=== PATIENT | female | born 1935 | race Caucasian/White ===

== ENCOUNTER → 2017-12-26 12:22 | Outpatient (CLI) | payer MEDICARE, OTHER, SELFPAY ==
--- NOTE | 2017-12-26 12:31 | RAD_ITS ---
STUDY: X-RAY - NASAL BONES REASON FOR EXAM: Female, 82 years old. MASS ON RIGHT SIDE OF MID NASAL BRIDGE. TECHNIQUE: 3 view(s) of the nasal bones. COMPARISON: None. FINDINGS: Normal nasal bones. Normal anterior nasal spine. There is no demonstrated soft tissue swelling. The remaining visualized osseous structures are normal. Normal visualized paranasal sinuses. RAD/Nasal Bones min 3 Views IMPRESSION: Normal x-ray examination of the nasal bones. Electronically Signed: Wilver Milton MD at 17:12 EST , Service support ,
== END ==
PROVIDERS: Family Provider Internal Medicine; PCP Internal Medicine; Visit Provider Internal Medicine
DX: R22.0 Localized swelling, mass and lump, head (principal)
CPT/HCPCS: 70160

== ENCOUNTER → 2018-01-02 09:31 | Outpatient (CLI) | payer MEDICARE, OTHER, SELFPAY ==
--- NOTE | 2018-01-02 12:46 | STRESSREP ---
Stress Test Report Stress test. 82-year-old lady with a history of dyspnea. Stress protocol: Resting EKG demonstrates normal sinus rhythm with a rate of 90 bpm. The patient exercised according to the regular [facility] protocol for total duration of 3 minutes the maximum heart rate attained was 142 bpm which was 101% of maximum predicted heart rate the maximum workload attained was 4.6 metabolic equivalents. At rest there were no ST or T-wave changes noted suggest ischemia at peak exercise upsloping ST changes only were noted with no meet the criteria for ischemia. No clinical angina was noted. Resting blood pressure is 124/82 with a peak blood pressure 172/80. The test was terminated due to shortness of breath. Exercise stress test with no EKG criteria for ischemia at a low workload. Good functional aerobic capacity for an 82-year-old. No obvious ischemia noted.
== END ==
PROVIDERS: Family Provider Internal Medicine; PCP Internal Medicine; Visit Provider Internal Medicine Cardiovascular Disease
DX: R06.02 Shortness of breath (principal); R06.09 Other forms of dyspnea
CPT/HCPCS: 93017

== ENCOUNTER → 2018-02-26 10:49 | Outpatient (CLI) | payer MEDICARE, OTHER, SELFPAY ==
--- NOTE | 2018-02-26 10:51 | BI_ITS ---
MAMMOGRAPHY - BILATERAL SCREENING 3-D KIKA SYNTHESIS REASON FOR EXAM: Female, 82 years old. Bilateral Screening 3-D tomosynthesis PERTINENT HISTORY: No significant family history. TECHNIQUE: 2-D mammograms and 3-D Kika synthesis of the breast (s) were performed. CAD was performed. COMPARISON: None. FINDINGS: The breast composition is composed of scattered fibroglandular density. Scattered benign calcifications are seen. No dense spiculated masses or suspicious microcalcifications are identified. No architectural distortion is identified. There is no skin thickening or retraction. There has been no significant change since the prior study. There has been no significant change since the prior study. BI/SCREENING MAMM (CAD), BILAT IMPRESSION: No mammographic signs of malignancy. Routine yearly mammograms recommended. ASSESSMENT CATEGORY: BIRADS Category 1: Negative. A letter regarding these results will be sent to the patient by the facility within 30 days. FOLLOW UP RECOMMENDATION: Yearly follow up mammogram recommended. (A) Approximately 10% of breast cancers are not detected by mammography. A normal mammogram should not delay biopsy of a clinically suspicious abnormality. Electronically Signed: Nnamdi Singh MD at 12:52 EDT , Service support ,
== END ==
PROVIDERS: Family Provider Internal Medicine; PCP Internal Medicine; Visit Provider Internal Medicine
DX: Z12.31 Encounter for screening mammogram for malignant neoplasm of breast (principal)
CPT/HCPCS: 77063; 77067

== ENCOUNTER → 2018-07-11 13:20 | Outpatient (CLI) | payer MEDICARE, OTHER, SELFPAY ==
[2018-07-11] MEDS: Zoledronic Acid 5 MG 100 ML 300 MG IV (13:44)
[2018-07-11 13:45] VITALS: BP 108/60; PULSE 59; RESP 15; TEMP 36.5; O2SAT 96; BMI 30.8
== END ==
PROVIDERS: Family Provider Internal Medicine; PCP Internal Medicine; Visit Provider Internal Medicine
DX: M81.0 Age-related osteoporosis without current pathological fracture (principal)
CPT/HCPCS: 96365; J7050; A4216; J3489

== ENCOUNTER → 2018-09-04 12:17 | Outpatient (CLI) | payer MEDICARE, OTHER, SELFPAY ==
--- NOTE | 2018-09-04 12:19 | CT_ITS ---
STUDY: LOW DOSE CT LUNG CANCER SCREENING REASON FOR EXAM: Female, 82 years old. Screening for lung cancer. RADIATION DOSAGE (If Supplied By Facility): CTDIvol = ( 2.55 ) mGy, DLP = ( 84.87 ) mGycm TECHNIQUE: No contrast was administered. Low dose technique was utilized (average mAS-38 and kVp 120). 1.25 mm axial source images with a slice interval of 1.25-mm were reconstructed in lung windows. 2.5 mm axial source images with a slice interval of 2.5-mm were reconstructed in lung windows. 5.0 mm axial source images with a slice interval of 5.0-mm were reconstructed in soft tissue windows. Nodule measured using lung windows on PACS and/or independent workstation with automated measurement of minimum and maximum diameter. Nodule measurement reported as average diameter rounded to the nearest whole number. Growth is defined as an increase ins size of greater than 1.5 mm. COMPARISON: None. NODULES: Hyperinflation is noted in both lungs suggesting COPD. There is no demonstrated pleural abnormality. Normal heart and pericardium. Normal mediastinum. Normal hilar regions. Normal unenhanced pulmonary arteries. Normal aorta arch and descending thoracic aorta. There are multi-level degenerative changes of the thoracic spine. There is no demonstrated abnormality of the visualized upper abdomen. CT/Low Dose CT Lung Screening IMPRESSION: Lung-RADS category 2. Benign findings. Recommendation: Routine screening CT scan in one year. IMPORTANT NOTES FOR USE: ACR Lung-RADS Version 1.0 Assessment Categories Release Date: February 24, 2014 Category: Coded 0-4 bases on nodule(s) with highest degree of suspicion. Negative screen is defined as categories 1 and 2; a positive screen is defined as categories 3 and 4. Category 3 and 4A nodules that are unchanged on interval CT should be coded as category 2, and individuals returned to screening in 12 months. Category 4X: Category 3 or 4 nodules with additional imaging findings that increase the suspicion of lung cancer, such as spiculation, GGN that doubles in size in 1 year, enlarged lymph notes, etc. Category Modifiers: S (significant finding unrelated to lung cancer) and C (prior history of treated lung cancer) may be added to the 0-4 Lung-RADS Electronically Signed: Julia Umana MD at 8:13 EST Tel , Service support ,
== END ==
PROVIDERS: Family Provider Internal Medicine; PCP Internal Medicine; Referring Provider Internal Medicine Pulmonary Disease; Visit Provider Internal Medicine Pulmonary Disease
DX: Z87.891 Personal history of nicotine dependence (principal)
CPT/HCPCS: G0297

== ENCOUNTER → 2019-01-03 12:39 | Outpatient (CLI) | payer MEDICARE, OTHER, SELFPAY ==
[2019-01-03 12:57] LABS: Erythrocyte Sedimentation Rate 8 mm/hr (0-30)
[2019-01-03 13:01] LABS: CRP < 2.90 mg/L (0.0-3.0)
== END ==
PROVIDERS: Family Provider Internal Medicine; PCP Internal Medicine; Referring Provider Internal Medicine; Visit Provider Internal Medicine
DX: R51 Headache (principal)
CPT/HCPCS: 85652; 86140

== ENCOUNTER → 2019-02-28 10:15 | Outpatient (CLI) | payer MEDICARE, OTHER, SELFPAY ==
--- NOTE | 2019-02-28 10:19 | BI_ITS ---
MAMMOGRAPHY - BILATERAL SCREENING REASON FOR EXAM: Female, 83 years old. Routine annual screening examination. PERTINENT HISTORY: Non-contributory. TECHNIQUE: Digital bilateral breast roddy (3D mammographic acquisition) in the CC and MLO projections. 2-D mediolateral oblique (MLO) and craniocaudad (CC) views of both breasts were obtained. CAD: Full Field Digital Mammography with Computer Added Detection was performed. COMPARISON: Comparison is made with prior study dated February 26, 2018 and February 22, 2017. FINDINGS: Breast Composition: There are scattered areas of fibroglandular density. There are no dominant masses or suspicious calcifications. No other significant abnormalities are identified. There has been no significant change since the prior study. BI/SCREENING MAMM (CAD), BILAT IMPRESSION: Stable bilateral screening mammogram. Yearly follow-up mammogram recommended. (A) ASSESSMENT CATEGORY: BIRADS Category 1: Negative. A letter regarding these results will be sent to the patient by the facility within 30 days. Approximately 10% of breast cancers are not detected by mammography. A normal mammogram should not delay biopsy of a clinically suspicious abnormality. [id number] Electronically Signed: Marky Colunga, at 12:47 EDT , Service support ,
--- NOTE | 2019-02-28 10:30 | BD_ITS ---
STUDY: DUAL ENERGY X-RAY ABSORPTIOMETRY / DXA REASON FOR EXAM: Female, 83 years old. The patient is postmenopausal. Loss of height. TECHNIQUE: Bone Mineral Density (BMD) measurements of lumbar spine and bilateral hips were obtained. COMPARISON: Comparison is made with prior study dated February 22, 2017. FINDINGS: Lumbar Spine (L1-L4): g/cm2 (0.925) / T-score (-2.1) / Z-score (-0.3) Findings are suggestive of osteopenia with a moderate fracture risk. Left Femur Total: g/cm2 (0.747) / T-score (-2.1) / Z-score (0.0) Left Femoral Neck: g/cm2 (0.613) / T-score (-3.1) / Z-score (10.8) Right Femur Total: g/cm2 (0.696) / T-score (-2.5) / Z-score (-0.4) Right Femoral Neck: g/cm2 (0.626) / T-score (-3.0) / Z-score (-0.8) The T-Scores on the most recent prior examination were: Lumbar Spine (L1-L4): There has been improvement of bone density since the previous examination. Left Femur Total: which represents an improvement of 0.3%. Right Femur Total: which represents a worsening of 4%. BD/Dexa Bone Density Study IMPRESSION: The patient is considered osteoporotic as outlined below according to World Tony Organization (WHO) criteria with a high fracture risk. There has been improvement of bone density since the previous examination. Reference Information: The T-score is the number of standard deviations above or below the standard which is normal for young adults at their peak bone mineral density. The World Health Organization (WHO) interprets the T-scores as follows: Above -1 Normal bone density Between -1 and -2.5 Osteopenia Equal to / or below -2.5 Osteoporosis As a practical clinical guideline, osteopenia may be graded as follows: Mild -1 through -1.5 Moderate -1.6 through -2.0 Severe -2.1 through -2.4 The Z-score is the number of standard deviations above or below age-matched controls. A Z-score of less than -1.5 would be considered abnormal. References: 1. NIH Osteoporosis and Related Bone Diseases http://www.osteo.org 2. International Society for Clinical Densitometry http://www.iscd.org 3. National Osteoporosis Foundation http://www.nof.org Electronically Signed: Marky Colunga, at 15:38 EDT , Service support ,
== END ==
PROVIDERS: Family Provider Internal Medicine; PCP Internal Medicine; Referring Provider Internal Medicine; Visit Provider Internal Medicine
DX: Z12.31 Encounter for screening mammogram for malignant neoplasm of breast (principal); M81.0 Age-related osteoporosis without current pathological fracture; Z78.0 Asymptomatic menopausal state
CPT/HCPCS: 77063; 77067; 77080

== ENCOUNTER → 2019-07-18 10:22 | Outpatient (CLI) | payer MEDICARE, OTHER, SELFPAY ==
[2019-07-18] MEDS: Zoledronic Acid 5 MG 100 ML 300 MG IV (10:51)
[2019-07-18 10:52] VITALS: BP 170/53; PULSE 86; RESP 16; TEMP 36.9; O2SAT 98; BMI 27.0
== END ==
PROVIDERS: Family Provider Internal Medicine; PCP Internal Medicine; Referring Provider Internal Medicine; Visit Provider Internal Medicine
DX: M81.0 Age-related osteoporosis without current pathological fracture (principal)
CPT/HCPCS: 96365; A4216; J3489

== ENCOUNTER → 2019-09-04 12:32 | Outpatient (CLI) | payer MEDICARE, OTHER, SELFPAY ==
[2019-08-23 11:27] VITALS: BMI 27.6
--- NOTE | 2019-09-04 12:34 | CT_ITS ---
STUDY: LOW DOSE CT LUNG CANCER SCREENING REASON FOR EXAM: Female, 83 years old. Long history of smoking. Screening for lung cancer. RADIATION DOSAGE (If Supplied By Facility): CTDIvol = ( 1.70 ) mGy, DLP = ( 52.97 ) mGycm TECHNIQUE: No contrast was administered. Low dose technique was utilized (average mAS-38 and kVp 120). 1.25 mm axial source images with a slice interval of 1.25-mm were reconstructed in lung windows. 2.5 mm axial source images with a slice interval of 2.5-mm were reconstructed in lung windows. 5.0 mm axial source images with a slice interval of 5.0-mm were reconstructed in soft tissue windows. Nodule measured using lung windows on PACS and/or independent workstation with automated measurement of minimum and maximum diameter. Nodule measurement reported as average diameter rounded to the nearest whole number. Growth is defined as an increase ins size of greater than 1.5 mm. COMPARISON: None. NODULES: The lungs are clear and expanded. There is no demonstrated pleural abnormality. Normal heart and pericardium. Normal mediastinum. Normal hilar regions. Normal unenhanced pulmonary arteries. There is atherosclerotic calcification of the aortic arch with tortuosity and elongation of the aortic arch and descending thoracic aorta. There are multi-level degenerative changes of the thoracic spine. There is no demonstrated abnormality of the visualized upper abdomen. CT/Low Dose CT Lung Screening IMPRESSION: Lung-RADS category 2. Benign findings. Recommendation: Routine screening CT scan in one year. IMPORTANT NOTES FOR USE: ACR Lung-RADS Version 1.0 Assessment Categories Release Date: February 24, 2014 Category: Coded 0-4 bases on nodule(s) with highest degree of suspicion. Negative screen is defined as categories 1 and 2; a positive screen is defined as categories 3 and 4. Category 3 and 4A nodules that are unchanged on interval CT should be coded as category 2, and individuals returned to screening in 12 months. Category 4X: Category 3 or 4 nodules with additional imaging findings that increase the suspicion of lung cancer, such as spiculation, GGN that doubles in size in 1 year, enlarged lymph notes, etc. Category Modifiers: S (significant finding unrelated to lung cancer) and C (prior history of treated lung cancer) may be added to the 0-4 Lung-RADS Electronically Signed: Julia Umana, at 1:20 EST Tel , Service support ,
== END ==
PROVIDERS: Family Provider Internal Medicine; PCP Internal Medicine; Referring Provider Internal Medicine Pulmonary Disease; Visit Provider Internal Medicine Pulmonary Disease
DX: Z12.2 Encounter for screening for malignant neoplasm of respiratory organs (principal); Z87.891 Personal history of nicotine dependence
CPT/HCPCS: G0297

== ENCOUNTER → 2019-09-05 12:38 | Outpatient (CLI) | payer MEDICARE, OTHER, SELFPAY ==
[2019-08-23 11:27] VITALS: BMI 27.6
--- NOTE | 2019-09-05 12:40 | ECHOD_ITS ---
Reason For Study: MURMUR Procedure This was a 2D Doppler, Color Flow transthoracic echocardiogram. The exam was of adequate technical quality. Exam performed in department. Left Ventricle Normal LV size. Left ventricular systolic function is normal. The estimated ejection fraction is 65 %. Diastolic function is indeterminate. No regional wall motion abnormalities noted. Right Ventricle Normal RV size. Normal systolic function. Atria Normal left atrium. Normal right atrium. No doppler evidence for ASD. Mitral Valve There is no mitral annular calcification. Normal mitral valve. Mild (1+) mitral valve insufficiency. Tricuspid Valve Normal tricuspid valve. Mild tricuspid valve insufficiency. Right ventricular systolic pressure estimated to be 25 mmHg. Aortic Valve Trisinus/trileaflet aortic valve. Normal aortic valve. Pulmonic Valve The pulmonic valve is not well visualized. Mild (1+) pulmonic valve insufficiency. Great Vessels Normal sized aortic root. Calcified aortic root. Pericardium/Pleural No pericardial effusion. MMode/2D Measurements & Calculations LVIDd: 3.9 cm IVSd: 0.90 cm Ao root diam: 3.1 cm LVIDs: 2.7 cm LVPWd: 0.90 cm RVDd: 3.4 cm FS: 31.8 % LAV(MOD-bp): 37.6 ml LVAd ap4: 23.7 cm2 SV(MOD-sp4): 41.1 ml LAV(MOD-bp) Indexed: 23.2 ml/m2 EDV(MOD-sp4): 64.0 ml LAV(MOD-sp2): 35.2 ml EDV(sp4-el): 67.5 ml LAV(MOD-sp4): 35.1 ml LVAs ap4: 12.4 cm2 ESV(MOD-sp4): 22.9 ml ESV(sp4-el): 23.1 ml EF(MOD-sp4): 64.3 % EF(sp4-el): 65.8 % SV(sp4-el): 44.4 ml LA A4 area: 15.8 cm2 LA dimension(2D): 3.4 cm RA A4 area: 12.7 cm2 Time Measurements MV dec time: 0.24 sec Doppler Measurements & Calculations MV E max karthik: 96.1 cm/sec Lat Peak E' Karthik: 6.9 cm/sec Med Peak E' Karthik: 5.4 cm/sec MV A max karthik: 122.0 cm/sec E/E' lat: 13.9 E/E' med: 17.7 MV E/A: 0.79 Ao V2 max: 124.9 cm/sec LV V1 max: 106.5 cm/sec PA V2 max: 83.6 cm/sec Ao max P.2 mmHg LV V1 max P.5 mmHg PI end-d karthik: 79.2 cm/sec TR max karthik: 234.9 cm/sec TR max P.2 mmHg Interpretation Summary Left ventricular systolic function is normal. The estimated ejection fraction is 65 %. Mild (1+) mitral valve insufficiency. Mild tricuspid valve insufficiency. Mild (1+) pulmonic valve insufficiency. Calcified aortic root. Right ventricular systolic pressure estimated to be 25 mmHg. Diastolic function is indeterminate. Ordering Physician: Gregory Valentin Referring Physician: ERIC YAN Performed By: Kassi Dai, RDCS, RVT
--- NOTE | 2019-09-05 12:40 | CDU_ITS ---
Reason For Study: carotid artery disease Rt. Velocities/BP Lt. Velocities/BP Prox CCA 86.5/13.4 cm/sec. Prox CCA 115.8/16.3 cm/sec. Mid CCA 65.6/14.7 cm/sec. Mid CCA 88.8/15.1 cm/sec. Dist CCA 61.7/17.3 cm/sec. Dist CCA 91.3/22.5 cm/sec. Prox ICA 189.9/26.7 cm/sec. Prox ICA 55.3/12.4 cm/sec. Mid ICA 114.8/24.8 cm/sec. Mid ICA 85.0/17.9 cm/sec. Dist ICA 106.0/22.6 cm/sec. Dist ICA 82.8/25.6 cm/sec. Rt. ICA/CCA = 2.9. Lt. ICA/CCA = 1.0. Prox ECA 97.4/6.0 cm/sec. Prox ECA 87.5/10.2 cm/sec. Rt. Vert. 59.7/12.4 cm/sec. Lt. Vert. 56.4/12.4 cm/sec. Right Extracranial There is intimal thickening but no significant atherosclerotic plaque noted in the right common carotid artery. There is heterogeneous, irregular atherosclerotic plaque noted in the right internal carotid artery. The atherosclerotic plaque causes acoustic shadowing. There is heterogeneous, irregular atherosclerotic plaque noted in the right external carotid artery. Antegrade flow is noted in the right vertebral artery. Left Extracranial There is intimal thickening but no significant atherosclerotic plaque noted in the left common carotid artery. There is intimal thickening but no significant atherosclerotic plaque noted in the left internal carotid artery. There is intimal thickening but no significant atherosclerotic plaque noted in the left external carotid artery. Antegrade flow is noted in the left vertebral artery. Procedure Carotid Duplex [id number]. The exam was diagnostic. Exam performed in department. Interpretation Summary Moderate (50-69%) stenosis right extracranial internal carotid. Mild (<50%) stenosis left extracranial internal carotid. Flow within the vertebral arteries is antegrade bilaterally. Ordering Physician: Gregory Valentin Performed By: Philippe Da Silva RVT
== END ==
PROVIDERS: Family Provider Internal Medicine; PCP Internal Medicine; Referring Provider Internal Medicine Cardiovascular Disease; Visit Provider Internal Medicine Cardiovascular Disease
DX: I65.23 Occlusion and stenosis of bilateral carotid arteries (principal); R01.1 Cardiac murmur, unspecified
CPT/HCPCS: 93306; 93880

== ENCOUNTER → 2020-07-02 10:48 | Outpatient (CLI) | payer MEDICARE, OTHER, SELFPAY ==
[2019-08-23 11:27] VITALS: BMI 27.6
--- NOTE | 2020-07-02 10:51 | BI_ITS ---
MAMMOGRAPHY - BILATERAL SCREENING REASON FOR EXAM: Female, 84 years old. Routine annual screening examination. PERTINENT HISTORY: Non-contributory. TECHNIQUE: Digital bilateral breast kika (3D mammographic acquisition) in the CC and MLO projections. 2-D mediolateral oblique (MLO) and craniocaudad (CC) views of both breasts were obtained. CAD: Full Field Digital Mammography with Computer Added Detection was performed. COMPARISON: Comparison is made with prior study dated 02/28/2019 and 02/26/2018. FINDINGS: Breast Composition: There are scattered areas of fibroglandular density. There are no dominant masses or suspicious calcifications. No other significant abnormalities are identified. There has been no significant change since the prior study. BI/SCREEN MAMM (CAD) W/KIKA BILAT IMPRESSION: Stable bilateral screening mammogram. Yearly follow-up mammogram recommended. (A) ASSESSMENT CATEGORY: BIRADS Category 1: Negative. A letter regarding these results will be sent to the patient by the facility within 30 days. Approximately 10% of breast cancers are not detected by mammography. A normal mammogram should not delay biopsy of a clinically suspicious abnormality. [id number] Electronically Signed: Marky Colunga, at 12:24 EDT , Service support ,
== END ==
PROVIDERS: PCP Internal Medicine; Referring Provider Internal Medicine; Visit Provider Internal Medicine
DX: Z12.31 Encounter for screening mammogram for malignant neoplasm of breast (principal)
CPT/HCPCS: 77063; 77067

== ENCOUNTER → 2020-07-22 10:47 | Outpatient (CLI) | payer MEDICARE, OTHER, SELFPAY ==
[2019-08-23 11:27] VITALS: BMI 27.6
[2020-07-22] MEDS: 0.9% NaCl IVPB Med Flush (250 mL) 15 ML IV (11:06)
[2020-07-22] MEDS: Zoledronic Acid 5 MG 100 ML 300 MG IV (11:06)
[2020-07-22 11:18] VITALS: BP 131/64; PULSE 52; RESP 16; TEMP 36.2; O2SAT 96; BMI 27.3
== END ==
PROVIDERS: PCP Internal Medicine; Referring Provider Internal Medicine; Visit Provider Internal Medicine
DX: M81.0 Age-related osteoporosis without current pathological fracture (principal)
CPT/HCPCS: 96365; J7050; A4216; J3489

== ENCOUNTER → 2020-12-07 10:38 | Outpatient (CLI) | payer MEDICARE, OTHER, SELFPAY ==
[2020-11-11 13:39] VITALS: BMI 28.3
--- NOTE | 2020-12-07 10:41 | CDU_ITS ---
Reason For Study: Carotid Stenosis Rt. Velocities/BP Lt. Velocities/BP Prox CCA 84/15 cm/sec. Prox CCA 77/19 cm/sec. Mid CCA 61/18 cm/sec. Mid CCA 66/14 cm/sec. Dist CCA 55/22 cm/sec. Dist CCA 69/17 cm/sec. Prox ICA 217/28 cm/sec. Prox ICA 61/17 cm/sec. Mid ICA 183/28 cm/sec. Mid ICA 85/24 cm/sec. Dist ICA 102/19 cm/sec. Dist ICA 74/22 cm/sec. Rt. ICA/CCA = 3.5. Lt. ICA/CCA = 1.3. Prox ECA 55/13 cm/sec. Prox ECA 93/8 cm/sec. Rt. Vert. 56/10 cm/sec. Lt. Vert. 57/14 cm/sec. Right Extracranial There is heterogeneous, irregular atherosclerotic plaque noted in the right common carotid artery. There is heterogeneous, irregular atherosclerotic plaque noted in the right internal carotid artery. The atherosclerotic plaque causes acoustic shadowing. There is heterogeneous, irregular atherosclerotic plaque noted in the right external carotid artery. Antegrade flow is noted in the right vertebral artery. Left Extracranial There is intimal thickening but no significant atherosclerotic plaque noted in the left common carotid artery. There is heterogeneous, smooth atherosclerotic plaque noted in the left internal carotid artery. There is homogeneous, irregular atherosclerotic plaque noted in the left external carotid artery. Antegrade flow is noted in the left vertebral artery. Interpretation Summary Moderate (50-69%) stenosis right extracranial internal carotid. Mild (<50%) stenosis left extracranial internal carotid. Flow within the vertebral arteries is antegrade bilaterally. Ordering Physician: Romel Araiza Referring Physician: Khushi Balderrama Performed By: Dianne Caldwell, RDCS, RVT
== END ==
PROVIDERS: PCP Internal Medicine; Referring Provider Surgery Vascular Surgery; Visit Provider Surgery Vascular Surgery
DX: I65.23 Occlusion and stenosis of bilateral carotid arteries (principal); Z72.0 Tobacco use
CPT/HCPCS: 93880

== ENCOUNTER → 2021-07-06 10:32 | Outpatient (CLI) | payer MEDICARE, OTHER, SELFPAY ==
[2020-11-11 13:39] VITALS: BMI 28.3
--- NOTE | 2021-07-06 10:35 | BI_ITS ---
MAMMOGRAPHY - BILATERAL SCREENING REASON FOR EXAM: Female, 85 years old. Routine annual screening examination. PERTINENT HISTORY: Non-contributory. TECHNIQUE: Digital bilateral breast kika (3D mammographic acquisition) in the CC and MLO projections. 2-D mediolateral oblique (MLO) and craniocaudad (CC) views of both breasts were obtained. CAD: Full Field Digital Mammography with Computer Added Detection was performed. COMPARISON: Comparison is made with prior study dated 07/02/2020 and 02/28/2019. FINDINGS: Breast Composition: The breasts are almost entirely fatty. There are no dominant masses or suspicious calcifications. No other significant abnormalities are identified. There has been no significant change since the prior study. BI/SCRN MAMM (CAD)W/KIKA BILAT IMPRESSION: Stable bilateral screening mammogram. Yearly follow-up mammogram recommended. (A) ASSESSMENT CATEGORY: BIRADS Category 1: Negative. A letter regarding these results will be sent to the patient by the facility within 30 days. Approximately 10% of breast cancers are not detected by mammography. A normal mammogram should not delay biopsy of a clinically suspicious abnormality. [id number] Electronically Signed: Marky Colunga MD at 15:40 EDT , Service support ,
--- NOTE | 2021-07-06 11:00 | BD_ITS ---
STUDY: DUAL ENERGY X-RAY ABSORPTIOMETRY / DXA REASON FOR EXAM: Female, 85 years old. [id number]. Patient is postmenopausal. TECHNIQUE: Bone Mineral Density (BMD) measurements of lumbar spine and bilateral hips were obtained. COMPARISON: Comparison is made with prior examination of 02/28/2019. FINDINGS: Lumbar Spine (L1-L4): g/cm2 (0.795) / T-score (-2.3) / Z-score (0.5) Findings are suggestive of osteopenia with a high fracture risk. Left Femur Total: g/cm2 (0.679) / T-score (-2.2) / Z-score (0.1) Left Femoral Neck: g/cm2 (0.500) / T-score (-3.1) / Z-score (-0.7) Right Femur Total: g/cm2 (0.662) / T-score (-2.3) / Z-score (0.0) Right Femoral Neck: g/cm2 (0.5-0) / T-score (-3.0) / Z-score (-0.5) The T-Scores on the most recent prior examination were: Lumbar Spine (L1-L4): There has been worsening of bone density since the previous examination. Left Femur Total: which represents a worsening of 1.4%. Right Femur Total: which represents an improvement of 3.6%. BD/Dexa Bone Density Study IMPRESSION: The patient is considered osteoporotic as outlined below according to World Tony Organization (WHO) criteria with a high fracture risk. There has been worsening of bone density since the previous examination. Reference Information: The T-score is the number of standard deviations above or below the standard which is normal for young adults at their peak bone mineral density. The World Health Organization (WHO) interprets the T-scores as follows: Above -1 Normal bone density Between -1 and -2.5 Osteopenia Equal to / or below -2.5 Osteoporosis As a practical clinical guideline, osteopenia may be graded as follows: Mild -1 through -1.5 Moderate -1.6 through -2.0 Severe -2.1 through -2.4 The Z-score is the number of standard deviations above or below age-matched controls. A Z-score of less than -1.5 would be considered abnormal. References: 1. NIH Osteoporosis and Related Bone Diseases www osteo.org 2. International Society for Clinical Densitometry www iscd.org 3. National Osteoporosis Foundation www nof.org Electronically Signed: Marky Colunga MD at 13:26 EDT , Service support ,
== END ==
PROVIDERS: PCP Internal Medicine; Referring Provider Internal Medicine; Visit Provider Internal Medicine
DX: Z12.31 Encounter for screening mammogram for malignant neoplasm of breast (principal); Z78.0 Asymptomatic menopausal state
CPT/HCPCS: 77063; 77067; 77080

== ENCOUNTER → 2021-08-03 10:41 | Outpatient (CLI) | payer MEDICARE, OTHER, SELFPAY ==
[2021-08-03] MEDS: 0.9% NaCl Peripheral Flush Adult/Peds IV (10:46)
[2021-08-03 10:47] VITALS: BP 175/67; PULSE 88; RESP 16; TEMP 35.9; O2SAT 98; BMI 30.4
[2021-08-03] MEDS: 0.9% NaCl IVPB Med Flush (250 mL) 15 ML IV (10:58)
[2021-08-03] MEDS: Zoledronic Acid 5 MG 100 ML 300 MG IV (10:58)
[2021-08-03 11:40] VITALS: BP 158/68; RESP 16; TEMP 36
== END ==
PROVIDERS: PCP Internal Medicine; Referring Provider Internal Medicine; Visit Provider Internal Medicine
DX: M81.0 Age-related osteoporosis without current pathological fracture (principal)
CPT/HCPCS: 96365; J7050; A4216; J3489

== ENCOUNTER → 2021-09-01 09:43 | Outpatient (CLI) | payer MEDICARE, OTHER, SELFPAY ==
--- NOTE | 2021-09-01 09:48 | US_ITS ---
PROCEDURES: ULTRASOUND AORTA REASON FOR EXAM: Female, 85 years old. ABN ADB AORTA TECHNIQUE: Ultrasound evaluation of the aorta was performed with real-time and static mcleod-scale imaging. COMPARISON: None. FINDINGS: There is atherosclerotic plaque formation of the abdominal aorta. Aorta measures: Proximal 2.4 cm. Middle 1.2 cm. Distal 1.3 cm. Aorta measure transversely: Proximal 1.7 cm. Middle 1. cm. Distal 1.2 cm. Right iliac artery measures: 0.5 cm. Right iliac artery measure transversely: 0.7 cm. Left iliac artery measures: 0.5 cm. Left iliac artery measure transversely: 0.8 cm. There is no demonstrated aneurysm.. US/Aorta IMPRESSION: No evidence of abdominal aortic aneurysm. Atherosclerotic plaques. Electronically Signed: Marky Colunga MD at 11:09 EDT , Service support ,
== END ==
PROVIDERS: PCP Internal Medicine; Referring Provider Internal Medicine; Visit Provider Internal Medicine
DX: I73.9 Peripheral vascular disease, unspecified (principal); Q25.40 Congenital malformation of aorta unspecified
CPT/HCPCS: 76775

== ENCOUNTER → 2022-02-22 | Outpatient (CLI) | payer MEDICARE, OTHER, SELFPAY | END | disposition home or self-care (01) | LOC: PSN 10:46 | PROVIDERS: PCP Internal Medicine; Referring Provider Internal Medicine; Visit Provider Internal Medicine | DX: R00.1 Bradycardia, unspecified (principal) | CPT/HCPCS: 93225; 93226 ==

== ENCOUNTER → 2022-03-08 | Outpatient (CLI) | payer MEDICARE, OTHER, SELFPAY ==
--- NOTE | 2022-03-08 08:49 | CDU_ITS ---
Reason For Study: carotid stenosis Rt. Velocities/BP Lt. Velocities/BP Prox CCA 95.4/20.4 cm/sec. Prox CCA 114.6/17.6 cm/sec. Mid CCA 58.5/16.8 cm/sec. Mid CCA 85.1/13.9 cm/sec. Dist CCA 38.9/13.1 cm/sec. Dist CCA 80.2/15.1 cm/sec. Prox ICA 258.1/40.5 cm/sec. Prox ICA 67.9/13.9 cm/sec. Mid ICA 219.3/63.8 cm/sec. Mid ICA 86.3/22.5 cm/sec. Dist ICA 122.9/38.9 cm/sec. Dist ICA 79.0/16.3 cm/sec. Rt. ICA/CCA = 4.4. Lt. ICA/CCA = 1.0. Prox ECA 152.8/14.6 cm/sec. Prox ECA 103.5/11.4 cm/sec. Rt. Vert. 35.2/13.5 cm/sec. Lt. Vert. 54.4/11.4 cm/sec. Right Extracranial There is heterogeneous, irregular atherosclerotic plaque noted in the right common carotid artery. There is heterogeneous, irregular atherosclerotic plaque noted in the right internal carotid artery. The atherosclerotic plaque causes acoustic shadowing. There is heterogeneous, irregular atherosclerotic plaque noted in the right external carotid artery. Antegrade flow is noted in the right vertebral artery. Abnormal waveform morphology noted in the right vertebral artery. Left Extracranial There is intimal thickening but no significant atherosclerotic plaque noted in the left common carotid artery. There is heterogeneous, irregular atherosclerotic plaque noted in the left internal carotid artery. There is homogeneous, smooth atherosclerotic plaque noted in the left external carotid artery. Antegrade flow is noted in the left vertebral artery. Procedure Carotid Duplex 10107. This is a Carotid Duplex examination using B-mode, color flow and specral Doppler. The exam was diagnostic. Exam performed in department. Prelim called to Dr. Balderrama's office. VL/Carotid Duplex Ultrasound Interpretation Summary Moderate (50-69%) stenosis right extracranial internal carotid. Mild (<50%) melissa nosis left extracranial internal carotid. Flow within the vertebral arteries is antegrade bilaterally. Ordering Physician: Khushi Balderrama Performed By: Philippe Da Silva RVT
--- NOTE | 2022-03-08 08:50 | RDU_ITS ---
Reason For Study: renal artery stenosis Right Renal Artery Left Renal Artery Right renal artery ostium Left renal artery ostium 377.1/55.1 220.5/20.4 RSV/EDV. PSV/EDV. Right renal artery proximal Left renal artery proximal PSV/EDV 181.3/20.4 PSV/EDV. 363.1/45.8 . Right renal artery mid 232.3/24.3 Left renal artery mid 374.4/38.2 PSV/EDV. PSV/EDV . Right renal artery distal Left renal artery distal 374.5/70.6 232.6/32.0 PSV/EDV. PSV/EDV. Right Renal Parenchyma Left Renal Parenchyma Upper Pole Medula 47.3/9.7 PSV/EDV. Left upper pole medulla 23.6/6.7 Right upper pole medulla EDR .21 . PSV/EDV . Right upper pole medulla R.I. .79 . Left upper pole medulla EDR .29 . Upper Clint Cortx 43.4/8.4 PSV/EDV. Left upper pole medulla R.I. .71 . Right upper pole cortex EDR .19 . UP Cortex 28.8/9.3 PSV/EDV. Right upper pole cortex R.I. .81 . Left upper pole cortex EDR .32 . Right lower Pole medulla 40.8/7.1 Left upper pole cortex R.I. .68 . PSV/EDV . Left lower Pole medulla 32.7/8.0 Right lower pole medulla EDR .17 . PSV/EDV . Right lower pole medulla R.I. .83 . Left lower pole medulla EDR .25 . Lower Pole Cortex 35.6/7.1 PSV/EDV. Left lower pole medulla R.I. .75 . Right lower pole cortex EDR .2 . Lower Pole Cortx 24.9/8.0 PSV/EDV. Right lower pole cortex R.I. .8 . Left lower pole cortex EDR .32 . Right Renal Hilar Left lower pole cortex R.I. .68 . Right Hilar avg 46.0/7.1 PSV/EDV. Left Renal Hilar Right hilar acceleration time 100 LT Hilar avg 56.0/9.3 PSV/EDV . m/sec. Left hilar acceleration time 90 Right Renal Dimensions m/sec. Right kidney size 11.9 cm . Left Renal Dimensions Right cortical dimension 1.47 cm . Left kidney size 10.48 cm . Left cortical dimension 1.48 cm . Aorta Proximal abdominal aorta 1.18 x 1.23 cm . Proximal abdominal aorta peak systolic velocity is 157.8 cm/sec . Distal abdominal aorta 1.21 x 1.18 cm . Distal abdominal aorta peak systolic velocity is 138.1 cm/sec . Normal renal veins bilat. Prelim called to Dr. Balderrama's office. VL/Renal Artery Duplex Ultrasound Interpretation Summary Bilateral renal arteries with greater than 60% degree of stenosis. Ordering Physician: Khushi Balderrama Performed By: Philippe Da Silva RVT
== END | disposition home or self-care (01) ==
LOC: CVS 08:46
PROVIDERS: PCP Internal Medicine; Referring Provider Internal Medicine; Visit Provider Internal Medicine
DX: I65.23 Occlusion and stenosis of bilateral carotid arteries (principal); I70.1 Atherosclerosis of renal artery; R00.1 Bradycardia, unspecified
CPT/HCPCS: 93880; 93975

== ENCOUNTER → 2022-07-11 | Outpatient (CLI) | payer MEDICARE, OTHER, SELFPAY ==
--- NOTE | 2022-07-11 10:32 | BI_ITS ---
MAMMOGRAPHY - BILATERAL SCREENING REASON FOR EXAM: Female, 86 years old. Routine annual screening examination. PERTINENT HISTORY: Non-contributory. TECHNIQUE: Digital bilateral breast kika (3D mammographic acquisition) in the CC and MLO projections. 2-D mediolateral oblique (MLO) and craniocaudad (CC) views of both breasts were obtained. CAD: Full Field Digital Mammography with Computer Added Detection was performed. COMPARISON: Comparison is made with prior study 07/06/2021 and 07/02/2020. FINDINGS: Breast Composition: The breasts are almost entirely fatty. There are no dominant masses or suspicious calcifications. No other significant abnormalities are identified. There has been no significant change since the prior study. BI/SCRN MAMM (CAD)W/KIKA BILAT IMPRESSION: Stable bilateral screening mammogram. Yearly follow-up mammogram recommended. (A) ASSESSMENT CATEGORY: BIRADS Category 1: Negative. A letter regarding these results will be sent to the patient by the facility within 30 days. Approximately 10% of breast cancers are not detected by mammography. A normal mammogram should not delay biopsy of a clinically suspicious abnormality. [id number] Electronically Signed: Marky Colunga MD at 12:15 EDT ,
== END | disposition home or self-care (01) ==
LOC: OPBD 10:31
PROVIDERS: PCP Internal Medicine; Visit Provider Internal Medicine
DX: Z12.31 Encounter for screening mammogram for malignant neoplasm of breast (principal)
CPT/HCPCS: 77063; 77067

== ENCOUNTER → 2022-08-08 | Outpatient (CLI) | payer MEDICARE, OTHER, SELFPAY ==
[2022-08-08] MEDS: 0.9% NaCl Peripheral Flush Adult/Peds IV (10:27)
[2022-08-08] MEDS: Zoledronic Acid 5 MG 100 ML 300 MG IV (10:32)
[2022-08-08 10:38] VITALS: BP 145/86; PULSE 69; RESP 16; TEMP 35.7; O2SAT 92; BMI 29.8
[2022-08-08 11:02] VITALS: BP 140/72; PULSE 59; RESP 16; TEMP 35.7; O2SAT 97
== END | disposition home or self-care (01) ==
LOC: MEDOUTP 10:16
PROVIDERS: PCP Internal Medicine; Referring Provider Internal Medicine; Visit Provider Internal Medicine
DX: M81.0 Age-related osteoporosis without current pathological fracture (principal)
CPT/HCPCS: 96365; A4216; J3489

== ENCOUNTER → 2022-12-29 | Outpatient (CLI) | payer MEDICARE, OTHER, SELFPAY ==
--- NOTE | 2022-12-29 12:47 | CT_ITS ---
STUDY: CT CHEST WITHOUT CONTRAST REASON FOR EXAM: Female, 87 years old. Persistent cough, smoker x60 years, COPD. RADIATION DOSAGE (If Supplied By Facility): CTDIvol = ( 6.71 ) mGy, DLP = ( 220.16 ) mGycm TECHNIQUE: Transaxial imaging was performed without the administration of intravenous contrast material. Multiplanar coronal and sagittal images were reformatted. Individualized dose optimization techniques were used for this CT. COMPARISON: No relevant priors. FINDINGS: CHEST Mild degree of emphysematous changes more prominent in the upper lobes. There is no demonstrated pleural abnormality. There are calcifications of the coronary arteries. There are multiple small lymph nodes within the mediastinum, which are normal in size and morphology most compatible with reactive lymph hyperplasia. Normal hilar regions. Normal unenhanced pulmonary arteries. There is atherosclerotic calcification of the aortic arch with tortuosity and elongation of the aortic arch and descending thoracic aorta. There are multi-level degenerative changes of the thoracic spine. There is no demonstrated abnormality of the visualized upper abdomen. CT/Chest without Contrast IMPRESSION: Mild degree of emphysematous changes more prominent in the upper lobes. Coronary artery calcification. Electronically Signed: Marky Colunga MD at 15:36 EST ,
== END | disposition home or self-care (01) ==
LOC: CT 12:46
PROVIDERS: PCP Internal Medicine; Referring Provider Internal Medicine; Visit Provider Internal Medicine
DX: R05.9 Cough, unspecified (principal); J44.9 Chronic obstructive pulmonary disease, unspecified; E22.2 Syndrome of inappropriate secretion of antidiuretic hormone; F17.200 Nicotine dependence, unspecified, uncomplicated
CPT/HCPCS: 71250

== ENCOUNTER → 2023-03-07 | Outpatient (CLI) | payer MEDICARE, OTHER, SELFPAY ==
--- NOTE | 2023-03-07 10:50 | CDU_ITS ---
Reason For Study: Carotid stenosis Rt. Velocities/BP Lt. Velocities/BP Subclavian artery 94.2/10.8 cm/sec. Prox CCA 107.6/16.3 cm/sec. Prox CCA 39/15.4 cm/sec. Mid CCA 87.5/14.4 cm/sec. Mid CCA 28.7/15.2 cm/sec. Dist CCA 79.8/12.7 cm/sec. Dist CCA 30.8/15.2 cm/sec. Prox ICA 79.8/16 cm/sec. Prox ICA 142.3/51.6 cm/sec. Mid ICA 83/15.5 cm/sec. Mid ICA 66.3/24.5 cm/sec. Dist ICA 60.9/14.2 cm/sec. Dist ICA 49.1/20.3 cm/sec. Lt. ICA/CCA = 0.95. Rt. ICA/CCA = 4.62. Prox ECA 119.8/6.6 cm/sec. Prox ECA 60.5/14.2 cm/sec. Lt. Vert. 119.8/21.2 cm/sec. Rt. Brachial BP = 118/90 mmHg. Lt. Brachial BP = 156/86 mmHg. Right Extracranial There is heterogeneous, irregular atherosclerotic plaque noted in the right common carotid artery. There is heterogeneous, irregular atherosclerotic plaque noted in the right internal carotid artery. There is heterogeneous, irregular atherosclerotic plaque noted in the right external carotid artery. Retrograde flow noted in the right vertebral artery. Left Extracranial There is intimal thickening but no significant atherosclerotic plaque noted in the left common carotid artery. There is heterogeneous, irregular atherosclerotic plaque noted in the left internal carotid artery. There is homogeneous, smooth atherosclerotic plaque noted in the left external carotid artery. Antegrade flow is noted in the left vertebral artery. Procedure Carotid Duplex [id number]. This is a Carotid Duplex examination using B-mode, color flow and specral Doppler. Exam performed in department. VL/Carotid Duplex Ultrasound Interpretation Summary Moderate (50-69%) stenosis right extracranial internal carotid. Mild (<50%) melissa nosis left extracranial internal carotid. Flow within the right verterbral artery is retro grade, consistent with a subclavian steal phenomenon. Flow within the left verterbral artery is a ntegrade. Ordering Physician: Romel Araiza Referring Physician: Khushi Balderrama M.D. Performed By: Candis Stubbs RVT
== END | disposition home or self-care (01) ==
LOC: CVS 10:48
PROVIDERS: PCP Internal Medicine; Referring Provider Surgery Vascular Surgery; Visit Provider Surgery Vascular Surgery
DX: I65.23 Occlusion and stenosis of bilateral carotid arteries (principal)
CPT/HCPCS: 93880

== ENCOUNTER → 2023-07-20 | Outpatient (CLI) | payer MEDICARE, OTHER, SELFPAY ==
--- NOTE | 2023-07-20 15:51 | BI_ITS ---
MAMMOGRAPHY - BILATERAL SCREENING REASON FOR EXAM: Female, 87 years old. Routine annual screening examination. PERTINENT HISTORY: Non-contributory. TECHNIQUE: Digital bilateral breast kika (3D mammographic acquisition) in the CC and MLO projections. 2-D mediolateral oblique (MLO) and craniocaudad (CC) views of both breasts were obtained. CAD: Full Field Digital Mammography with Computer Added Detection was performed. COMPARISON: Comparison is made with prior study dated July 11, 2022 and July 06, 2021. FINDINGS: Breast Composition: There are scattered areas of fibroglandular density. There are no dominant masses or suspicious calcifications. No other significant abnormalities are identified. There has been no significant change since the prior study. BI/SCRN MAMM (CAD)W/KIKA BILAT IMPRESSION: Stable bilateral screening mammogram. Yearly follow-up mammogram recommended. (A) ASSESSMENT CATEGORY: BIRADS Category 1: Negative. A letter regarding these results will be sent to the patient by the facility within 30 days. Approximately 10% of breast cancers are not detected by mammography. A normal mammogram should not delay biopsy of a clinically suspicious abnormality. [id number] Electronically Signed: Marky Colunga MD at 9:14 EDT ,
--- NOTE | 2023-07-20 15:53 | BD_ITS ---
STUDY: DUAL ENERGY X-RAY ABSORPTIOMETRY / DXA REASON FOR EXAM: Female, 87 years old. [id number] TECHNIQUE: Bone Mineral Density (BMD) measurements of lumbar spine and bilateral hips were obtained. COMPARISON: Comparison is made with prior study dated July 06, 2021. FINDINGS: Lumbar Spine (L1-L4): g/cm2 (0.838) / T-score (-1.9) / Z-score (1.0) Findings are suggestive of osteopenia with a moderate fracture risk. Left Femur Total: g/cm2 (0.703) / T-score (-2.0) / Z-score (0.4) Left Femoral Neck: g/cm2 (0.488) / T-score (-3.2) / Z-score (-0.7) Right Femur Total: g/cm2 (0.654) / T-score (-2.4) / Z-score (0.0) Right Femoral Neck: g/cm2 (0.509) / T-score (-3.1) / Z-score (-0.5) The T-Scores on the most recent prior examination were: Lumbar Spine (L1-L4): There has been improvement of bone density since the previous examination. Left Femur Total: which represents an improvement of 3.6%. Right Femur Total: which represents a worsening of 1.1%. BD/Dexa Bone Density Study IMPRESSION: The patient is considered osteoporotic as outlined below according to World Tony Organization (WHO) criteria with a high fracture risk. There has been improvement of bone density since the previous examination. Reference Information: The T-score is the number of standard deviations above or below the standard which is normal for young adults at their peak bone mineral density. The World Health Organization (WHO) interprets the T-scores as follows: Above -1 Normal bone density Between -1 and -2.5 Osteopenia Equal to / or below -2.5 Osteoporosis As a practical clinical guideline, osteopenia may be graded as follows: Mild -1 through -1.5 Moderate -1.6 through -2.0 Severe -2.1 through -2.4 The Z-score is the number of standard deviations above or below age-matched controls. A Z-score of less than -1.5 would be considered abnormal. References: 1. NIH Osteoporosis and Related Bone Diseases www osteo.org 2. International Society for Clinical Densitometry www iscd.org 3. National Osteoporosis Foundation www nof.org Electronically Signed: Marky Colunga MD at 14:17 EDT ,
== END | disposition home or self-care (01) ==
LOC: OPBI 15:50
PROVIDERS: PCP Internal Medicine; Referring Provider Internal Medicine; Visit Provider Internal Medicine
DX: Z12.31 Encounter for screening mammogram for malignant neoplasm of breast (principal); Z78.0 Asymptomatic menopausal state
CPT/HCPCS: 77063; 77067; 77080

== ENCOUNTER → 2023-08-19 | Outpatient (CLI) | payer MEDICARE, OTHER, SELFPAY ==
[2023-08-19 10:49] LABS: Absolute Lymphocyte Count 1.65 X10^3/uL (0.83-4.51); Absolute Neutrophil Count 7.9 X10^3/uL (2.0-7.7); Basophil# 0.06 X10^3/uL; Basophil% 0.6 % (0-1); Eosinophil# 0.09 X10^3/uL; Eosinophils% 0.9 % (0-5); Hematocrit 43.2 % (37-47); Hemoglobin 13.9 g/dL (12.0-15.0); Lymphocyte # 1.65 X10^3/ul (0.83-4.51); Lymphocyte % 15.9 % (19-41); Mean Corp Hgb Conc 32.2 g/dL (32-36); Mean Corpuscular Hgb 28.9 pg (27.0-32.0); Mean Corpuscular Volume 89.8 fL (81-99); Mean Platelet Vol. 10.7 fl (6.2-12.0); Monocyte# 0.63 X10^3/uL; Monocyte% 6.1 % (0-10); NRBC Flagged by Analyzer 0 % (0-5); Neutrophil # 7.87 X10^3/uL (2.7-7.7); Neutrophil % 75.9 % (47-70); Platelet Count 219 K/mm3 (150-450); RBC Distribution Width CV 13.5 % (11.6-14.6); RBC Distribution Width SD 44.5 fl (35.1-43.9); Red Blood Count 4.81 M/mm3 (4.2-5.4); White Blood Count 10.4 K/mm3 (4.4-11.0)
[2023-08-19 11:16] LABS: AST(SGOT) 23 U/L (15-37); Alanine Aminotransfer ALT/SGPT 30 U/L (13-56); Albumin, Serum 4.2 g/dL (3.2-5.0); Alkaline Phosphatase 73 U/L (45-117); Anion Gap 8 (5-15); BUN 10 mg/dL (7-18); BUN/Creat Ratio 15.2 RATIO (10-20); Calcium,Total 9.3 mg/dL (8.5-10.1); Chloride 94 mmol/L (98-107); Cholesterol 127 mg/dL (200); Creatinine, Serum 0.66 mg/dL (0.55-1.02); EST Glomerular Filtration Rate 91 mL/min (>60); Est Glom Filt Rate - Afr Amer 110 mL/min (>60); Globulin 4.3 g/dL (2.2-4.2); Glucose 107 mg/dL (74-106); High Density Lipoprotein 70 mg/dL; Potassium 3.8 mmol/L (3.5-5.1); Protein, Total 8.5 g/dL (6.4-8.2); Sodium Level 131 mmol/L (136-145); Triglycerides 113 mg/dL; Very Low Density Lipoprotein 23 mg/dL (5-40)
== END | disposition home or self-care (01) ==
LOC: LAB 10:11
PROVIDERS: PCP Internal Medicine; Visit Provider Internal Medicine
DX: I12.9 Hypertensive chronic kidney disease with stage 1 through stage 4 chronic kidney disease, or unspecified chronic kidney disease (principal); N18.9 Chronic kidney disease, unspecified
CPT/HCPCS: 36415; 80053; 80061; 85025

== ENCOUNTER 2023-09-22 10:44 | Outpatient (CLI) | payer MEDICARE, OTHER, SELFPAY ==
[2023-09-22 11:09] VITALS: BP 139/49; PULSE 59; RESP 16; TEMP 36.2; O2SAT 97; BMI 30.2
[2023-09-22] MEDS: 0.9% NaCl Peripheral Flush Adult/Peds IV (11:17)
[2023-09-22] MEDS: Zoledronic Acid 5 MG 100 ML 300 MG IV (11:24)
[2023-09-22 11:52] VITALS: BP 137/52; PULSE 53; RESP 16; TEMP 35.7; O2SAT 95
== END 2023-09-22 10:45 | disposition home or self-care (01) ==
LOC: MEDOUTP 10:44
PROVIDERS: PCP Internal Medicine; Referring Provider Internal Medicine; Visit Provider Internal Medicine
DX: M81.0 Age-related osteoporosis without current pathological fracture (principal)
CPT/HCPCS: 96365; A4216; J3489

== ENCOUNTER → 2024-01-15 | Outpatient (CLI) | payer MEDICARE, OTHER, SELFPAY ==
--- NOTE | 2024-01-15 17:58 | MRI_ITS ---
EXAM: MR HEAD WITHOUT INTRAVENOUS CONTRAST CLINICAL INDICATION: left sided weakness TECHNIQUE: Multiplanar and multisequence MR images of the brain were obtained without intravenous contrast. COMPARISON: No relevant prior studies available. FINDINGS: BRAIN AND EXTRA-AXIAL SPACES: No diffusion restriction to suspect acute or subacute ischemic infarct. T2 FLAIR hyperintensity foci in the white matter of both cerebral hemispheres are chronic white matter ischemic changes. No intra- or extra-axial hemorrhage. No intracranial mass or mass effect. Posterior fossa structures are unremarkable. Ventricles are appropriate for age. No hydrocephalus. Basal cisterns are patent. SELLA: Unremarkable. Normal sella turcica, pituitary gland, infundibular stalk, optic chiasm and hypothalamus. AUDITORY SYSTEM: Unremarkable. The internal auditory canals are patent. BONES/JOINTS: Unremarkable. No discrete lytic or blastic abnormalities. SINUSES: Unremarkable as visualized. Clear. MASTOID AIR CELLS: Unremarkable as visualized. Clear. ORBITS: Unremarkable as visualized. Both globes, extraocular muscles, optic nerves and retrobulbar fat appear unremarkable. VASCULATURE: Unremarkable as visualized. Normal flow voids in the major intracranial circulation. MRI/Brain without Contrast IMPRESSION: 1. No MRI evidence of acute or subacute ischemic infarct or remote cortical-based ischemic infarct. 2. Chronic white matter ischemic changes in both cerebral hemispheres. Electronically Signed: Mahesh Good MD at 12:06 EDT ,
== END | disposition home or self-care (01) ==
LOC: MRI 07:32
PROVIDERS: PCP Internal Medicine; Referring Provider Internal Medicine; Visit Provider Internal Medicine
DX: R53.1 Weakness (principal)
CPT/HCPCS: 70551

== ENCOUNTER → 2024-01-19 | Outpatient (CLI) | payer MEDICARE, OTHER, SELFPAY ==
--- NOTE | 2024-01-19 12:51 | CT_ITS ---
INDICATION: neck mass EXAMINATION: CT NECK WITH CONTRAST - CT Soft Tissue Neck W/ Contrast Injection TECHNIQUE: Helically acquired images were obtained of the neck following IV contrast. A radiation dose optimization technique was used for this scan. IV Contrast dosage and agent: 75 cc of Isovue-370. RADIATION DOSAGE (If Supplied By Facility): CTDIvol = ( 14.85 ) mGy, DLP = ( 441.56 ) mGycm COMPARISON: No relevant prior comparison study available FINDINGS: NASOPHARYNX: Unremarkable. SUPRAHYOID NECK: Unremarkable oropharynx, oral cavity, parapharyngeal space, and retropharyngeal space. INFRAHYOID NECK: Unremarkable larynx, hypopharynx, and supraglottis. THYROID: No focal lesions. SALIVARY GLANDS: 1.2 cm hyperdense nodule in the right parotid gland. Adjacent similar hyperdense nodule measuring about 5 mm. The submandibular glands and the left parotid gland are unremarkable. LYMPH NODES: No cervical or supraclavicular lymphadenopathy. VASCULAR STRUCTURES: Atherosclerotic calcifications with moderate to severe stenosis of the proximal right internal carotid artery. VISUALIZED PORTIONS OF THE ORBITS, PARANASAL SINUSES, MASTOID AIR CELLS AND SKULL BASE: Unremarkable. BONES: Mild degenerative changes of the spine. THORACIC INLET: Clear lung apices. CT/Soft Tissue Neck WITH Contrast IMPRESSION: 1. Small hyperdense nodule in the right parotid gland as described above. 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 Tissue sampling is suggested. 2. Atherosclerotic calcifications of the proximal right ICA with moderate to severe stenosis. Electronically Signed: Dwight Bates MD at 13:55 EDT ,
[2024-01-19 13:14] LABS: CREATININE FINGERSTICK < 1.0 mg/dL (0.55-1.02); EGFR FINGERSTICK > 60.0000 mL/min (>60)
== END | disposition home or self-care (01) ==
LOC: CT 12:41
PROVIDERS: PCP Internal Medicine; Referring Provider Internal Medicine; Visit Provider Internal Medicine
DX: R22.1 Localized swelling, mass and lump, neck (principal)
CPT/HCPCS: 70491; Q9967

== ENCOUNTER → 2024-02-12 | Outpatient (CLI) | payer MEDICARE, OTHER, SELFPAY ==
--- NOTE | 2024-02-12 | ASPOS_PTH ---
PATIENT: AISHA PARKER LOC: [facility] U#:[id number] AGE/SX: 88/F ROOM: RE02/12/[address]: Dr. Martínez Abreu MD : [id number] BED: DIS: 02/12/2024 SPEC #: [id number] RECD: 02/12/24 12:04 STATUS: MAXINE SUSY #: [id number] FRANK: 02/12/24 00:[address]: Martínez Abreu DEPT: CYTOLOGY RECD BY: Elsa Reynoso ENTERED: 02/12/24 12:06 SP TYPE: ASP HERE OTHR DR: Dr. Khushi Balderrama MD Tissues: Parotid gland, NOS Procedures: Surgery Specimen Level IV Cytology Other Fine Needle Asp on Site HEADER OPERATION: Fine needle aspiration right parotid mass PRE-OP DIAGNOSIS: Fine needle aspiration neck mass TISSUE SUBMITTED: Right parotid mass DIAGNOSIS CYTOLOGY Fine needle aspiration right parotid mass (smears and cellblock): Oncocytic neoplasm consistent with Warthin tumor. / 02/13/24 COMMENT A fine needle aspiration was performed and the specimen is evaluated at the time of FNA by Dr. Reynolds. Immediate Evaluation = Oncocytic neoplasm consistent with Warthin tumor. Case has been reviewed in consultation with Dr. Clancy who concurs with the above diagnosis. IDC:[facility] CYTOLOGY STUDY Slides are reviewed. CYTOLOGY GROSS Received is 0.2 ml of reddish fluid labeled with the patient's name, and designated Right parotid mass. 3 imprints and 2 paps are made from the submitted fluid and the rest is added to CytoLyt for cell block preparation. Submitted for cytology study. / 02/12/24TC:5 CPT: 84719,[id number],27930
== END | disposition home or self-care (01) ==
LOC: LAB 09:05
PROVIDERS: PCP Internal Medicine; Referring Provider Otolaryngology Otolaryngology/Facial Plastic Surgery; Visit Provider Otolaryngology Otolaryngology/Facial Plastic Surgery
DX: D11.0 Benign neoplasm of parotid gland (principal)
CPT/HCPCS: 10021; 88161; 88305

== ENCOUNTER → 2024-02-14 | Outpatient (CLI) | payer MEDICARE, OTHER, SELFPAY ==
--- NOTE | 2024-02-14 08:13 | CT_ITS ---
STUDY: CTA NECK WITH CONTRAST REASON FOR EXAM: Female, 88 years old. Carotid stenosis, symptomatic RADIATION DOSAGE (If Supplied By Facility): CTDIvol = ( 17.92 ) mGy, DLP = ( 525.18 ) mGycm TECHNIQUE: CT angiography with multi-detector data acquisition was performed from the aortic arch to the skull base following intravenous administration of IV 100mL Isovue-370. MIP images were reconstructed from the axial data set. Post-processing of the angiographic images was performed, with multiplanar reformation and 3D reconstruction. Individualized dose optimization techniques were used for this CT. COMPARISON: Comparison is made with prior study dated April 29, 2013. FINDINGS: AORTIC ARCH: There is atherosclerotic calcific plaque formation of the aortic arch and great vessels arising from the aortic arch, without a hemodynamically significant stenosis. There is a normal origin of the brachiocephalic, left common carotid, and left subclavian arteries. Normal origins of the brachiocephalic, left common carotid, and left subclavian arteries. Atherosclerotic calcific plaque at the origin of the right brachiocephalic artery. RIGHT CAROTID ARTERIES: Normal right common carotid artery (CCA). Normal right common carotid bulb. There is severe atherosclerotic plaque formation of the origin of the right internal carotid artery with a near complete occlusion. Normal visualized cervical portion of the right internal carotid artery. Normal origin of the right external carotid artery (ECA). LEFT CAROTID ARTERIES: Normal left common carotid artery (CCA). Normal left common carotid bulb. There is mild atherosclerotic plaque formation of the origin of the left internal carotid artery with less than 50% cross sectional diameter stenosis. Normal visualized cervical portion of the left internal carotid artery. Normal origin of the left external carotid artery (ECA). VERTEBRAL ARTERIES: Normal bilateral vertebral arteries. CT/CTA Neck W/WO Contrast IMPRESSION: Calcific plaque at the origin of the right internal carotid artery causing a near complete occlusion. Mild calcific plaque at the origin of the left internal carotid artery. Electronically Signed: Marky Colunga MD at 14:18 EDT ,
[2024-02-14 08:40] LABS: Absolute Lymphocyte Count 1.11 X10^3/uL (0.83-4.51); Absolute Neutrophil Count 5.6 X10^3/uL (2.0-7.7); Basophil# 0.05 X10^3/uL; Basophil% 0.7 % (0-1); Eosinophil# 0.07 X10^3/uL; Eosinophils% 0.9 % (0-5); Hemoglobin 13.2 g/dL (12.0-15.0); Lymphocyte # 1.11 X10^3/ul (0.83-4.51); Mean Corpuscular Hgb 28.9 pg (27.0-32.0); Mean Corpuscular Volume 87.7 fL (81-99); Mean Platelet Vol. 9.7 fl (6.2-12.0); Monocyte# 0.56 X10^3/uL; Monocyte% 7.6 % (0-10); NRBC Flagged by Analyzer 0 % (0-5); Neutrophil # 5.57 X10^3/uL (2.7-7.7); Neutrophil % 75.4 % (47-70); Platelet Count 236 K/mm3 (150-450); RBC Distribution Width CV 14.9 % (11.6-14.6); Red Blood Count 4.56 M/mm3 (4.2-5.4); White Blood Count 7.4 K/mm3 (4.4-11.0)
[2024-02-14 09:13] LABS: ALB/GLOB Ratio 1.1 RATIO (0.9-2.4); AST(SGOT) 22 U/L (15-37); Alanine Aminotransfer ALT/SGPT 24 U/L (13-56); Albumin, Serum 3.9 g/dL (3.2-5.0); Alkaline Phosphatase 45 U/L (45-117); Anion Gap 3 (5-15); BUN 12 mg/dL (7-18); BUN/Creat Ratio 16.9 RATIO (10-20); Calcium,Total 8.9 mg/dL (8.5-10.1); Chloride 93 mmol/L (98-107); Creatinine, Serum 0.71 mg/dL (0.55-1.02); EST Glomerular Filtration Rate 83 mL/min (>60); Est Glom Filt Rate - Afr Amer 101 mL/min (>60); Globulin 3.6 g/dL (2.2-4.2); Glucose 109 mg/dL (74-106); Potassium 3.9 mmol/L (3.5-5.1); Protein, Total 7.5 g/dL (6.4-8.2); Sodium Level 128 mmol/L (136-145)
[2024-02-14 10:06] LABS: Microalbumin:Creatinine Ratio 173.2 mg/g CRE (<30 mg/g CRE)
== END | disposition home or self-care (01) ==
PROVIDERS: PCP Internal Medicine; Referring Provider Internal Medicine; Visit Provider Internal Medicine
DX: I12.9 Hypertensive chronic kidney disease with stage 1 through stage 4 chronic kidney disease, or unspecified chronic kidney disease (principal); R80.9 Proteinuria, unspecified; N18.9 Chronic kidney disease, unspecified
CPT/HCPCS: 36415; 70498; 80053; 82043; 82570; 85025; Q9967

== ENCOUNTER → 2024-03-09 | Outpatient (CLI) | payer MEDICARE, OTHER, SELFPAY ==
[2024-03-09 08:27] LABS: Sodium Level 132 mmol/L (136-145)
[2024-03-09 09:21] LABS: Osmolality, Serum 281 mOsm/KG (280-301)
== END | disposition home or self-care (01) ==
LOC: LAB 07:12
PROVIDERS: PCP Internal Medicine; Referring Provider Internal Medicine; Visit Provider Internal Medicine
DX: E22.2 Syndrome of inappropriate secretion of antidiuretic hormone (principal)
CPT/HCPCS: 36415; 83930; 84295

== ENCOUNTER → 2024-05-15 | Outpatient (CLI) | payer MEDICARE, OTHER, SELFPAY | END | disposition home or self-care (01) | LOC: SL 19:44 | PROVIDERS: PCP Internal Medicine; Referring Provider Internal Medicine Pulmonary Disease; Visit Provider Internal Medicine Pulmonary Disease | DX: G47.10 Hypersomnia, unspecified (principal) | CPT/HCPCS: 95810 ==

== ENCOUNTER 2024-09-25 09:20 | Outpatient (CLI) | payer MEDICARE, OTHER, SELFPAY ==
[2024-09-25 09:39] VITALS: BP 156/77; PULSE 59; RESP 16; TEMP 36.3; O2SAT 100; BMI 30.6
[2024-09-25] MEDS: Zoledronic Acid 5 MG 100 ML 300 MG IV (09:47)
[2024-09-25] MEDS: 0.9% NaCl IVPB Med Flush (250 mL) 15 ML IV (09:49)
[2024-09-25 10:29] VITALS: BP 146/69; PULSE 57; RESP 16; TEMP 36.6; O2SAT 98
== END 2024-09-25 23:59 | disposition home or self-care (01) ==
LOC: MEDOUTP 09:21
PROVIDERS: PCP Internal Medicine; Referring Provider Internal Medicine; Visit Provider Internal Medicine
DX: M81.0 Age-related osteoporosis without current pathological fracture (principal)
CPT/HCPCS: 96365; J7050; A4216; J3489

== ENCOUNTER 2024-12-24 17:54 | Emergency (ER) | payer MEDICARE, OTHER, SELFPAY ==
[2024-12-24 17:56] VITALS: BP 189/63; PULSE 71; RESP 18; TEMP 37.2; O2SAT 99; BMI 30.2
--- NOTE | 2024-12-24 18:09 | RAD_ITS ---
PROCEDURE: RIBS UNI MIN 3V W/PA CHEST REASON FOR EXAM: Pain TECHNIQUE: Frontal and bilateral oblique views of the bilateral ribs. COMPARISON: None. FINDINGS: No displaced rib fractures are identified. No suspicious lytic or blastic rib lesions. Atherosclerotic calcifications and tortuosity of the aorta RAD/Ribs Uni Min 3V w/PA Chest IMPRESSION: NO EVIDENCE OF ACUTE RIB FRACTURE OR PNEUMOTHORAX. Reading Location: [facility]
[2024-12-24 19:08] LABS: Absolute Lymphocyte Count 1.46 X10^3/uL (0.83-4.51); Absolute Neutrophil Count 7.8 X10^3/uL (2.0-7.7); Basophil# 0.03 X10^3/uL; Basophil% 0.3 % (0-1); Eosinophil# 0.03 X10^3/uL; Eosinophils% 0.3 % (0-5); Hematocrit 39.1 % (37-47); Hemoglobin 12.7 g/dL (12.0-15.0); Lymphocyte # 1.46 X10^3/ul (0.83-4.51); Lymphocyte % 14.5 % (19-41); Mean Corp Hgb Conc 32.5 g/dL (32-36); Mean Corpuscular Volume 89.3 fL (81-99); Mean Platelet Vol. 10.8 fl (6.2-12.0); Monocyte# 0.67 X10^3/uL; Monocyte% 6.7 % (0-10); NRBC Flagged by Analyzer 0 % (0-5); Neutrophil # 7.83 X10^3/uL (2.7-7.7); Neutrophil % 77.8 % (47-70); Platelet Count 198 K/mm3 (150-450); RBC Distribution Width CV 15.6 % (11.6-14.6); RBC Distribution Width SD 50.8 fl (35.1-43.9); Red Blood Count 4.38 M/mm3 (4.2-5.4); White Blood Count 10.1 K/mm3 (4.4-11.0)
[2024-12-24 19:45] LABS: ALB/GLOB Ratio 1.6 RATIO (0.9-2.4); AST(SGOT) 31 U/L (<=31); Alanine Aminotransfer ALT/SGPT 13 U/L (<=34); Albumin, Serum 4.7 g/dL (3.4-4.8); Alkaline Phosphatase 51 U/L (35-104); Anion Gap 13 (5-15); BUN 10 mg/dL (4-19); BUN/Creat Ratio 16.4 RATIO (10-20); Calcium 9.8 mg/dL (7.6-11.0); Carbon Dioxide 27.7 mmol/L (22.0-29.0); Chloride 96 mmol/L (96-108); Creatinine, Serum 0.6 mg/dL (0.6-1.0); EST Glomerular Filtration Rate 86 (>60); Estimated Creatinine Clearance 45.14 ml/min; Glucose 103 mg/dL (70-99); Lipase 32 U/L (13-75); Protein, Total 7.7 g/dL (5.9-8.4); Sodium Level 136 mmol/L (133-145)
[2024-12-24 20:19] VITALS: BP 104/80; PULSE 70; PULSE 78; RESP 20; TEMP 36.7; O2SAT 93
[2024-12-24 20:31] LABS: Bacteria 0 SEEN /hpf (None Seen); Mucous, Urine 0 SEEN /hpf (<or=2+); Squamous Epithelial Cells - UA 0 SEEN /hpf (5-10)
--- NOTE | 2024-12-24 20:34 | EKG12_ITS ---
Test Reason : DYSRHYTHMIA Blood Pressure : */* mmHG Vent. Rate : 68 BPM Atrial Rate : * BPM P-R Int : * ms QRS Dur : 76 ms QT Int : 414 ms P-R-T Axes : * -22 20 degrees QTcB Int : 440 ms NSR WITH PAC, FIRST DEGREE AV BLOCK Otherwise normal ECG Confirmed by Ron Santos ([id number]), acquisition editor [employer] [facility] ([id number]) on 12/25/2024 8:26:20 AM Referred By: JOE Confirmed By: Ron Santos
[2024-12-24 20:40] LABS: Color, Urine Yellow (Yellow); Glucose, Dipstick Normal (Normal); Ketone-Dipstick Negative (Negative); Leukocyte Esterase-Dipstick Negative /ul (Negative); Nitrite-Dipstick Negative (Negative); Occult Blood-Urine 10 /ul (Negative); Protein-Dipstick 30 mg/dl (Negative); Urine Bilirubin Dipstick Negative (Negative); Urine Clarity Clear (Clear); Urine Urobilinogen Normal (Normal)
--- NOTE | 2024-12-24 20:53 | CT_ITS ---
PROCEDURE: ABDOMEN/PELVIS W IV CONT ONLY REASON FOR EXAM: Epigastric pain after cough. TECHNIQUE: Abdomen and pelvis CT with intravenous contrast. IV CONTRAST: 96 mL of Isovue 370. COMPARISON: None. FINDINGS: Lung bases: Clear Liver: Unremarkable. Gallbladder: Unremarkable. Spleen: Unremarkable. Pancreas: Unremarkable. Adrenals: Unremarkable. Kidneys: Unremarkable. Bladder: Unremarkable. Reproductive Organs: Unremarkable. Bowel: Colonic diverticulosis. Mild sigmoid colon wall thickening. Dense colonic stool. Small hiatal hernia. Appendix: Normal. Lymph nodes: No suspicious lymph node enlargement. Vasculature: Severe atherosclerosis. Normal caliber abdominal aorta. Peritoneum / Retroperitoneum: No ascites. No free air. Bones: Degenerative changes of the spine most pronounced at L4-5 CT/Abdomen/Pelvis W IV Cont ONLY IMPRESSION: Sigmoid colon wall thickening which may be due to underdistention or colitis. Small hiatal hernia. Diverticulosis. Dense colonic stool which may suggest constipation One or more dose reduction techniques were used (e.g., Automated exposure contr ol, adjustment of the mA and/or kV according to patient size, use of iterative reconstruction technique). Reading Location: [place] [id number]
[2024-12-24 21:00] VITALS: BP 140/77; PULSE 74; RESP 19; TEMP 36.8; O2SAT 93
--- NOTE | 2024-12-24 21:12 | EX.ED.DYSGE1 ---
HPI <EPI Polo - Last Filed: 12/24/24 22:10> History of Present Illness Chief Complaint: Abd Pain Narrative Narrative: 89-year-old female with PMH of HTN, HLD, renal artery stenosis, carotid endarterectomy presents with right flank and right upper quadrant abdominal pain that started this afternoon. Nothing seems to make it better or worse. She has no fever, chills, nausea or vomiting, or bladder bowel symptoms. She has normal daily bowel movements. No melena or hematochezia. No abdominal surgical history. She wears 2 L of O2 at baseline since she had a viral illness in September and has a chronic cough. No increased cough or sputum production. PFSH <EPI Polo - Last Filed: 12/24/24 22:10> [facility] Medical History (Updated 12/25/24 @ 00:[address] Noé Gayle-Victorino, DO) Macular degeneration Contact dermatitis due to plant Bilateral carotid artery stenosis Pure hypercholesterolemia Sinus bradycardia Tobacco abuse COPD (chronic obstructive pulmonary disease) Renal artery stenosis Osteoarthritis Osteoporosis Adrenal hyperplasia Home Medications ?Medication ?Instructions ?Recorded ?Last Taken ?Type loratadine 10 mg tablet 10 mg PO DAILY PRN Allergies 04/21/14 Unknown History omega-3 fatty acids 1,000 mg 1,000 mg PO DAILY 08/23/19 Unknown History capsule (Fish Oil Concentrate) irbesartan 300 mg tablet 300 mg PO .AM 12/31/21 Unknown History amlodipine 5 mg tablet 5 mg PO DAILY 02/03/22 Unknown History budesonide 160 mcg-glycopyr 9 2 inh inhalation BID 03/14/22 Unknown History mcg-formot 4.8 mcg/actuation HFA inhaler calcium 600 mg (as 1 tab PO DAILY 08/08/22 Unknown History carbonate)-vitamin D3 20 mcg (800 unit) tablet (Caltrate with Vitamin D3) metoprolol tartrate 25 mg tablet 25 mg PO BID 09/13/22 Unknown History zoledronic acid 5 mg/100 mL in 1 ea IV .Qyear 09/13/22 Unknown History mannitol 5 %-water intravenous piggybck hydralazine 50 mg tablet 50 mg PO BID 07/31/23 Unknown History rosuvastatin 40 mg tablet 40 mg PO DAILY 07/31/23 Unknown History vit C 250 mg-vit E 90 mg-zinc 40 1 tab PO BID 07/31/23 Unknown History mg-copper 1 be-qtqyqu-mrksav capsule (PreserVision AREDS-2) calcium carbonate (Tums) 200 mg PO ONCE PRN dyspepsia 09/25/24 Unknown History clopidogrel 75 mg tablet 75 mg PO DAILY 09/25/24 Unknown History latanoprost 0.005 % eye drops 1 drp ophthalmic (eye) QDAY 09/25/24 Unknown History apixaban 5 mg tablet (Eliquis) 5 mg PO BID 30 days #60 tabs 12/25/24 Unknown Rx Allergy/AdvReac Type Severity Reaction Status Date / Time amlodipine AdvReac Intermediate Severe Verified 12/24/24 17:56 swelling in ankles Penicillins (PCN) AdvReac diarrhea Verified 12/24/24 17:56 Family History Mother CAD (coronary artery disease) Hypertension Brother Hypertension Presence of permanent cardiac pacemaker Brother Hypertension Father Hypertension Surgical History H/O carotid endarterectomy (~03/2024) History of YAG laser capsulotomy of lens of right eye History of tonsillectomy and adenoidectomy History of total hysterectomy Hx of cataract surgery H/O detached retina repair Social History (Updated 09/25/24 @ 11:36 by Radha Watson) Smoking Status: Current every day smoker tobacco type: cigarettes alcohol intake: current alcohol intake frequency: 0-2 drinks per day Alcohol type: beer substance use type: does not use caffeine: Yes (occasionally) ROS <EPI Polo - Last Filed: 12/24/24 22:10> ROS ED ROS Narrative Constitutional: Negative for fever, chills, malaise. CVS: Negative for chest pain. Respiratory: Negative for shortness of breath. GI: Positive for abdominal pain. Negative for nausea, vomiting, diarrhea, constipation, melena, hematochezia. : Negative for dysuria, hematuria or frequency. EXAM <EPI Polo - Last Filed: 12/24/24 22:10> Physical Exam Narrative Exam Narrative: CONST: Patient sitting in no acute distress. EYES: Normal inspection. NECK: Normal inspection. RESP: No respiratory distress, CTAB. CVS: Regular rate and rhythm, no murmur, no gallop. ABD: Soft and nontender, no guarding or rebound, nondistended, no hepatosplenomegaly. Back: Normal inspection, right CVA tenderness. SKIN: Color normal, no rash, warm, dry, intact. EXTREMITIES: Normal appearance, no pedal edema. NEURO: Alert and answering questions appropriately. PSYCH: Normal affect. Const Vital Signs: 12/24/24 17:56 12/24/24 20:19 12/24/24 20:19 Temperature 98.9 F 98.1 F Temperature Source Oral Oral Pulse Rate 71 78 70 Respiratory Rate 18 20 H 20 H Blood Pressure 189/63 H 104/80 104/80 Blood Pressure Mean 105 88 88 Pulse Ox 99 93 93 Oxygen Delivery Method Nasal Cannula Nasal Cannula Nasal Cannula Oxygen Flow Rate (L/min) 2 2 2 12/24/24 21:00 12/24/24 22:00 12/24/24 23:00 Temperature 98.2 F 98.2 F 98.4 F Temperature Source Oral Oral Oral Pulse Rate 74 66 55 L Respiratory Rate 19 H 19 H 19 H Blood Pressure 140/77 H 117/74 144/52 H Blood Pressure Mean 98 88 82 Pulse Ox 93 95 96 Oxygen Delivery Method Nasal Cannula Nasal Cannula Nasal Cannula Oxygen Flow Rate (L/min) 2 2 2 12/25/24 00:00 12/25/24 01:22 Temperature 98.2 F Temperature Source Pulse Rate 55 L 68 Respiratory Rate 18 19 H Blood Pressure 131/54 H 131/56 H Blood Pressure Mean 79 81 Pulse Ox 96 95 Oxygen Delivery Method Nasal Cannula Oxygen Flow Rate (L/min) 2 <Dr. Noé Shepherd, DO - Last Filed: 12/25/24 02:50> Physical Exam Narrative Exam Narrative: CONST: Patient sitting in no acute distress. EYES: Normal inspection. NECK: Normal inspection. RESP: No respiratory distress, CTAB. CVS: Regular rate and rhythm, no murmur, no gallop. ABD: Soft and nontender, no guarding or rebound, nondistended, no hepatosplenomegaly. Back: Normal inspection, <del>right</del> <del>CVA</del> <del>tenderness.</del> SKIN: Color normal, no rash, warm, dry, intact. EXTREMITIES: Normal appearance, no pedal edema. NEURO: Alert and answering questions appropriately. PSYCH: Normal affect. Const Vital Signs: 12/24/24 17:56 12/24/24 20:19 12/24/24 20:19 Temperature 98.9 F 98.1 F Temperature Source Oral Oral Pulse Rate 71 78 70 Respiratory Rate 18 20 H 20 H Blood Pressure 189/63 H 104/80 104/80 Blood Pressure Mean 105 88 88 Pulse Ox 99 93 93 Oxygen Delivery Method Nasal Cannula Nasal Cannula Nasal Cannula Oxygen Flow Rate (L/min) 2 2 2 12/24/24 21:00 12/24/24 22:00 12/24/24 23:00 Temperature 98.2 F 98.2 F 98.4 F Temperature Source Oral Oral Oral Pulse Rate 74 66 55 L Respiratory Rate 19 H 19 H 19 H Blood Pressure 140/77 H 117/74 144/52 H Blood Pressure Mean 98 88 82 Pulse Ox 93 95 96 Oxygen Delivery Method Nasal Cannula Nasal Cannula Nasal Cannula Oxygen Flow Rate (L/min) 2 2 2 12/25/24 00:00 12/25/24 01:22 Temperature 98.2 F Temperature Source Pulse Rate 55 L 68 Respiratory Rate 18 19 H Blood Pressure 131/54 H 131/56 H Blood Pressure Mean 79 81 Pulse Ox 96 95 Oxygen Delivery Method Nasal Cannula Oxygen Flow Rate (L/min) 2 [facility] <EPI Polo - Last Filed: 12/24/24 22:10> [facility] Narrative Medical decision making narrative: History gathered from: Patient and son Differential includes but not limited to kidney stone, pyelonephritis, cholecystitis, musculoskeletal 89-year-old female has acute right flank pain that is moving around her side towards the right upper abdomen. She appears well and nontoxic. BP is 189/63 with otherwise normal vital signs. She states she was post to take her nighttime blood pressure medications around 8 PM and just took them. She is on chronic 2 L O2 and otherwise stable. She has a normal cardiopulmonary exam. She has no abdominal tenderness. She is tender over the right flank which I suspect could be musculoskeletal; but due to her age broad testing was initiated. CBC, CMP, lipase are normal UA negative. A rib series chest x-ray was ordered from the waiting room and is negative. Viral swab negative for COVID/flu/RSV. I ordered IV morphine, Zofran, and a lidocaine patch and ordered a CT of the abdomen/pelvis. Her EKG shows new onset atrial fibrillation. I reviewed prior cardiology notes as recent as a month ago and she is seen for sinus bradycardia but has no known history of A-fib. She is on Plavix for carotid endarterectomy. Case will be discussed with process maintenance technician to determine if she needs different anticoagulation. Lab Data Attestation: I reviewed the patient's lab results. Labs: Laboratory Results - last 24 hr 12/24/24 12/24/24 12/24/24 19:00 20:18 21:25 WBC 10.1 RBC 4.38 Hgb 12.7 Hct 39.1 MCV 89.3 MCH 29.0 MCHC 32.5 RDW Std Deviation 50.8 H RDW Coeff of Osiel 15.6 H Plt Count 198 MPV 10.8 Immature Gran % (Auto) 0.400 Neut % (Auto) 77.8 H Lymph % (Auto) 14.5 L [place] % (Auto) 6.7 Eos % (Auto) 0.3 Baso % (Auto) 0.3 Absolute Neuts (auto) 7.8 H Absolute Lymphs (auto) 1.46 Nucleated RBC % 0 Sodium 136 Potassium 4.0 Anion Gap 13 BUN 10 Creatinine 0.6 Estim Creat Clear Calc 45.14 Est GFR (MDRD) Non-Af 86 BUN/Creatinine Ratio 16.4 Glucose 103 H Lactic Acid 1.5 Calcium 9.8 Total Bilirubin 1.10 AST 31 ALT 13 Alkaline Phosphatase 51 Troponin T High Sens 38 H Delta Troponin T Troponin T Hi Sens 2 Hr Total Protein 7.7 Albumin 4.7 Globulin 3.0 Albumin/Globulin Ratio 1.6 Lipase 32 Urine Color Yellow Urine Clarity Clear Urine pH 7.0 Ur Specific [place] 1.010 Urine Protein 30 H Urine Glucose (UA) Normal Urine Ketones Negative Urine Occult Blood 10 H Urine Nitrite Negative Urine Bilirubin Negative Urine Urobilinogen Normal Ur Leukocyte Esterase Negative Urine RBC 0-5 SEEN Urine WBC 0-5 SEEN Ur Squamous Epith Cells 0 SEEN Urine Bacteria 0 SEEN Urine Mucus 0 SEEN 12/25/24 00:17 WBC RBC Hgb Hct MCV MCH MCHC RDW Std Deviation RDW Coeff of [place] Plt Count MPV Immature Gran % (Auto) Neut % (Auto) Lymph % (Auto) [place] % (Auto) Eos % (Auto) Baso % (Auto) Absolute Neuts (auto) Absolute Lymphs (auto) Nucleated RBC % Sodium Potassium Anion Gap BUN Creatinine Estim Creat Clear Calc Est GFR (MDRD) Non-Af BUN/Creatinine Ratio Glucose Lactic Acid Calcium Total Bilirubin AST ALT Alkaline Phosphatase Troponin T High Sens Delta Troponin T 0 Troponin T Hi Sens 2 Hr 38 H Total Protein Albumin Globulin Albumin/Globulin Ratio Lipase Urine Color Urine Clarity Urine pH Ur Specific [place] Urine Protein Urine Glucose (UA) Urine Ketones Urine Occult Blood Urine Nitrite Urine Bilirubin Urine Urobilinogen Ur Leukocyte Esterase Urine RBC Urine WBC Ur Squamous Epith Cells Urine Bacteria Urine Mucus Radiography Diagnostic Testing: Clinical Impression(s) from Imaging Studies Ribs w/Chest X-Ray 12/24/24 18:09 IMPRESSION: NO EVIDENCE OF ACUTE RIB FRACTURE OR PNEUMOTHORAX. Reading Location: [id number] Abdomen/Pelvis CT 12/24/24 20:53 IMPRESSION: Sigmoid colon wall thickening which may be due to underdistention or colitis. Small hiatal hernia. Diverticulosis. Dense colonic stool which may suggest constipation One or more dose reduction techniques were used (e.g., Automated exposure control, adjustment of the mA and/or kV according to patient size, use of iterative reconstruction technique). Reading Location: [id number] <Dr. Noé Shepherd, DO - Last Filed: 12/25/24 02:50> [facility] MDM Narrative Medical decision making narrative: History gathered from: Patient and son Differential includes but not limited to kidney stone, pyelonephritis, cholecystitis, musculoskeletal 89-year-old female has acute right flank pain that is moving around her side towards the right upper abdomen. She appears well and nontoxic. BP is 189/63 with otherwise normal vital signs. She states she was post to take her nighttime blood pressure medications around 8 PM and just took them. She is on chronic 2 L O2 and otherwise stable. She has a normal cardiopulmonary exam. She has no abdominal tenderness. She is tender over the right flank which I suspect could be musculoskeletal; but due to her age broad testing was initiated. CBC, CMP, lipase are normal UA negative. A rib series chest x-ray was ordered from the waiting room and is negative. Viral swab negative for COVID/flu/RSV. I ordered IV morphine, Zofran, and a lidocaine patch and ordered a CT of the abdomen/pelvis. Her EKG shows new onset atrial fibrillation. I reviewed prior cardiology notes as recent as a month ago and she is seen for sinus bradycardia but has no known history of A-fib. She is on Plavix for carotid endarterectomy. Case will be discussed with process maintenance technician to determine if she needs different anticoagulation. Supervisory Physician Note Patient was seen and examined with the Advanced Practice Provider. Nursing notes and vital signs have been reviewed. Pertinent old records have been reviewed. I agree with the essential elements of the RICKIE's history, physical exam, assessment, and plan. The differential diagnosis and management options were discussed with the RICKIE. I participated in determining and agree with the management, procedures, final impression and disposition as documented. See changes noted by me. Please see addendum or separate note for any additional details. 89-year-old female with past medical history of HTN, HLD, renal artery stenosis presents for evaluation of right flank pain. Onset of symptoms this afternoon. Patient denies any injury or trauma. Patient states that she was diagnosed with respiratory infection in September and since then has had a chronic cough. Patient states that she has been coughing a lot since September but has not worsened. She wears 2 L of oxygen at baseline. She denies any fever, chills, shortness of breath, chest pain, nausea, vomiting, dysuria, constipation, diarrhea. Gen: A&O x3, NAD Head: Normocephalic, atraumatic Eyes: No sclera icterus, conjunctiva clear ENT: Moist mucous membranes Neck: Trachea midline, No JVD CV: RRR, no murmurs, no peripheral edema Resp: Lungs CTA BL, no w/r/c GI: Abd soft, non-distended, non-tender, no r/r/g : No CVA tenderness Musc: Full ROM, no deformity, no midline spinal tenderness, no bony step-off, patient has mild tenderness to palpation of the paraspinal musculature of the right mid thoracic region-palpation recreates her pain. No signs of trauma or infection. No rash. Skin: Warm, dry Neuro: Alert, oriented, grossly intact, sensation intact Psych: Cooperative, appropriate mood and affect Differential diagnosis includes but is not limited to musculoskeletal spasm, urolithiasis, UTI, pyelonephritis, cholecystitis. Morphine, Zofran ordered for symptoms. CBC without leukocytosis or anemia. CMP without REBEKA, transaminitis. Lactic acid unremarkable. Lipase unremarkable. UA negative for UTI. Chest x-ray without pneumonia, fracture, pneumothorax, effusion, cardiomegaly. COVID, flu, RSV negative. EKG shows new onset atrial fibrillation with rate control. Patient not having any chest pain although given new diagnosis of atrial fibrillation will add on troponin. CT abdomen pelvis shows sigmoid colon wall thickening which is likely due to underdistention. Patient not having any left lower quadrant abdominal pain. Small hiatal hernia. Diverticulosis. No pathology to explain her right flank pain. Troponin 38. Will get delta. Repeat troponin 38 therefore delta 0. Again, patient is not having any chest pain. I suspect her delta may be secondary to chronic elevation versus her atrial fibrillation. Cardiology was consulted and I spoke with Dr. Santos, he agrees given her [id number] score to start her on Eliquis twice daily. Follow-up outpatient in their office. No further workup needed at this time. Prior to discharge, patient now in sinus bradycardia. Repeat EKG obtained see below. Although patient's atrial fibrillation was paroxysmal given her concern for possible stroke if she reenters atrial fibrillation we will continue with the Eliquis plan. Patient given a dose here. Discharged home. She was educated that this can increase spontaneous bleeding as well as bleeding with falls. She was educated she fall she needs to be reevaluated. She is educated that she needs to stop taking her ibuprofen or Motrin while taking blood thinner. Follow-up with PCP as well as cardiology. She confirmed understanding. At this point in time, I suspect that her right flank/thoracic pain is secondary to muscle spasm from coughing. Tylenol as needed for pain. Return precautions explained. Her and family member confirmed understand the plan. Patient stable to discharge home. EKG: Interpreted by me/EM physician: EKG shows atrial fibrillation with heart rate 68. EKG sinus bradycardia with first-degree AV block. Heart rate 56. Impression: 1. Right flank/thoracic back pain-suspect musculoskeletal 2. Paroxysmal atrial fibrillation Lab Data Labs: Laboratory Results - last 24 hr 12/24/24 12/24/24 12/24/24 19:00 20:18 21:25 WBC 10.1 RBC 4.38 Hgb 12.7 Hct 39.1 MCV 89.3 MCH 29.0 MCHC 32.5 RDW Std Deviation 50.8 H RDW Coeff of Osiel 15.6 H Plt Count 198 MPV 10.8 Immature Gran % (Auto) 0.400 Neut % (Auto) 77.8 H Lymph % (Auto) 14.5 L [place] % (Auto) 6.7 Eos % (Auto) 0.3 Baso % (Auto) 0.3 Absolute Neuts (auto) 7.8 H Absolute Lymphs (auto) 1.46 Nucleated RBC % 0 Sodium 136 Potassium 4.0 Anion Gap 13 BUN 10 Creatinine 0.6 Estim Creat Clear Calc 45.14 Est GFR (MDRD) Non-Af 86 BUN/Creatinine Ratio 16.4 Glucose 103 H Lactic Acid 1.5 Calcium 9.8 Total Bilirubin 1.10 AST 31 ALT 13 Alkaline Phosphatase 51 Troponin T High Sens 38 H Delta Troponin T Troponin T Hi Sens 2 Hr Total Protein 7.7 Albumin 4.7 Globulin 3.0 Albumin/Globulin Ratio 1.6 Lipase 32 Urine Color Yellow Urine Clarity Clear Urine pH 7.0 Ur Specific [place] 1.010 Urine Protein 30 H Urine Glucose (UA) Normal Urine Ketones Negative Urine Occult Blood 10 H Urine Nitrite Negative Urine Bilirubin Negative Urine Urobilinogen Normal Ur Leukocyte Esterase Negative Urine RBC 0-5 SEEN Urine WBC 0-5 SEEN Ur Squamous Epith Cells 0 SEEN Urine Bacteria 0 SEEN Urine Mucus 0 SEEN 12/25/24 00:17 WBC RBC Hgb Hct MCV MCH MCHC RDW Std Deviation RDW Coeff of [place] Plt Count MPV Immature Gran % (Auto) Neut % (Auto) Lymph % (Auto) [place] % (Auto) Eos % (Auto) Baso % (Auto) Absolute Neuts (auto) Absolute Lymphs (auto) Nucleated RBC % Sodium Potassium Anion Gap BUN Creatinine Estim Creat Clear Calc Est GFR (MDRD) Non-Af BUN/Creatinine Ratio Glucose Lactic Acid Calcium Total Bilirubin AST ALT Alkaline Phosphatase Troponin T High Sens Delta Troponin T 0 Troponin T Hi Sens 2 Hr 38 H Total Protein Albumin Globulin Albumin/Globulin Ratio Lipase Urine Color Urine Clarity Urine pH Ur Specific [place] Urine Protein Urine Glucose (UA) Urine Ketones Urine Occult Blood Urine Nitrite Urine Bilirubin Urine Urobilinogen Ur Leukocyte Esterase Urine RBC Urine WBC Ur Squamous Epith Cells Urine Bacteria Urine Mucus Radiography Diagnostic Testing: Clinical Impression(s) from Imaging Studies Ribs w/Chest X-Ray 12/24/24 18:09 IMPRESSION: NO EVIDENCE OF ACUTE RIB FRACTURE OR PNEUMOTHORAX. Reading Location: [facility] Abdomen/Pelvis CT 12/24/24 20:53 IMPRESSION: Sigmoid colon wall thickening which may be due to underdistention or colitis. Small hiatal hernia. Diverticulosis. Dense colonic stool which may suggest constipation One or more dose reduction techniques were used (e.g., Automated exposure control, adjustment of the mA and/or kV according to patient size, use of iterative reconstruction technique). Reading Location: [id number] Discharge Plan Triage Chief Complaint: Abd Pain ED Midlevel Provider: Angely Dozier ED Provider: Noé Shepherd Dx/Rx/DC Orders Clinical Impression: Acute right flank pain, AF (paroxysmal atrial fibrillation) Instructions: AFib Preventing Stroke, AFib, ED Abdominal Pain Unkn Cause Fem Prescriptions: New Eliquis 5 mg tablet 5 mg PO BID 30 Days Qty: 60 0RF Discontinued ibuprofen 200 mg tablet 400 mg PO BID No Action omega-3 fatty acids [Fish Oil Concentrate] 1,000 mg capsule 1,000 mg PO DAILY Breztri Aerosphere 160-9-4.8 mcg/actuation HFA aerosol inhaler 2 inh inhalation BID metoprolol tartrate 25 mg tablet 25 mg PO BID hydralazine 50 mg tablet 50 mg PO BID rosuvastatin 40 mg tablet 40 mg PO DAILY PreserVision AREDS-2 250-90-40-1 mg capsule 1 tab PO BID latanoprost 0.005 % drops 1 drp ophthalmic (eye) QDAY calcium carbonate [Tums] 200 mg calcium (500 mg) tablet,chewable 200 mg PO ONCE PRN (Reason: dyspepsia) loratadine 10 MG tablet 10 mg PO DAILY PRN (Reason: Allergies) zoledronic hmms-jqtfekxe-auizv 5 mg/100 mL piggyback 1 ea IV .Qyear Patient Comments: ONCE PER YEAR calcium carbonate-vitamin D3 [Caltrate with Vitamin D3] 600 mg-20 mcg (800 unit) Tablet 1 tab PO DAILY clopidogrel 75 mg tablet 75 mg PO DAILY irbesartan 300 mg tablet 300 mg PO .AM amlodipine 5 mg tablet 5 mg PO DAILY Primary Care Provider: Khushi Balderrama Referrals: Khushi Balderrama MD [Primary Care Provider] - 3-5 Days Ron Santos MD [Med Staff - Active Staff] - 3-5 Days Activity Restrictions/Additional Instructions: Follow-up with your primary care physician for your abdominal pain. Return back to the ED if symptoms change or worsen. Follow-up with cardiology for your episode of atrial fibrillation. You were placed on a blood thinner for your episode of atrial fibrillation. Blood thinners can increase the risk of spontaneous bleeding as well as bleeding with falls. Do not take ibuprofen while taking blood thinners. You received your first dose of Eliquis here in the emergency department. Okay to take tomorrow morning Print Language: Arabic Disposition Disposition: Home, Self Care Discharge Date/Time: 12/25/24 01:23
[2024-12-24 21:17] LABS: Red Blood Cells-Urine 0-5 SEEN /hpf (0-5); White Blood Cells 0-5 SEEN /hpf (0-5)
[2024-12-24] MEDS: Lidocaine 5% Patch 1 PATCH TOPICAL (21:36)
--- NOTE | 2024-12-24 21:37 | EKG12_ITS ---
Test Reason : DYSRHYTHMIA Blood Pressure : */* mmHG Vent. Rate : 80 BPM Atrial Rate : * BPM P-R Int : * ms QRS Dur : 76 ms QT Int : 388 ms P-R-T Axes : * -19 33 degrees QTcB Int : 447 ms NSR WITH FIRST DEGREE AV BLOCK PACS Otherwise normal ECG Confirmed by Ron Santos [id number]), editor index [facility] ([id number]) on 12/25/2024 8:25:42 AM Referred By: Confirmed By: Ron Santos
[2024-12-24] MEDS: Morphine 4 MG/ML Syringe 2 MG IV (21:38)
[2024-12-24] MEDS: Ondansetron 4 MG/2 ML Vial IV (21:38)
[2024-12-24 22:00] VITALS: BP 117/74; PULSE 66; RESP 19; TEMP 36.8; O2SAT 95
[2024-12-24 22:31] LABS: Lactic Acid 1.5 mmol/L (0.0-2.0)
[2024-12-24 23:00] VITALS: BP 144/52; PULSE 55; RESP 19; TEMP 36.9; O2SAT 96
[2024-12-24 23:57] LABS: Troponin T High Sensitivity 38 ng/L (<=14)
[2024-12-25] VITALS: BP 131/54; PULSE 55; RESP 18; O2SAT 96
--- NOTE | 2024-12-25 00:25 | EKG12_ITS ---
Test Reason : DYSRHYTHMIA Blood Pressure : */* mmHG Vent. Rate : 56 BPM Atrial Rate : 56 BPM P-R Int : 230 ms QRS Dur : 66 ms QT Int : 452 ms P-R-T Axes : 65 -16 12 degrees QTcB Int : 436 ms Sinus bradycardia with 1st degree A-V block Otherwise normal ECG Confirmed by Ron Santos ([id number]), publishing editor [facility] ([id number]) on 12/25/2024 8:26:35 AM Referred By: JOE Confirmed By: Ron Santos
[2024-12-25 00:41] LABS: TROPONIN VARIANCE 2 HR 0; Troponin T High Sens 2 HR 38 ng/L (<=14)
[2024-12-25] MEDS: APIXABAN 5 MG TABLET PO (01:12)
[2024-12-25 01:22] VITALS: BP 131/56; PULSE 68; RESP 19; TEMP 36.8; O2SAT 95
== END 2024-12-25 01:23 | disposition home or self-care (01) ==
PROVIDERS: Physician Assistant; Emergency Provider Surgery; PCP Internal Medicine; Visit Provider Surgery
DX: R10.11 Right upper quadrant pain (principal); J44.9 Chronic obstructive pulmonary disease, unspecified; I48.0 Paroxysmal atrial fibrillation; R05.3 Chronic cough; M54.6 Pain in thoracic spine; E78.00 Pure hypercholesterolemia, unspecified; I10 Essential (primary) hypertension; Z79.02 Long term (current) use of antithrombotics/antiplatelets; Z79.51 Long term (current) use of inhaled steroids; Z99.81 Dependence on supplemental oxygen; Z79.899 Other long term (current) drug therapy
CPT/HCPCS: 71101; 74177; 80053; 81001; 83605; 83690; 84484; 85025; 87631; 93005; 96374; 96375; 99283; Q9967; A4216; J2405

== ENCOUNTER → 2025-01-07 | Outpatient (CLI) | payer MEDICARE, OTHER, SELFPAY ==
--- NOTE | 2025-01-07 12:47 | CDU_ITS ---
Reason For Study Reason For Study: Carotid Artery Stenosis Rt. Velocities/BP Lt. Velocities/BP Prox CCA 40.8/15.9 cm/sec. Prox CCA 116.2/13.9 cm/sec. Mid CCA 39.4/11.6 cm/sec. Mid CCA 127.1/17.5 cm/sec. Dist CCA 39.4/16.6 cm/sec. Dist CCA 105.2/19.4 cm/sec. Prox ICA 64.3/25.1 cm/sec. Prox ICA 94.2/19.4 cm/sec. Mid ICA 55.7/24.4 cm/sec. Mid ICA 86.9/21.7 cm/sec. Dist ICA 59.3/28.0 cm/sec. Dist ICA 139.9/34.0 cm/sec. Rt. ICA/CCA = 1.6. Lt. ICA/CCA = 1.1. Prox ECA 66.4/11.6 cm/sec. Prox ECA 134.4/6.6 cm/sec. Retrograde flow noted in Rt Vertebral Artery. Lt. Vert. 157.2/38.6 cm/sec. Rt Subclavian Artery - 73.6/9.7 cm/s. Lt Subclavian Artery - 137.4/14.5 cm/s. Right Extracranial There is heterogeneous, irregular atherosclerotic plaque noted in the right common carotid artery. There is heterogeneous, irregular atherosclerotic plaque noted in the right internal carotid artery. HX CEA. The right external carotid artery is not well visualized. Rt Vertebral Artery has retrograde flow. Left Extracranial There is heterogeneous, irregular atherosclerotic plaque noted in the left common carotid artery. There is heterogeneous, irregular atherosclerotic plaque noted in the left internal carotid artery. There is heterogeneous, irregular atherosclerotic plaque noted in the left external carotid artery. Antegrade flow is noted in the left vertebral artery. Procedure Carotid Duplex 04666. This is a Carotid Duplex examination using B-mode, color flow and specral Doppler. The exam was diagnostic. Exam performed in department. VL/Carotid Duplex Ultrasound Interpretation Summary Mild (<50%) stenosis right extracranial internal carotid. Moderate (50-69%) melissa nosis left extracranial internal carotid. Flow within the right verterbral artery is retrograde, consistent with a subcla vian steal phenomenon. Flow within the left verterbral artery is antegrade. Ordering Physician: Romel Araiza Referring Physician: Khushi Balderrama Performed By: Rell Garcia RVT
== END | disposition home or self-care (01) ==
LOC: CVS 12:43
PROVIDERS: PCP Internal Medicine; Referring Provider Surgery Vascular Surgery; Visit Provider Surgery Vascular Surgery
DX: I65.23 Occlusion and stenosis of bilateral carotid arteries (principal); I10 Essential (primary) hypertension; F17.200 Nicotine dependence, unspecified, uncomplicated
CPT/HCPCS: 93880

== ENCOUNTER 2025-01-12 13:06 | Emergency (ER) | payer MEDICARE, OTHER, SELFPAY ==
[2025-01-12 13:07] VITALS: BP 146/69; PULSE 64; RESP 16; TEMP 36.4; O2SAT 96
--- NOTE | 2025-01-12 13:26 | EX.ED.DYSGE1 ---
HPI <ALEX Ardon - Last Filed: 01/12/25 14:47> History of Present Illness Chief Complaint: Abd Pain Narrative Narrative: Patient is an 89-year-old female with history of hypertension, atrial fibrillation on Eliquis, hyperlipidemia, chronic cough on 2 L nasal cannula oxygen at baseline. Patient presented to the emergency department for reevaluation of pain to the right upper quadrant. Patient states she was seen 2-1/2 weeks for the same. Patient was diagnosed with muscle skeletal chest pain. Patient did get placed on Lidoderm patches that did help. Patient continues to cough and every time she moves, uses her torso she has pain. She denies any bowel or bladder continence, denies any nausea or vomiting. Denies any blood in her stool or vomit. [facility] <ALEX Ardon - Last Filed: 01/12/25 14:47> [facility] Medical History (Updated 01/12/25 @ 14:46 by ALEX Ardon) Macular degeneration Contact dermatitis due to plant Bilateral carotid artery stenosis Pure hypercholesterolemia Sinus bradycardia Tobacco abuse COPD (chronic obstructive pulmonary disease) Renal artery stenosis Osteoarthritis Osteoporosis Adrenal hyperplasia Home Medications ?Medication ?Instructions ?Recorded ?Last Taken ?Type loratadine 10 mg tablet 10 mg PO DAILY PRN Allergies 04/21/14 Unknown History omega-3 fatty acids 1,000 mg 1,000 mg PO DAILY 08/23/19 Unknown History capsule (Fish Oil Concentrate) irbesartan 300 mg tablet 300 mg PO .AM 12/31/21 Unknown History amlodipine 5 mg tablet 5 mg PO DAILY 02/03/22 Unknown History budesonide 160 mcg-glycopyr 9 2 inh inhalation BID 03/14/22 Unknown History mcg-formot 4.8 mcg/actuation HFA inhaler calcium 600 mg (as 1 tab PO DAILY 08/08/22 Unknown History carbonate)-vitamin D3 20 mcg (800 unit) tablet (Caltrate with Vitamin D3) metoprolol tartrate 25 mg tablet 25 mg PO BID 09/13/22 Unknown History zoledronic acid 5 mg/100 mL in 1 ea IV .Qyear 09/13/22 Unknown History mannitol 5 %-water intravenous piggybck hydralazine 50 mg tablet 50 mg PO BID 07/31/23 Unknown History rosuvastatin 40 mg tablet 40 mg PO DAILY 07/31/23 Unknown History vit C 250 mg-vit E 90 mg-zinc 40 1 tab PO BID 07/31/23 Unknown History mg-copper 1 tg-vostuh-mebjmo capsule (PreserVision AREDS-2) calcium carbonate (Tums) 200 mg PO ONCE PRN dyspepsia 09/25/24 Unknown History clopidogrel 75 mg tablet 75 mg PO DAILY 09/25/24 Unknown History latanoprost 0.005 % eye drops 1 drp ophthalmic (eye) QDAY 09/25/24 Unknown History apixaban 5 mg tablet (Eliquis) 5 mg PO BID 30 days #60 tabs 12/25/24 Unknown Rx lidocaine 5 % topical patch 1 patch topical DAILY #15 ea 01/12/25 Unknown Rx (Lidoderm) Allergy/AdvReac Type Severity Reaction Status Date / Time amlodipine AdvReac Intermediate Severe Verified 12/24/24 17:56 swelling in ankles Penicillins (PCN) AdvReac diarrhea Verified 12/24/24 17:56 Family History Mother CAD (coronary artery disease) Hypertension Brother Hypertension Presence of permanent cardiac pacemaker Brother Hypertension Father Hypertension Surgical History H/O carotid endarterectomy (~03/2024) History of YAG laser capsulotomy of lens of right eye History of tonsillectomy and adenoidectomy History of total hysterectomy Hx of cataract surgery H/O detached retina repair Social History (Updated 09/25/24 @ 11:36 by Radha Watson) Smoking Status: Current every day smoker tobacco type: cigarettes alcohol intake: current alcohol intake frequency: 0-2 drinks per day Alcohol type: beer substance use type: does not use caffeine: Yes (occasionally) ROS <ALEX Ardon - Last Filed: 01/12/25 14:47> ROS ED ROS Narrative Constitutional: Negative for fever, chills, weight loss, weakness Eyes: Negative for vision loss, vision change, double vision ENT: Negative for any sore throat, ear pain, congestion Cardiovascular: Negative for any chest pain, tightness, palpitations Respiratory: Negative for any cough, sputum production, hemoptysis, dyspnea, dyspnea on exertion, orthopnea Gastrointestinal: Negative for any nausea, vomiting, diarrhea, constipation, blood in stool, blood in vomit. Positive right upper quadrant pain : Negative for any urinary frequency, dysuria, retention, blood in urine Muscle skeletal: Negative for any neck pain, back pain. Positive for right sided chest wall pain Neurological: Negative for any headache, syncope, dizziness Skin: Negative for any rashes, itching, abrasions, lacerations Psychiatric: Negative for any depression, anxiety, stress, suicidal ideation, homicidal ideation Hematologic: Negative for any excessive bruising, easy bleeding EXAM <ALEX Ardon - Last Filed: 01/12/25 14:47> Physical Exam Narrative Exam Narrative: Vital signs reviewed. Patient is no obvious distress, vital signs are stable on her 2 L nasal cannula. HEET: Head normocephalic atraumatic, TMs clear bilaterally. Posterior pharynx is clear, moist mucous membranes. Nares clear bilaterally. Neck: Supple with no lymphadenopathy or tenderness. No signs of meningismus. Cardiac: Regular rate and rhythm no murmurs gallops or rubs, equal peripheral pulses bilaterally. Respiratory: Diminished lung sounds in the left lower lobe remainder was clear. Tenderness to the right anterior chest wall, slight to the lateral chest wall. Patient grimaces when moving, coughing Abdomen: Soft, nontender, nondistended. No abdominal bruit or pulsatile masses. No hepatosplenomegaly Extremities: No peripheral edema, no signs of gross trauma or deformity. Active full range of motion of all extremities. Neuro: Cranial nerves II through XII intact, no focal neurological deficits. Skin: Clean dry and intact with no rash, purpura, petechiae, vesicles or pustules. Backs/flank: No CVA tenderness, no midline spinal tenderness, no deformity. Psych: Normal mood and affect. No SI, HI or acute psychosis. Const Vital Signs: 01/12/25 13:07 Temperature 97.6 F L Temperature Source Temporal Pulse Rate 64 Respiratory Rate 16 Blood Pressure 146/69 H Blood Pressure Mean 94 Pulse Ox 96 Oxygen Delivery Method Nasal Cannula Positive well nourished and well developed General Appearance ED: well developed <Dr. Noé Shepherd DO - Last Filed: 01/12/25 15:14> Physical Exam Const Vital Signs: 01/12/25 13:07 Temperature 97.6 F L Temperature Source Temporal Pulse Rate 64 Respiratory Rate 16 Blood Pressure 146/69 H Blood Pressure Mean 94 Pulse Ox 96 Oxygen Delivery Method Nasal Cannula [facility] <Gregory Hamm NP-C - Last Filed: 01/12/25 14:47> [facility] Lab Data Labs: Laboratory Results - last 24 hr 01/12/25 13:31 WBC 9.5 RBC 4.17 L Hgb 12.0 Hct 37.8 MCV 90.6 MCH 28.8 MCHC 31.7 L RDW Std Deviation 50.0 H RDW Coeff of Osiel 14.9 H Plt Count 208 MPV 10.1 Immature Gran % (Auto) 0.700 Neut % (Auto) 84.2 H Lymph % (Auto) 9.1 L Nash % (Auto) 5.2 Eos % (Auto) 0.6 Baso % (Auto) 0.2 Absolute Neuts (auto) 8.0 H Absolute Lymphs (auto) 0.86 Nucleated RBC % 0 Sodium 133 Potassium 4.2 Chloride 94 L Carbon Dioxide 28.4 Anion Gap 11 BUN 9 Creatinine 0.61 L Est GFR (MDRD) Non-Af 87 BUN/Creatinine Ratio 14.8 Glucose 123 H Calcium 9.8 Total Bilirubin 1.10 AST 26 ALT 18 Alkaline Phosphatase 55 Total Protein 7.7 Albumin 4.8 Globulin 2.9 Albumin/Globulin Ratio 1.6 Lipase 38 Radiography Diagnostic Testing: Clinical Impression(s) from Imaging Studies Chest X-Ray 01/12/25 13:55 IMPRESSION: No acute airspace abnormality. Reading Location: [facility] Treatment and Re-Evaluation :: Differential diagnosis includes however is not limited to: Acute cholecystitis, costochondritis, chest wall strain, fractured rib, gastritis Patient appears generally well, vital signs are stable, patient is nontoxic-appearing. Presenting to the emergency department for ongoing pain to the right upper quadrant, right anterior ribs. Chest x-ray two-view will be obtained. CBC CMP lipase will be obtained. Patient be given a [place] as well as a Lidoderm patch. All radiologic examinations were read, reviewed by the emergency department attending. From these reads, a plan of care will be put in place. On my physical examination, muscle skeletal pain is consistent. Patient's chest x-ray shows no acute airspace abnormality. Patient's laboratory values show a normal CBC, chemistries were unremarkable, lipase was negative. At this time, believe this is more muscle skeletal. I do not believe this is cardiac, pneumonia, fracture. I believe this is all from the patient coughing continuously. Patient be given Lidoderm patches for home, will follow-up with a PCP. Patient is instructed to return for any worsening symptoms, patient's hyperlipidemia care, stable for discharge <Dr. Noé Shepherd, DO - Last Filed: 01/12/25 15:14> MDM MDM Narrative Medical decision making narrative: Supervisory note Patient was seen and examined with the Advanced Practice Provider. Nursing notes and vital signs have been reviewed. Pertinent old records have been reviewed. I agree with the essential elements of the RICKIE's history, physical exam, assessment, and plan. The differential diagnosis and management options were discussed with the RICKIE. I participated in determining and agree with the management, procedures, final impression and disposition as documented. See changes noted by me. Please see addendum or separate note for any additional details. 89-year-old female presents for persistent right upper quadrant/rib pain. Pain has been ongoing for multiple weeks. Was evaluated by me previously in the emergency department and diagnosed with a musculoskeletal pain after unremarkable workup. Patient was prescribed Lidoderm patches at that time which she has used. Patient followed up with PCP without any further workup. Endorses chronic cough. Gen: A&O x3, NAD Head: Normocephalic, atraumatic Eyes: No sclera icterus, conjunctiva clear ENT: Moist mucous membranes Neck: Trachea midline, No JVD CV: RRR, no murmurs, no peripheral edema, tender to the right anterior/lateral chest wall-similar to previous examination Resp: Lungs CTA BL, no w/r/c, + dry cough, nasal cannula GI: Abd soft, non-distended, non-tender, no r/r/g Musc: Full ROM, no deformity Skin: Warm, dry Neuro: Alert, oriented, grossly intact, sensation intact Psych: Cooperative, appropriate mood and affect Patient given pain medicine. CBC without leukocytosis or anemia. CMP relatively unremarkable without REBEKA, transaminitis, hyperbilirubinemia. Lipase unremarkable. Chest x-ray without pneumonia, effusion, cardiomegaly, pneumothorax. Suspect musculoskeletal strain from chronic cough. Patient prescribed Lidoderm patches for home. Follow-up with PCP. Impression: 1. Right chest wall pain 2. Chronic cough Lab Data Labs: Laboratory Results - last 24 hr 01/12/25 13:31 WBC 9.5 RBC 4.17 L Hgb 12.0 Hct 37.8 MCV 90.6 MCH 28.8 MCHC 31.7 L RDW Std Deviation 50.0 H RDW Coeff of Osiel 14.9 H Plt Count 208 MPV 10.1 Immature Gran % (Auto) 0.700 Neut % (Auto) 84.2 H Lymph % (Auto) 9.1 L Nash % (Auto) 5.2 Eos % (Auto) 0.6 Baso % (Auto) 0.2 Absolute Neuts (auto) 8.0 H Absolute Lymphs (auto) 0.86 Nucleated RBC % 0 Sodium 133 Potassium 4.2 Chloride 94 L Carbon Dioxide 28.4 Anion Gap 11 BUN 9 Creatinine 0.61 L Est GFR (MDRD) Non-Af 87 BUN/Creatinine Ratio 14.8 Glucose 123 H Calcium 9.8 Total Bilirubin 1.10 AST 26 ALT 18 Alkaline Phosphatase 55 Total Protein 7.7 Albumin 4.8 Globulin 2.9 Albumin/Globulin Ratio 1.6 Lipase 38 Radiography Diagnostic Testing: Clinical Impression(s) from Imaging Studies Chest X-Ray 01/12/25 13:55 IMPRESSION: No acute airspace abnormality. Reading Location: [facility] Discharge Plan Triage Chief Complaint: Abd Pain ED Midlevel Provider: Gregory Hamm ED Provider: Noé Shepherd Dx/Rx/DC Orders Clinical Impression: Acute chest wall pain Instructions: ED Chest Wall Strain Prescriptions: New lidocaine [Lidoderm] 5 % adhesive patch,medicated 1 patch topical DAILY Qty: 15 0RF Rx Instructions: leave on most painful area for up to 12 hrs No Action omega-3 fatty acids [Fish Oil Concentrate] 1,000 mg capsule 1,000 mg PO DAILY Breztri Aerosphere 160-9-4.8 mcg/actuation HFA aerosol inhaler 2 inh inhalation BID metoprolol tartrate 25 mg tablet 25 mg PO BID hydralazine 50 mg tablet 50 mg PO BID rosuvastatin 40 mg tablet 40 mg PO DAILY PreserVision AREDS-2 250-90-40-1 mg capsule 1 tab PO BID latanoprost 0.005 % drops 1 drp ophthalmic (eye) QDAY calcium carbonate [Tums] 200 mg calcium (500 mg) tablet,chewable 200 mg PO ONCE PRN (Reason: dyspepsia) loratadine 10 MG tablet 10 mg PO DAILY PRN (Reason: Allergies) zoledronic htuk-znuzjnti-hphfz 5 mg/100 mL piggyback 1 ea IV .Qyear Patient Comments: ONCE PER YEAR calcium carbonate-vitamin D3 [Caltrate with Vitamin D3] 600 mg-20 mcg (800 unit) Tablet 1 tab PO DAILY clopidogrel 75 mg tablet 75 mg PO DAILY Eliquis 5 mg tablet 5 mg PO BID 30 Days Qty: 60 0RF irbesartan 300 mg tablet 300 mg PO .AM amlodipine 5 mg tablet 5 mg PO DAILY Primary Care Provider: Khushi Balderrama Referrals: Khushi Balderrama MD [Primary Care Provider] - Activity Restrictions/Additional Instructions: Please continue to follow-up outpatient Print Language: Mohawk Disposition Disposition: Home, Self Care Discharge Date/Time: 01/12/25 15:12
[2025-01-12 13:43] LABS: Absolute Lymphocyte Count 0.86 X10^3/uL (0.83-4.51); Basophil# 0.02 X10^3/uL; Basophil% 0.2 % (0-1); Eosinophil# 0.06 X10^3/uL; Eosinophils% 0.6 % (0-5); Hematocrit 37.8 % (37-47); Lymphocyte # 0.86 X10^3/ul (0.83-4.51); Lymphocyte % 9.1 % (19-41); Mean Corp Hgb Conc 31.7 g/dL (32-36); Mean Corpuscular Hgb 28.8 pg (27.0-32.0); Mean Corpuscular Volume 90.6 fL (81-99); Mean Platelet Vol. 10.1 fl (6.2-12.0); Monocyte# 0.49 X10^3/uL; Monocyte% 5.2 % (0-10); NRBC Flagged by Analyzer 0 % (0-5); Neutrophil % 84.2 % (47-70); Platelet Count 208 K/mm3 (150-450); RBC Distribution Width CV 14.9 % (11.6-14.6); Red Blood Count 4.17 M/mm3 (4.2-5.4); White Blood Count 9.5 K/mm3 (4.4-11.0)
--- NOTE | 2025-01-12 13:55 | RAD_ITS ---
PROCEDURE: CHEST PA AND LATERAL REASON FOR EXAM: COUGH TECHNIQUE: Two views of the chest COMPARISON: None. FINDINGS: Cardiomediastinal silhouette is within normal limits. Lungs are clear. No sizable pneumothorax. RAD/Chest PA and Lateral IMPRESSION: No acute airspace abnormality. Reading Location: [facility]
[2025-01-12 13:56] LABS: ALB/GLOB Ratio 1.6 RATIO (0.9-2.4); AST(SGOT) 26 U/L (<=31); Alanine Aminotransfer ALT/SGPT 18 U/L (<=34); Albumin, Serum 4.8 g/dL (3.4-4.8); Alkaline Phosphatase 55 U/L (35-104); Anion Gap 11 (5-15); BUN 9 mg/dL (4-19); BUN/Creat Ratio 14.8 RATIO (10-20); Calcium,Total 9.8 mg/dL (7.6-11.0); Carbon Dioxide 28.4 mmol/L (21.0-32.0); Chloride 94 mmol/L (98-108); Creatinine, Serum 0.61 mg/dL (0.70-1.20); EST Glomerular Filtration Rate 87 (>60); Globulin 2.9 g/dL (2.2-4.2); Glucose 123 mg/dL (70-99); Lipase 38 U/L (13-75); Potassium 4.2 mmol/L (3.3-5.1); Protein, Total 7.7 g/dL (5.9-8.4); Sodium Level 133 mmol/L (133-145)
[2025-01-12] MEDS: HYDROcodone Bitartrate/Apap 5/325 Tablet PO (14:09)
[2025-01-12] MEDS: Lidocaine 5% Patch 1 PATCH TOPICAL (14:09)
== END 2025-01-12 15:12 | disposition home or self-care (01) ==
PROVIDERS: Nurse Practitioner; Emergency Provider Surgery; PCP Internal Medicine; Referring Provider Surgery; Visit Provider Surgery
DX: R10.11 Right upper quadrant pain (principal); J44.9 Chronic obstructive pulmonary disease, unspecified; I48.91 Unspecified atrial fibrillation; R07.89 Other chest pain; E78.00 Pure hypercholesterolemia, unspecified; I10 Essential (primary) hypertension; R05.3 Chronic cough; Z79.01 Long term (current) use of anticoagulants; Z79.899 Other long term (current) drug therapy; Z79.51 Long term (current) use of inhaled steroids; Z79.02 Long term (current) use of antithrombotics/antiplatelets; Z90.710 Acquired absence of both cervix and uterus; F17.210 Nicotine dependence, cigarettes, uncomplicated
CPT/HCPCS: 71046; 80053; 83690; 85025; 99282; A4216

== ENCOUNTER → 2025-01-16 | Outpatient (CLI) | payer MEDICARE, OTHER, SELFPAY ==
--- NOTE | 2025-01-16 06:48 | ECHOD_ITS ---
Reason For Study Reason For Study: UNSPECIFIED AFIB Procedure This was a 2D Doppler, Color Flow transthoracic echocardiogram. Exam performed in department. Left Ventricle Normal LV size. Left ventricular systolic function is normal. The left ventricular ejection fraction is 60 %. Stage 1 diastolic dysfunction. Right Ventricle Normal RV size. Normal systolic function. Tricuspid Valve Normal tricuspid valve. Mild to moderate (1-2+) tricuspid valve insufficiency. Pulmonary artery systolic pressure is 35 mmHg. Aortic Valve Trisinus/trileaflet aortic valve. Pulmonic Valve Normal pulmonic valve. Great Vessels Normal aortic root. The pulmonary artery is normal size. Inferior vena cava collapse with respiration. Pericardium/Pleural No pericardial effusion. MMode/2D Measurements & Calculations LVIDd: 4.4 cm IVSd: 1.1 cm Ao root diam: 3.2 cm LVIDs: 3.3 cm LVPWd: 1.1 cm RVDd: 2.7 cm FS: 25.1 % LAV(MOD-bp): 44.9 ml SV(MOD-sp4): 44.9 ml LVAd ap4: 22.5 cm2 LAV(MOD-bp) Indexed: 25.8 ml/m2 LVLd ap4: 6.6 cm SI(MOD-sp4): 25.8 ml/m2 LAV(MOD-sp2): 44.5 ml EDV(MOD-sp4): 63.3 ml LAV(MOD-sp4): 43.6 ml EDV(sp4-el): 64.7 ml LVAs ap4: 10.6 cm2 LVLs ap4: 5.3 cm ESV(MOD-sp4): 18.4 ml ESV(sp4-el): 17.9 ml EF(MOD-sp4): 71.0 % EF(sp4-el): 72.4 % SV(sp4-el): 46.9 ml LA dimension(2D): 3.7 cm LA A4 area: 16.2 cm2 TAPSE: 2.4 cm RA A4 area: 12.7 cm2 Time Measurements MV dec time: 0.24 sec Doppler Measurements & Calculations MV E max karthik: 88.6 cm/sec Lat Peak E' Karthik: 6.8 cm/sec Med Peak E' Karthik: 7.3 cm/sec MV A max karthik: 128.3 cm/sec E/E' lat: 13.0 E/E' med: 12.1 MV E/A: 0.69 MV V2 max: 158.7 cm/sec MV P1/2t max karthik: 91.5 cm/sec Ao V2 max: 110.7 cm/sec MV max P.1 mmHg MV P1/2t: 70.6 msec Ao max P.9 mmHg MV V2 mean: 70.2 cm/sec Ao V2 mean: 77.1 cm/sec MV mean P.4 mmHg MV dec slope: 379.5 cm/sec2 Ao mean P.6 mmHg MV V2 VTI: 38.0 cm MVA(P1/2t): 3.1 cm2 Ao V2 VTI: 28.9 cm AV (velocity ratio): 0.90 LV V1 max: 97.3 cm/sec PA V2 max: 94.4 cm/sec PI dec slope: 115.1 cm/sec2 LV V1 max P.8 mmHg LV V1 mean P.0 mmHg LV V1 mean: 67.1 cm/sec LV V1 VTI: 26.1 cm TR max karthik: 280.6 cm/sec TR max P.5 mmHg ECHO/Echo Complete Interpretation Summary Normal LV size. Left ventricular systolic function is normal. The left ventricular ejection fraction is 60 %. Stage 1 diastolic dysfunction. Structurally normal valves. Ordering Physician: Khushi Balderrama Referring Physician: Khushi Balderrama Performed By: Lindy Yang, FIFI, RVT
== END | disposition home or self-care (01) ==
LOC: CVS 06:45
PROVIDERS: PCP Internal Medicine; Referring Provider Internal Medicine; Visit Provider Internal Medicine
DX: I48.91 Unspecified atrial fibrillation (principal); R06.02 Shortness of breath
CPT/HCPCS: 93306

== ENCOUNTER → 2025-01-29 | Outpatient (CLI) | payer MEDICARE, OTHER, SELFPAY | END | disposition home or self-care (01) | PROVIDERS: PCP Internal Medicine; Referring Provider Physician Assistant Medical; Visit Provider Physician Assistant Medical | DX: I49.1 Atrial premature depolarization (principal) | CPT/HCPCS: 93225; 93226 ==

== ENCOUNTER 2025-03-18 07:31 | Emergency (ER) | payer MEDICARE, OTHER, SELFPAY ==
[2025-03-18 07:32] VITALS: BP 188/55; PULSE 69; RESP 14; TEMP 36.1; O2SAT 98
--- NOTE | 2025-03-18 08:03 | EX.ED.GENINJ ---
HPI History of Present Illness Chief Complaint: Fall Informant: patient and family Narrative Narrative: Patient is 89-year-old female with history of hypertension, hyperlipidemia, osteoporosis, chronic O2 dependency presenting for back pain after fall last night. Patient states around 11 PM she was trying with the TV and either lost her balance or maybe tripped on some oxygen tubing and caused her to fall. She states she fell forward. She denies hitting her head. She denies any major injuries but did lay on the floor for a while. She was able to get herself back up. Throughout the night she had increased low back pain bilaterally. She is not anything for her pain but did plied Lidoderm patches. Denies any numbness or tingling. Denies any in her head. Takes Plavix but denies any other blood thinners. Due to her increased pain came in for further evaluation. States the pain is equal of the bilateral flank/lumbar region. Denies any significant midline tenderness. Lives at home with her son who is at the bedside. States she has had a recent cough and is on steroids. That has been improving. Otherwise has been in her normal state of health. [facility] Medical History Macular degeneration Contact dermatitis due to plant Bilateral carotid artery stenosis Pure hypercholesterolemia Sinus bradycardia Tobacco abuse COPD (chronic obstructive pulmonary disease) Renal artery stenosis Osteoarthritis Osteoporosis Adrenal hyperplasia Home Medications ?Medication ?Instructions ?Recorded ?Last Taken ?Type loratadine 10 mg tablet 10 mg PO DAILY PRN Allergies 04/21/14 Unknown History omega-3 fatty acids 1,000 mg 1,000 mg PO DAILY 08/23/19 Unknown History capsule (Fish Oil Concentrate) irbesartan 300 mg tablet 300 mg PO .AM 12/31/21 Unknown History amlodipine 5 mg tablet 5 mg PO DAILY 02/03/22 Unknown History budesonide 160 mcg-glycopyr 9 2 inh inhalation BID 03/14/22 Unknown History mcg-formot 4.8 mcg/actuation HFA inhaler calcium 600 mg (as 1 tab PO DAILY 08/08/22 Unknown History carbonate)-vitamin D3 20 mcg (800 unit) tablet (Caltrate with Vitamin D3) metoprolol tartrate 25 mg tablet 25 mg PO BID 09/13/22 Unknown History zoledronic acid 5 mg/100 mL in 1 ea IV .Qyear 09/13/22 Unknown History mannitol 5 %-water intravenous piggybck hydralazine 50 mg tablet 50 mg PO BID 07/31/23 Unknown History rosuvastatin 40 mg tablet 40 mg PO DAILY 07/31/23 Unknown History vit C 250 mg-vit E 90 mg-zinc 40 1 tab PO BID 07/31/23 Unknown History mg-copper 1 [id number]-hwhcca-bjqvvr capsule (PreserVision AREDS-2) calcium carbonate (Tums) 200 mg PO ONCE PRN dyspepsia 09/25/24 Unknown History latanoprost 0.005 % eye drops 1 drp ophthalmic (eye) QDAY 09/25/24 Unknown History lidocaine 5 % topical patch 1 patch topical DAILY #15 ea 01/12/25 Unknown Rx (Lidoderm) clopidogrel 75 mg tablet 75 mg PO DAILY #1 TAB 01/16/25 Unknown Rx hydrocodone-acetaminophen 5-325mg 1 tab PO Q6H PRN PRN Pain 3 days 03/18/25 Unknown Rx 5mg-325mg #12 TABLETS Allergy/AdvReac Type Severity Reaction Status Date / Time amlodipine AdvReac Intermediate Severe Verified 03/18/25 07:32 swelling in ankles Penicillins (PCN) AdvReac diarrhea Verified 03/18/25 07:32 Family History Mother CAD (coronary artery disease) Hypertension Brother Hypertension Presence of permanent cardiac pacemaker Brother Hypertension Father Hypertension Surgical History H/O carotid endarterectomy (~03/2024) History of YAG laser capsulotomy of lens of right eye History of tonsillectomy and adenoidectomy History of total hysterectomy Hx of cataract surgery H/O detached retina repair Social History Smoking Status: Current every day smoker tobacco type: cigarettes alcohol intake: current alcohol intake frequency: 0-2 drinks per day Alcohol type: beer substance use type: does not use caffeine: Yes (occasionally) ROS ROS ED Constitutional Constitutional ED: Denies chills or fever(s) Cardiovascular Cardiovascular: Denies chest pain Respiratory/Chest Respiratory/Chest: Reports cough and sputum Musculoskeletal Musculoskeletal: Reports back pain; Denies arthralgias, myalgias or neck pain Integumentary Denies rash Neurologic Neurologic: Denies headache(s), paresthesias or weakness Hematologic/Lymphatic Hematologic/Lymphatic: Denies easy bleeding or easy bruising EXAM Physical Exam Const Vital Signs: 03/18/25 07:32 03/18/25 07:40 03/18/25 09:02 Temperature 97 F L 97.8 F Temperature Source Temporal Pulse Rate 69 78 Respiratory Rate 14 16 Respiratory Effort Normal Respiratory Depth Normal Respiratory Pattern Normal Blood Pressure 188/55 H 141/64 H Blood Pressure Mean 99 89 Pulse Ox 98 99 Oxygen Delivery Method Room Air Room Air Positive well nourished and well developed General Appearance ED: well developed and NAD HEENT Reports TM's clear HEENT Narrative: No scalp hematoma or tenderness appreciated. No evidence of head trauma. atraumatic Tympanic Membrane ED: Yes TM's clear Eyes EOMs intact bilaterally Neck full ROM General: Negative for tenderness Chest Wall inspection of chest normal and palpation of chest normal Resp normal respiratory effort and clear to auscultation bilaterally Auscultation: Negative for rales or rhonchi Cardio regular rhythm and no murmurs Cardio Narrative: 2+ radial pulses present. Rate: regular rate GI normal to inspection, nondistended, normoactive bowel sounds and non-tender Back/Spine Back/Spine Narrative: Pain with range of motion of the back. Mild midline lumbar tenderness with no step-off. she has bilateral lumbar paraspinal tenderness equal on both sides. No obvious crepitus or hematoma of the back appreciated. Lidoderm patches on the bilateral posterior flank where it hurts. Thoracic Spine / Upper Back: Negative for thoracic spinal tenderness Extremity normal to inspection and full ROM Extremity Narrative: No TTP or deformity of upper and lower extremities. Normal ROM of the shoulders. Pelvis is stable. No TTP of the hips or legs. No deformity. No pain with log roll of the hips. General Extremety ED: Negative for tenderness Neuro oriented x3, moves all extremities and no focal motor deficits [place] Coma Scale: document GCS findings Spontaneous Obeys Commands Oriented 15 Sensorium / Orientation: alert Skin no rashes or lesions noted and no wounds MDM MDM MDM Narrative Medical decision making narrative: Patient evaluated for lumbar back pain after what sounds like a mechanical fall that occurred last night. She was able to get herself up initially after the fall. It sounds like she tripped or lost her balance. She does not think she passed out. Do not think a syncope workup is indicated. She denies hitting her head and has no physical exam basis with head trauma so do not think she requires any CT brain imaging. X-ray the lumbar spine is obtained and she does have a history of osteoporosis is complaining of lumbar pain however it is more bilateral and not necessary midline. X-ray reviewed by myself as well as radiology shows marked degree of to space narrowing and spondylolisthesis at L4/L5 and L5/S1 but no acute fractures noted. Patient is neurovascularly intact distally. She is not reporting any symptoms consistent with cauda equina syndrome. Was given a dose of IM morphine in the ER (patient requesting stronger pain medicine) he as well as Tylenol and Zofran. Will attempt ambulation. She note she does have a walker to use at home. If she feels comfortable going home will discharge home with a short course of pain medication and return precautions. Patient does not feel comfortable ambulating can admit for rehab evaluation/intractable pain if needed. Patient able to ambulate. Like to try going home. Discussed alternating ibuprofen and Tylenol (she is no longer on Eliquis). She does have a walker to use if needed. Discussed using either MiraLAX or Dulcolax with pain medication because of opioid-induced constipation. Given return precautions. She verbalized agreement and understanding with this plan. Discharged home in stable condition. Encouraged to return to the emergency room should her pain become too severe she has difficulty walking/taking care of her self at home. Radiography Diagnostic Testing: Clinical Impression(s) from Imaging Studies Lumbar Spine X-Ray 03/18/25 08:25 IMPRESSION: Marked degree of disc space narrowing and spondylosis at the L4-L5 and L5-S1 levels. Facet joint osteoarthritis. Atherosclerotic calcification of the abdominal aorta. Reading Location: [place] [id number] Discharge Plan Triage Chief Complaint: Fall ED Provider: Valeria Ghotra Dx/Rx/DC Orders Clinical Impression: Lumbar strain, Fall Instructions: ED Back Sprain/Strain, ED Fall Prevention Prescriptions: New hydrocodone-acetaminophen 5-325 mg tablet 1 tab PO Q6H PRN PRN (Reason: Pain) 3 Days Qty: 12 0RF No Action omega-3 fatty acids [Fish Oil Concentrate] 1,000 mg capsule 1,000 mg PO DAILY Breztri Aerosphere 160-9-4.8 mcg/actuation HFA aerosol inhaler 2 inh inhalation BID metoprolol tartrate 25 mg tablet 25 mg PO BID hydralazine 50 mg tablet 50 mg PO BID rosuvastatin 40 mg tablet 40 mg PO DAILY PreserVision AREDS-2 250-90-40-1 mg capsule 1 tab PO BID latanoprost 0.005 % drops 1 drp ophthalmic (eye) QDAY calcium carbonate [Tums] 200 mg calcium (500 mg) tablet,chewable 200 mg PO ONCE PRN (Reason: dyspepsia) clopidogrel 75 mg tablet 75 mg PO DAILY Qty: 1 0RF loratadine 10 MG tablet 10 mg PO DAILY PRN (Reason: Allergies) zoledronic cvpm-uglhnqtv-idsew 5 mg/100 mL piggyback 1 ea IV .Qyear Patient Comments: ONCE PER YEAR calcium carbonate-vitamin D3 [Caltrate with Vitamin D3] 600 mg-20 mcg (800 unit) Tablet 1 tab PO DAILY lidocaine [Lidoderm] 5 % adhesive patch,medicated 1 patch topical DAILY Qty: 15 0RF Rx Instructions: leave on most painful area for up to 12 hrs irbesartan 300 mg tablet 300 mg PO .AM amlodipine 5 mg tablet 5 mg PO DAILY Primary Care Provider: Khushi Balderrama Referrals: Khushi Balderrama MD [Primary Care Provider] - Activity Restrictions/Additional Instructions: You may alternate ibuprofen and Tylenol as well for pain. Please be aware that there is 1 regular strength Tylenol and the pain pill prescribed but you may take an additional 325 mg (regular strength Tylenol) with your pain pill in addition to 400 mg of ibuprofen every 6 hours. Apply heat to your back. Continues Lidoderm patches. He might need to use your walker. If the pain becomes too much we do not feel safe at home please return to the emergency room. As we discussed, there is increased risk of constipation associated with pain medicine. I do recommend taking Dulcolax or MiraLAX daily with this. In addition please be aware that all pain medication has increased risk of confusion/falls and to be careful while taking it. Print Language: Pakistani Disposition Disposition: Home, Self Care Discharge Date/Time: 03/18/25 09:34
[2025-03-18] MEDS: morphine 10 MG/ML Syringe 6 MG IM (08:08)
[2025-03-18] MEDS: Ondansetron ODT 4 MG Tablet PO (08:10)
[2025-03-18] MEDS: Acetaminophen 325 MG Tablet 650 MG PO (08:10)
--- NOTE | 2025-03-18 08:25 | RAD_ITS ---
PROCEDURE: L/S SPINE MIN 4 VIEWS 03/18/2025 REASON FOR EXAM: PAIN, FALL TECHNIQUE: AP lateral and oblique views of the lumbar spine were obtained. COMPARISON: None FINDINGS: Curvature: No significant scoliosis. Marked degree of disc space narrowing at the L4-L5 and L5-S1 levels with the spondylosis. Mild degree of disc space narrowing at the L3-L4 level. Facet joint osteoarthritis. Other: Atherosclerotic calcification of the abdominal aorta. Moderate amount of fecal material is seen in the colon. RAD/L/S Spine Min 4 Views IMPRESSION: Marked degree of disc space narrowing and spondylosis at the L4-L5 and L5-S1 le vels. Facet joint osteoarthritis. Atherosclerotic calcification of the abdominal aorta. Reading Location: [facility]
[2025-03-18 09:02] VITALS: BP 141/64; PULSE 78; RESP 16; TEMP 36.6; O2SAT 99
== END 2025-03-18 09:34 | disposition home or self-care (01) ==
PROVIDERS: Emergency Provider Emergency Medicine; PCP Internal Medicine; Visit Provider Emergency Medicine
DX: S39.012A Strain of muscle, fascia and tendon of lower back, initial encounter (principal); J44.9 Chronic obstructive pulmonary disease, unspecified; W18.39XA Other fall on same level, initial encounter; I10 Essential (primary) hypertension; F17.210 Nicotine dependence, cigarettes, uncomplicated; Z99.81 Dependence on supplemental oxygen; Z79.02 Long term (current) use of antithrombotics/antiplatelets; Z79.51 Long term (current) use of inhaled steroids; Z79.899 Other long term (current) drug therapy
CPT/HCPCS: 96372; 99282; 72110

== ENCOUNTER 2025-03-19 08:46 | Inpatient (IN) | payer MEDICARE, OTHER, SELFPAY ==
[2025-03-19] VITALS (13 sets, daily range): BP systolic 120–165; BP diastolic 53–86; PULSE 54–78; RESP 16–22; TEMP 36.2–37.1; O2SAT 78–99; BMI 31.6
--- NOTE | 2025-03-19 08:54 | ED.VIS.FALL ---
HPI HPI - Fall History of Present Illness Chief Complaint: Fall PFSH PFS Medical History Macular degeneration Contact dermatitis due to plant Bilateral carotid artery stenosis Pure hypercholesterolemia Sinus bradycardia Tobacco abuse COPD (chronic obstructive pulmonary disease) Renal artery stenosis Osteoarthritis Osteoporosis Adrenal hyperplasia Home Medications ?Medication ?Instructions ?Recorded ?Last Taken ?Type loratadine 10 mg tablet 10 mg PO DAILY PRN Allergies 04/21/14 Unknown History omega-3 fatty acids 1,000 mg 1,000 mg PO DAILY 08/23/19 Unknown History capsule (Fish Oil Concentrate) irbesartan 300 mg tablet 300 mg PO .AM 12/31/21 Unknown History amlodipine 5 mg tablet 5 mg PO DAILY 02/03/22 Unknown History budesonide 160 mcg-glycopyr 9 2 inh inhalation BID 03/14/22 Unknown History mcg-formot 4.8 mcg/actuation HFA inhaler calcium 600 mg (as 1 tab PO DAILY 08/08/22 Unknown History carbonate)-vitamin D3 20 mcg (800 unit) tablet (Caltrate with Vitamin D3) metoprolol tartrate 25 mg tablet 25 mg PO BID 09/13/22 Unknown History zoledronic acid 5 mg/100 mL in 1 ea IV .Qyear 09/13/22 Unknown History mannitol 5 %-water intravenous piggybck hydralazine 50 mg tablet 50 mg PO BID 07/31/23 Unknown History rosuvastatin 40 mg tablet 40 mg PO DAILY 07/31/23 Unknown History vit C 250 mg-vit E 90 mg-zinc 40 1 tab PO BID 07/31/23 Unknown History mg-copper 1 [id number]-gtjxgd-sruxct capsule (PreserVision AREDS-2) calcium carbonate (Tums) 200 mg PO ONCE PRN dyspepsia 09/25/24 Unknown History latanoprost 0.005 % eye drops 1 drp ophthalmic (eye) QDAY 09/25/24 Unknown History lidocaine 5 % topical patch 1 patch topical DAILY #15 ea 01/12/25 Unknown Rx (Lidoderm) clopidogrel 75 mg tablet 75 mg PO DAILY #1 TAB 01/16/25 Unknown Rx hydrocodone-acetaminophen 5-325mg 1 tab PO Q6H PRN PRN Pain 3 days 03/18/25 Unknown Rx 5mg-325mg #12 TABLETS Allergy/AdvReac Type Severity Reaction Status Date / Time amlodipine AdvReac Intermediate Severe Verified 03/19/25 08:47 swelling in ankles Penicillins (PCN) AdvReac diarrhea Verified 03/19/25 08:47 Family History Mother CAD (coronary artery disease) Hypertension Brother Hypertension Presence of permanent cardiac pacemaker Brother Hypertension Father Hypertension Surgical History H/O carotid endarterectomy (~03/2024) History of YAG laser capsulotomy of lens of right eye History of tonsillectomy and adenoidectomy History of total hysterectomy Hx of cataract surgery H/O detached retina repair Social History Smoking Status: Current every day smoker tobacco type: cigarettes alcohol intake: current alcohol intake frequency: 0-2 drinks per day Alcohol type: beer substance use type: does not use caffeine: Yes (occasionally) EXAM Physical Exam Const Vital Signs: 03/19/25 08:47 03/19/25 08:47 Temperature 97.2 F L Temperature Source Temporal Pulse Rate 54 L Respiratory Rate 22 H Respiratory Effort Normal Respiratory Depth Normal Respiratory Pattern Normal Blood Pressure 150/71 H Blood Pressure Mean 97 Pulse Ox 97 Oxygen Delivery Method Nasal Cannula Nasal Cannula Oxygen Flow Rate (L/min) 2 3 MDM MDM MDM Narrative Medical decision making narrative: HISTORY OF PRESENT ILLNESS: Chief complaint: Fall, tractable pain 89-year-old female history of osteoporosis, chronic O2 dependency secondary to COPD, hypertension, sinus bradycardia, tobacco abuse, PACs presents concern for intractable pain after fall. No she was seen yesterday was going to be admitted for pain control but she refused at the time but now the pain is unbearable. Patient further states she attempted to walk with rollator at home. She states she does live with her son however he is gone for most of the day approximate 14 hours. States she could not perform her activities of daily living. She states she is comfortable coming into the hospital with a goal of going to some sort of facility if necessary. Patient denies any saddle anesthesia, urinary retention, bowel or bladder incontinence, lower extremity weakness, fever or IV drug use, no recent spinal manipulation or surgery, no recent urinary catheterization. REVIEW OF SYSTEMS: Pertinent positives: Back pain Pertinent negatives: Bowel or bladder incontinence, urinary tension, loss of motor sensation in the legs PHYSICAL EXAM: Nursing triage notes reviewed, Vital signs reviewed Constitutional: please see [facility] HENT: MMM Eyes: Pupils equal round and reactive to light, Extraocular muscles intact Neck: No stridor, no JVD, full neck ROM Lungs: Clear to auscultation, No wheezing or rales. No increased work of breathing, no conversational dyspnea, no accessory muscle use, no nasal flaring. No respiratory distress noted Heart: Regular rate and rhythm, No murmurs, No rubs and No gallops, 2+ distal pulses (radial, femoral, posterior tibial) in all extremities Abdomen: Soft, there is no tenderness, rigidity, rebound or guarding, no obvious peritoneal signs, no palpable pulsatile abdominal masses, no auscultated abdominal bruit : No CVAT Back: Lidocaine patches bilateral lower spines, TTP over thoracolumbar junction, no obvious epileptiform release Extremities: No edema Neuro: Intact sensation L1-S1 dermatomal distributions. Intact 5/5 strength in hip flexion (T12-L3). Knee extension (L2-L4). Ankle dorsiflexion (L4-L5). Ankle plantar flexion (S1). Great toe extension (L5). 2+ patellar and Achilles DTRs. Skin: No rash or lesions noted MEDICAL DECISION MAKING: Chief Complaint: please see [facility] External records reviewed: Reviewed ED visit from yesterday. Reviewed x-ray from yesterday which shows spondylolisthesis at L4/L5 and L5 and S1 Factors affecting care: as per HPI Social determinants of health: elderly History obtained from others: Son Consults: n internal medicine (Dr. Arce) [facility] Narrative: The patient was initially hemodynamically stable, saturating well on baseline oxygen. Exam with TTP over thoracic lumbar spine I considered the following differential diagnosis: Fracture, dislocation, contusion, UTI Obtain CT scans of thoracic lumbar spine. Obtain basic labs and urinalysis. Gave IV morphine, fluids and Zofran for initial resuscitation. ALL IMAGES (IF OBTAINED) HAVE BEEN PERSONALLY REVIEWED AND INTERPRETED BY MYSELF. CBC with leukocytosis suggestive of systemic inflammation (no focus of infection could be ascertained this time), no anemia thrombocytopenia noted CT scan of thoracic and lumbar spine shows evidence of possible acute on chronic T12 compression fracture CMP with mild hypokalemia essentially baseline, no other serious electrolyte abnormalities, no acute kidney injury, no sign of metabolic acidosis or endorgan perfusion, no sign of hepatobiliary obstruction The synthesis of the patient's history, physical exam, labs images suggest likely acute on chronic compression fractures exacerbated recent trauma causing significant pain and inability to form ADLs. She will require inpatient hospitalization for pain control and possible placement. She is agreeable to stay in the hospital and to be admitted to a intermediate facility if necessary. The patient and/or family, caregivers express understanding. The patient and/or family, caregivers agrees with the plan. Shared decision making: I will have a discussion with the patient and or visitors regarding risk/benefits of further testing or admission. They will be made aware of of the risk/benefits inherent in this decision they will be given the opportunity to voice understanding. Total critical care time today provided was at least 0 minutes. This excludes separately billable procedures. Critical care time (if documented) is secondary to the patient having high probability of clinically significant/life threatening deterioration in the patient's condition which required my urgent intervention. Impression: 1. Acute on chronic back pain 2. Inability to perform ADLs 3. Leukocytosis Dispo: Admit to hospitalist This note was generated with [employer] dictation software. It may contain incorrect words, spelling, and punctuation that were not noted in review of the chart prior to signing. Lab Data Labs: Laboratory Results - last 24 hr 03/19/25 03/19/25 09:25 09:46 WBC 15.0 H RBC 4.00 L Hgb 11.7 L Hct 35.3 L MCV 88.3 MCH 29.3 MCHC 33.1 RDW Std Deviation 44.4 H RDW Coeff of [place]iel 13.8 Plt Count 206 MPV 9.9 Sodium 131 L Potassium 3.8 Chloride 92 L Carbon Dioxide 26.8 Anion Gap 12 BUN 13 Creatinine 0.60 L Est GFR (MDRD) Non-Af 87 BUN/Creatinine Ratio 22.0 H Glucose 128 H Calcium 9.3 Total Bilirubin 1.23 AST 31 ALT 15 Alkaline Phosphatase 58 Total Protein 7.3 Albumin 4.3 Globulin 3.0 Albumin/Globulin Ratio 1.4 Urine Color Yellow Urine Clarity Sl. Cloudy Urine pH 6.0 Ur Specific [place] 1.025 Urine Protein 100 H Urine Glucose (UA) Normal Urine Ketones Negative Urine Occult Blood 10 H Urine Nitrite Negative Urine Bilirubin Negative Urine Urobilinogen 1 H Ur Leukocyte Esterase 100 H Urine RBC 0-5 SEEN Urine WBC 0-5 SEEN Ur Squamous Epith Cells 0-5 SEEN Urine Bacteria 0 SEEN Hyaline Casts 0-5 SEEN Fine Granular Casts 0-5 SEEN Urine Mucus 1+ Radiography Diagnostic Testing: Clinical Impression(s) from Imaging Studies Lumbar Spine CT 03/19/25 09:05 IMPRESSION: 1. Severe endplate degenerative changes, facet arthropathy, and disc bulge of L4-5 resulting in moderate spinal canal stenosis and mild neural foraminal narrowing, bilaterally. 2. No acute fracture. 3. If symptoms persist, further evaluation with MRI is recommended Reading Location: [facility] Thoracic Spine CT 03/19/25 09:05 IMPRESSION: 1. Moderate superior endplate compression deformity of T12 vertebral body with sclerosis, likely chronic. However, acute on chronic fracture can not be excluded. Further evaluation with MRI is recommended. 2. Degenerative changes thoracic spine as described. Reading Location: [facility] Discharge Plan Triage Chief Complaint: Fall ED Provider: Rafiq Hardin Dx/Rx/DC Orders Prescriptions: No Action omega-3 fatty acids [Fish Oil Concentrate] 1,000 mg capsule 1,000 mg PO DAILY Breztri Aerosphere 160-9-4.8 mcg/actuation HFA aerosol inhaler 2 inh inhalation BID metoprolol tartrate 25 mg tablet 25 mg PO BID hydralazine 50 mg tablet 50 mg PO BID rosuvastatin 40 mg tablet 40 mg PO DAILY PreserVision AREDS-2 250-90-40-1 mg capsule 1 tab PO BID latanoprost 0.005 % drops 1 drp ophthalmic (eye) QDAY calcium carbonate [Tums] 200 mg calcium (500 mg) tablet,chewable 200 mg PO ONCE PRN (Reason: dyspepsia) clopidogrel 75 mg tablet 75 mg PO DAILY Qty: 1 0RF loratadine 10 MG tablet 10 mg PO DAILY PRN (Reason: Allergies) zoledronic hdhw-nedvstxe-sdqga 5 mg/100 mL piggyback 1 ea IV .Qyear Patient Comments: ONCE PER YEAR calcium carbonate-vitamin D3 [Caltrate with Vitamin D3] 600 mg-20 mcg (800 unit) Tablet 1 tab PO DAILY lidocaine [Lidoderm] 5 % adhesive patch,medicated 1 patch topical DAILY Qty: 15 0RF Rx Instructions: leave on most painful area for up to 12 hrs hydrocodone-acetaminophen 5-325 mg tablet 1 tab PO Q6H PRN PRN (Reason: Pain) 3 Days Qty: 12 0RF irbesartan 300 mg tablet 300 mg PO .AM amlodipine 5 mg tablet 5 mg PO DAILY Primary Care Provider: Khushi Balderrama Referrals: Khushi Balderrama MD [Primary Care Provider] - Print Language: Icelandic
--- NOTE | 2025-03-19 09:05 | CT_ITS ---
EXAM: CT Lumbar Spine Without Intravenous Contrast CLINICAL INDICATION: LOW BACK PAIN TECHNIQUE: Axial computed tomography images of the lumbar spine without intravenous contrast. This CT exam was performed using one or more of the following dose reduction techniques: automated exposure control, adjustment of the mA and/or kV according to patient size, and/or use of iterative reconstruction technique. COMPARISON: No relevant prior studies available. FINDINGS: VERTEBRAE: Severe endplate degenerative changes, facet arthropathy, and disc bulge of L4-5 resulting in moderate spinal canal stenosis and mild neural foraminal narrowing, bilaterally. No acute fracture. DISCS/SPINAL CANAL/NEURAL FORAMINA: See above. SOFT TISSUES: Unremarkable. VASCULATURE: Scattered calcified atherosclerotic disease of aorta. CT/Spine Lumbar without Contrast IMPRESSION: 1. Severe endplate degenerative changes, facet arthropathy, and disc bulge of L4-5 resulting in moderate spinal canal stenosis and mild neural foraminal narrowing, bilaterally. 2. No acute fracture. 3. If symptoms persist, further evaluation with MRI is recommended Reading Location: [facility]
--- NOTE | 2025-03-19 09:05 | CT_ITS ---
EXAM: CT Thoracic Spine Without Intravenous Contrast CLINICAL INDICATION: MID BACK PAIN AFTER FALL TECHNIQUE: Axial computed tomography images of the thoracic spine without intravenous contrast. This CT exam was performed using one or more of the following dose reduction techniques: automated exposure control, adjustment of the mA and/or kV according to patient size, and/or use of iterative reconstruction technique. COMPARISON: No relevant prior studies available. FINDINGS: VERTEBRAE: Moderate superior endplate compression deformity of T12 vertebral body with sclerosis, likely chronic. However, acute on chronic fracture can not be excluded. Further evaluation with MRI is recommended. Degenerative disc disease and facet arthropathy throughout the thoracic spine. DISCS/SPINAL CANAL/NEURAL FORAMINA: See above. SOFT TISSUES: Unremarkable. CT/Spine Thoracic without Contras IMPRESSION: 1. Moderate superior endplate compression deformity of T12 vertebral body with sclerosis, likely chronic. However, acute on chronic fracture can not be excluded. Further evaluation with MRI is recommend ed. 2. Degenerative changes thoracic spine as described. Reading Location: [facility]
[2025-03-19] MEDS: Morphine 4 MG/ML Syringe IV ×2 (09:21→11:17)
[2025-03-19] MEDS: Ondansetron 4 MG/2 ML Vial IV ×2 (09:21→18:51)
[2025-03-19] MEDS: 0.9% Normal Saline (500mL Bag) 500 ML 999 ML IV (09:21)
[2025-03-19 09:38] LABS: Hematocrit 35.3 % (37-47); Hemoglobin 11.7 g/dL (12.0-15.0); Mean Corp Hgb Conc 33.1 g/dL (32-36); Mean Corpuscular Hgb 29.3 pg (27.0-32.0); Mean Corpuscular Volume 88.3 fL (81-99); Mean Platelet Vol. 9.9 fl (6.2-12.0); Platelet Count 206 K/mm3 (150-450); RBC Distribution Width CV 13.8 % (11.6-14.6); RBC Distribution Width SD 44.4 fl (35.1-43.9)
[2025-03-19 09:55] LABS: Bacteria 0 SEEN /hpf (None Seen)
[2025-03-19 10:08] LABS: ALB/GLOB Ratio 1.4 RATIO (0.9-2.4); AST(SGOT) 31 U/L (<=31); Alanine Aminotransfer ALT/SGPT 15 U/L (<=34); Albumin, Serum 4.3 g/dL (3.4-4.8); Alkaline Phosphatase 58 U/L (35-104); Anion Gap 12 (5-15); BUN 13 mg/dL (4-19); Calcium,Total 9.3 mg/dL (7.6-11.0); Carbon Dioxide 26.8 mmol/L (21.0-32.0); Chloride 92 mmol/L (98-108); EST Glomerular Filtration Rate 87 (>60); Glucose 128 mg/dL (70-99); Potassium 3.8 mmol/L (3.3-5.1); Protein, Total 7.3 g/dL (5.9-8.4); Sodium Level 131 mmol/L (133-145); Total Bilirubin 1.23 mg/dL (0.00-1.30)
[2025-03-19 10:18] LABS: Color, Urine Yellow (Yellow); Glucose, Dipstick Normal (Normal); Ketone-Dipstick Negative (Negative); Leukocyte Esterase-Dipstick 100 /ul (Negative); Nitrite-Dipstick Negative (Negative); Occult Blood-Urine 10 /ul (Negative); Protein-Dipstick 100 mg/dl (Negative); Specific Gravity, Urine 1.025 (1.002-1.030); Urine Bilirubin Dipstick Negative (Negative); Urine Clarity Sl. Cloudy (Clear); Urine Urobilinogen 1 mg/dl (Normal)
[2025-03-19 10:43] LABS: Mucous, Urine 1+ /hpf (<or=2+); Red Blood Cells-Urine 0-5 SEEN /hpf (0-5); Squamous Epithelial Cells - UA 0-5 SEEN /hpf (5-10); White Blood Cells 0-5 SEEN /hpf (0-5)
[2025-03-19 10:44] LABS: Fine Granular Cast- Urine 0-5 SEEN /lpf (0-5); Hyaline Cast 0-5 SEEN /lpf (0-5)
--- NOTE | 2025-03-19 10:54 | HP.PCM.HOS_ITS ---
HPI - General General Date of Admission: 03/19/25 Date of Service: 03/19/25 Chief Complaint: Intractable back pain HPI Narrative AISHA PARKER, is a 89 F who presented to the emergency department at [facility] on 03/19/2025 with intractable back pain. Patient had a fall on Monday evening and came to the emergency department on 03/20/2025 in the morning due to back pain. She was feeling better and thought to be able to go home however got home and continued to have issues. She is unclear exactly why she fell. She felt like she either lost her balance or tripped on her oxygen. She did not lose consciousness and did not hit her head. She was able to get herself up but did have increasing pain after the initial fall. Imaging revealed no acute fracture and she was sent home with 3 days of [place] and asked to follow-up with her primary care physician. She declined admission at that time. She came in today and reported that the pain was unbearable. She had no bowel or bladder changes, no saddle anesthesia and denied any focal lower extremity weakness, tingling, or numbness. Vital signs on presentation showed temperature 97.2, heart rate 54, respiratory rate 22, blood pressure 150/71 and pulse ox was 97% on 2 L nasal cannula which is her baseline. CBC showed a leukocytosis with white count of 15,000 and a mild anemia at 11.7. Coags were normal. Chemistry panel was significant for hyponatremia which is a chronic issue for her but was otherwise unremarkable. Blood glucose was 128 this is nonfasting. Liver function was unremarkable. UA was obtained was consistent with dehydration but not with infection. CT of the lumbar spine showed severe endplate degenerative changes with facet arthropathy and disc bulge at L4-L5 resulting in moderate spinal canal stenosis with no fracture identified. CT of the thoracic spine showed moderate superior endplate compression deformity of T12 that was felt to be chronic. Given her significant pain that was intractable and inability ambulate admission was requested. [facility] Medical History Macular degeneration Contact dermatitis due to plant Bilateral carotid artery stenosis Pure hypercholesterolemia Sinus bradycardia Tobacco abuse COPD (chronic obstructive pulmonary disease) Renal artery stenosis Osteoarthritis Osteoporosis Adrenal hyperplasia Home Medications ?Medication ?Instructions ?Recorded ?Last Taken ?Type loratadine 10 mg tablet 10 mg PO DAILY PRN Allergies 04/21/14 Unknown History omega-3 fatty acids 1,000 mg 1,000 mg PO DAILY FOLLOW- UP NEEDED 08/23/19 Unknown History capsule (Fish Oil Concentrate) irbesartan 300 mg tablet 300 mg PO .AM HTN 12/31/21 U nknown History amlodipine 5 mg tablet 5 mg PO DAILY HTN 02/03/22 U nknown History budesonide 160 mcg-glycopyr 9 2 inh inhalation BID TWAN ATHING 03/14/22 Unknown History mcg-formot 4.8 mcg/actuation HFA inhaler calcium 600 mg (as 1 tab PO DAILY FOLLOW-UP NEE DED 08/08/22 Unknown History carbonate)-vitamin D3 20 mcg (800 unit) tablet (Caltrate with Vitamin D3) metoprolol tartrate 25 mg tablet 25 mg PO BID HTN 08/30 03/20 Unknown History zoledronic acid 5 mg/100 mL in 1 ea IV .Qyear FOLLOW-U P NEEDED 09/13/22 Unknown History mannitol 5 %-water intravenous piggybck hydralazine 50 mg tablet 50 mg PO BID FOLLOW-UP NEEDE D 07/31/23 Unknown History rosuvastatin 40 mg tablet 40 mg PO DAILY FOLLOW-UP NEE DED 07/31/23 Unknown History vit C 250 mg-vit E 90 mg-zinc 40 1 tab PO BID FOLLOW-U P NEEDED 07/31/23 Unknown History mg-copper 1 [id number] capsule (PreserVision AREDS-2) calcium carbonate (Tums) 200 mg PO ONCE PRN dyspepsia 09/25/24 Unknown History latanoprost 0.005 % eye drops 1 drp ophthalmic (eye) Q DAY 09/25/24 Unknown History FOLLOW-UP NEEDED lidocaine 5 % topical patch 1 patch topical DAILY #15 ea 01/12/25 Unknown Rx (Lidoderm) clopidogrel 75 mg tablet 75 mg PO DAILY FOLLOW-UP NEE DED #1 01/16/25 Unknown Rx TAB hydrocodone-acetaminophen 5-325mg 1 tab PO Q6H PRN PRN Pain 3 days 03/18/25 Unknown Rx 5mg-325mg #12 TABLETS ibuprofen 200 mg tablet (Advil) 200 mg PO TID PAIN Unknown History prednisone 20 mg tablet 20 mg PO DAILY recently plac ed on 03/19/25 03/18/25 History this march 10 Allergy/AdvReac Type Severity Reaction Status Date / Time amlodipine AdvReac Intermediate Severe Verified 03/19/25 08:47 swelling in ankles Penicillins (PCN) AdvReac diarrhea Verified 03/19/25 08:47 Family History Mother CAD (coronary artery disease) Hypertension Brother Hypertension Presence of permanent cardiac pacemaker Brother Hypertension Father Hypertension Surgical History H/O carotid endarterectomy (~03/2024) History of YAG laser capsulotomy of lens of right eye History of tonsillectomy and adenoidectomy History of total hysterectomy Hx of cataract surgery H/O detached retina repair Social History Smoking Status: Current every day smoker tobacco type: cigarettes alcohol intake: current alcohol intake frequency: 0-2 drinks per day Alcohol type: beer substance use type: does not use caffeine: Yes (occasionally) ROS Constitutional Constitutional: Denies anorexia, change in weight, chills, fatigue, fever(s), malaise, night sweats, weakness or other Eyes Eyes: Denies blurry vision, change in eye color, change in vision, discharge from eye(s), double vision, erythema, eye pain, loss of vision or other ENT HEENT: Denies abnormal hearing, dysphagia, ear pain, epistaxis, headache(s), hearing loss, nasal congestion, nasal discharge, post nasal drip, sinus pressure, sore throat or other Cardiovascular Cardiovascular: Denies chest pain, claudication, dyspnea on exertion, edema, lightheadedness, orthopnea, palpitations, paroxysmal nocturnal dyspnea, rapid heart rate, syncope or other Respiratory/Chest Respiratory/Chest: Denies cough, dyspnea, excessive phlegm production, hemoptysis, productive cough, shortness of breath at rest, shortness of breath with exertion, wheezing or other Gastrointestinal Gastrointestinal: Denies abdominal pain, coffee ground emesis, constipation, diarrhea, dyspepsia, hematemesis, hematochezia, loose stools, melena, nausea, vomiting or other Genitourinary Genitourinary: Denies burning urination, difficulty urinating, dysuria, hematuria, nocturia, urinary frequency, urinary hesitancy, urinary incontinence, urinary urgency or other Musculoskeletal Musculoskeletal: Reports back pain; Denies arthralgias, joint pain, joint stiffness, joint swelling, myalgias, neck pain or other Neurologic Neurologic: Reports abnormal gait; Denies abnormal speech, confusion, disequilibrium, dizziness, focal weakness, headache(s), numbness, paresthesias, seizure-like activity, seizures, syncope, tingling, tremor(s) or other Psychiatric Psychiatric: Denies anxiety, depression, homicidal ideation, suicidal ideation or other Endocrine Endocrinology: Denies change in body appearance, cold intolerance, excessive sweating, heat intolerance, polydipsia, polyuria or other Hematologic/Lymphatic Hematologic/Lymphatic: Denies anemia, easy bleeding, easy bruising, lymphadenopathy or other Allergic/Immunologic Allergic/Immunologic: Denies rhinitis, hives, eczemia, asthma or other Vital Signs Vital Signs Vital Signs: 03/19/25 08:47 03/19/25 08:47 Temperature 97.2 F L Temperature Source Temporal Pulse Rate 54 L Respiratory Rate 22 H Respiratory Effort Normal Respiratory Depth Normal Respiratory Pattern Normal Blood Pressure 150/71 H Blood Pressure Mean 97 Pulse Ox 97 Oxygen Delivery Method Nasal Cannula Nasal Cannula Oxygen Flow Rate (L/min) 2 3 Physical Exam Const alert, oriented x3 and well nourished; Negative for average body habitus Constitutional Narrative: Obese, elderly, very pleasant, white female, lying in bed, appears mildly uncomfortable but nontoxic, family members are at bedside General Appearance: cooperative HEENT normocephalic, head/scalp atraumatic, hearing grossly normal bilaterally and moist oral mucous membranes HEENT Narrative: Mallampati 2, no thrush Resp normal respiratory effort, no retractions, no use of accessory muscles and No clear to auscultation bilaterally Resp Narrative: Diffusely diminished with few scattered end expiratory wheezes Auscultation: wheezes; Negative for rales or rhonchi Cardio regular rate, regular rhythm, S1 normal heart sound, S2 normal heart sound, no murmurs, no rub, no gallops and no clicks GI normal to inspection, nondistended, normoactive bowel sounds, soft to palpation and non-tender Extremity no clubbing, cyanosis or edema Extremity Narrative: 2+ pedal and radial pulses Skin Skin Narrative: Multiple areas of ecchymosis on bilateral arms, no significant wounds Neuro oriented x3 Neuro Narrative: Decreased ability move lower extremities due to pain but no focal deficits, sensation bilateral lower extremities is normal Speech: speech normal Psych affect normal Psych Narrative: Very pleasant, interacts appropriately Results Lab / Micro Data 03/19/25 09:25 03/19/25 09:25 Labs: Laboratory Results - last 24 hr 03/19/25 09:25: WBC 15.0 H, RBC 4.00 L, Hgb 11.7 L, Hct 35.3 L, MCV 88.3, MCH 29.3, MCHC 33.1, RDW Std Deviation 44.4 H, RDW Coeff of [place] 13.8, Plt Count 206, MPV 9.9, Sodium 131 L, Potassium 3.8, Chloride 92 L, Carbon Dioxide 26.8, Anion Gap 12, BUN 13, Creatinine 0.60 L, Est GFR (MDRD) Non-Af 87, BUN/Creatinine Ratio 22.0 H, Glucose 128 H, Calcium 9.3, Total Bilirubin 1.23, AST 31, ALT 15, Alkaline Phosphatase 58, Total Protein 7.3, Albumin 4.3, Globulin 3.0, Albumin/Globulin Ratio 1.4 03/19/25 09:46: Urine Color Yellow, Urine Clarity Sl. Cloudy, Urine pH 6.0, Ur Specific [place] 1.025, Urine Protein 100 H, Urine Glucose (UA) Normal, Urine Ketones Negative, Urine Occult Blood 10 H, Urine Nitrite Negative, Urine Bilirubin Negative, Urine Urobilinogen 1 H, Ur Leukocyte Esterase 100 H, Urine RBC 0-5 SEEN, Urine WBC 0-5 SEEN, Ur Squamous Epith Cells 0-5 SEEN, Urine Bacteria 0 SEEN, Hyaline Casts 0-5 SEEN, Fine Granular Casts 0-5 SEEN, Urine Mucus 1+ Imaging Radiology Impression Lumbar Spine CT 03/19/25 09:05 IMPRESSION: 1. Severe endplate degenerative changes, facet arthropathy, and disc bulge of L4-5 resulting in moderate spinal canal stenosis and mild neural foraminal narrowing, bilaterally. 2. No acute fracture. 3. If symptoms persist, further evaluation with MRI is recommended Reading Location: [facility] Thoracic Spine CT 03/19/25 09:05 IMPRESSION: 1. Moderate superior endplate compression deformity of T12 vertebral body with sclerosis, likely chronic. However, acute on chronic fracture can not be excluded. Further evaluation with MRI is recommended. 2. Degenerative changes thoracic spine as described. Reading Location: [facility] Assessment & Plan Assessment/Plan (1) Fall: (2) Intractable back pain: (3) Leukocytosis: (4) Hyponatremia: (5) Osteoporosis: (6) Inability to walk: PLAN: Plan Intractable back pain after fall - Patient is not entirely clear why she fell - Complains of no other symptoms currently other than her back pain - Continue home ibuprofen - Scheduled Tylenol 1 g every 8 hours - As needed tizanidine - Gabapentin 100 mg 3 times daily - As needed oxycodone - As needed morphine for breakthrough pain - Lidocaine patch - Check MRI of the lumbar and thoracic spine for any occult compression fracture and if positive for compression fracture will consult either pain management or orthopedic surgery for consideration of kyphoplasty -PT/OT consultation - Case management/social work consultation for assistance with discharge planning--> patient's preference would be transitional care unit if needed Inability ambulate - Secondary to the above - Therapy services consulted Leukocytosis - Suspect reactive due to fall and acute injury - Recheck in a.m. - No signs of acute infection Chronic hyponatremia secondary to SIADH - Sodium is stable - If drops will consider fluid restriction Osteoporosis - Check vitamin D level - Continue home calcium carbonate and vitamin D supplementation - Patient is on injectable zoledronic acid yearly - Continue outpatient follow-up Essential hypertension/hyperlipidemia - Continue home rosuvastatin - Continue home metoprolol - Continue home irbesartan - Continue home hydralazine - Continue home Plavix - Continue home amlodipine Chronic hypoxic respiratory failure secondary to COPD - Patient is oxygen dependent at baseline at 2 L next-continue home inhaler - As needed albuterol - Patient currently on prednisone taper and has 1 tablet of 20 mg tablet left for today and then 10 mg x 5 days then stop - Prednisone ordered here to reflect remaining taper Bilateral carotid artery stenosis - Patient had moderate right extracranial internal carotid artery stenosis and mild left extracranial internal carotid artery stenosis on last duplex in 2024 which is stable - Continue Plavix and rosuvastatin - Continue outpatient follow-up with Dr. Araiza Macular degeneration - Continue eyedrops Renal artery stenosis - Continue outpatient follow-up with Dr. Araiza Tobacco abuse - Recommend cessation - Patient informed that she should not smoke on her oxygen - 14 mcg patch of nicotine replacement therapy Daily alcohol use - Patient reports she drinks about 2 beers daily - Patient has never had any withdrawal - Will monitor clinically Obesity - BMI 31.4 - Recommend weight loss - Complicates treatment, prognosis, outcomes DVT prophylaxis - Subcu Lovenox 40 daily CODE STATUS - DNR CCA okay for short-term intubation Charges/Coding Visit Charges Inpatient E&M: 32146 Init Hosp L2
--- NOTE | 2025-03-19 11:07 | MRI_ITS ---
PROCEDURE: SPINE LUMBAR (ROUTINE); SPINE THORACIC (ROUTINE) 03/19/2025 REASON FOR EXAM: INTRACABLE PAIN; INTRACTABLE BACK PAIN TECHNIQUE: Multiplanar and multisequence images were obtained without IV contrast administration. COMPARISON: CT of the thoracic and lumbar spine on 03/19/2025, chest radiograph 01/13/2020 FINDINGS: For the purposes of this dictation, the last well-formed disc space will be referred to as L5-S1. There is a compression deformity of the T12 vertebral body with approximately 60% height loss. There is T1 hypointensity and T2/STIR hyperintensity throughout the cranial aspect. Additionally, there is subtle STIR hyperintensity throughout the caudal aspect of the T12 vertebral body. There is minimal retropulsion of fracture fragments, up to approximately 2 mm, which results in mild spinal canal narrowing at this level. Remainder of the thoracic and lumbar vertebral body heights and alignment are maintained. Spinal cord signal is unremarkable. Mild multilevel endplate osteophyte formation throughout the thoracic spine, without significant neural foraminal or spinal canal narrowing at any level. Mild disc bulges at L3-4 and L4-5 result in [id number] neural foraminal narrowing bilaterally at L3-4, and severe right and moderate to severe left neural foraminal narrowing at L4-5, in addition to mild spinal canal narrowing at L4-5 measuring 7 mm in AP diameter. There is a tiny annular fissure posteriorly at L4-5. MRI/Spine Thoracic (Routine) IMPRESSION: 1. Compression deformity of the T12 vertebral body with 60% height loss and mi nimal retropulsion of fracture fragments, which appears to be acute given presence of STIR hyperintensity. 2. Zeyeolww-[id number] degenerative changes of the lumbar spine, worst at L4-5 as detailed above. 3. Minimal degenerative changes of the thoracic spine. Reading Location: [facility]
--- NOTE | 2025-03-19 11:07 | MRI_ITS ---
PROCEDURE: SPINE LUMBAR (ROUTINE); SPINE THORACIC (ROUTINE) 03/19/2025 REASON FOR EXAM: INTRACABLE PAIN; INTRACTABLE BACK PAIN TECHNIQUE: Multiplanar and multisequence images were obtained without IV contrast administration. COMPARISON: CT of the thoracic and lumbar spine on 03/19/2025, chest radiograph 01/13/2020 FINDINGS: For the purposes of this dictation, the last well-formed disc space will be referred to as L5-S1. There is a compression deformity of the T12 vertebral body with approximately 60% height loss. There is T1 hypointensity and T2/STIR hyperintensity throughout the cranial aspect. Additionally, there is subtle STIR hyperintensity throughout the caudal aspect of the T12 vertebral body. There is minimal retropulsion of fracture fragments, up to approximately 2 mm, which results in mild spinal canal narrowing at this level. Remainder of the thoracic and lumbar vertebral body heights and alignment are maintained. Spinal cord signal is unremarkable. Mild multilevel endplate osteophyte formation throughout the thoracic spine, without significant neural foraminal or spinal canal narrowing at any level. Mild disc bulges at L3-4 and L4-5 result in [id number] neural foraminal narrowing bilaterally at L3-4, and severe right and moderate to severe left neural foraminal narrowing at L4-5, in addition to mild spinal canal narrowing at L4-5 measuring 7 mm in AP diameter. There is a tiny annular fissure posteriorly at L4-5. MRI/Spine Lumbar (Routine) IMPRESSION: 1. Compression deformity of the T12 vertebral body with 60% height loss and mi nimal retropulsion of fracture fragments, which appears to be acute given presence of STIR hyperintensity. 2. Kxbzbkyu-lg-wwrduh degenerative changes of the lumbar spine, worst at L4-5 as detailed above. 3. Minimal degenerative changes of the thoracic spine. Reading Location: [facility]
[2025-03-19] MEDS: Gabapentin 100 MG Capsule PO ×2 (12:20→16:47)
[2025-03-19] MEDS: tiZANidine HCl 2 MG Tablet PO ×2 (12:20→20:47)
[2025-03-19] MEDS: Acetaminophen 500 MG Tablet 1000 MG PO ×2 (12:20→20:48)
[2025-03-19 12:32] LABS: Partial Thromboplast Time 29.6 Seconds (24.1-36.2); Prothrombin Time (Protime)PT. 12.9 SECONDS (11.7-14.9)
[2025-03-19 13:35] LABS: Vitamin D,25 Hydroxy 33.6 ng/mL (30-100)
[2025-03-19] MEDS: Lidocaine 5% Patch 1 PATCH TOPICAL (16:47)
[2025-03-19] MEDS: oxyCODONE 5 MG Tablet PO (16:48)
[2025-03-19] MEDS: 0.9% Saline Lock 10 ML Syringe IV (18:51)
[2025-03-19] MEDS: Morphine 2 MG/ML Syringe IV (18:51)
--- NOTE | 2025-03-19 18:55 | PCM.HOSP.N ---
Hospitalist Note MRI of the lumbar and thoracic spine have been done MRI of the lumbar spine shows compression deformity at T12 vertebral body with 60% height loss and minimal retropulsion of fragments and moderate to severe degenerative changes in the lumbar spine worse at L4-L5. Thoracic MRI again shows the fractures at T12. Will consult orthopedic surgery for evaluation and consideration for kyphoplasty. Vitamin D level is pending.
[2025-03-19] MEDS: Ipratropium/Albuterol Sulfate 3 ML AMPUL.NEB INHALATION (20:15)
[2025-03-19] MEDS: predniSONE 20 MG Tablet PO (20:37)
[2025-03-19] MEDS: Senna/Docusate Sodium 1 Tablet 2 TABLET PO (20:48)
[2025-03-19] MEDS: Multivitamin (Healthy Eyes) Capsule 1 CAP PO (20:50)
[2025-03-19] MEDS: hydrALAZINE 50 MG Tablet PO (20:50)
[2025-03-19] MEDS: Latanoprost 0.005% 1 Bottle 1 DRP OPHTHALMIC (20:50)
[2025-03-19] MEDS: Metoprolol Tartrate 25 MG Tablet PO (20:50)
[2025-03-19] MEDS: Ibuprofen 200 MG Tablet PO (20:50)
[2025-03-19] MEDS: Atorvastatin Calcium 80 MG Tablet PO (20:50)
[2025-03-20] VITALS (16 sets, daily range): BP systolic 103–177; BP diastolic 42–75; PULSE 53–72; RESP 16–20; TEMP 36.4–36.7; O2SAT 87–100; BMI 31.5
[2025-03-20] MEDS: oxyCODONE 5 MG Tablet PO ×3 (00:33→16:24)
--- NOTE | 2025-03-20 03:25 | RAD_ITS ---
PROCEDURE: CHEST 1 VIEW (PORTABLE) 03/20/2025 REASON FOR EXAM: INCREASED OXYGEN DEMAND TECHNIQUE: Frontal view of the chest. COMPARISON: 01/12/2025 FINDINGS: Overlying superimposed pad is seen at the lower chest. Otherwise the lungs appear clear. Pulmonary vascularity appears within limits. No pleural effusion seen. The cardiac and mediastinal contours appear within limits. Atherosclerotic changes at the aortic arch again noted. RAD/Chest 1 View (Portable) IMPRESSION: Overlying superimposed pad is seen at the lower chest. Otherwise no evidence o f acute disease. Reading Location: [id number]
[2025-03-20] MEDS: hydrALAZINE 20 MG/ML Vial 10 MG IV (03:43)
[2025-03-20] MEDS: 0.9% Saline Lock 10 ML Syringe IV ×2 (03:44→21:59)
[2025-03-20] MEDS: tiZANidine HCl 2 MG Tablet PO ×2 (04:02→11:59)
[2025-03-20 04:54] LABS: Absolute Lymphocyte Count 0.72 X10^3/uL (0.83-4.51); Basophil# 0.01 X10^3/uL; Basophil% 0.1 % (0-1); Hematocrit 34.7 % (37-47); Hemoglobin 11.5 g/dL (12.0-15.0); Lymphocyte # 0.72 X10^3/ul (0.83-4.51); Lymphocyte % 6.4 % (19-41); Mean Corp Hgb Conc 33.1 g/dL (32-36); Mean Corpuscular Hgb 30.1 pg (27.0-32.0); Mean Corpuscular Volume 90.8 fL (81-99); Mean Platelet Vol. 10.8 fl (6.2-12.0); Monocyte# 0.45 X10^3/uL; NRBC Flagged by Analyzer 0 % (0-5); Neutrophil # 10.03 X10^3/uL (2.7-7.7); Neutrophil % 88.8 % (47-70); Platelet Count 179 K/mm3 (150-450); RBC Distribution Width CV 13.8 % (11.6-14.6); RBC Distribution Width SD 45.2 fl (35.1-43.9); Red Blood Count 3.82 M/mm3 (4.2-5.4); White Blood Count 11.3 K/mm3 (4.4-11.0)
[2025-03-20] MEDS: Acetaminophen 500 MG Tablet 1000 MG PO ×3 (05:00→22:02)
[2025-03-20] MEDS: Ibuprofen 200 MG Tablet PO ×3 (05:00→22:01)
[2025-03-20 05:32] LABS: Magnesium 2.1 mg/dL (1.5-2.2); Phosphorus 3.2 mg/dL (2.7-4.5)
[2025-03-20 05:33] LABS: ALB/GLOB Ratio 1.4 RATIO (0.9-2.4); AST(SGOT) 31 U/L (<=31); Alanine Aminotransfer ALT/SGPT 14 U/L (<=34); Albumin, Serum 4.2 g/dL (3.4-4.8); Alkaline Phosphatase 59 U/L (35-104); Anion Gap 10 (5-15); BUN 16 mg/dL (4-19); BUN/Creat Ratio 26.1 RATIO (10-20); Calcium,Total 9.5 mg/dL (7.6-11.0); Carbon Dioxide 26.7 mmol/L (21.0-32.0); Chloride 92 mmol/L (98-108); Creatinine, Serum 0.61 mg/dL (0.70-1.20); EST Glomerular Filtration Rate 87 (>60); Globulin 2.9 g/dL (2.2-4.2); Glucose 130 mg/dL (70-99); Magnesium 2.1 mg/dL (1.5-2.2); Phosphorus 3.2 mg/dL (2.7-4.5); Potassium 4.5 mmol/L (3.3-5.1); Protein, Total 7.1 g/dL (5.9-8.4); Sodium Level 129 mmol/L (133-145); Total Bilirubin 1.35 mg/dL (0.00-1.30)
[2025-03-20 06:01] LABS: Allen Test Positive; Base Excess 9 mmol/L (-2 to +2); Bicarbonate 33.5 mmol/L (22-26); Blood Gas Specimen Type ART; Mode Not entered; O2 Delivery Device Cannula; PO2 78 mmHG (75-100); SITE L Radial; SO2 96 % (95-99); Total Carbon Dioxide 35 mmol/L; pCO2 49.4 mmHg (35-45); pH 7.44 (7.35-7.45)
[2025-03-20] MEDS: Ipratropium/Albuterol Sulfate 3 ML AMPUL.NEB INHALATION ×2 (08:04→19:03)
--- NOTE | 2025-03-20 08:11 | PN.HOSP_ITS ---
Reason for Visit Reason for Visit: Intractable low back pain Subjective Subjective Patient more comfortable today. Was able to get up to a chair. Awaiting orthopedic surgery input to see if kyphoplasty would be of benefit. Patient would like transitional care unit if SNF is required. Patient is coughing up some sputum. States it is a little bit darker than her typical sputum but no shortness of breath and is on her baseline oxygen. No fevers and white count is improving. Patient has not required any IV morphine since just after admission last evening. Objective Data Objective Data Vital Signs: Vital Signs Temp Pulse Resp BP Pulse Ox O2 Del Method O2 Flow Rate 98.1 F 70 18 136/75 H 97 Nasal Cannula 4 03/20/25 08:05 03/20/25 08:07 03/20/25 08:07 03/20/25 08:05 03/20/25 08:07 03/20/25 08:07 03/20/25 08:07 Oxygen Flow Rate (L/min) 4 Oxygen Delivery Method Nasal Cannula Weight: 73.2 kg Body Mass Index (BMI) 31.5 Intake & Output: Intake and Output for Last 24 Hours 03/18/25 03/19/25 03/20/25 23:59 23:59 23:59 Intake Total 650 / 650 100 / 100 Output Total 75 / 75 Balance 650 / 650 Lab / Micro Data 03/20/25 03:53 03/20/25 03:53 Labs: Laboratory Results - last 24 hr 03/19/25 09:25: WBC 15.0 H, RBC 4.00 L, Hgb 11.7 L, Hct 35.3 L, MCV 88.3, MCH 29.3, MCHC 33.1, RDW Std Deviation 44.4 H, RDW Coeff of Osiel 13.8, Plt Count 206, MPV 9.9, Sodium 131 L, Potassium 3.8, Chloride 92 L, Carbon Dioxide 26.8, Anion Gap 12, BUN 13, Creatinine 0.60 L, Est GFR (MDRD) Non-Af 87, BUN/Creatinine Ratio 22.0 H, Glucose 128 H, Calcium 9.3, Total Bilirubin 1.23, AST 31, ALT 15, Alkaline Phosphatase 58, Total Protein 7.3, Albumin 4.3, Globulin 3.0, Albumin/Globulin Ratio 1.4 03/19/25 09:46: Urine Color Yellow, Urine Clarity Sl. Cloudy, Urine pH 6.0, Ur Specific Mcguffey 1.025, Urine Protein 100 H, Urine Glucose (UA) Normal, Urine Ketones Negative, Urine Occult Blood 10 H, Urine Nitrite Negative, Urine Bilirubin Negative, Urine Urobilinogen 1 H, Ur Leukocyte Esterase 100 H, Urine RBC 0-5 SEEN, Urine WBC 0-5 SEEN, Ur Squamous Epith Cells 0-5 SEEN, Urine Bacteria 0 SEEN, Hyaline Casts 0-5 SEEN, Fine Granular Casts 0-5 SEEN, Urine Mucus 1+ 03/19/25 12:10: PT 12.9, INR 1.0, APTT 29.6, Vitamin D 25-Hydroxy 33.6 03/20/25 03:53: WBC 11.3 H, RBC 3.82 L, Hgb 11.5 L, Hct 34.7 L, MCV 90.8, MCH 30.1, MCHC 33.1, RDW Std Deviation 45.2 H, RDW Coeff of Osiel 13.8, Plt Count 179, MPV 10.8, Immature Gran % (Auto) 0.700, Neut % (Auto) 88.8 H, Lymph % (Auto) 6.4 L, [place] % (Auto) 4.0, Eos % (Auto) 0.0, Baso % (Auto) 0.1, Absolute Neuts (auto) 10.0 H, Absolute Lymphs (auto) 0.72 L, Nucleated RBC % 0, Sodium 129 L, Potassium 4.5, Chloride 92 L, Carbon Dioxide 26.7, Anion Gap 10, BUN 16, C reatinine 0.61 L, Estim Creat Clear Calc 44.20 L, Est GFR (MDRD) Non-Af 87, B UN/Creatinine Ratio 26.1 H, Glucose 130 H, Calcium 9.5, Phosphorus 3.2 03/20/25 03:53: Phosphorus 3.2, Magnesium 2.1 03/20/25 03:53: Magnesium 2.1, Total Bilirubin 1.35 H, AST 31, ALT 14, Alkaline Phosphatase 59, Total Protein 7.1, Albumin 4.2, Globulin 2.9, Albumin/Globulin Ratio 1.4 ABG Data ABG results: ABG 03/20/25 05:56 Specimen Type ART Sample Site L Radial pH 7.44 Bicarbonate Actual 33.5 H Total CO2 35 Base Excess 9 H O2 Saturation 96 O2 % 6.0 ABG pCO2 49.4 H ABG pO2 78 Bao Test Positive O2 Delivery Device Cannula Vent Mode Not entered Radiography Diagnostic Testing: Radiology Impression Lumbar Spine CT 03/19/25 09:05 IMPRESSION: 1. Severe endplate degenerative changes, facet arthropathy, and disc bulge of L4-5 resulting in moderate spinal canal stenosis and mild neural foraminal narrowing, bilaterally. 2. No acute fracture. 3. If symptoms persist, further evaluation with MRI is recommended Reading Location: [facility] Thoracic Spine CT 03/19/25 09:05 IMPRESSION: 1. Moderate superior endplate compression deformity of T12 vertebral body with sclerosis, likely chronic. However, acute on chronic fracture can not be excluded. Further evaluation with MRI is recommended. 2. Degenerative changes thoracic spine as described. Reading Location: [facility] Lumbar Spine MRI 03/19/25 11:07 IMPRESSION: 1. Compression deformity of the T12 vertebral body with 60% height loss and minimal retropulsion of fracture fragments, which appears to be acute given presence of STIR hyperintensity. 2. [id number]-[id number]-[id number] degenerative changes of the lumbar spine, worst at L4-5 as detailed above. 3. Minimal degenerative changes of the thoracic spine. Reading Location: [facility] Thoracic Spine MRI 03/19/25 11:07 IMPRESSION: 1. Compression deformity of the T12 vertebral body with 60% height loss and minimal retropulsion of fracture fragments, which appears to be acute given presence of STIR hyperintensity. 2. [id number]-[id number] degenerative changes of the lumbar spine, worst at L4-5 as detailed above. 3. Minimal degenerative changes of the thoracic spine. Reading Location: [id number] Chest X-Ray 03/20/25 03:25 IMPRESSION: Overlying superimposed pad is seen at the lower chest. Otherwise no evidence of acute disease. Reading Location: [id number] Physical Exam Const alert, oriented x3, no apparent distress and well nourished; Negative for average body habitus Constitutional Narrative: Obese, elderly, very pleasant, white female, sitting up in a chair at the bedside, daughter at bedside, patient appears more comfortable today, nontoxic General Appearance: cooperative HEENT normocephalic, head/scalp atraumatic, hearing grossly normal bilaterally and moist oral mucous membranes Resp normal respiratory effort, no retractions, no use of accessory muscles and No clear to auscultation bilaterally Resp Narrative: Marked diffusely diminished lung sounds Auscultation: wheezes; Negative for rales or rhonchi Cardio regular rate, regular rhythm, S1 normal heart sound, S2 normal heart sound, no murmurs, no rub, no gallops and no clicks GI normal to inspection, nondistended, normoactive bowel sounds, soft to palpation and non-tender Extremity no clubbing, cyanosis or edema Extremity Narrative: 2+ pedal and radial pulses Skin Skin Narrative: Multiple areas of ecchymosis on bilateral arms, no significant wounds Neuro oriented x3, moves all extremities and no focal motor deficits Speech: speech normal Psych affect normal Psych Narrative: Very pleasant, interacts appropriately Assessment & Plan Assessment/Plan (1) Fall: (2) Intractable back pain: (3) Leukocytosis: (4) Hyponatremia: (5) Osteoporosis: (6) Inability to walk: PLAN: Plan Intractable back pain secondary to T12 compression fracture - Continue home ibuprofen - Continue scheduled Tylenol 1 g every 8 hours - Continue as needed tizanidine - Continue gabapentin 100 mg 3 times daily - Continue as needed oxycodone -Continue as needed morphine for breakthrough pain -Continue lidocaine patch - Check MRI of the lumbar and thoracic spine for any occult compression fracture and if positive for compression fracture will consult either pain management or orthopedic surgery for consideration of kyphoplasty -PT/OT consultation - Case management/social work consultation for assistance with discharge planning--> patient's preference would be transitional care unit if needed Inability ambulate - Secondary to the above -Physical and Occupational Therapy are following Leukocytosis -Trending down - patient does have some sputum production with no fever -Will check sputum culture but hold off on empiric antibiotics for now - Recheck in a.m. - No signs of acute infection Chronic hyponatremia secondary to SIADH - Sodium relatively is stable - Mild drop from 131-129 if drops any further we will go ahead and restrict fluid Osteoporosis - Vitamin D level is greater than 30 - Continue home calcium carbonate and vitamin D supplementation - Patient is on injectable zoledronic acid yearly - Continue outpatient follow-up Essential hypertension/hyperlipidemia - Continue home rosuvastatin - Continue home metoprolol - Continue home irbesartan - Continue home hydralazine - Continue home Plavix - Continue home amlodipine Chronic hypoxic respiratory failure secondary to COPD - Patient is oxygen dependent at baseline at 2 L -continue home inhaler -Continue scheduled nebulizers - As needed albuterol - Patient currently on prednisone taper and has 1 tablet of 20 mg tablet left for today and then 10 mg x 5 days then stop - Prednisone ordered here to reflect remaining taper Bilateral carotid artery stenosis - Patient had moderate right extracranial internal carotid artery stenosis and mild left extracranial internal carotid artery stenosis on last duplex in 2024 which is stable - Continue Plavix and rosuvastatin - Continue outpatient follow-up with Dr. Araiza Macular degeneration - Continue eyedrops Renal artery stenosis - Continue outpatient follow-up with Dr. Araiza Tobacco abuse - Recommend cessation - Patient informed that she should not smoke on her oxygen -Continue 14 mcg patch of nicotine replacement therapy Daily alcohol use - Patient reports she drinks about 2 beers daily -No signs of acute withdrawal - Will monitor clinically Suspected CRISTAL - Pulse ox dropped overnight but has trended back up today - May need up titration of oxygen nocturnally - Will continue to monitor Obesity - BMI 31.5 - Recommend weight loss - Complicates treatment, prognosis, outcomes DVT prophylaxis - Subcu Lovenox 40 daily CODE STATUS - DNR CCA okay for short-term intubation Charges/Coding Visit Charges Inpatient E&M: 91362 Subs Hosp L2
[2025-03-20] MEDS: Enoxaparin 40 MG/0.4 ML Syringe SC (08:25)
[2025-03-20] MEDS: hydrALAZINE 50 MG Tablet PO ×2 (08:25→22:00)
[2025-03-20] MEDS: amLODIPine 5 MG Tablet PO (08:25)
[2025-03-20] MEDS: Calcium Carb/Vitamin D 1 TABLET Tablet PO (08:26)
[2025-03-20] MEDS: Metoprolol Tartrate 25 MG Tablet PO ×2 (08:26→22:02)
[2025-03-20] MEDS: Multivitamin (Healthy Eyes) Capsule 1 CAP PO ×2 (08:26→22:01)
[2025-03-20] MEDS: Senna/Docusate Sodium 1 Tablet 2 TABLET PO ×2 (08:26→22:01)
[2025-03-20] MEDS: Clopidogrel Bisulfate 75 MG Tablet PO (08:26)
[2025-03-20] MEDS: Gabapentin 100 MG Capsule PO ×3 (08:26→16:24)
[2025-03-20] MEDS: Losartan Potassium 100 MG Tablet PO (08:27)
[2025-03-20] MEDS: Lidocaine 5% Patch 1 PATCH TOPICAL (08:27)
[2025-03-20] MEDS: predniSONE 10 MG Tablet PO (08:27)
[2025-03-20] MEDS: Omega-3 Acid Ethyl Esters 1 GM Capsule PO (08:28)
--- NOTE | 2025-03-20 11:35 | CASEMGMT ---
Social Work Assessment: Information source: Pt, Pt dtr, Jacqueline, chart review Family Present: Dtr Jacqueline NOK: Dtr Jacqueline and son Rg Living Will/ HCPOA: Yes; pt reports that she has both documents. Son Rg is primary POA. Dtr Jacqueline reports that she will have Rg bring document in for scanning PCP: [facility] Specialist: Lonnie (pt reports that she needs to be reconnected, as cancelled due to illness and she has never been able to reschedule), Jeri ([facility]), Teodora (Vascular), Viky ([facility] [employer]) Pharmacy: [facility] (for 90 day supply) Prescription Coverage: [employer] Lives with: sonRg. Rg does work at a school, so is gone during the day, but home during school breaks/days off. Living Arrangements: Single story home with two steps to enter. There is a hand rail along steps. Pt sleeps on a couch in the kitchen. Bathroom is right around the corner. Pt household ambulation distance is 15-20 feet. Pt reports just staying in those two rooms. Pt reports that she does not go out of the home alot. ADLs: Pt son assists with cooking and cleaning. Pt is able to toilet and bathe independently. Pt reports that she has anxiety regarding showering without oxygen. Pt reports her tubing does reach the bathroom.Pt reports that poor eyesight prevents her from completing tasks. Pt son assists with financial and medication management. Quality of family relationships: Pt reports strong family relationships and supportive family. Pt granddaughter came to visit as SW concluded assessment. Transportation: Pt reports that she quit driving one year ago due to vision. Pt reports that son drives pt to most appointments. Pt dtr also assists as able/needed. Pt open to transportation resources; SW provided. Current DME: Tub/shower chair, raised toilet seat, grab rails, 2L oxygen through [employer] Prior assistive devices: Pt reports that prior to fall, she did not use any devices for ambulation. Pt does have a rollator in the home that she used after fall/prior to admission. Previous HHC: None Discharge Planning: Hospitalist placed consult with Dr Sargent to determine plan of care. Physical therapy consult placed to determine therapy needs. Pt is open to SNF or C if needed. RNCM/SW remain available to follow for discharge needs. SURESH Gonzalez
--- NOTE | 2025-03-20 12:02 | CASEMGMT ---
Addendum entered by Alma Valenzuela 03/20/25 14:16: Social Work- provided [facility], [facility], private duty caregivers, and house cleaning provider printables to pt and dtr per pt dtr request. Pt dtr declined any referrals at this time due to undetermined discharge plans. SURESH Gonzalez Original Note: Social Work- Addendum: Pt preference for SNF would be [facility] if needed. SURESH Gonzalez
--- NOTE | 2025-03-20 15:01 | CASEMGMT ---
TC to Dr. Fleming's office to reschedule pt appt that the office cancelled and pt has not been able to reschedule, left vm with airline lounge receptionist requesting returned call to schedule.
--- NOTE | 2025-03-20 17:36 | CON.PCM.OR_ITS ---
HPI Consult Data Date of Consult: 03/20/25 HPI Narrative HPI Narrative: AISHA PARKER, is a 89 F who presents with back pain after ground-level fall at home. She initially presented to the ER on Monday and then was sent home as her pain was not severe initially. She was then brought to the ER again yesterday and was admitted for pain control. She has had severe difficulty with the bedside mobility but says that she has been able to get up to a bedside commode since admission. She denies any previous fractures. She has been on Reclast infusions yearly for many years. She usually gets this in the fall months. She denies any other injury. She denies any head injury. She is on Plavix because of a carotid stent placed last year in March. Her back pain is in the mid to lower back region bilaterally equal and some pain going into the bilateral groin. I saw her in room 323 around 5 PM and she had significant struggles sitting up to eat. She feels relatively comfortable and flat supine position. She is on nasal oxygen. She has known COPD. She mentions of a recent respiratory infection for which she was on steroids as well. [facility] Medical History Macular degeneration Contact dermatitis due to plant Bilateral carotid artery stenosis Pure hypercholesterolemia Sinus bradycardia Tobacco abuse COPD (chronic obstructive pulmonary disease) Renal artery stenosis Osteoarthritis Osteoporosis Adrenal hyperplasia Home Medications ?Medication ?Instructions ?Recorded ?Last Taken ?Type loratadine 10 mg tablet 10 mg PO DAILY PRN Allergies 04/21/14 Unknown History omega-3 fatty acids 1,000 mg 1,000 mg PO DAILY FOLLOW- UP NEEDED 08/23/19 Unknown History capsule (Fish Oil Concentrate) irbesartan 300 mg tablet 300 mg PO .AM HTN 12/31/21 U nknown History amlodipine 5 mg tablet 5 mg PO DAILY HTN 02/03/22 U nknown History budesonide 160 mcg-glycopyr 9 2 inh inhalation BID TWAN ATHING 03/14/22 Unknown History mcg-formot 4.8 mcg/actuation HFA inhaler calcium 600 mg (as 1 tab PO DAILY FOLLOW-UP NEE DED 08/08/22 Unknown History carbonate)-vitamin D3 20 mcg (800 unit) tablet (Caltrate with Vitamin D3) metoprolol tartrate 25 mg tablet 25 mg PO BID HTN 08/30 03/20 Unknown History zoledronic acid 5 mg/100 mL in 1 ea IV .Qyear FOLLOW-U P NEEDED 09/13/22 Unknown History mannitol 5 %-water intravenous piggybck hydralazine 50 mg tablet 50 mg PO BID FOLLOW-UP NEEDE D 07/31/23 Unknown History rosuvastatin 40 mg tablet 40 mg PO DAILY FOLLOW-UP NEE DED 07/31/23 Unknown History vit C 250 mg-vit E 90 mg-zinc 40 1 tab PO BID FOLLOW-U P NEEDED 07/31/23 Unknown History mg-copper 1 [id number] capsule (PreserVision AREDS-2) calcium carbonate (Tums) 200 mg PO ONCE PRN dyspepsia 09/25/24 Unknown History latanoprost 0.005 % eye drops 1 drp ophthalmic (eye) Q DAY 09/25/24 Unknown History FOLLOW-UP NEEDED lidocaine 5 % topical patch 1 patch topical DAILY #15 ea 01/12/25 Unknown Rx (Lidoderm) clopidogrel 75 mg tablet 75 mg PO DAILY FOLLOW-UP NEE DED #1 01/16/25 Unknown Rx TAB hydrocodone-acetaminophen 5-325mg 1 tab PO Q6H PRN PRN Pain 3 days 03/18/25 Unknown Rx 5mg-325mg #12 TABLETS ibuprofen 200 mg tablet (Advil) 200 mg PO TID PAIN Unknown History prednisone 20 mg tablet 20 mg PO DAILY recently plac ed on 03/19/25 03/18/25 History this march 10 Allergy/AdvReac Type Severity Reaction Status Date / Time amlodipine AdvReac Intermediate Severe Verified 03/19/25 08:47 swelling in ankles Penicillins (PCN) AdvReac diarrhea Verified 03/19/25 08:47 Family History Mother CAD (coronary artery disease) Hypertension Brother Hypertension Presence of permanent cardiac pacemaker Brother Hypertension Father Hypertension Surgical History H/O carotid endarterectomy (~03/2024) History of YAG laser capsulotomy of lens of right eye History of tonsillectomy and adenoidectomy History of total hysterectomy Hx of cataract surgery H/O detached retina repair Social History Smoking Status: Current every day smoker tobacco type: cigarettes alcohol intake: current alcohol intake frequency: 0-2 drinks per day Alcohol type: beer substance use type: does not use caffeine: Yes (occasionally) Vital Signs Vital Signs Vital Signs: 03/19/25 20:15 03/19/25 20:15 03/19/25 20:15 Temperature Temperature Source Pulse Rate 68 Pulse Strength Respiratory Rate 16 16 Respiratory Effort Normal Non-Labored Respiratory Depth Normal Respiratory Pattern Normal Normal Blood Pressure Blood Pressure Mean Blood Pressure Source Blood Pressure Position Blood Pressure Location Pulse Ox 87 78 Oxygen Delivery Method Nasal Cannula Nasal Cannula Oxygen Flow Rate (L/min) 4 2 03/19/25 20:38 03/19/25 20:50 03/19/25 20:50 Temperature 97.4 F L Temperature Source Oral Pulse Rate 65 65 65 Pulse Strength Respiratory Rate 16 Respiratory Effort Respiratory Depth Respiratory Pattern Blood Pressure 154/86 H Blood Pressure Mean 108 Blood Pressure Source Monitor Blood Pressure Position Semi-Fowlers Blood Pressure Location Right Arm Pulse Ox 92 Oxygen Delivery Method Nasal Cannula Oxygen Flow Rate (L/min) 4 03/19/25 20:54 03/19/25 21:26 03/19/25 21:32 Temperature Temperature Source Pulse Rate Pulse Strength Respiratory Rate Respiratory Effort Normal Non-Labored Respiratory Depth Normal Respiratory Pattern Normal Blood Pressure Blood Pressure Mean Blood Pressure Source Blood Pressure Position Blood Pressure Location Pulse Ox 92 86 93 Oxygen Delivery Method Nasal Cannula Nasal Cannula Nasal Cannula Oxygen Flow Rate (L/min) 4 4 6 03/19/25 22:00 03/19/25 23:10 03/20/25 00:19 Temperature Temperature Source Pulse Rate Pulse Strength Normal (2+) Respiratory Rate Respiratory Effort Respiratory Depth Respiratory Pattern Blood Pressure Blood Pressure Mean Blood Pressure Source Blood Pressure Position Blood Pressure Location Pulse Ox 96 87 Oxygen Delivery Method Nasal Cannula Nasal Cannula Oxygen Flow Rate (L/min) 6 6 03/20/25 00:30 03/20/25 03:04 03/20/25 03:43 Temperature 97.5 F L Temperature Source Oral Pulse Rate 58 L 58 L Pulse Strength Respiratory Rate 16 Respiratory Effort Respiratory Depth Respiratory Pattern Blood Pressure 177/71 H 177/71 H Blood Pressure Mean 106 Blood Pressure Source Monitor Blood Pressure Position Semi-Fowlers Blood Pressure Location Left Arm Pulse Ox 92 93 Oxygen Delivery Method High Flow High Flow Oxygen Flow Rate (L/min) 6 6 03/20/25 04:00 03/20/25 05:04 03/20/25 08:05 Temperature Temperature Source Pulse Rate Pulse Strength Respiratory Rate Respiratory Effort Normal Non-Labored Normal Respiratory Depth Shallow Respiratory Pattern Normal Blood Pressure 103/43 L Blood Pressure Mean 63 Blood Pressure Source Monitor Blood Pressure Position Left Lateral Blood Pressure Location Right Arm Pulse Ox 92 92 Oxygen Delivery Method High Flow High Flow Nasal Cannula Oxygen Flow Rate (L/min) 6 6 03/20/25 08:05 03/20/25 08:07 03/20/25 08:07 Temperature 98.1 F Temperature Source Oral Pulse Rate 67 70 Pulse Strength Respiratory Rate 18 18 Respiratory Effort Respiratory Depth Respiratory Pattern Normal Blood Pressure 136/75 H Blood Pressure Mean 95 Blood Pressure Source Monitor Blood Pressure Position Sitting Blood Pressure Location Left Arm Pulse Ox 94 97 Oxygen Delivery Method Nasal Cannula Nasal Cannula Oxygen Flow Rate (L/min) 3 4 03/20/25 08:25 03/20/25 08:26 03/20/25 12:02 Temperature Temperature Source Pulse Rate 70 70 Pulse Strength Respiratory Rate Respiratory Effort Respiratory Depth Respiratory Pattern Blood Pressure Blood Pressure Mean Blood Pressure Source Blood Pressure Position Blood Pressure Location Pulse Ox 97 Oxygen Delivery Method Nasal Cannula Oxygen Flow Rate (L/min) 3 03/20/25 14:29 03/20/25 14:57 03/20/25 15:00 Temperature 97.8 F Temperature Source Oral Pulse Rate 53 L Pulse Strength Respiratory Rate 18 Respiratory Effort Respiratory Depth Respiratory Pattern Blood Pressure 104/42 L Blood Pressure Mean 62 Blood Pressure Source Monitor Blood Pressure Position Semi-Fowlers Blood Pressure Location Left Arm Pulse Ox 95 Oxygen Delivery Method Nasal Cannula Oxygen Flow Rate (L/min) 3 3 3 Weight Weight: 161 lb 6.054 oz Body Mass Index (BMI) 31.5 Physical Exam Narrative Exertion back shows midline paraspinal tenderness in the mid to upper lumbar region. Neurologic evaluation of lower extremity shows 5 x 5 power in all muscles normal sensations in all dermatomes. Lab / Micro Data 03/20/25 03:53 03/20/25 03:53 Labs: Laboratory Results - last 24 hr 03/20/25 03:53: WBC 11.3 H, RBC 3.82 L, Hgb 11.5 L, Hct 34.7 L, MCV 90.8, MCH 30.1, MCHC 33.1, RDW Std Deviation 45.2 H, RDW Coeff of Osiel 13.8, Plt Count 179, MPV 10.8, Immature Gran % (Auto) 0.700, Neut % (Auto) 88.8 H, Lymph % (Auto) 6.4 L, [place] % (Auto) 4.0, Eos % (Auto) 0.0, Baso % (Auto) 0.1, Absolute Neuts (auto) 10.0 H, Absolute Lymphs (auto) 0.72 L, Nucleated RBC % 0, Sodium 129 L, Potassium 4.5, Chloride 92 L, Carbon Dioxide 26.7, Anion Gap 10, BUN 16, C reatinine 0.61 L, Estim Creat Clear Calc 44.20 L, Est GFR (MDRD) Non-Af 87, B UN/Creatinine Ratio 26.1 H, Glucose 130 H, Calcium 9.5, Phosphorus 3.2 03/20/25 03:53: Phosphorus 3.2, Magnesium 2.1 03/20/25 03:53: Magnesium 2.1, Total Bilirubin 1.35 H, AST 31, ALT 14, Alkaline Phosphatase 59, Total Protein 7.1, Albumin 4.2, Globulin 2.9, Albumin/Globulin Ratio 1.4 ABG Data ABG results: ABG 03/20/25 05:56 Specimen Type ART Sample Site L Radial pH 7.44 Bicarbonate Actual 33.5 H Total CO2 35 Base Excess 9 H O2 Saturation 96 O2 % 6.0 ABG pCO2 49.4 H ABG pO2 78 Bao Test Positive O2 Delivery Device Cannula Vent Mode Not entered Imaging Radiology Impression Lumbar Spine MRI 03/19/25 11:07 IMPRESSION: 1. Compression deformity of the T12 vertebral body with 60% height loss and minimal retropulsion of fracture fragments, which appears to be acute given presence of STIR hyperintensity. 2. Enpklbrb-fd-jvtnat degenerative changes of the lumbar spine, worst at L4-5 as detailed above. 3. Minimal degenerative changes of the thoracic spine. Reading Location: [id number] Thoracic Spine MRI 03/19/25 11:07 IMPRESSION: 1. Compression deformity of the T12 vertebral body with 60% height loss and minimal retropulsion of fracture fragments, which appears to be acute given presence of STIR hyperintensity. 2. Ixrghplb-oy-dydxjf degenerative changes of the lumbar spine, worst at L4-5 as detailed above. 3. Minimal degenerative changes of the thoracic spine. Reading Location: [id number] Chest X-Ray 03/20/25 03:25 IMPRESSION: Overlying superimposed pad is seen at the lower chest. Otherwise no evidence of acute disease. Reading Location: [id number] Assessment & Plan Assessment/Plan (1) T12 burst fracture: PLAN: Plan I reviewed x-rays from 03/18/2025, CT and MRI from 03/19/2025 of thoracic and lumbar spine. Initial x-rays from 03/18/2025 showed subtle T12 wedging, CT from yesterday shows significant height loss with fracture line going into the posterior body wall and also into the left pedicle. MRI shows no significant stenosis from the retropulsion and regained vertebral height, suggesting a more flat or supine position during MRI. Explained to her the imaging findings in detail. Patient has significant instability related to the T12 burst fracture. The instability is suggested by a more taller vertebral height on MRI but significant collapse on CT with even minor changes in position. Ideally spanning fixation above and below the fracture vertebra would be more definitive. Patient is however 89-year-old with severe medical comorbidities such as COPD and may be a high anesthesia risk. A cement augmentation procedure such as kyphoplasty or spine suze under MAC may be a possibility. Patient has been on Plavix and may need to hold for 4 to 5 days prior to this procedure. Discussed possibility of TLSO brace and pain control. At this time patient is neurologically intact and may continue mobilization with physical therapy as tolerated. Patient is apprehensive of any kind of procedure under anesthesia and would like to think over her options and let us know. All patient's questions were answered. Discussed recovery from cement augmentation procedure. Please reach out with any questions or concerns. Charges/Coding Visit Charges Inpatient E&M: 49624 Init Hosp L3
[2025-03-20] MEDS: Atorvastatin Calcium 80 MG Tablet PO (22:01)
[2025-03-20] MEDS: Latanoprost 0.005% 1 Bottle 1 DRP OPHTHALMIC (22:03)
[2025-03-21] VITALS (13 sets, daily range): BP systolic 134–196; BP diastolic 60–81; PULSE 64–99; RESP 16–18; TEMP 36.2–37.1; O2SAT 93–99; BMI 32.0
[2025-03-21] MEDS: Metoprolol Tartrate 25 MG Tablet PO ×2 (06:15→22:05)
[2025-03-21] MEDS: Ibuprofen 200 MG Tablet PO ×3 (06:15→22:06)
[2025-03-21] MEDS: Acetaminophen 500 MG Tablet 1000 MG PO ×3 (06:15→22:04)
[2025-03-21] MEDS: Losartan Potassium 100 MG Tablet PO (06:16)
[2025-03-21] MEDS: amLODIPine 5 MG Tablet PO (06:16)
[2025-03-21] MEDS: Ipratropium/Albuterol Sulfate 3 ML AMPUL.NEB INHALATION ×2 (07:21→20:17)
[2025-03-21 07:53] LABS: Absolute Lymphocyte Count 0.53 X10^3/uL (0.83-4.51); Absolute Neutrophil Count 20.8 X10^3/uL (2.0-7.7); Basophil# 0.03 X10^3/uL; Basophil% 0.1 % (0-1); Eosinophil# 0.01 X10^3/uL; Hematocrit 34.3 % (37-47); Hemoglobin 11.6 g/dL (12.0-15.0); Lymphocyte # 0.53 X10^3/ul (0.83-4.51); Lymphocyte % 2.3 % (19-41); Mean Corp Hgb Conc 33.8 g/dL (32-36); Mean Corpuscular Hgb 29.3 pg (27.0-32.0); Mean Corpuscular Volume 86.6 fL (81-99); Monocyte# 1.42 X10^3/uL; Monocyte% 6.2 % (0-10); NRBC Flagged by Analyzer 0 % (0-5); Neutrophil # 20.77 X10^3/uL (2.7-7.7); Neutrophil % 90.5 % (47-70); POSITIVE DIFFERENTIAL YES; Platelet Count 201 K/mm3 (150-450); RBC Distribution Width CV 13.7 % (11.6-14.6); RBC Distribution Width SD 43.2 fl (35.1-43.9); Red Blood Count 3.96 M/mm3 (4.2-5.4)
[2025-03-21 07:55] LABS: Differential Indicated SCAN CRITERIA MET
[2025-03-21] MEDS: levoFLOXacin 750 MG Tablet PO (08:23)
[2025-03-21] MEDS: Omega-3 Acid Ethyl Esters 1 GM Capsule PO (08:23)
[2025-03-21] MEDS: Calcium Carb/Vitamin D 1 TABLET Tablet PO (08:23)
[2025-03-21] MEDS: hydrALAZINE 50 MG Tablet PO ×2 (08:23→22:04)
[2025-03-21] MEDS: Multivitamin (Healthy Eyes) Capsule 1 CAP PO ×2 (08:23→22:05)
[2025-03-21] MEDS: predniSONE 10 MG Tablet PO (08:23)
[2025-03-21] MEDS: Senna/Docusate Sodium 1 Tablet 2 TABLET PO ×2 (08:23→22:04)
[2025-03-21] MEDS: Gabapentin 100 MG Capsule PO ×3 (08:23→16:59)
[2025-03-21] MEDS: Lidocaine 5% Patch 1 PATCH TOPICAL (08:24)
[2025-03-21 09:11] LABS: Anion Gap 11 (5-15); BUN 19 mg/dL (4-19); BUN/Creat Ratio 31.5 RATIO (10-20); Calcium,Total 9.2 mg/dL (7.6-11.0); Carbon Dioxide 26.5 mmol/L (21.0-32.0); Chloride 88 mmol/L (98-108); Creatinine, Serum 0.62 mg/dL (0.70-1.20); EST Glomerular Filtration Rate 86 (>60); Glucose 150 mg/dL (70-99); Potassium 4.4 mmol/L (3.3-5.1); Sodium Level 125 mmol/L (133-145)
[2025-03-21] MEDS: Enoxaparin 40 MG/0.4 ML Syringe SC (09:58)
[2025-03-21] MEDS: guaiFENesin 1,200 MG Tablet 1200 MG PO ×2 (10:11→22:06)
[2025-03-21] MEDS: Lactulose 20 GM/30 ML UDC PO ×2 (10:11→17:39)
[2025-03-21] MEDS: Polyethylene Glycol 3350 17 GM PACKET PO (10:11)
--- NOTE | 2025-03-21 10:38 | CASEMGMT ---
Discharge Planning A list of?SNF providers including quality and resource use data and consistent with the patient's preferred geographic region, medical needs, and insurance network was created in [facility] Guide.? This list was provided to the SW. Florinda Vail Discharge Planning Asst.
--- NOTE | 2025-03-21 10:46 | CASEMGMT ---
Social Work HALEIGH spoke with physician who states pt will have an outpatient kyphoplasty on Monday. SW met with pt to discussed discharge plan. Pt does not feel like she can return home at this time and is requesting SNF. A list of SNF providers including quality and resource use data and consistent with the patient?s preferred geographic region, medical needs, and insurance network were provided from the [facility]. Pt would like to go to TCU with plan to come back to hospital on Monday for outpt procedure. Referral made to TCU. HALEIGH will await determination of acceptance. Plan: TCU, pending acceptance [facility] Rivas
--- NOTE | 2025-03-21 12:18 | PN.HOSP_ITS ---
Reason for Visit Reason for Visit: Intractable back pain Subjective Subjective Patient states her back is still sore. She is leaning towards having a kyphoplasty. We discussed that we would have to hold her Plavix and plan would be for kyphoplasty next week. She voices understanding. We may get her to TCU and have her procedure done as an outpatient. Objective Data Objective Data Vital Signs: Vital Signs Temp Pulse Resp BP Pulse Ox O2 Del Method O2 Flow Rate 98.1 F 64 18 180/81 H 95 Room Air 3 03/21/25 08:32 03/21/25 08:32 03/21/25 08:32 03/21/25 08:32 03/21/25 11:35 03/21/25 08:32 03/21/25 11:35 Oxygen Flow Rate (L/min) 3 Oxygen Delivery Method Room Air Weight: 74.3 kg Body Mass Index (BMI) 32.0 Intake & Output: Intake and Output for Last 24 Hours 03/19/25 03/20/25 03/21/25 23:59 23:59 23:59 Intake Total 650 / 650 340 / 340 Output Total 75 / 75 Balance 650 / 650 265 / 265 Lab / Micro Data 03/21/25 07:38 03/21/25 07:38 Labs: Laboratory Results - last 24 hr 03/21/25 07:38: WBC 23.0 H, RBC 3.96 L, Hgb 11.6 L, Hct 34.3 L, MCV 86.6, MCH 29.3, MCHC 33.8, RDW Std Deviation 43.2, RDW Coeff of Osiel 13.7, Plt Count 201, MPV 10.0, Immature Gran % (Auto) 0.900, Neut % (Auto) 90.5 H, Lymph % (Auto) 2.3 L, [place] % (Auto) 6.2, Eos % (Auto) 0.0, Baso % (Auto) 0.1, Absolute Neuts (auto) 20.8 H, Absolute Lymphs (auto) 0.53 L, Nucleated RBC % 0, Differential Comment COMMENT, Sodium 125 L, Potassium 4.4, Chloride 88 L, Carbon Dioxide 26.5, Anion Gap 11, BUN 19, Creatinine 0.62 L, Estim Creat Clear Calc 44.60 L, Est GFR (MDRD) Non-Af 86, BUN/Creatinine Ratio 31.5 H, Glucose 150 H, Calcium 9.2 Micro: Microbiology 03/20/25 15:50 Sputum, Expectorated/Coughed Gram Stain - Final 03/20/25 15:50 Sputum, Expectorated/Coughed Respiratory Culture - Preliminary GNR Poss Pseudomonas sp Physical Exam Const alert, oriented x3, no apparent distress and well nourished; Negative for average body habitus or healthy appearing Constitutional Narrative: Obese, elderly, very pleasant, white female, sitting up in a chair at the bedside, patient appears more comfortable today, nontoxic General Appearance: cooperative HEENT normocephalic, head/scalp atraumatic and moist oral mucous membranes HEENT Narrative: Mallampati 2-3, no thrush Resp normal respiratory effort, no retractions, no use of accessory muscles and No clear to auscultation bilaterally Resp Narrative: Marked diffusely diminished lung sounds, wheeze especially noted in the left lung field Auscultation: wheezes; Negative for rales or rhonchi Cardio regular rate, regular rhythm, S1 normal heart sound, S2 normal heart sound, no murmurs, no rub, no gallops and no clicks GI normal to inspection, nondistended, normoactive bowel sounds, soft to palpation and non-tender Extremity no clubbing, cyanosis or edema Extremity Narrative: 2+ pedal and radial pulses Neuro oriented x3, moves all extremities and no focal motor deficits Speech: speech normal Psych affect normal Psych Narrative: Very pleasant, interacts appropriately Assessment & Plan Assessment/Plan (1) Fall: (2) Intractable back pain: (3) Leukocytosis: (4) Hyponatremia: (5) Osteoporosis: (6) Inability to walk: (7) T12 burst fracture: (8) Constipation: PLAN: Plan Intractable back pain secondary to T12 compression fracture - Continue home ibuprofen - Continue scheduled Tylenol 1 g every 8 hours - Continue as needed tizanidine - Continue gabapentin 100 mg 3 times daily - Continue as needed oxycodone -Continue as needed morphine for breakthrough pain -Continue lidocaine patch - MRI of the lumbar spine/thoracic spine does show a burst fracture at T12 -Orthopedic surgery has evaluated the patient and plan is for probable kyphoplasty next Monday -Could consider TLSO -Hold Plavix for procedure -PT/OT following - Case management/social work consultation for assistance with discharge planning--> patient's preference would be transitional care unit if needed Constipation - Patient has not had bowel movement since admission - Continue home senna docusate - Add MiraLAX 17 g daily - Will give lactulose x 1 dose - Encourage mobility and prune juice utilization Inability ambulate - Secondary to the above -Physical and Occupational Therapy are following Leukocytosis - Up trended - With sputum production and uptrending white count will start Levaquin - Sputum culture is pending - With her COPD history I do feel we should cover Pseudomonas Chronic hyponatremia secondary to SIADH -Sodium dropped from 131-125 - Will fluid restrict diet - Add salt tablets 1 g twice daily - Repeat lab in a.m. - Hyponatremia is asymptomatic Osteoporosis - Vitamin D level is greater than 30 - Continue home calcium carbonate and vitamin D supplementation - Patient is on injectable zoledronic acid yearly - Continue outpatient follow-up Essential hypertension/hyperlipidemia - Continue home rosuvastatin - Continue home metoprolol - Continue home irbesartan - Continue home hydralazine - Continue home Plavix - Continue home amlodipine but increase dose to 10 mg as blood pressures are consistently elevated Chronic hypoxic respiratory failure secondary to COPD - Patient is oxygen dependent at baseline at 2 L -Uptitrated to 3 L -continue home inhaler -Continue scheduled nebulizers -Add Mucinex - - As needed albuterol -Continue previously started prednisone taper Bilateral carotid artery stenosis - Patient had moderate right extracranial internal carotid artery stenosis and mild left extracranial internal carotid artery stenosis on last duplex in 2024 which is stable - Continue Plavix and rosuvastatin - Continue outpatient follow-up with Dr. Araiza Macular degeneration - Continue eyedrops Renal artery stenosis - Continue outpatient follow-up with Dr. Araiza Tobacco abuse - Recommend cessation - Patient informed that she should not smoke on her oxygen -Continue 14 mcg patch of nicotine replacement therapy Daily alcohol use - Patient reports she drinks about 2 beers daily - No signs of acute withdrawal - Will monitor clinically Suspected CRISTAL - Pulse ox dropped overnight but has trended back up today - May need up titration of oxygen nocturnally - Will continue to monitor Obesity - BMI 31.5 - Recommend weight loss - Complicates treatment, prognosis, outcomes DVT prophylaxis - Subcu Lovenox 40 daily CODE STATUS - DNR CCA okay for short-term intubation Disposition: - Patient is medically ready for discharge to TCU. Awaiting acceptance Charges/Coding Visit Charges Inpatient E&M: 96754 Subs Hosp L2
[2025-03-21] MEDS: Sodium Chloride 1 GM Tablet PO ×2 (13:16→22:08)
--- NOTE | 2025-03-21 13:48 | CASEMGMT ---
Social Work TCU is able to accept pt once sodium level is 130 or above. Physician, pt and pt's son Kwame notified of acceptance and parameters. Green sheet placed on chart to facilitate a weekend discharge. Plan: TCU, once sodium is 130 or above [facility] Rivas
[2025-03-21] MEDS: 0.9% Saline Lock 10 ML Syringe IV (22:02)
[2025-03-21] MEDS: Latanoprost 0.005% 1 Bottle 1 DRP OPHTHALMIC (22:03)
[2025-03-21] MEDS: Atorvastatin Calcium 80 MG Tablet PO (22:05)
[2025-03-22] VITALS (14 sets, daily range): BP systolic 97–164; BP diastolic 46–78; PULSE 64–100; RESP 16–20; TEMP 36.4–36.9; O2SAT 89–94; BMI 32.2
[2025-03-22] MEDS: Acetaminophen 500 MG Tablet 1000 MG PO ×3 (06:02→22:03)
[2025-03-22] MEDS: Ibuprofen 200 MG Tablet PO ×2 (06:02→13:42)
[2025-03-22 06:32] LABS: Hematocrit 35.4 % (37-47); Mean Corp Hgb Conc 33.9 g/dL (32-36); Mean Corpuscular Hgb 29.1 pg (27.0-32.0); Mean Corpuscular Volume 85.9 fL (81-99); Mean Platelet Vol. 10.1 fl (6.2-12.0); Platelet Count 219 K/mm3 (150-450); RBC Distribution Width CV 13.7 % (11.6-14.6); RBC Distribution Width SD 43.1 fl (35.1-43.9); Red Blood Count 4.12 M/mm3 (4.2-5.4); White Blood Count 23.3 K/mm3 (4.4-11.0)
[2025-03-22 07:05] LABS: Anion Gap 13 (5-15); BUN 26 mg/dL (4-19); BUN/Creat Ratio 38.9 RATIO (10-20); Calcium,Total 10.1 mg/dL (7.6-11.0); Carbon Dioxide 24.7 mmol/L (21.0-32.0); Chloride 87 mmol/L (98-108); Creatinine, Serum 0.66 mg/dL (0.70-1.20); EST Glomerular Filtration Rate 85 (>60); Estimated Creatinine Clearance 44.66 ml/min (50-250); Glucose 168 mg/dL (70-99); Sodium Level 125 mmol/L (133-145)
[2025-03-22] MEDS: Ipratropium/Albuterol Sulfate 3 ML AMPUL.NEB INHALATION ×3 (07:07→20:01)
--- NOTE | 2025-03-22 08:13 | PCM.PN.HOSP ---
Reason for Visit Reason for Visit: Intractable back pain Subjective Subjective Patient was finally able to have a bowel movement twice yesterday. States that her belly is feeling better today. Still having back pain. We did discuss the fact that she does have a pneumonia and the antibiotics are effective that we have started. Plan is to get her to TCU tomorrow as long as her sodium comes up. Objective Data Objective Data Vital Signs: Vital Signs Temp Pulse Resp BP Pulse Ox O2 Del Method O2 Flow Rate 98.4 F 80 18 138/46 H 93 Nasal Cannula 2 03/22/25 08:06 03/22/25 08:06 03/22/25 08:06 03/22/25 08:06 03/22/25 08:06 03/22/25 08:06 03/22/25 08:06 Oxygen Flow Rate (L/min) 2 Oxygen Delivery Method Nasal Cannula Weight: 74.5 kg Body Mass Index (BMI) 32.2 Intake & Output: Intake and Output for Last 24 Hours 03/20/25 03/21/25 03/22/25 23:59 23:59 23:59 Intake Total 340 / 340 150 / 150 Output Total 75 / 75 Balance 265 / 265 150 / 150 Lab / Micro Data 03/22/25 06:17 03/22/25 06:17 Labs: Laboratory Results - last 24 hr 03/21/25 07:38: Differential Comment COMMENT, Sodium 125 L, Potassium 4.4, Chloride 88 L, Carbon Dioxide 26.5, Anion Gap 11, BUN 19, Creatinine 0.62 L, Estim Creat Clear Calc 44.60 L, Est GFR (MDRD) Non-Af 86, BUN/Creatinine Ratio 31.5 H, Glucose 150 H, Calcium 9.2 03/22/25 06:17: WBC 23.3 H, RBC 4.12 L, Hgb 12.0, Hct 35.4 L, MCV 85.9, MCH 29.1, MCHC 33.9, RDW Std Deviation 43.1, RDW Coeff of Osiel 13.7, Plt Count 219, MPV 10.1, Sodium 125 L, Potassium 4.0, Chloride 87 L, Carbon Dioxide 24.7, Anion Gap 13, BUN 26 H, Creatinine 0.66 L, Estim Creat Clear Calc 44.66 L, Est GFR (MDRD) Non-Af 85, BUN/Creatinine Ratio 38.9 H, Glucose 168 H, Calcium 10.1 Micro: Microbiology 03/20/25 15:50 Sputum, Expectorated/Coughed Gram Stain - Final 03/20/25 15:50 Sputum, Expectorated/Coughed Respiratory Culture - Preliminary Pseudomonas aeruginosa Radiography Diagnostic Testing: Radiology Impression Lumbar Spine CT 03/19/25 09:05 IMPRESSION: 1. Severe endplate degenerative changes, facet arthropathy, and disc bulge of L4-5 resulting in moderate spinal canal stenosis and mild neural foraminal narrowing, bilaterally. 2. No acute fracture. 3. If symptoms persist, further evaluation with MRI is recommended Reading Location: [facility] Thoracic Spine CT 03/19/25 09:05 IMPRESSION: 1. Moderate superior endplate compression deformity of T12 vertebral body with sclerosis, likely chronic. However, acute on chronic fracture can not be excluded. Further evaluation with MRI is recommended. 2. Degenerative changes thoracic spine as described. Reading Location: [facility] Lumbar Spine MRI 03/19/25 11:07 IMPRESSION: 1. Compression deformity of the T12 vertebral body with 60% height loss and minimal retropulsion of fracture fragments, which appears to be acute given presence of STIR hyperintensity. 2. Pxguisad-wz-zzzved degenerative changes of the lumbar spine, worst at L4-5 as detailed above. 3. Minimal degenerative changes of the thoracic spine. Reading Location: [facility] Thoracic Spine MRI 03/19/25 11:07 IMPRESSION: 1. Compression deformity of the T12 vertebral body with 60% height loss and minimal retropulsion of fracture fragments, which appears to be acute given presence of STIR hyperintensity. 2. Jpjlmxku-ct-rjvuti degenerative changes of the lumbar spine, worst at L4-5 as detailed above. 3. Minimal degenerative changes of the thoracic spine. Reading Location: [id number] Chest X-Ray 03/20/25 03:25 IMPRESSION: Overlying superimposed pad is seen at the lower chest. Otherwise no evidence of acute disease. Reading Location: [facility] Physical Exam Const alert, oriented x3, no apparent distress and well nourished; Negative for average body habitus or healthy appearing Constitutional Narrative: Obese, elderly, very pleasant, white female, lying in bed, nontoxic, family at bedside, currently appears mildly uncomfortable positionally but not complaining of pain, is asking to sit up in a chair General Appearance: cooperative HEENT normocephalic, head/scalp atraumatic and moist oral mucous membranes HEENT Narrative: Mallampati 3, no thrush Resp normal respiratory effort, no retractions, no use of accessory muscles and No clear to auscultation bilaterally Resp Narrative: Marked diffusely diminished lung sounds, wheeze especially noted in the left lung field, few scattered rhonchi in the left lung field today, wheezing is better but still present Auscultation: rhonchi and wheezes; Negative for rales Cardio regular rate, regular rhythm, S1 normal heart sound, S2 normal heart sound, no murmurs, no rub, no gallops and no clicks GI normal to inspection, nondistended, normoactive bowel sounds, soft to palpation and non-tender Extremity no clubbing, cyanosis or edema Neuro oriented x3, moves all extremities and no focal motor deficits Speech: speech normal Psych affect normal Psych Narrative: Very pleasant, interacts appropriately Assessment & Plan Assessment/Plan (1) Fall: (2) Intractable back pain: (3) Leukocytosis: (4) Hyponatremia: (5) Osteoporosis: (6) Inability to walk: (7) T12 burst fracture: (8) Constipation: PLAN: Plan Intractable back pain secondary to T12 compression fracture - Continue home ibuprofen - Continue scheduled Tylenol 1 g every 8 hours - Continue as needed tizanidine - Continue gabapentin 100 mg 3 times daily - Continue as needed oxycodone -Continue as needed morphine for breakthrough pain -Continue lidocaine patch - MRI of the lumbar spine/thoracic spine does show a burst fracture at T12 -Orthopedic surgery has evaluated the patient and plan is for probable kyphoplasty next Monday and Ortho can do it from TCU -Could consider TLSO - Continue to hold Plavix for procedure -PT/OT following - Case management/social work consultation for assistance with discharge planning--> plan on TCU once sodium is 130 or greater Pseudomonal pneumonia - Continue Levaquin day 2 of 7 - Continue Acapella and I-S - Continue aerosols scheduled and as needed - Up to chair and out of bed - Encouraged much movement if possible Constipation - 2 bowel movements yesterday - Continue home senna docusate - Continue MiraLAX - Encourage mobility and prune juice utilization - Will cut back if she starts having more frequent bowel movements Inability ambulate - Secondary to the above -Physical and Occupational Therapy are following Leukocytosis - Still elevated but stabilized - Suspect related to pneumonia - Repeat CBC in a.m. Chronic hyponatremia secondary to SIADH -Sodium dropped from 131-125 - Continue fluid restricted diet - Continue salt tablets 1 g twice daily -Tolvaptan x 1 dose as I suspect SIADH has been worsened by pulmonary infection - Repeat lab in a.m. - She remains asymptomatic from her hyponatremia Osteoporosis - Vitamin D level is greater than 30 - Continue home calcium carbonate and vitamin D supplementation - Patient is on injectable zoledronic acid yearly - Continue outpatient follow-up Essential hypertension/hyperlipidemia - Continue home rosuvastatin - Continue home metoprolol - Continue home irbesartan - Continue home hydralazine - Continue home Plavix - Continue home amlodipine but increase dose to 10 mg as blood pressures are consistently elevated Chronic hypoxic respiratory failure secondary to COPD - Patient is oxygen dependent at baseline at 2 L -Uptitrated to 3 L -continue home inhaler -Continue scheduled nebulizers -Add Mucinex - As needed albuterol -Continue previously started prednisone taper Bilateral carotid artery stenosis - Patient had moderate right extracranial internal carotid artery stenosis and mild left extracranial internal carotid artery stenosis on last duplex in 2024 which is stable - Continue Plavix and rosuvastatin - Continue outpatient follow-up with Dr. Araiza Macular degeneration - Continue eyedrops Renal artery stenosis - Continue outpatient follow-up with Dr. Araiza Tobacco abuse - Recommend cessation - Patient informed that she should not smoke on her oxygen -Continue 14 mcg patch of nicotine replacement therapy Daily alcohol use - Patient reports she drinks about 2 beers daily - No signs of acute withdrawal - Will monitor clinically Suspected CRISTAL - Pulse ox dropped overnight but has trended back up today - May need up titration of oxygen nocturnally - Will continue to monitor Obesity - BMI 32.1 - Recommend weight loss - Complicates treatment, prognosis, outcomes DVT prophylaxis - Subcu Lovenox 40 daily CODE STATUS - DNR CCA okay for short-term intubation Disposition: - Patient is medically ready for discharge to TCU. Awaiting acceptance--> sodium has to be greater than or equal to 130 Charges/Coding Visit Charges Inpatient E&M: 47499 Subs Hosp L2
[2025-03-22] MEDS: predniSONE 10 MG Tablet PO (08:19)
[2025-03-22] MEDS: Calcium Carb/Vitamin D 1 TABLET Tablet PO (08:19)
[2025-03-22] MEDS: Gabapentin 100 MG Capsule PO ×2 (08:24→17:32)
[2025-03-22] MEDS: TOLVAPTAN 15 MG TABLET PO (08:26)
[2025-03-22] MEDS: Lidocaine 5% Patch 1 PATCH TOPICAL (09:38)
[2025-03-22] MEDS: amLODIPine 10 MG Tablet PO (09:39)
[2025-03-22] MEDS: guaiFENesin 1,200 MG Tablet 1200 MG PO ×2 (09:40→22:00)
[2025-03-22] MEDS: hydrALAZINE 50 MG Tablet PO (09:41)
[2025-03-22] MEDS: Multivitamin (Healthy Eyes) Capsule 1 CAP PO (09:42)
[2025-03-22] MEDS: Metoprolol Tartrate 25 MG Tablet PO ×2 (09:43→22:01)
[2025-03-22] MEDS: Losartan Potassium 100 MG Tablet PO (09:44)
[2025-03-22] MEDS: Enoxaparin 40 MG/0.4 ML Syringe SC (09:45)
[2025-03-22] MEDS: Polyethylene Glycol 3350 17 GM PACKET PO (09:45)
[2025-03-22] MEDS: Senna/Docusate Sodium 1 Tablet 2 TABLET PO ×2 (09:47→22:00)
[2025-03-22] MEDS: Omega-3 Acid Ethyl Esters 1 GM Capsule PO (09:47)
[2025-03-22] MEDS: Sodium Chloride 1 GM Tablet PO ×2 (09:49→22:02)
[2025-03-22] MEDS: tiZANidine HCl 2 MG Tablet PO (10:08)
[2025-03-22] MEDS: oxyCODONE 5 MG Tablet PO ×2 (10:09→22:10)
[2025-03-22] MEDS: Mag Hydrox/Al Hydrox/Simeth 30 ML UDC PO (19:39)
[2025-03-22] MEDS: Atorvastatin Calcium 80 MG Tablet PO (22:01)
[2025-03-22] MEDS: Latanoprost 0.005% 1 Bottle 1 DRP OPHTHALMIC (22:03)
[2025-03-23] VITALS (16 sets, daily range): BP systolic 114–143; BP diastolic 55–67; PULSE 68–87; RESP 18–26; TEMP 36.5–36.6; O2SAT 75–97; BMI 32.2
[2025-03-23] MEDS: Acetaminophen 500 MG Tablet 1000 MG PO (04:26)
[2025-03-23 04:32] LABS: Absolute Neutrophil Count 17.3 X10^3/uL (2.0-7.7); Basophil# 0.02 X10^3/uL; Basophil% 0.1 % (0-1); Hematocrit 32.2 % (37-47); Hemoglobin 10.9 g/dL (12.0-15.0); Lymphocyte % 3.6 % (19-41); Mean Corp Hgb Conc 33.9 g/dL (32-36); Mean Corpuscular Hgb 28.8 pg (27.0-32.0); Mean Corpuscular Volume 85.2 fL (81-99); Mean Platelet Vol. 10.5 fl (6.2-12.0); Monocyte% 7.2 % (0-10); NRBC Flagged by Analyzer 0 % (0-5); Neutrophil # 17.34 X10^3/uL (2.7-7.7); Neutrophil % 88.5 % (47-70); Platelet Count 233 K/mm3 (150-450); RBC Distribution Width CV 14.1 % (11.6-14.6); RBC Distribution Width SD 43.8 fl (35.1-43.9); Red Blood Count 3.78 M/mm3 (4.2-5.4); White Blood Count 19.6 K/mm3 (4.4-11.0)
[2025-03-23 05:12] LABS: Anion Gap 12 (5-15); BUN 50 mg/dL (4-19); BUN/Creat Ratio 40.9 RATIO (10-20); Carbon Dioxide 32.4 mmol/L (21.0-32.0); Chloride 84 mmol/L (98-108); Creatinine, Serum 1.22 mg/dL (0.70-1.20); EST Glomerular Filtration Rate 43 (>60); Estimated Creatinine Clearance 29.28 ml/min (50-250); Glucose 145 mg/dL (70-99); Potassium 3.9 mmol/L (3.3-5.1); Sodium Level 128 mmol/L (133-145)
--- NOTE | 2025-03-23 07:12 | PN.HOSP_ITS ---
Reason for Visit Reason for Visit: Intractable back pain Subjective Subjective Patient requiring more oxygen now. Abdomen is distended today. Had bowel movement yesterday morning but nothing since and states she is not passing flatus now. No significant nausea today did have some yesterday. Back is still uncomfortable. Objective Data Objective Data Vital Signs: Vital Signs Temp Pulse Resp BP Pulse Ox O2 Del Method O2 Flow Rate 97.8 F 68 18 114/67 93 High Flow 4 03/23/25 04:30 03/23/25 04:30 03/23/25 04:30 03/23/25 04:30 03/23/25 04:30 03/23/25 04:30 03/23/25 04:30 Oxygen Flow Rate (L/min) 4 Oxygen Delivery Method High Flow Weight: 74.4 kg Body Mass Index (BMI) 32.2 Intake & Output: Intake and Output for Last 24 Hours 03/21/25 03/22/25 03/23/25 23:59 23:59 23:59 Intake Total 150 / 150 200 / 200 Balance 150 / 150 200 / 200 Lab / Micro Data 03/23/25 04:07 03/23/25 04:07 Labs: Laboratory Results - last 24 hr 03/23/25 04:07: WBC 19.6 H, RBC 3.78 L, Hgb 10.9 L, Hct 32.2 L, MCV 85.2, MCH 28.8, MCHC 33.9, RDW Std Deviation 43.8, RDW Coeff of Osiel 14.1, Plt Count 233, MPV 10.5, Immature Gran % (Auto) 0.600, Neut % (Auto) 88.5 H, Lymph % (Auto) 3.6 L, [place] % (Auto) 7.2, Eos % (Auto) 0.0, Baso % (Auto) 0.1, Absolute Neuts (auto) 17.3 H, Absolute Lymphs (auto) 0.70 L, Nucleated RBC % 0, Sodium 128 L, Potassium 3.9, Chloride 84 L, Carbon Dioxide 32.4 H, Anion Gap 12, BUN 50 H, C reatinine 1.22 H, Estim Creat Clear Calc 29.28 L, Est GFR (MDRD) Non-Af 43 L, B UN/Creatinine Ratio 40.9 H, Glucose 145 H, Calcium 10.0 Micro: Microbiology 03/20/25 15:50 Sputum, Expectorated/Coughed Gram Stain - Final 03/20/25 15:50 Sputum, Expectorated/Coughed Respiratory Culture - Preliminary Pseudomonas aeruginosa Physical Exam Const alert, oriented x3, no apparent distress and well nourished; Negative for average body habitus or healthy appearing Constitutional Narrative: Obese, elderly, very pleasant, white female, lying in bed, appears uncomfortable but nontoxic, family bedside, nursing at bedside General Appearance: cooperative HEENT normocephalic, head/scalp atraumatic and moist oral mucous membranes HEENT Narrative: Mallampati 2 Eyes conjunctivae normal Eyes Narrative: No scleral icterus Neck supple Neck Narrative: Trachea midline Resp normal respiratory effort, no retractions, no use of accessory muscles and No clear to auscultation bilaterally Resp Narrative: Lung sounds are overall improved, still scattered rhonchi and end expiratory wheezes but better air movement Auscultation: rhonchi and wheezes; Negative for rales Cardio regular rate, regular rhythm, S1 normal heart sound, S2 normal heart sound, no murmurs, no rub, no gallops and no clicks GI GI Narrative: Mild diffuse tenderness, abdomen is distended but soft, bowel sounds are hypoactive Auscultation: hypoactive bowel sounds Extremity no clubbing, cyanosis or edema Extremity Narrative: 2+ pedal and radial pulses Skin Skin Narrative: Multiple areas of ecchymosis on bilateral arms, no significant wounds Neuro oriented x3, moves all extremities and no focal motor deficits Neuro Narrative: Decreased ability move lower extremities due to pain but no focal deficits, sensation bilateral lower extremities is normal Speech: speech normal Psych Psych Narrative: Very pleasant, interacts appropriately, affect is flat but appropriate for the situation Assessment & Plan Assessment/Plan (1) Fall: (2) Intractable back pain: (3) Leukocytosis: (4) Hyponatremia: (5) Osteoporosis: (6) Inability to walk: (7) T12 burst fracture: (8) Constipation: (9) Ileus: (10) Acute on chronic hypoxic respiratory failure: PLAN: Plan Intractable back pain secondary to T12 compression fracture - Hold home ibuprofen--> secondary to ileus and slightly worsening renal function - Transition to rectal scheduled Tylenol 1 g every 8 hours due to ileus - Continue as needed tizanidine - Continue gabapentin 100 mg 3 times daily - Hold as needed oxycodone due to ileus will use IV -Continue as needed morphine for breakthrough pain -Continue lidocaine patch - MRI of the lumbar spine/thoracic spine does show a burst fracture at T12 -Orthopedic surgery has evaluated the patient and plan is for probable kyphoplasty on Monday however may need to be delayed depending on how abdomen and respiratory status is progressing -Could consider TLSO - Continue to hold Plavix for procedure -PT/OT following - Case management/social work consultation for assistance with discharge planning Acute on chronic hypoxic respiratory failure secondary to pseudomonal pneumonia - Respiratory status has declined some in the last 24 hours -ABG obtained and no significant CO2 retention from baseline -Continue Airvo and wean as able -Patient is a mouth breather - Pseudomonal pneumonia plus ileus has developed so I suspect it is multifactorial from those 2 things - Continue antibiotics - Continue aerosols - Continue Acapella and I-S - Continue Mucinex - Added Mucomyst - Continue to encourage out of bed and mobility is much as possible Pseudomonal pneumonia - Continue Levaquin day 3 of 7 - Continue Acapella and I-S - Continue aerosols scheduled and as needed - Up to chair and out of bed - Encouraged much movement if possible Ileus - 2 bowel movements yesterday but none since and now with some intermittent nausea and no flatus -Multifactorial with hyponatremia, pneumonia, narcotics and decreased mobility due to back -CT of the abdomen pelvis ordered and suggestive of ileus -No nausea or vomiting currently so we will hold off on NG tube and make n.p.o. except for p.o. meds -Start IV fluids x 2 L at 75 cc/h -Abdomen is distended on exam - Continue bowel regimen that is currently ordered - Suppository - Enema x 1 with soapsuds - Start Reglan 5 mg every 6 hours times next 24 hours and reassess - Consult general surgery-discussed with Dr. Koo Inability ambulate - Secondary to the above -Physical and Occupational Therapy are following Leukocytosis - Is now trending down - Suspect related to pneumonia - Repeat CBC in a.m. Acute on chronic hyponatremia secondary to SIADH -Suspect acuity is related to pseudomonal pneumonia - Sodium is currently 128 - Continue fluid restricted diet - Continue salt tablets 1 g twice daily - Repeat lab in a.m. - She remains asymptomatic from her hyponatremia REBEKA - Baseline serum creatinine is about 0.6-0.7 - 1.22 today - Start IV fluids with ileus - Watch sodium closely - Repeat BMP in a.m. Osteoporosis - Vitamin D level is greater than 30 - Hold home calcium carbonate and vitamin D supplementation until bowel function improves - Patient is on injectable zoledronic acid yearly - Continue outpatient follow-up Essential hypertension/hyperlipidemia - Hold home rosuvastatin - Continue home metoprolol - Continue home irbesartan - Continue home hydralazine - Continue home Plavix - Continue amlodipine 10 mg which is an increase from her home regimen due to chronically elevated- COPD - Patient is oxygen dependent at baseline at 2 L -continue home inhaler -Continue scheduled nebulizers - Continue Mucinex -Mucomyst added - As needed albuterol -Continue previously started prednisone taper Bilateral carotid artery stenosis - Patient had moderate right extracranial internal carotid artery stenosis and mild left extracranial internal carotid artery stenosis on last duplex in 2024 which is stable - Continue rosuvastatin - Plavix on hold - Continue outpatient follow-up with Dr. Araiza Macular degeneration - Continue eyedrops Renal artery stenosis - Continue outpatient follow-up with Dr. Araiza Tobacco abuse - Recommend cessation - Patient informed that she should not smoke on her oxygen -Continue 14 mcg patch of nicotine replacement therapy Daily alcohol use - Patient reports she drinks about 2 beers daily - No signs of acute withdrawal - Will monitor clinically Suspected CRISTAL - May need up titration of oxygen nocturnally - Will continue to monitor Obesity - BMI 32.0 - Recommend weight loss - Complicates treatment, prognosis, outcomes DVT prophylaxis - Subcu Lovenox 40 daily CODE STATUS - DNR CCA okay for short-term intubation Disposition: - Patient is no longer medically ready for discharge due to development of ileus and worsening oxygenation status. Charges/Coding Visit Charges Inpatient E&M: 22490 Subs Hosp L3
[2025-03-23] MEDS: Ipratropium/Albuterol Sulfate 3 ML AMPUL.NEB INHALATION ×3 (07:22→20:10)
--- NOTE | 2025-03-23 08:08 | CPS ---
Found pt at 75% sat. This RT let ore charger know. Placed pt on Airvo 50L 70%. RT talked to Dr Arce, Dr avelina UNDERWOOD done at well.
[2025-03-23 08:14] LABS: Allen Test Positive; Base Excess 22 mmol/L (-2 to +2); Bicarbonate 45.7 mmol/L (22-26); Blood Gas Specimen Type ART; Comment 50L; Mode Not entered; O2 Delivery Device airvo; PO2 56 mmHG (75-100); SITE L Radial; SO2 89 % (95-99); Total Carbon Dioxide 48 mmol/L; pCO2 60.9 mmHg (35-45); pH 7.48 (7.35-7.45)
[2025-03-23] MEDS: Gabapentin 100 MG Capsule PO ×2 (10:08→17:29)
[2025-03-23] MEDS: Calcium Carb/Vitamin D 1 TABLET Tablet PO (10:09)
[2025-03-23] MEDS: 0.9% Normal Saline (1000mL) 1,000 ML 75 ML IV ×2 (10:13→23:40)
--- NOTE | 2025-03-23 10:45 | CT_ITS ---
PROCEDURE: ABDOMEN/PELVIS WITHOUT CONT 03/23/2025 REASON FOR EXAM: Ileus, abdominal discomfort TECHNIQUE: Abdomen and pelvis CT without intravenous contrast. Noncontrast technique limits evaluation of the abdominal and pelvic viscera. Coronal and Sagittal reconstruction series were provided. One or more dose reduction techniques were used (e.g., Automated exposure control, adjustment of the mA and/or kV according to patient size, use of iterative reconstruction technique). PATIENT PREPARATION: Per protocol ORAL CONTRAST TYPE: None. AMOUNT: mL COMPARISON: CT abdomen pelvis 12/24/2024 FINDINGS: Lung bases: Small patch of left lower lobe airspace disease small volume atelectasis/airspace disease in the right base Liver: Unremarkable Gallbladder: Not identified Spleen: Unremarkable Pancreas: Normal Adrenals: Normal Kidneys: No hydronephrosis. Unremarkable. Bladder: No acute process Reproductive Organs: Uterus and ovaries are not identified. Correlate hysterectomy and oophorectomy with surgical history Bowel: Fluid distended stomach and small bowel is present. There is a transition to normal caliber small bowel in the distal 3rd of the ileum. These findings are suspect for obstruction. Appendix: Not identified. No inflammatory right lower quadrant process. Lymph nodes: No retroperitoneal or mesenteric adenopathy. Vasculature: Unremarkable Peritoneum / Retroperitoneum: No free fluid or free air. Bones: T [address]/Abdomen/Pelvis without Cont IMPRESSION: Findings are suspect for protection. Small foci airspace disease in the lung bases OVERALL FINAL ASSESSMENT: . LI-RADS is not meant to be used in patients <18 years or patients with cirrhosi s due to congenital hepatic fibrosis or due to vascular disorders, because these patients have a lower chance of developing HC C. Reading Location: [facility]
--- NOTE | 2025-03-23 10:50 | RAD_ITS ---
PROCEDURE: CHEST 1 VIEW (PORTABLE) 03/23/2025 REASON FOR EXAM: HYPOXIA TECHNIQUE: Frontal view of the chest. COMPARISON: 01/12/2025 and 03/20/2025 FINDINGS: No focal consolidations. Mild pulmonary vascular congestion. Bibasilar subsegmental atelectasis. No pleural effusion or pneumothorax. Atherosclerosis of the thoracic aorta. T7 posterior rib fracture of indeterminate acuity RAD/Chest 1 View (Portable) IMPRESSION: No focal consolidations. Mild pulmonary vascular congestion. T7 posterior rib fracture of indeterminate acuity Reading Location: [facility]
[2025-03-23] MEDS: Enoxaparin 40 MG/0.4 ML Syringe SC (12:01)
[2025-03-23] MEDS: Omega-3 Acid Ethyl Esters 1 GM Capsule PO (12:01)
[2025-03-23] MEDS: Lidocaine 5% Patch 1 PATCH TOPICAL (12:01)
[2025-03-23] MEDS: Multivitamin (Healthy Eyes) Capsule 1 CAP PO (12:01)
[2025-03-23] MEDS: guaiFENesin 1,200 MG Tablet 1200 MG PO ×2 (12:02→21:23)
[2025-03-23] MEDS: Polyethylene Glycol 3350 17 GM PACKET PO (12:02)
[2025-03-23] MEDS: Senna/Docusate Sodium 1 Tablet 2 TABLET PO ×2 (12:07→21:22)
[2025-03-23] MEDS: Sodium Chloride 1 GM Tablet PO ×2 (12:08→21:22)
[2025-03-23] MEDS: Metoprolol Tartrate 25 MG Tablet PO ×2 (12:19→21:23)
[2025-03-23] MEDS: Losartan Potassium 100 MG Tablet PO (12:19)
[2025-03-23] MEDS: 0.9% Saline Lock 10 ML Syringe IV (12:20)
[2025-03-23] MEDS: amLODIPine 10 MG Tablet PO (12:20)
[2025-03-23] MEDS: levoFLOXacin IV 750 MG/150 ML BAG 100 MG IV (12:21)
[2025-03-23] MEDS: Bisacodyl 10 MG Suppository RC (12:45)
[2025-03-23] MEDS: Acetylcysteine 800 MG/4 ML VIAL.NEB. INHALATION ×2 (13:38→20:10)
--- NOTE | 2025-03-23 13:50 | CPS ---
Pt was up to go to the bathroom when RT waked in. Pt was taken off Airvo to go to the bathroom, Once pt returned back to bed, RT placed pt back on pulse ox. Pt sat was 82% on the 6L NC. This RT placed pt back on Airvo at this time. Pt sat was back in the high 90s. RT was able to wean Airvo to 65% and 50L
[2025-03-23] MEDS: Metoclopramide 10 MG/2 ML Vial 5 MG IV ×3 (15:42→23:40)
[2025-03-23] MEDS: Acetaminophen 650 MG Suppository RC ×2 (15:43→21:48)
[2025-03-23] MEDS: hydrALAZINE 50 MG Tablet PO (21:22)
[2025-03-23] MEDS: Latanoprost 0.005% 1 Bottle 1 DRP OPHTHALMIC (21:22)
[2025-03-23] MEDS: Atorvastatin Calcium 80 MG Tablet PO (21:23)
[2025-03-24] VITALS (14 sets, daily range): BP systolic 99–134; BP diastolic 45–83; PULSE 66–92; RESP 16–32; TEMP 36.6–36.8; O2SAT 88–96; BMI 32.6
[2025-03-24 05:48] LABS: Absolute Lymphocyte Count 0.42 X10^3/uL (0.83-4.51); Absolute Neutrophil Count 11.1 X10^3/uL (2.0-7.7); Basophil# 0.01 X10^3/uL; Basophil% 0.1 % (0-1); Hematocrit 29.8 % (37-47); Hemoglobin 9.7 g/dL (12.0-15.0); Lymphocyte # 0.42 X10^3/ul (0.83-4.51); Lymphocyte % 3.5 % (19-41); Mean Corp Hgb Conc 32.6 g/dL (32-36); Mean Corpuscular Hgb 28.7 pg (27.0-32.0); Mean Corpuscular Volume 88.2 fL (81-99); Mean Platelet Vol. 9.8 fl (6.2-12.0); Monocyte# 0.46 X10^3/uL; Monocyte% 3.8 % (0-10); NRBC Flagged by Analyzer 0 % (0-5); POSITIVE DIFFERENTIAL YES; Platelet Count 215 K/mm3 (150-450); RBC Distribution Width CV 14.2 % (11.6-14.6); Red Blood Count 3.38 M/mm3 (4.2-5.4); White Blood Count 12.1 K/mm3 (4.4-11.0)
[2025-03-24] MEDS: Metoclopramide 10 MG/2 ML Vial 5 MG IV ×2 (06:02→13:32)
[2025-03-24] MEDS: Acetaminophen 650 MG Suppository RC (06:04)
[2025-03-24 06:10] LABS: Magnesium 2.6 mg/dL (1.5-2.2); Phosphorus 3.1 mg/dL (2.7-4.5)
[2025-03-24 06:12] LABS: ALB/GLOB Ratio 1.1 RATIO (0.9-2.4); AST(SGOT) 81 U/L (<=31); Alanine Aminotransfer ALT/SGPT 54 U/L (<=34); Albumin, Serum 3.1 g/dL (3.4-4.8); Alkaline Phosphatase 72 U/L (35-104); Anion Gap 10 (5-15); BUN 52 mg/dL (4-19); BUN/Creat Ratio 54.8 RATIO (10-20); Calcium,Total 8.7 mg/dL (7.6-11.0); Carbon Dioxide 26.3 mmol/L (21.0-32.0); Chloride 93 mmol/L (98-108); Creatinine, Serum 0.94 mg/dL (0.70-1.20); EST Glomerular Filtration Rate 59 (>60); Estimated Creatinine Clearance 38.25 ml/min (50-250); Globulin 2.8 g/dL (2.2-4.2); Glucose 124 mg/dL (70-99); Potassium 4.1 mmol/L (3.3-5.1); Protein, Total 5.8 g/dL (5.9-8.4); Sodium Level 130 mmol/L (133-145); Total Bilirubin 0.56 mg/dL (0.00-1.30)
--- NOTE | 2025-03-24 07:27 | CON.PCM.SX_ITS ---
Assessment & Plan Assessment/Plan (1) Ileus: PLAN: I reviewed the patient's CT scan. I believe she likely has an ileus as she has many compounding factors that could be contributing to this. She has a back fracture as well as a pneumonia and several electrolyte abnormalities. I believe once she is on appropriate antibiotics for the pneumonia that the ileus will resolve. She has stool throughout the colon. She has been getting suppositories. Continue supportive care. No surgical indication at this time. Abdomen is soft and mildly tender. I will order a KUB for the morning. Faizan Koo MD Pager: [facility] [address] [place] [address], [address] [place] [address] Office: HPI Consult Data Date of Consult: 03/24/25 HPI Narrative HPI Narrative: AISHA PARKER, is a 89 F who was admitted with several issues. She is here with hyponatremia as well as she was found to have a Pseudomonas pneumonia and she has a fracture of her spine. She started developing abdominal distention and a CT scan was ordered which showed possible bowel obstruction. She reports that she has not had a bowel movement in a week. She has had several suppositories. She does not report any vomiting or nausea. [facility] Medical History Macular degeneration Contact dermatitis due to plant Bilateral carotid artery stenosis Pure hypercholesterolemia Sinus bradycardia Tobacco abuse COPD (chronic obstructive pulmonary disease) Renal artery stenosis Osteoarthritis Osteoporosis Adrenal hyperplasia Home Medications ?Medication ?Instructions ?Recorded ?Last Taken ?Type loratadine 10 mg tablet 10 mg PO DAILY PRN Allergies 04/21/14 Unknown History omega-3 fatty acids 1,000 mg 1,000 mg PO DAILY FOLLOW- UP NEEDED 08/23/19 Unknown History capsule (Fish Oil Concentrate) irbesartan 300 mg tablet 300 mg PO .AM HTN 12/31/21 U nknown History amlodipine 5 mg tablet 5 mg PO DAILY HTN 02/03/22 U nknown History budesonide 160 mcg-glycopyr 9 2 inh inhalation BID TWAN ATHING 03/14/22 Unknown History mcg-formot 4.8 mcg/actuation HFA inhaler calcium 600 mg (as 1 tab PO DAILY FOLLOW-UP NEE DED 08/08/22 Unknown History carbonate)-vitamin D3 20 mcg (800 unit) tablet (Caltrate with Vitamin D3) metoprolol tartrate 25 mg tablet 25 mg PO BID HTN 08/30 03/20 Unknown History zoledronic acid 5 mg/100 mL in 1 ea IV .Qyear FOLLOW-U P NEEDED 09/13/22 Unknown History mannitol 5 %-water intravenous piggybck hydralazine 50 mg tablet 50 mg PO BID FOLLOW-UP NEEDE D 07/31/23 Unknown History rosuvastatin 40 mg tablet 40 mg PO DAILY FOLLOW-UP NEE DED 07/31/23 Unknown History vit C 250 mg-vit E 90 mg-zinc 40 1 tab PO BID FOLLOW-U P NEEDED 07/31/23 Unknown History mg-copper 1 [id number] capsule (PreserVision AREDS-2) calcium carbonate (Tums) 200 mg PO ONCE PRN dyspepsia 09/25/24 Unknown History latanoprost 0.005 % eye drops 1 drp ophthalmic (eye) Q DAY 09/25/24 Unknown History FOLLOW-UP NEEDED lidocaine 5 % topical patch 1 patch topical DAILY #15 ea 01/12/25 Unknown Rx (Lidoderm) clopidogrel 75 mg tablet 75 mg PO DAILY FOLLOW-UP NEE DED #1 01/16/25 Unknown Rx TAB hydrocodone-acetaminophen 5-325mg 1 tab PO Q6H PRN PRN Pain 3 days 03/18/25 Unknown Rx 5mg-325mg #12 TABLETS ibuprofen 200 mg tablet (Advil) 200 mg PO TID PAIN Unknown History prednisone 20 mg tablet 20 mg PO DAILY recently plac ed on 03/19/25 03/18/25 History this march 10 Allergy/AdvReac Type Severity Reaction Status Date / Time amlodipine AdvReac Intermediate Severe Verified 03/19/25 08:47 swelling in ankles Penicillins (PCN) AdvReac diarrhea Verified 03/19/25 08:47 Family History Mother CAD (coronary artery disease) Hypertension Brother Hypertension Presence of permanent cardiac pacemaker Brother Hypertension Father Hypertension Surgical History H/O carotid endarterectomy (~03/2024) History of YAG laser capsulotomy of lens of right eye History of tonsillectomy and adenoidectomy History of total hysterectomy Hx of cataract surgery H/O detached retina repair Social History Smoking Status: Current every day smoker tobacco type: cigarettes alcohol intake: current alcohol intake frequency: 0-2 drinks per day Alcohol type: beer substance use type: does not use caffeine: Yes (occasionally) ROS Constitutional Constitutional: Denies anorexia, chills, fatigue or fever(s) Eyes Eyes: Denies blurry vision ENT HEENT: Denies abnormal hearing Cardiovascular Cardiovascular: Denies chest pain Respiratory/Chest Respiratory/Chest: Reports cough, productive cough and shortness of breath at rest Gastrointestinal Gastrointestinal: Reports abdominal pain, bloating and nausea; Denies vomiting Musculoskeletal Musculoskeletal: Denies abnormal gait Integumentary Integumentary: Denies jaundice Physical Exam Const alert and oriented x3 HEENT normocephalic Eyes PERRL Resp normal respiratory effort Cardio Rate: regular rate Rhythm: regular rhythm GI soft to palpation Inspection: abdominal distention Palpation: tender Lab / Micro Data 03/24/25 05:30 03/24/25 05:30 Labs: Laboratory Results - last 24 hr 03/24/25 05:30: WBC 12.1 H, RBC 3.38 L, Hgb 9.7 L, Hct 29.8 L, MCV 88.2, MCH 28.7, MCHC 32.6, RDW Std Deviation 46.0 H, RDW Coeff of Osiel 14.2, Plt Count 215, MPV 9.8, Immature Gran % (Auto) 0.600, Neut % (Auto) 92.0 H, Lymph % (Auto) 3.5 L, [place] % (Auto) 3.8, Eos % (Auto) 0.0, Baso % (Auto) 0.1, Absolute Neuts (auto) 11.1 H, Absolute Lymphs (auto) 0.42 L, Nucleated RBC % 0, Sodium 130 L, Potassium 4.1, Chloride 93 L, Carbon Dioxide 26.3, Anion Gap 10, BUN 52 H, Creatinine 0.94, Estim Creat Clear Calc 38.25 L, Est GFR (MDRD) Non-Af 59 L, B UN/Creatinine Ratio 54.8 H, Glucose 124 H, Calcium 8.7, Phosphorus 3.1, M agnesium 2.6 H, Total Bilirubin 0.56, AST 81 H, ALT 54 H, Alkaline Phosphatase 72, Total Protein 5.8 L, Albumin 3.1 L, Globulin 2.8, Albumin/Globulin Ratio 1.1 Micro: Microbiology 03/20/25 15:50 Sputum, Expectorated/Coughed Gram Stain - Final 03/20/25 15:50 Sputum, Expectorated/Coughed Respiratory Culture - Final Pseudomonas aeruginosa ABG Data ABG results: ABG 03/23/25 08:10 Specimen Type ART Sample Site L Radial pH 7.48 H Bicarbonate Actual 45.7 H Total CO2 48 Base Excess 22 H O2 Saturation 89 L O2 % 70.0 ABG pCO2 60.9 H ABG pO2 56 L Bao Test Positive O2 Delivery Device airvo Vent Mode Not entered Clinical Comments 50L Imaging Radiology Impression Abdomen/Pelvis CT 03/23/25 10:45 IMPRESSION: Findings are suspect for protection. Small foci airspace disease in the lung bases OVERALL FINAL ASSESSMENT: . LI-RADS is not meant to be used in patients <18 years or patients with cirrhosis due to congenital hepatic fibrosis or due to vascular disorders, because these patients have a lower chance of developing HCC. Reading Location[facility] Chest X-Ray 03/23/25 10:50 IMPRESSION: No focal consolidations. Mild pulmonary vascular congestion. T7 posterior rib fracture of indeterminate acuity Reading Location: [id number]
[2025-03-24] MEDS: Ipratropium/Albuterol Sulfate 3 ML AMPUL.NEB INHALATION ×3 (07:45→19:50)
[2025-03-24] MEDS: Acetylcysteine 800 MG/4 ML VIAL.NEB. INHALATION ×3 (07:45→19:50)
[2025-03-24] MEDS: Gabapentin 100 MG Capsule PO ×2 (08:12→13:31)
[2025-03-24] MEDS: hydrALAZINE 50 MG Tablet PO ×2 (08:13→21:58)
[2025-03-24] MEDS: Losartan Potassium 100 MG Tablet PO (08:16)
[2025-03-24] MEDS: Lidocaine 5% Patch 1 PATCH TOPICAL (08:17)
[2025-03-24] MEDS: Omega-3 Acid Ethyl Esters 1 GM Capsule PO (08:17)
[2025-03-24] MEDS: Metoprolol Tartrate 25 MG Tablet PO ×2 (08:17→21:58)
[2025-03-24] MEDS: Enoxaparin 40 MG/0.4 ML Syringe SC (08:18)
[2025-03-24] MEDS: guaiFENesin 1,200 MG Tablet 1200 MG PO ×2 (08:19→21:58)
[2025-03-24] MEDS: Polyethylene Glycol 3350 17 GM PACKET PO (08:19)
[2025-03-24] MEDS: amLODIPine 10 MG Tablet PO (08:20)
[2025-03-24] MEDS: Senna/Docusate Sodium 1 Tablet 2 TABLET PO ×2 (08:20→21:59)
[2025-03-24] MEDS: Sodium Chloride 1 GM Tablet PO ×2 (08:22→21:58)
[2025-03-24 09:13] LABS: Ferritin 366 ng/mL (22-378); Iron 27 ug/dL (50-170); Iron Binding Capacity,Unsat 192 ug/dL (228-428); Vitamin B12 491 pg/mL (180-914)
[2025-03-24 09:24] LABS: Iron Binding Capacity,Total 219 ug/dL (250-450); PERCENT IRON SATURATION 12.3 % (13-59)
--- NOTE | 2025-03-24 10:30 | PCM.PN.HOSP ---
Reason for Visit Reason for Visit: Diagnoses Elevated white blood cell count, unspecified (03/19/25) Hypo-osmolality and hyponatremia (03/19/25) Acute and chronic respiratory failure with hypoxia (03/19/25) Ileus, unspecified (03/19/25) Constipation, unspecified (03/19/25) Dorsalgia, unspecified (03/19/25) Age-related osteoporosis without current pathological fracture (03/19/25) Difficulty in walking, not elsewhere classified (03/19/25) Stable burst fracture of T11-T12 vertebra, initial encounter for closed fracture (03/19/25) Unspecified fall, initial encounter (03/19/25) Subjective Subjective Saw patient at bedside this morning. Patient was fatigued appearing but otherwise laying back comfortably in bed and in no acute distress. Stated that both her back pain and abdominal pain were controlled with her laying back in bed and not moving much. She denied any episodes of nausea or vomiting today. Has been passing gas but denies any bowel movements. Was asking to drink black coffee but otherwise did not have much of an appetite. Denies any shortness of breath at rest and is breathing comfortably on Airvo. Has had mild sputum production this morning, similar to previous days. Denies any other new concerns today. Objective Data Objective Data Vital Signs: Vital Signs Temp Pulse Resp BP Pulse Ox O2 Del Method O2 Flow Rate 98.3 F 72 18 117/47 L 94 Airvo 50 03/24/25 08:04 03/24/25 08:17 03/24/25 08:04 03/24/25 08:04 03/24/25 08:04 03/24/25 08:04 03/24/25 07:45 FiO2 64 03/24/25 07:45 Oxygen Flow Rate (L/min) 50 Oxygen Delivery Method Airvo Weight: 75.41 kg Body Mass Index (BMI) 32.6 Intake & Output: Intake and Output for Last 24 Hours 03/22/25 03/23/25 03/24/25 23:59 23:59 23:59 Intake Total 1550 / 1550 Balance 1550 / 1550 Lab / Micro Data 03/24/25 05:30 03/24/25 05:30 Labs: Laboratory Results - last 24 hr 03/24/25 05:30: WBC 12.1 H, RBC 3.38 L, Hgb 9.7 L, Hct 29.8 L, MCV 88.2, MCH 28.7, MCHC 32.6, RDW Std Deviation 46.0 H, RDW Coeff of [place]iel 14.2, Plt Count 215, MPV 9.8, Immature Gran % (Auto) 0.600, Neut % (Auto) 92.0 H, Lymph % (Auto) 3.5 L, [place] % (Auto) 3.8, Eos % (Auto) 0.0, Baso % (Auto) 0.1, Absolute Neuts (auto) 11.1 H, Absolute Lymphs (auto) 0.42 L, Nucleated RBC % 0, Sodium 130 L, Potassium 4.1, Chloride 93 L, Carbon Dioxide 26.3, Anion Gap 10, BUN 52 H, Creatinine 0.94, Estim Creat Clear Calc 38.25 L, Est GFR (MDRD) Non-Af 59 L, BUN/Creatinine Ratio 54.8 H, Glucose 124 H, Calcium 8.7, Phosphorus 3.1, Magnesium 2.6 H, Iron 27 L, TIBC 219 L, Iron Saturation 12.3 L, Unsaturated IBC 192 L, Ferritin 366, Total Bilirubin 0.56, AST 81 H, ALT 54 H, Alkaline Phosphatase 72, Total Protein 5.8 L, Albumin 3.1 L, Globulin 2.8, Albumin/Globulin Ratio 1.1, Vitamin B12 491 Micro: Microbiology 03/20/25 15:50 Sputum, Expectorated/Coughed Gram Stain - Final 03/20/25 15:50 Sputum, Expectorated/Coughed Respiratory Culture - Final Pseudomonas aeruginosa Radiography Diagnostic Testing: Radiology Impression Abdomen/Pelvis CT 03/23/25 10:45 IMPRESSION: Findings are suspect for protection. Small foci airspace disease in the lung bases OVERALL FINAL ASSESSMENT: . LI-RADS is not meant to be used in patients <18 years or patients with cirrhosis due to congenital hepatic fibrosis or due to vascular disorders, because these patients have a lower chance of developing HCC. Reading Location[facility] Chest X-Ray 03/23/25 10:50 IMPRESSION: No focal consolidations. Mild pulmonary vascular congestion. T7 posterior rib fracture of indeterminate acuity Reading Location: [facility] Physical Exam Const alert, oriented x3 and no apparent distress Constitutional Narrative: Elderly female, class I obesity, fatigued appearing but otherwise laying back comfortably in bed, conversing normally and in no acute distress. General Appearance: cooperative and comfortable HEENT normocephalic, head/scalp atraumatic, hearing grossly normal bilaterally, nasal mucous membranes and turbinates normal and moist oral mucous membranes Eyes PERRL, EOMs intact bilaterally and conjunctivae normal Neck full ROM Chest inspection of chest normal Resp normal respiratory effort and no use of accessory muscles Resp Narrative: Breathing comfortably on Airvo at rest. Mild to moderately decreased breath sounds bilaterally with mild crackles noted in bilateral lung bases. No wheezing noted. Cardio regular rate, regular rhythm, no murmurs and peripheral pulses 2+ throughout GI GI Narrative: Abdomen distended but soft on palpation. Mild diffuse tenderness to palpation. Hypoactive bowel sounds noted. Extremity normal to inspection and no pedal edema Skin no rashes or lesions noted Psych mental status grossly normal Assessment & Plan Assessment/Plan (1) Intractable back pain: (2) T12 burst fracture: (3) Acute on chronic hypoxic respiratory failure: (4) Ileus: PLAN: Plan Patient is an 89-year-old female who presented to [facility] ED on 03/19/2025 with intractable back pain. 1. Intractable back pain secondary to T12 compression fracture, acute on chronic debility with inability to ambulate ? Orthopedic surgery following. PT/OT/case management following. Presented with worsening back pain after recent fall at home. MRI thoracic/lumbar spine showed a burst fracture at T12. Current plan is for kyphoplasty tomorrow with orthopedics; however this may need to be delayed depending on patient's respiratory status and progression of ileus. Continue to hold Plavix for procedure. Pain control with scheduled Tylenol, gabapentin and lidocaine patch and as needed oxycodone, IV morphine and tizanidine. N.p.o. at midnight for possible procedure tomorrow. Will likely need SNF placement on discharge. 2. Acute on chronic hypoxic respiratory failure secondary to pseudomonal pneumonia, history of COPD ? On home continuous 2 L nasal cannula. Has required up to Airvo at 50 L during hospitalization. Sputum culture positive for Pseudomonas. Chest x-ray with mild pulmonary vascular congestion but no focal consolidations. Leukocytosis peaked at 23, now much improved. Continue treatment with IV Levaquin. Currently on Airvo with good saturations and breathing comfortably; notably patient is a mouth breather. Wean supplemental oxygen as able. Continue scheduled aerosols, Acapella, I-S, Mucinex and Mucomyst. Continue home long-acting inhalers. 3. Ileus ? General Surgery following. Patient did have 2 bowel movements on 03/22 but since then developed worsening nausea with no flatus. CT abdomen pelvis on 03/23 showed ileus but no evidence of bowel obstruction. Suspected ileus is multifactorial with narcotics and decreased mobility as large contributors. Per general surgery, no need for surgical intervention at this time. Repeat KUB ordered for tomorrow morning. Okay for clear liquid diet today; will be n.p.o. at midnight for procedure tomorrow. Continue bowel regimen with suppository and enemas as needed. Completed 4 doses of IV Reglan with some improvement, now discontinued. Monitor closely. 4. 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 Suspect secondary to back pain and pseudomonal pneumonia. Most recent sodium 130 on 03/24. Continue salt tablets and fluid restricted diet. Continue to monitor BMP daily. 5. Mild REBEKA ? Creatinine worsened to 1.22 on 03/23, baseline around 0.6. Suspect secondary to poor p.o. intake. Started on maintenance IV fluids with ileus with improvement to 0.9 on 03/24. Continue to monitor BMP and urine output daily. 6. Daily alcohol use ? Reports drinking about 2 beers daily. No signs of acute alcohol withdrawal during hospitalization, no need for CIWA protocol. 7. Tobacco abuse ? Continue 14 mcg patch while inpatient. Recommended cessation on discharge. Chronic medical conditions: ? 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 Complicates hospital course, care and prognosis. May need to uptitrate oxygen nocturnally while inpatient. ? Bilateral carotid artery stenosis: Had moderate right extracranial internal carotid artery stenosis and mild left extracranial internal carotid artery stenosis on last duplex in 2024, stable from previous. Notably Plavix is on hold as above. Continue home rosuvastatin. Continue outpatient follow-up with Dr. Araiza. ? Macular degeneration: Continue home eyedrops. ? Hypertension, hyperlipidemia: Continue home statin, metoprolol, irbesartan, hydralazine, amlodipine. ? Osteoporosis: Vitamin D level greater than 30. Holding home calcium carbonate and vitamin D supplementation until bowel function improves. Is on injectable zoledronic acid yearly. Continue outpatient follow-up. DVT prophylaxis: Lovenox CODE STATUS: DNR CCA, okay for short-term intubation Expected disposition: TBD Total clinical time spent by myself addressing the patient's medical issues, reviewing all the data, and collaborating with patient's care team: 35 minutes. Charges/Coding Visit Charges Inpatient E&M: 76023 Subs Hosp L2
[2025-03-24] MEDS: Acetaminophen 500 MG Tablet 1000 MG PO ×2 (13:34→21:57)
[2025-03-24] MEDS: tiZANidine HCl 2 MG Tablet PO (14:32)
--- NOTE | 2025-03-24 16:13 | CPS ---
Was called to check on pt d/t her mouth breathing and desating on Airvo. d/t her mild CO2 retention, did not want to add a nonrebreather, RN had placed high flow cannula in her mouth until RT could get to the room. RT tried a chin strap but was unable to close her mouth so NC was again placed in her mouth and weaned to keep Sat in low 90's. Left on 2lpm in her mouth until she is more alert.
[2025-03-24] MEDS: Furosemide 20 MG/2 ML VIAL IV (18:03)
[2025-03-24] MEDS: Latanoprost 0.005% 1 Bottle 1 DRP OPHTHALMIC (21:57)
[2025-03-24] MEDS: Atorvastatin Calcium 80 MG Tablet PO (21:59)
[2025-03-24] MEDS: oxyCODONE 5 MG Tablet PO (22:54)
[2025-03-25] VITALS (14 sets, daily range): BP systolic 123–144; BP diastolic 49–72; PULSE 74–88; RESP 16–20; TEMP 36.5–36.8; O2SAT 92–97; BMI 32.5
--- NOTE | 2025-03-25 04:43 | RAD_ITS ---
PROCEDURE: ABDOMEN SINGLE VIEW (PORTABLE) 03/25/2025 REASON FOR EXAM: ILEUS TECHNIQUE: Single view abdomen. FINDINGS: Gaseous prominence of the proximal and transverse colon. No gaseous distention of small bowel identified. A few non dilated gas containing small bowel loops in the left abdomen. Bowel-gas pattern appears nonspecific. No evidence of mass effect. Aortoiliac atherosclerotic calcification. Patchy appearing opacities at the mid to lower lungs suggested. Old left-sided rib fracture deformity. RAD/Abdomen Single View (Portable) IMPRESSION: Gaseous prominence of the proximal and transverse colon. No gaseous distention of small bowel identified. A few non dilated gas containing small bowel loops in the left abdomen. Bowel-gas pattern appears non specific. Patchy appearing opacities at the mid to lower lungs suggested. Reading Location: [id number]
[2025-03-25 04:52] LABS: Hematocrit 29.9 % (37-47); Hemoglobin 9.8 g/dL (12.0-15.0); Mean Corp Hgb Conc 32.8 g/dL (32-36); Mean Corpuscular Hgb 29.2 pg (27.0-32.0); Mean Platelet Vol. 9.6 fl (6.2-12.0); Platelet Count 250 K/mm3 (150-450); RBC Distribution Width CV 14.2 % (11.6-14.6); RBC Distribution Width SD 45.6 fl (35.1-43.9); Red Blood Count 3.36 M/mm3 (4.2-5.4); White Blood Count 11.3 K/mm3 (4.4-11.0)
[2025-03-25 05:40] LABS: Anion Gap 10 (5-15); BUN 39 mg/dL (4-19); BUN/Creat Ratio 55.3 RATIO (10-20); Calcium,Total 8.4 mg/dL (7.6-11.0); Carbon Dioxide 27.2 mmol/L (21.0-32.0); Chloride 96 mmol/L (98-108); Creatinine, Serum 0.71 mg/dL (0.70-1.20); EST Glomerular Filtration Rate 83 (>60); Estimated Creatinine Clearance 44.88 ml/min (50-250); Glucose 121 mg/dL (70-99); Potassium 3.7 mmol/L (3.3-5.1); Sodium Level 133 mmol/L (133-145)
[2025-03-25] MEDS: Acetaminophen 500 MG Tablet 1000 MG PO ×3 (06:33→21:26)
[2025-03-25 06:46] LABS: FOLATES,SERUM (FOLIC ACID) 9.61 ng/mL (4.60-34.80)
--- NOTE | 2025-03-25 07:11 | PCM.PN.SRG ---
Subjective Subjective The patient reports she is passing flatus. She had a small smear of bowel movement. She denies nausea or vomiting Objective Data Objective Data Vital Signs: Vital Signs Temp Pulse Resp BP Pulse Ox O2 Del Method O2 Flow Rate 97.7 F L 74 18 144/72 H 94 Airvo 45 03/25/25 04:47 03/25/25 04:47 03/25/25 04:47 03/25/25 04:47 03/25/25 04:47 03/25/25 04:51 03/25/25 04:51 FiO2 59 03/25/25 04:51 Oxygen Flow Rate (L/min) 45 Oxygen Delivery Method Airvo Weight: 165 lb 12.602 oz Body Mass Index (BMI) 32.5 Intake & Output: Intake and Output for Last 24 Hours 03/23/25 03/24/25 03/25/25 23:59 23:59 23:59 Intake Total 1550 / 1550 1440 / 1740 320 / 320 Balance 1550 / 1550 1440 / 1740 320 / 320 Lab / Micro Data 03/25/25 04:16 03/25/25 04:16 Labs: Laboratory Results - last 24 hr 03/24/25 05:30: Iron 27 L, TIBC 219 L, Iron Saturation 12.3 L, Unsaturated IBC 192 L, Ferritin 366, Vitamin B12 491 03/25/25 04:16: WBC 11.3 H, RBC 3.36 L, Hgb 9.8 L, Hct 29.9 L, MCV 89.0, MCH 29.2, MCHC 32.8, RDW Std Deviation 45.6 H, RDW Coeff of Osiel 14.2, Plt Count 250, MPV 9.6, Sodium 133, Potassium 3.7, Chloride 96 L, Carbon Dioxide 27.2, Anion Gap 10, BUN 39 H, Creatinine 0.71, Estim Creat Clear Calc 44.88 L, Est GFR (MDRD) Non-Af 83, BUN/Creatinine Ratio 55.3 H, Glucose 121 H, Calcium 8.4, Serum Folate 9.61 Micro: Microbiology 03/20/25 15:50 Sputum, Expectorated/Coughed Gram Stain - Final 03/20/25 15:50 Sputum, Expectorated/Coughed Respiratory Culture - Final Pseudomonas aeruginosa Radiography Diagnostic Testing: Radiology Impression KUB X-Ray 03/25/25 04:43 IMPRESSION: Gaseous prominence of the proximal and transverse colon. No gaseous distention of small bowel identified. A few non dilated gas containing small bowel loops in the left abdomen. Bowel-gas pattern appears nonspecific. Patchy appearing opacities at the mid to lower lungs suggested. Reading Location: [facility] Physical Exam Const oriented x3 and no apparent distress Resp normal respiratory effort GI soft to palpation and non-tender Assessment & Plan Assessment/Plan (1) Ileus: PLAN: The patient had an ileus due to her spinal fracture and pneumonia. She seems to be doing better and passing flatus. She had a KUB this morning that was nonspecific with only gaseous distention of the colon. She says that she is passing flatus and her abdomen feels better. I was told by the nurse that there is possibility of kyphoplasty today. If she is not going to surgery she may be started on a clear liquid diet
[2025-03-25] MEDS: Ipratropium/Albuterol Sulfate 3 ML AMPUL.NEB INHALATION ×3 (07:12→20:41)
[2025-03-25] MEDS: Acetylcysteine 800 MG/4 ML VIAL.NEB. INHALATION ×3 (07:13→20:41)
[2025-03-25] MEDS: Sodium Chloride 1 GM Tablet PO ×2 (08:52→21:27)
[2025-03-25] MEDS: Senna/Docusate Sodium 1 Tablet 2 TABLET PO ×2 (08:52→21:25)
[2025-03-25] MEDS: Metoprolol Tartrate 25 MG Tablet PO ×2 (08:52→21:24)
[2025-03-25] MEDS: Losartan Potassium 100 MG Tablet PO (08:52)
[2025-03-25] MEDS: hydrALAZINE 50 MG Tablet PO ×2 (08:53→21:25)
[2025-03-25] MEDS: amLODIPine 10 MG Tablet PO (08:54)
[2025-03-25] MEDS: Lidocaine 5% Patch 1 PATCH TOPICAL (08:54)
[2025-03-25] MEDS: Polyethylene Glycol 3350 17 GM PACKET PO (08:54)
[2025-03-25] MEDS: Omega-3 Acid Ethyl Esters 1 GM Capsule PO (08:54)
[2025-03-25] MEDS: guaiFENesin 1,200 MG Tablet 1200 MG PO ×2 (08:54→21:26)
[2025-03-25] MEDS: Gabapentin 100 MG Capsule PO ×3 (09:09→16:38)
[2025-03-25] MEDS: levoFLOXacin IV 750 MG/150 ML BAG 100 MG IV (09:09)
--- NOTE | 2025-03-25 11:34 | PCM.PN.HOSP ---
Reason for Visit Reason for Visit: Diagnoses Elevated white blood cell count, unspecified (03/19/25) Hypo-osmolality and hyponatremia (03/19/25) Acute and chronic respiratory failure with hypoxia (03/19/25) Ileus, unspecified (03/19/25) Constipation, unspecified (03/19/25) Dorsalgia, unspecified (03/19/25) Age-related osteoporosis without current pathological fracture (03/19/25) Difficulty in walking, not elsewhere classified (03/19/25) Stable burst fracture of T11-T12 vertebra, initial encounter for closed fracture (03/19/25) Unspecified fall, initial encounter (03/19/25) Subjective Subjective Saw patient at bedside this morning, daughter present. Patient appeared similar today to yesterday. She had just worked with physical therapy and had sat in the chair for about an hour, so she was fatigued but otherwise laying back comfortably in bed. Stated her abdomen felt less bloated today than yesterday and she has been passing gas and had a small bowel movement. Denies any shortness of breath at rest and is breathing comfortably similar to yesterday. No other new concerns today. Objective Data Objective Data Vital Signs: Vital Signs Temp Pulse Resp BP Pulse Ox O2 Del Method O2 Flow Rate 98.2 F 80 20 H 138/49 H 95 Airvo 45 03/25/25 08:45 03/25/25 08:53 03/25/25 08:45 03/25/25 08:45 03/25/25 08:45 03/25/25 08:45 03/25/25 08:10 FiO2 60 03/25/25 07:17 Oxygen Flow Rate (L/min) 45 Oxygen Delivery Method Airvo Weight: 75.2 kg Body Mass Index (BMI) 32.5 Intake & Output: Intake and Output for Last 24 Hours 03/23/25 03/24/25 03/25/25 23:59 23:59 23:59 Intake Total 1550 / 1550 1440 / 1740 470 / 470 Balance 1550 / 1550 1440 / 1740 470 / 470 Lab / Micro Data 03/25/25 04:16 03/25/25 04:16 Labs: Laboratory Results - last 24 hr 03/25/25 04:16: WBC 11.3 H, RBC 3.36 L, Hgb 9.8 L, Hct 29.9 L, MCV 89.0, MCH 29.2, MCHC 32.8, RDW Std Deviation 45.6 H, RDW Coeff of Osiel 14.2, Plt Count 250, MPV 9.6, Sodium 133, Potassium 3.7, Chloride 96 L, Carbon Dioxide 27.2, Anion Gap 10, BUN 39 H, Creatinine 0.71, Estim Creat Clear Calc 44.88 L, Est GFR (MDRD) Non-Af 83, BUN/Creatinine Ratio 55.3 H, Glucose 121 H, Calcium 8.4, Serum Folate 9.61 Micro: Microbiology 03/20/25 15:50 Sputum, Expectorated/Coughed Gram Stain - Final 03/20/25 15:50 Sputum, Expectorated/Coughed Respiratory Culture - Final Pseudomonas aeruginosa Radiography Diagnostic Testing: Radiology Impression KUB X-Ray 03/25/25 04:43 IMPRESSION: Gaseous prominence of the proximal and transverse colon. No gaseous distention of small bowel identified. A few non dilated gas containing small bowel loops in the left abdomen. Bowel-gas pattern appears nonspecific. Patchy appearing opacities at the mid to lower lungs suggested. Reading Location: [facility] Physical Exam Const alert, oriented x3 and no apparent distress Constitutional Narrative: Elderly female, class I obesity, mildly fatigued appearing but otherwise laying back comfortably in bed, conversing normally and in no acute distress. Stable. General Appearance: cooperative and comfortable HEENT normocephalic, head/scalp atraumatic, hearing grossly normal bilaterally, nasal mucous membranes and turbinates normal and moist oral mucous membranes Eyes PERRL, EOMs intact bilaterally and conjunctivae normal Neck full ROM Chest inspection of chest normal Resp normal respiratory effort and no use of accessory muscles Resp Narrative: Breathing comfortably on Airvo at rest. Mild to moderately decreased breath sounds bilaterally with mild crackles noted in bilateral lung bases. No wheezing noted. Stable. Cardio regular rate, regular rhythm, no murmurs and peripheral pulses 2+ throughout GI GI Narrative: Abdomen mildly distended but soft on palpation, with mild diffuse tenderness to palpation. Hypoactive bowel sounds noted. Improving. Extremity normal to inspection and no pedal edema Skin no rashes or lesions noted Psych mental status grossly normal Assessment & Plan Assessment/Plan (1) Intractable back pain: (2) T12 burst fracture: (3) Acute on chronic hypoxic respiratory failure: (4) Ileus: PLAN: Plan Patient is an 89-year-old female who presented to [facility] ED on 03/19/2025 with intractable back pain. 1. Intractable back pain secondary to T12 compression fracture, acute on chronic debility with inability to ambulate ? Orthopedic surgery following. PT/OT/case management following. Presented with worsening back pain after recent fall at home. MRI thoracic/lumbar spine showed a burst fracture at T12. Planning for kyphoplasty with orthopedic surgery; currently delayed due primarily to patient's respiratory status. Continue to hold Plavix for procedure. Pain control with scheduled Tylenol, gabapentin and lidocaine patch and as needed oxycodone and IV morphine. N.p.o. at midnight for possible procedure tomorrow. Will likely need [facility] or SNF placement on discharge. 2. Acute on chronic hypoxic respiratory failure secondary to pseudomonal pneumonia, history of COPD ? On home continuous 2 L nasal cannula. Has required up to Airvo at 50 L during hospitalization. Sputum culture positive for Pseudomonas. Chest x-ray with mild pulmonary vascular congestion but no focal consolidations. Leukocytosis peaked at 23, now much improved. Continue treatment with IV Levaquin. Currently on Airvo with good saturations and breathing comfortably; notably patient is a mouth breather. Wean supplemental oxygen as able. Continue scheduled aerosols, Acapella, I-S, Mucinex and Mucomyst. Continue home long-acting inhalers. 3. Ileus, improving ? General Surgery following. Patient did have 2 bowel movements on 03/22 but since then developed worsening nausea with no flatus. CT abdomen pelvis on 03/23 showed ileus but no evidence of bowel obstruction. Suspected ileus is multifactorial with narcotics and decreased mobility as large contributors. Per general surgery, no need for surgical intervention at this time. Repeat KUB on 03/25 with some improvement noted. Okay for clear liquid diet today; will be n.p.o. at midnight for procedure tomorrow. Continue bowel regimen with suppository and enemas as needed. Completed 4 doses of IV Reglan with some improvement, now discontinued. Continue to monitor. 4. 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 Suspect secondary to back pain and pseudomonal pneumonia. Most recent sodium 133 on 03/25. Continue salt tablets and fluid restricted diet. Continue to monitor BMP daily. 5. Mild REBEKA, resolved ? Creatinine worsened to 1.22 on 03/23, baseline around 0.6. Suspect secondary to poor p.o. intake. Started on maintenance IV fluids with ileus with improvement back to baseline by 03/25. Continue to monitor BMP and urine output daily. 6. Daily alcohol use ? Reports drinking about 2 beers daily. No signs of acute alcohol withdrawal during hospitalization, no need for CIWA protocol. 7. Tobacco abuse ? Continue nicotine patch while inpatient. Recommended cessation on discharge. Chronic medical conditions: ? 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 Complicates hospital course, care and prognosis. May need to uptitrate oxygen nocturnally while inpatient. ? Bilateral carotid artery stenosis: Had moderate right extracranial internal carotid artery stenosis and mild left extracranial internal carotid artery stenosis on last duplex in 2024, stable from previous. Notably Plavix is on hold as above. Continue home rosuvastatin. Continue outpatient follow-up with Dr. Araiza. ? Macular degeneration: Continue home eyedrops. ? Hypertension, hyperlipidemia: Continue home statin, metoprolol, irbesartan, hydralazine, amlodipine. ? Osteoporosis: Vitamin D level greater than 30. Holding home calcium carbonate and vitamin D supplementation until bowel function improves. Is on injectable zoledronic acid yearly. Continue outpatient follow-up. DVT prophylaxis: Lovenox CODE STATUS: DNR CCA, okay for short-term intubation Expected disposition: Home with HHC vs SNF, TBD Total clinical time spent by myself addressing the patient's medical issues, reviewing all the data, and collaborating with patient's care team: 35 minutes. Charges/Coding Visit Charges Inpatient E&M: 97881 Subs Hosp L2
[2025-03-25] MEDS: oxyCODONE 5 MG Tablet PO ×2 (13:26→21:35)
[2025-03-25] MEDS: Atorvastatin Calcium 80 MG Tablet PO (21:25)
[2025-03-25] MEDS: Latanoprost 0.005% 1 Bottle 1 DRP OPHTHALMIC (21:26)
[2025-03-26] VITALS (13 sets, daily range): BP systolic 131–162; BP diastolic 44–82; PULSE 72–86; RESP 18–20; TEMP 36.5–36.8; O2SAT 94–96; BMI 31.1
[2025-03-26] MEDS: oxyCODONE 5 MG Tablet PO (06:36)
[2025-03-26] MEDS: Acetaminophen 500 MG Tablet 1000 MG PO ×3 (06:36→21:33)
--- NOTE | 2025-03-26 07:33 | PN.SURG_ITS ---
Subjective Subjective The patient reports that she has been having bowel movements and passing flatus. She tolerated clears yesterday with no nausea or vomiting. Objective Data Objective Data Vital Signs: Vital Signs Temp Pulse Resp BP Pulse Ox O2 Del Method O2 Flow Rate 97.8 F 75 18 162/55 H 95 Airvo 40 03/26/25 06:08 03/26/25 06:08 03/26/25 06:08 03/26/25 06:08 03/26/25 06:08 03/26/25 06:12 03/26/25 06:12 FiO2 54 03/26/25 06:12 Oxygen Flow Rate (L/min) 40 Oxygen Delivery Method Airvo Weight: 159 lb 2.78 oz Body Mass Index (BMI) 31.1 Intake & Output: Intake and Output for Last 24 Hours 03/24/25 03/25/25 03/26/25 23:59 23:59 23:59 Intake Total 1440 / 1740 1190 / 1190 600 / 600 Balance 1440 / 1740 1190 / 1190 600 / 600 Lab / Micro Data 03/25/25 04:16 03/25/25 04:16 Micro: Microbiology 03/20/25 15:50 Sputum, Expectorated/Coughed Gram Stain - Final 03/20/25 15:50 Sputum, Expectorated/Coughed Respiratory Culture - Final Pseudomonas aeruginosa Physical Exam Const oriented x3 and no apparent distress Resp normal respiratory effort Cardio regular rate and regular rhythm GI soft to palpation and non-tender Assessment & Plan Assessment/Plan (1) Ileus: PLAN: The patient's ileus seems to have resolved. She is having bowel function. She tolerated clears yesterday. No plans for kyphoplasty until she is off oxygen per the nurse. I will advance her to a regular diet to see if she tolerates this. Faizan Koo MD Pager: [facility] [address] [place] [address], [address] [place] [address] Office:
[2025-03-26] MEDS: Ipratropium/Albuterol Sulfate 3 ML AMPUL.NEB INHALATION ×3 (07:44→20:52)
[2025-03-26] MEDS: Acetylcysteine 800 MG/4 ML VIAL.NEB. INHALATION ×3 (07:44→20:52)
[2025-03-26] MEDS: Omega-3 Acid Ethyl Esters 1 GM Capsule PO (08:26)
[2025-03-26] MEDS: Gabapentin 100 MG Capsule PO ×3 (08:26→16:48)
[2025-03-26] MEDS: Polyethylene Glycol 3350 17 GM PACKET PO (08:26)
[2025-03-26] MEDS: guaiFENesin 1,200 MG Tablet 1200 MG PO ×2 (08:27→21:33)
[2025-03-26] MEDS: hydrALAZINE 50 MG Tablet PO ×2 (08:27→21:33)
[2025-03-26] MEDS: Losartan Potassium 100 MG Tablet PO (08:27)
[2025-03-26] MEDS: Lidocaine 5% Patch 1 PATCH TOPICAL (08:27)
[2025-03-26] MEDS: Senna/Docusate Sodium 1 Tablet 2 TABLET PO ×2 (08:27→21:33)
[2025-03-26] MEDS: amLODIPine 10 MG Tablet PO (08:30)
[2025-03-26] MEDS: Metoprolol Tartrate 25 MG Tablet PO ×2 (08:30→21:32)
[2025-03-26] MEDS: Sodium Chloride 1 GM Tablet PO ×2 (08:31→21:34)
--- NOTE | 2025-03-26 11:19 | PCM.PN.HOSP ---
Reason for Visit Reason for Visit: Diagnoses Elevated white blood cell count, unspecified (03/19/25) Hypo-osmolality and hyponatremia (03/19/25) Acute and chronic respiratory failure with hypoxia (03/19/25) Ileus, unspecified (03/19/25) Constipation, unspecified (03/19/25) Dorsalgia, unspecified (03/19/25) Age-related osteoporosis without current pathological fracture (03/19/25) Difficulty in walking, not elsewhere classified (03/19/25) Stable burst fracture of T11-T12 vertebra, initial encounter for closed fracture (03/19/25) Unspecified fall, initial encounter (03/19/25) Subjective Subjective Saw patient at bedside this morning, daughter present. Patient appeared similar today to yesterday. Continued to have improved energy from admission and states that her abdomen continues to feel softer and less distended. She did have a bowel movement yesterday and was escalated to a regular diet this morning by surgery. She ate Vietnamese toast for breakfast and tolerated this without issue. She is breathing comfortably but remains on Airvo. Continues to have a mild cough with only occasional sputum production. No other new concerns today. Objective Data Objective Data Vital Signs: Vital Signs Temp Pulse Resp BP Pulse Ox O2 Del Method O2 Flow Rate 98.3 F 79 20 H 162/57 H 95 Airvo 40 03/26/25 10:00 03/26/25 10:00 03/26/25 10:00 03/26/25 10:00 03/26/25 10:00 03/26/25 10:15 03/26/25 07:45 FiO2 50 03/26/25 07:45 Oxygen Flow Rate (L/min) 40 Oxygen Delivery Method Airvo Weight: 72.2 kg Body Mass Index (BMI) 31.1 Intake & Output: Intake and Output for Last 24 Hours 03/24/25 03/25/25 03/26/25 23:59 23:59 23:59 Intake Total 1440 / 1740 1190 / 1190 600 / 600 Balance 1440 / 1740 1190 / 1190 600 / 600 Lab / Micro Data 03/25/25 04:16 03/25/25 04:16 Micro: Microbiology 03/20/25 15:50 Sputum, Expectorated/Coughed Gram Stain - Final 05/22/25 15:50 Sputum, Expectorated/Coughed Respiratory Culture - Final Pseudomonas aeruginosa Physical Exam Const alert, oriented x3 and no apparent distress Constitutional Narrative: Elderly female, class I obesity, mildly fatigued appearing but otherwise laying back comfortably in bed, conversing normally and in no acute distress. Stable. General Appearance: cooperative and comfortable HEENT normocephalic, head/scalp atraumatic, hearing grossly normal bilaterally, nasal mucous membranes and turbinates normal and moist oral mucous membranes Eyes PERRL, EOMs intact bilaterally and conjunctivae normal Neck full ROM Chest inspection of chest normal Resp normal respiratory effort and no use of accessory muscles Resp Narrative: Breathing comfortably on Airvo at rest. Mild to moderately decreased breath sounds bilaterally with mild crackles noted in bilateral lung bases. No wheezing noted. Stable. Cardio regular rate, regular rhythm, no murmurs and peripheral pulses 2+ throughout GI GI Narrative: Abdomen mildly distended but soft on palpation and now with no tenderness to palpation. Improving. Extremity normal to inspection and no pedal edema Skin no rashes or lesions noted Psych mental status grossly normal Assessment & Plan Assessment/Plan (1) Intractable back pain: (2) T12 burst fracture: (3) Acute on chronic hypoxic respiratory failure: (4) Ileus: PLAN: Plan Patient is an 89-year-old female who presented to [facility] ED on 03/19/2025 with intractable back pain. 1. Intractable back pain secondary to T12 compression fracture, acute on chronic debility with inability to ambulate ? Orthopedic surgery following. PT/OT/case management following. Presented with worsening back pain after recent fall at home. MRI thoracic/lumbar spine showed a burst fracture at T12. Planning for kyphoplasty with orthopedic surgery; currently delayed due primarily to patient's respiratory status. Continue to hold Plavix for procedure. Pain control with scheduled Tylenol, gabapentin and lidocaine patch and as needed oxycodone and IV morphine. Planning for SNF placement and [facility] TCU on discharge once medically ready. 2. Acute on chronic hypoxic respiratory failure secondary to pseudomonal pneumonia, history of COPD ? On home continuous 2 L nasal cannula. Has required up to Airvo at 50 L during hospitalization. Sputum culture positive for Pseudomonas. Chest x-ray with mild pulmonary vascular congestion but no focal consolidations. Leukocytosis peaked at 23, now much improved. Continue treatment with IV Levaquin. Currently on Airvo with good saturations and breathing comfortably; notably patient is a mouth breather. Weaning supplemental oxygen as able. Continue scheduled aerosols, Acapella, I-S, Mucinex and Mucomyst. Continue home long-acting inhalers. 3. Ileus, improving ? General Surgery following. Patient did have 2 bowel movements on 03/22 but since then developed worsening nausea with no flatus. CT abdomen pelvis on 03/23 showed ileus but no evidence of bowel obstruction. Suspected ileus is multifactorial with narcotics and decreased mobility as large contributors. Per general surgery, no need for surgical intervention at this time. Repeat KUB on 03/25 with some improvement noted. Continue bowel regimen with suppository and enemas as needed. Completed 4 doses of IV Reglan with some improvement, now discontinued. Escalated to regular diet on 03/26 and tolerating without issue. Continue to monitor. 4. 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 Suspect secondary to back pain and pseudomonal pneumonia. Sodium improved to 133 by 03/25. Continue salt tablets and fluid restricted diet. 5. Mild REBEKA, resolved ? Creatinine worsened to 1.22 on 03/23, baseline around 0.6. Suspect secondary to poor p.o. intake. Started on maintenance IV fluids with ileus with improvement back to baseline by 03/25. 6. Daily alcohol use ? Reports drinking about 2 beers daily. No signs of acute alcohol withdrawal during hospitalization, no need for CIWA protocol. 7. Tobacco abuse ? Continue nicotine patch while inpatient. Recommended cessation on discharge. Chronic medical conditions: ? 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 Complicates hospital course, care and prognosis. May need to uptitrate oxygen nocturnally while inpatient. ? Bilateral carotid artery stenosis: Had moderate right extracranial internal carotid artery stenosis and mild left extracranial internal carotid artery stenosis on last duplex in 2024, stable from previous. Notably Plavix is on hold as above. Continue home rosuvastatin. Continue outpatient follow-up with Dr. Araiza. ? Macular degeneration: Continue home eyedrops. ? Hypertension, hyperlipidemia: Continue home statin, metoprolol, irbesartan, hydralazine, amlodipine. ? Osteoporosis: Vitamin D level greater than 30. Holding home calcium carbonate and vitamin D supplementation until bowel function improves. Is on injectable zoledronic acid yearly. Continue outpatient follow-up. DVT prophylaxis: Lovenox CODE STATUS: DNR CCA, okay for short-term intubation Expected disposition: SNF, TBD Total clinical time spent by myself addressing the patient's medical issues, reviewing all the data, and collaborating with patient's care team: 35 minutes. Charges/Coding Visit Charges Inpatient E&M: 18565 Subs Hosp L2
[2025-03-26] MEDS: Atorvastatin Calcium 80 MG Tablet PO (21:33)
[2025-03-26] MEDS: Latanoprost 0.005% 1 Bottle 1 DRP OPHTHALMIC (21:35)
[2025-03-26] MEDS: 0.9% Saline Lock 10 ML Syringe IV (21:36)
[2025-03-27] VITALS (15 sets, daily range): BP systolic 95–152; BP diastolic 53–64; PULSE 66–99; RESP 17–24; TEMP 36.3–36.6; O2SAT 90–98; BMI 31.0
[2025-03-27] MEDS: Acetaminophen 500 MG Tablet 1000 MG PO ×3 (05:25→22:25)
[2025-03-27 06:25] LABS: Hematocrit 31.3 % (37-47); Hemoglobin 10.2 g/dL (12.0-15.0); Mean Corp Hgb Conc 32.6 g/dL (32-36); Mean Corpuscular Hgb 28.7 pg (27.0-32.0); Mean Corpuscular Volume 87.9 fL (81-99); Mean Platelet Vol. 9.2 fl (6.2-12.0); Platelet Count 259 K/mm3 (150-450); RBC Distribution Width SD 45.4 fl (35.1-43.9); Red Blood Count 3.56 M/mm3 (4.2-5.4); White Blood Count 16.9 K/mm3 (4.4-11.0)
[2025-03-27] MEDS: Acetylcysteine 800 MG/4 ML VIAL.NEB. INHALATION ×2 (06:49→12:26)
[2025-03-27] MEDS: Ipratropium/Albuterol Sulfate 3 ML AMPUL.NEB INHALATION ×3 (06:49→20:52)
[2025-03-27 06:53] LABS: Anion Gap 8 (5-15); BUN 20 mg/dL (4-19); BUN/Creat Ratio 37.3 RATIO (10-20); Calcium,Total 8.4 mg/dL (7.6-11.0); Carbon Dioxide 28.9 mmol/L (21.0-32.0); Chloride 97 mmol/L (98-108); Creatinine, Serum 0.53 mg/dL (0.70-1.20); EST Glomerular Filtration Rate 89 (>60); Estimated Creatinine Clearance 43.91 ml/min (50-250); Glucose 137 mg/dL (70-99); Sodium Level 134 mmol/L (133-145)
--- NOTE | 2025-03-27 08:11 | RAD_ITS ---
PROCEDURE: CHEST 1 VIEW (PORTABLE) 03/27/2025 REASON FOR EXAM: PERSISTENT HYPOXIA TECHNIQUE: Frontal view of the chest. COMPARISON: Prior study dated March 23, 2025. FINDINGS: Hardware: None Heart: The heart size upper limits of normal. Lungs: New right middle lobe infiltrate. Stable pleural-parenchymal changes at the left lung base. Bones: Degenerative changes are identified within the thoracic spine. Other: Calcification of the aortic arch. Hiatal hernia. RAD/Chest 1 View (Portable) IMPRESSION: New right middle lobe infiltrate. Reading Location: [id number]
[2025-03-27] MEDS: Furosemide 20 MG/2 ML VIAL IV (08:55)
[2025-03-27] MEDS: 0.9% Saline Lock 10 ML Syringe IV ×2 (08:56→22:23)
[2025-03-27 08:57] LABS: Allen Test Positive; Base Excess 11 mmol/L (-2 to +2); Bicarbonate 34.2 mmol/L (22-26); Blood Gas Specimen Type ART; Mode Not entered; O2 Delivery Device AIRVO; PO2 74 mmHG (75-100); SITE L Radial; SO2 96 % (95-99); Total Carbon Dioxide 36 mmol/L; pCO2 44.7 mmHg (35-45); pH 7.49 (7.35-7.45)
[2025-03-27] MEDS: Sodium Chloride 1 GM Tablet PO ×2 (09:10→22:26)
[2025-03-27] MEDS: Senna/Docusate Sodium 1 Tablet 2 TABLET PO ×2 (09:10→22:25)
[2025-03-27] MEDS: Metoprolol Tartrate 25 MG Tablet PO ×2 (09:11→22:24)
[2025-03-27] MEDS: Omega-3 Acid Ethyl Esters 1 GM Capsule PO (09:11)
[2025-03-27] MEDS: hydrALAZINE 50 MG Tablet PO ×2 (09:12→22:24)
[2025-03-27] MEDS: Lidocaine 5% Patch 1 PATCH TOPICAL (09:13)
[2025-03-27] MEDS: Gabapentin 100 MG Capsule PO ×3 (09:13→17:09)
[2025-03-27] MEDS: levoFLOXacin 750 MG Tablet PO (09:14)
[2025-03-27] MEDS: Losartan Potassium 100 MG Tablet PO (09:14)
[2025-03-27] MEDS: guaiFENesin 1,200 MG Tablet 1200 MG PO ×2 (09:14→22:25)
[2025-03-27] MEDS: Polyethylene Glycol 3350 17 GM PACKET PO (09:15)
[2025-03-27] MEDS: amLODIPine 10 MG Tablet PO (09:21)
[2025-03-27] MEDS: oxyCODONE 5 MG Tablet PO (10:14)
--- NOTE | 2025-03-27 10:37 | PCM.PN.HOSP ---
Reason for Visit Reason for Visit: Diagnoses Elevated white blood cell count, unspecified (03/19/25) Hypo-osmolality and hyponatremia (03/19/25) Acute and chronic respiratory failure with hypoxia (03/19/25) Ileus, unspecified (03/19/25) Constipation, unspecified (03/19/25) Dorsalgia, unspecified (03/19/25) Age-related osteoporosis without current pathological fracture (03/19/25) Difficulty in walking, not elsewhere classified (03/19/25) Stable burst fracture of T11-T12 vertebra, initial encounter for closed fracture (03/19/25) Unspecified fall, initial encounter (03/19/25) Subjective Subjective Saw patient at bedside this morning. Patient was sitting in bedside chair. She did appear fatigued and generally weak this morning, similar to previous days. Noted that she had just worked with therapy and out of the chair and she was feeling quite tired. Denied any significant pain or discomfort currently. No other new concerns this morning. Objective Data Objective Data Vital Signs: Vital Signs Temp Pulse Resp BP Pulse Ox O2 Del Method O2 Flow Rate 97.8 F 74 20 H 152/64 H 96 Airvo 45 03/27/25 08:25 03/27/25 09:12 03/27/25 08:52 03/27/25 08:25 03/27/25 08:52 03/27/25 08:25 03/27/25 08:25 FiO2 50 03/27/25 08:52 Oxygen Flow Rate (L/min) 45 Oxygen Delivery Method Airvo Weight: 72.1 kg Body Mass Index (BMI) 31.0 Intake & Output: Intake and Output for Last 24 Hours 03/25/25 03/26/25 03/27/25 23:59 23:59 23:59 Intake Total 1190 / 1190 1030 / 1030 700 / 700 Output Total 900 / 900 Balance 1190 / 1190 1030 / 1030 -200 / -200 Lab / Micro Data 03/27/25 06:10 03/27/25 06:10 Labs: Laboratory Results - last 24 hr 03/27/25 06:10: WBC 16.9 H, RBC 3.56 L, Hgb 10.2 L, Hct 31.3 L, MCV 87.9, MCH 28.7, MCHC 32.6, RDW Std Deviation 45.4 H, RDW Coeff of Osiel 14.0, Plt Count 259, MPV 9.2, Sodium 134, Potassium 4.0, Chloride 97 L, Carbon Dioxide 28.9, Anion Gap 8, BUN 20 H, Creatinine 0.53 L, Estim Creat Clear Calc 43.91 L, Est GFR (MDRD) Non-Af 89, BUN/Creatinine Ratio 37.3 H, Glucose 137 H, Calcium 8.4 Micro: Microbiology 03/20/25 15:50 Sputum, Expectorated/Coughed Gram Stain - Final 03/20/25 15:50 Sputum, Expectorated/Coughed Respiratory Culture - Final Pseudomonas aeruginosa ABG Data ABG results: ABG 03/27/25 08:52 Specimen Type ART Sample Site L Radial pH 7.49 H Bicarbonate Actual 34.2 H Total CO2 36 Base Excess 11 H O2 Saturation 96 O2 % 60.0 ABG pCO2 44.7 ABG pO2 74 L Bao Test Positive O2 Delivery Device AIRVO Vent Mode Not entered Radiography Diagnostic Testing: Radiology Impression Chest X-Ray 03/27/25 08:11 IMPRESSION: New right middle lobe infiltrate. Reading Location: [facility] Physical Exam Const alert, oriented x3 and no apparent distress Constitutional Narrative: Elderly female, class I obesity, mild to moderately fatigued appearing but otherwise sitting comfortably in bedside chair, conversing normally and in no acute distress. Stable. General Appearance: cooperative and comfortable HEENT normocephalic, head/scalp atraumatic, hearing grossly normal bilaterally, nasal mucous membranes and turbinates normal and moist oral mucous membranes Eyes PERRL, EOMs intact bilaterally and conjunctivae normal Neck full ROM Chest inspection of chest normal Resp normal respiratory effort and no use of accessory muscles Resp Narrative: Breathing comfortably on Airvo at rest. Mild to moderately decreased breath sounds bilaterally with mild crackles noted in bilateral lung bases. No wheezing noted. Stable. Cardio regular rate, regular rhythm, no murmurs and peripheral pulses 2+ throughout GI GI Narrative: Abdomen mildly distended but soft on palpation and now with no tenderness to palpation. Improving. Extremity normal to inspection and no pedal edema Skin no rashes or lesions noted Psych mental status grossly normal Assessment & Plan Assessment/Plan (1) Intractable back pain: (2) T12 burst fracture: (3) Acute on chronic hypoxic respiratory failure: (4) Ileus: PLAN: Plan Patient is an 89-year-old female who presented to [facility] ED on 03/19/2025 with intractable back pain. 1. Intractable back pain secondary to T12 compression fracture, acute on chronic debility with inability to ambulate ? Orthopedic surgery following. PT/OT/case management following. Presented with worsening back pain after recent fall at home. MRI thoracic/lumbar spine showed a burst fracture at T12. Planning for kyphoplasty with orthopedic surgery; currently delayed due primarily to patient's respiratory status. Continue to hold Plavix for procedure. Pain control with scheduled Tylenol, gabapentin and lidocaine patch and as needed oxycodone and IV morphine. Planning for SNF placement and [facility] TCU on discharge once medically ready. 2. Acute on chronic hypoxic respiratory failure secondary to pseudomonal pneumonia, history of COPD ? On home continuous 2 L nasal cannula. Has required up to Airvo at 50 L during hospitalization. Sputum culture positive for Pseudomonas. Chest x-ray with mild pulmonary vascular congestion but no focal consolidations. Leukocytosis peaked at 23, now much improved. Continue treatment with IV Levaquin. Currently on Airvo with good saturations and breathing comfortably; notably patient is a mouth breather. Repeat chest x-ray on 03/27 with reported new right middle lobe infiltrate from x-ray admission, suspected secondary to her pneumonia; no other new findings noted. ABG on 03/27 showed pH 7.49, PO2 only 74 on Airvo at 40 L. Given 1 dose of IV Lasix on morning of 03/27 with moderate urine output. Will continue to wean supplemental oxygen as able. Continue scheduled aerosols, Acapella, I-S, Mucinex and Mucomyst. Will spot dose IV diuretics as needed. Continue home long-acting inhalers. 3. Ileus, improving ? General Surgery following. Patient did have 2 bowel movements on 03/22 but since then developed worsening nausea with no flatus. CT abdomen pelvis on 03/23 showed ileus but no evidence of bowel obstruction. Suspected ileus is multifactorial with narcotics and decreased mobility as large contributors. Per general surgery, no need for surgical intervention at this time. Repeat KUB on 03/25 with some improvement noted. Continue bowel regimen with suppository and enemas as needed. Completed 4 doses of IV Reglan with some improvement, now discontinued. Escalated to regular diet on 03/26 and tolerating without issue. Continue to monitor. 4. 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 Suspect secondary to back pain and pseudomonal pneumonia. Sodium improved to 133 by 03/25. Continue salt tablets and fluid restricted diet. 5. Mild REBEKA, resolved ? Creatinine worsened to 1.22 on 03/23, baseline around 0.6. Suspect secondary to poor p.o. intake. Started on maintenance IV fluids with ileus with improvement back to baseline by 03/25. 6. Daily alcohol use ? Reports drinking about 2 beers daily. No signs of acute alcohol withdrawal during hospitalization, no need for CIWA protocol. 7. Tobacco abuse ? Continue nicotine patch while inpatient. Recommended cessation on discharge. Chronic medical conditions: ? 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 Complicates hospital course, care and prognosis. May need to uptitrate oxygen nocturnally while inpatient. ? Bilateral carotid artery stenosis: Had moderate right extracranial internal carotid artery stenosis and mild left extracranial internal carotid artery stenosis on last duplex in 2024, stable from previous. Notably Plavix is on hold as above. Continue home rosuvastatin. Continue outpatient follow-up with Dr. Araiza. ? Macular degeneration: Continue home eyedrops. ? Hypertension, hyperlipidemia: Continue home statin, metoprolol, irbesartan, hydralazine, amlodipine. ? Osteoporosis: Vitamin D level greater than 30. Holding home calcium carbonate and vitamin D supplementation until bowel function improves. Is on injectable zoledronic acid yearly. Continue outpatient follow-up. DVT prophylaxis: Lovenox CODE STATUS: DNR CCA, okay for short-term intubation Expected disposition: SNF, TBD Total clinical time spent by myself addressing the patient's medical issues, reviewing all the data, and collaborating with patient's care team: 35 minutes. Charges/Coding Visit Charges Inpatient E&M: 66512 Subs Hosp L2
[2025-03-27] MEDS: Furosemide 40 MG/4 ML Vial IV (13:05)
[2025-03-27] MEDS: Atorvastatin Calcium 80 MG Tablet PO (22:24)
[2025-03-27] MEDS: Latanoprost 0.005% 1 Bottle 1 DRP OPHTHALMIC (22:29)
[2025-03-28] VITALS (24 sets, daily range): BP systolic 105–158; BP diastolic 42–103; PULSE 61–88; RESP 15–22; TEMP 36.4–36.9; O2SAT 91–98; BMI 31.1
[2025-03-28] MEDS: 0.9% Saline Lock 10 ML Syringe IV ×2 (05:34→22:02)
[2025-03-28] MEDS: Acetaminophen 500 MG Tablet 1000 MG PO ×2 (05:34→20:33)
[2025-03-28 06:14] LABS: Hematocrit 33.3 % (37-47); Hemoglobin 10.8 g/dL (12.0-15.0); Mean Corp Hgb Conc 32.4 g/dL (32-36); Mean Corpuscular Hgb 28.6 pg (27.0-32.0); Mean Corpuscular Volume 88.3 fL (81-99); Mean Platelet Vol. 9.2 fl (6.2-12.0); Platelet Count 282 K/mm3 (150-450); RBC Distribution Width CV 14.1 % (11.6-14.6); RBC Distribution Width SD 45.2 fl (35.1-43.9); Red Blood Count 3.77 M/mm3 (4.2-5.4); White Blood Count 19.8 K/mm3 (4.4-11.0)
[2025-03-28 06:47] LABS: Anion Gap 9 (5-15); BUN 19 mg/dL (4-19); BUN/Creat Ratio 29.8 RATIO (10-20); Calcium,Total 8.2 mg/dL (7.6-11.0); Carbon Dioxide 29.5 mmol/L (21.0-32.0); Chloride 92 mmol/L (98-108); Creatinine, Serum 0.64 mg/dL (0.70-1.20); EST Glomerular Filtration Rate 85 (>60); Estimated Creatinine Clearance 43.94 ml/min (50-250); Glucose 120 mg/dL (70-99); Potassium 4.6 mmol/L (3.3-5.1); Sodium Level 130 mmol/L (133-145)
[2025-03-28] MEDS: Ipratropium/Albuterol Sulfate 3 ML AMPUL.NEB INHALATION ×3 (07:15→19:28)
[2025-03-28] MEDS: Acetylcysteine 800 MG/4 ML VIAL.NEB. INHALATION ×3 (07:16→19:28)
[2025-03-28] MEDS: amLODIPine 10 MG Tablet PO (09:57)
[2025-03-28] MEDS: guaiFENesin 1,200 MG Tablet 1200 MG PO ×2 (09:57→20:24)
[2025-03-28] MEDS: Senna/Docusate Sodium 1 Tablet 2 TABLET PO ×2 (09:57→20:25)
[2025-03-28] MEDS: Sodium Chloride 1 GM Tablet PO ×2 (09:57→20:26)
[2025-03-28] MEDS: Losartan Potassium 100 MG Tablet PO (09:57)
[2025-03-28] MEDS: hydrALAZINE 50 MG Tablet PO ×2 (09:58→20:25)
[2025-03-28] MEDS: Gabapentin 100 MG Capsule PO ×3 (09:58→18:07)
[2025-03-28] MEDS: Metoprolol Tartrate 25 MG Tablet PO ×2 (09:58→20:25)
[2025-03-28] MEDS: Omega-3 Acid Ethyl Esters 1 GM Capsule PO (09:58)
[2025-03-28] MEDS: Lidocaine 5% Patch 1 PATCH TOPICAL (09:59)
--- NOTE | 2025-03-28 10:37 | PN.HOSP_ITS ---
Reason for Visit Reason for Visit: Diagnoses Elevated white blood cell count, unspecified (03/19/25) Hypo-osmolality and hyponatremia (03/19/25) Acute and chronic respiratory failure with hypoxia (03/19/25) Ileus, unspecified (03/19/25) Constipation, unspecified (03/19/25) Dorsalgia, unspecified (03/19/25) Age-related osteoporosis without current pathological fracture (03/19/25) Difficulty in walking, not elsewhere classified (03/19/25) Stable burst fracture of T11-T12 vertebra, initial encounter for closed fracture (03/19/25) Unspecified fall, initial encounter (03/19/25) Subjective Subjective Saw patient at bedside this morning, son-in-law present. Patient was sitting back in chair and continued to appear moderately fatigued today, similar to yesterday. She did note that she had significant urine output after IV Lasix yesterday, and importantly her oxygen requirements have decreased significantly. She is breathing comfortably on 5 L nasal cannula currently. She does report mild abdominal discomfort today but has been passing gas and having small bowel movements without issue. No other concerns this morning. Objective Data Objective Data Vital Signs: Vital Signs Temp Pulse Resp BP Pulse Ox O2 Del Method O2 Flow Rate 98.1 F 72 18 158/62 H 95 High Flow 5 03/28/25 07:59 03/28/25 09:58 03/28/25 07:59 03/28/25 07:59 03/28/25 07:59 03/28/25 07:59 03/28/25 07:59 FiO2 42 03/27/25 13:53 Oxygen Flow Rate (L/min) 5 Oxygen Delivery Method High Flow Weight: 72.2 kg Body Mass Index (BMI) 31.1 Intake & Output: Intake and Output for Last 24 Hours 03/26/25 03/27/25 03/28/25 23:59 23:59 23:59 Intake Total 1030 / 1030 1400 / 1400 700 / 700 Output Total 900 / 900 Balance 1030 / 1030 500 / 500 700 / 700 Lab / Micro Data 03/28/25 05:59 03/28/25 05:59 Labs: Laboratory Results - last 24 hr 03/28/25 05:59: WBC 19.8 H, RBC 3.77 L, Hgb 10.8 L, Hct 33.3 L, MCV 88.3, MCH 28.6, MCHC 32.4, RDW Std Deviation 45.2 H, RDW Coeff of Osiel 14.1, Plt Count 282, MPV 9.2, Sodium 130 L, Potassium 4.6, Chloride 92 L, Carbon Dioxide 29.5, Anion Gap 9, BUN 19, Creatinine 0.64 L, Estim Creat Clear Calc 43.94 L, Est GFR (MDRD) Non-Af 85, BUN/Creatinine Ratio 29.8 H, Glucose 120 H, Calcium 8.2 Micro: Microbiology 03/20/25 15:50 Sputum, Expectorated/Coughed Gram Stain - Final 03/20/25 15:50 Sputum, Expectorated/Coughed Respiratory Culture - Final Pseudomonas aeruginosa Physical Exam Const alert, oriented x3 and no apparent distress Constitutional Narrative: Elderly female, class I obesity, mild to moderately fatigued appearing but otherwise sitting comfortably in bedside chair, conversing normally and in no acute distress. Stable. General Appearance: cooperative and comfortable HEENT normocephalic, head/scalp atraumatic, hearing grossly normal bilaterally, nasal mucous membranes and turbinates normal and moist oral mucous membranes Eyes PERRL, EOMs intact bilaterally and conjunctivae normal Neck full ROM Chest inspection of chest normal Resp normal respiratory effort and no use of accessory muscles Resp Narrative: Breathing comfortably on 5 L nasal cannula at rest. Mildly decreased breath sounds bilaterally with mild crackles noted throughout bilaterally. Otherwise no wheezing noted. Improving. Cardio regular rate, regular rhythm, no murmurs and peripheral pulses 2+ throughout GI GI Narrative: Abdomen mildly distended but soft on palpation and now with no tenderness to palpation. Stable. Extremity normal to inspection and no pedal edema Skin no rashes or lesions noted Psych mental status grossly normal Assessment & Plan Assessment/Plan (1) Intractable back pain: (2) T12 burst fracture: (3) Acute on chronic hypoxic respiratory failure: (4) Ileus: PLAN: Plan Patient is an 89-year-old female who presented to [facility] ED on 03/19/2025 with intractable back pain. 1. Intractable back pain secondary to T12 compression fracture, acute on chronic debility with inability to ambulate ? Orthopedic surgery following. PT/OT/case management following. Presented with worsening back pain after recent fall at home. MRI thoracic/lumbar spine showed a burst fracture at T12. Planning for kyphoplasty with orthopedic surgery; currently delayed due to patient's respiratory status and per orthopedics she will need to be completely better from a respiratory standpoint to tolerate general anesthesia. Ortho also noted that if the pain does improve with time, she may not need any cement augmentation. They will follow-up with the patient on Monday pending her respiratory status. Continue to hold Plavix for procedure at this point. Pain control with scheduled Tylenol, gabapentin and lidocaine patch and as needed oxycodone and IV morphine. Planning for SNF placement and [facility] TCU on discharge once medically ready. 2. Acute on chronic hypoxic respiratory failure secondary to pseudomonal pneumonia, history of COPD ? On home continuous 2 L nasal cannula. Has required up to Airvo at 50 L during hospitalization. Sputum culture positive for Pseudomonas. Chest x-ray with mild pulmonary vascular congestion but no focal consolidations. Leukocytosis peaked at 23, now much improved. Continue treatment with IV Levaquin. Currently on Airvo with good saturations and breathing comfortably; notably patient is a mouth breather. Repeat chest x-ray on 03/27 with reported new right middle lobe infiltrate from x-ray admission, suspected secondary to her pneumonia; no other new findings noted. ABG on 03/27 showed pH 7.49, PO2 only 74 on Airvo at 40 L. Given dose of IV Lasix on 03/27 and patient weaned down to 5 L nasal cannula by 03/28. Will continue spot dose IV diuretics as needed and continue to wean supplemental oxygen as able. Continue scheduled aerosols, Acapella, I-S, Mucinex and Mucomyst. Continue home long-acting inhalers. 3. Ileus, improving ? General Surgery following. Patient did have 2 bowel movements on 03/22 but since then developed worsening nausea with no flatus. CT abdomen pelvis on 03/23 showed ileus but no evidence of bowel obstruction. Suspected ileus is multifactorial with narcotics and decreased mobility as large contributors. Per general surgery, no need for surgical intervention at this time. Repeat KUB on 03/25 with some improvement noted. Continue bowel regimen with suppository and enemas as needed. Completed 4 doses of IV Reglan with some improvement, now discontinued. Escalated to regular diet on 03/26 and tolerating without issue. Continue to monitor. 4. 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 Suspect secondary to back pain and pseudomonal pneumonia. Sodium improved to 133 by 03/25. Continue salt tablets and fluid restricted diet. 5. Mild REBEKA, resolved ? Creatinine worsened to 1.22 on 03/23, baseline around 0.6. Suspect secondary to poor p.o. intake. Started on maintenance IV fluids with ileus with improvement back to baseline by 03/25. 6. Daily alcohol use ? Reports drinking about 2 beers daily. No signs of acute alcohol withdrawal during hospitalization, no need for CIWA protocol. 7. Tobacco abuse ? Continue nicotine patch while inpatient. Recommended cessation on discharge. Chronic medical conditions: ? 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 Complicates hospital course, care and prognosis. May need to uptitrate oxygen nocturnally while inpatient. ? Bilateral carotid artery stenosis: Had moderate right extracranial internal carotid artery stenosis and mild left extracranial internal carotid artery stenosis on last duplex in 2024, stable from previous. Notably Plavix is on hold as above. Continue home rosuvastatin. Continue outpatient follow-up with Dr. Araiza. ? Macular degeneration: Continue home eyedrops. ? Hypertension, hyperlipidemia: Continue home statin, metoprolol, irbesartan, hydralazine, amlodipine. ? Osteoporosis: Vitamin D level greater than 30. Holding home calcium carbonate and vitamin D supplementation until bowel function improves. Is on injectable zoledronic acid yearly. Continue outpatient follow-up. DVT prophylaxis: Lovenox CODE STATUS: DNR CCA, okay for short-term intubation Expected disposition: SNF, TBD Total clinical time spent by myself addressing the patient's medical issues, reviewing all the data, and collaborating with patient's care team: 35 minutes. Charges/Coding Visit Charges Inpatient E&M: 65598 Subs Hosp L2
[2025-03-28] MEDS: Furosemide 40 MG/4 ML Vial IV (12:07)
--- NOTE | 2025-03-28 12:57 | PCM.PN.ORT ---
Subjective Subjective Saw patient in room 323 yesterday as well as today. Seen here previously last week. Since last week patient worsened with her respiratory status and has been on oxygen. She has been up on chair, she is uncomfortable with movements in the back. Denies any groin and lower extremity pain today. Objective Data Objective Data Vital Signs: Vital Signs Temp Pulse Resp BP Pulse Ox O2 Del Method O2 Flow Rate 98.1 F 72 18 158/62 H 95 High Flow 5 03/28/25 07:59 03/28/25 09:58 03/28/25 07:59 03/28/25 07:59 03/28/25 07:59 03/28/25 10:55 03/28/25 10:55 FiO2 42 03/27/25 13:53 Oxygen Flow Rate (L/min) 5 Oxygen Delivery Method High Flow Weight: 159 lb 2.78 oz Body Mass Index (BMI) 31.1 Intake & Output: Intake and Output for Last 24 Hours 03/26/25 03/27/25 03/28/25 23:59 23:59 23:59 Intake Total 1030 / 1030 1400 / 1400 1100 / 1100 Output Total 900 / 900 Balance 1030 / 1030 500 / 500 1100 / 1100 Lab / Micro Data 03/28/25 05:59 03/28/25 05:59 Labs: Laboratory Results - last 24 hr 03/28/25 05:59: WBC 19.8 H, RBC 3.77 L, Hgb 10.8 L, Hct 33.3 L, MCV 88.3, MCH 28.6, MCHC 32.4, RDW Std Deviation 45.2 H, RDW Coeff of Osiel 14.1, Plt Count 282, MPV 9.2, Sodium 130 L, Potassium 4.6, Chloride 92 L, Carbon Dioxide 29.5, Anion Gap 9, BUN 19, Creatinine 0.64 L, Estim Creat Clear Calc 43.94 L, Est GFR (MDRD) Non-Af 85, BUN/Creatinine Ratio 29.8 H, Glucose 120 H, Calcium 8.2 Micro: Microbiology 03/20/25 15:50 Sputum, Expectorated/Coughed Gram Stain - Final 03/20/25 15:50 Sputum, Expectorated/Coughed Respiratory Culture - Final Pseudomonas aeruginosa Physical Exam Narrative Exertion back shows midline paraspinal tenderness in the mid to upper lumbar region. Neurologic evaluation of lower extremity shows 5 x 5 power in all muscles normal sensations in all dermatomes. Assessment & Plan Assessment/Plan (1) T12 burst fracture: PLAN: Plan Again reviewed x-rays from 03/18/2025, CT and MRI from 03/19/2025 of thoracic and lumbar spine. Initial x-rays from 03/18/2025 showed subtle T12 wedging, CT from yesterday shows significant height loss with fracture line going into the posterior body wall and also into the left pedicle. MRI shows no significant stenosis from the retropulsion and regained vertebral height, suggesting a more flat or supine position during MRI. Since last seen by me last week, patient has deteriorated respiratory status. She will need to be completely better with her respiratory situation before she can tolerate general anesthesia. If the pain continues to improve with time for the fracture, she may not need any cement augmentation. TLSO brace may help with pain. Will reassess next week, and reconsider cement augmentation if feasible. Will sign off for now. Charges/Coding Visit Charges Inpatient E&M: 09654 Init Hosp L2
--- NOTE | 2025-03-28 14:47 | CASEMGMT ---
Social Work Per physician, pt will remain in the hospital over the weekend. SW updated TCU and they continue to be able to accept pt when she is medically ready. Pt sleeping soundly therefore, SW called pt's son Kwame and updated that TCU continues to plan to accept pt when she is medically ready. Kwame is in agreement with dc plan. Plan: TCU, when medically ready SURESH Rivas
[2025-03-28] MEDS: oxyCODONE 5 MG Tablet PO (20:24)
[2025-03-28] MEDS: Atorvastatin Calcium 80 MG Tablet PO (20:25)
[2025-03-28] MEDS: Latanoprost 0.005% 1 Bottle 1 DRP OPHTHALMIC (20:26)
--- NOTE | 2025-03-28 20:44 | CT_ITS ---
PROCEDURE: STROKE BRAIN/HEAD WITHOUT CONT 03/28/2025 REASON FOR EXAM: STROKE SYMPTOMS TECHNIQUE: Head CT without intravenous contrast. Coronal and Sagittal reconstruction series were provided. One or more dose reduction techniques were used (e.g., Automated exposure control, adjustment of the mA and/or kV according to patient size, use of iterative reconstruction technique. RADIATION DOSE SUMMARY: CTDlvol: 44.9 mGy DLP: 812.98 mGycm COMPARISON: 01/15/2024. FINDINGS: Brain: Low density in the periventricular white matter suggests mild chronic small vessel ischemic changes. No evidence of acute hemorrhage or infarction. CSF Spaces: Mild generalized cerebral atrophy Sinuses/Mastoids: The paranasal sinuses are clear. Partial right mastoid effusion. Bones: The calvarial vault and skull base are intact. Absent k[place]ue ocular lenses. CT/STROKE Brain/Head without Cont IMPRESSION: NO ACUTE FINDINGS Reading Location: [place] [id number]
--- NOTE | 2025-03-28 20:51 | NURSING ---
2039. Last known well 2034. Patient had been eating cookie with PO meds. Then stopped responding to questions. Stopped talking. Left arm flaccid. Facial droop. Blood sugar 136. 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 Dr. Vigil arrived 2044 to assess patient. Ordered CT without contrast and then will be transferred to ICU. Face sheet faxed to [facility]. Primary nurse, Nilsa CARPIO down to CT with patient. baggage agent supervisor, Keyla, will call [facility] from CT.
--- NOTE | 2025-03-28 21:05 | CT_ITS ---
PROCEDURE: STROKE CTA HEAD AND NECK W/CON 03/28/2025 REASON FOR EXAM: CVA TECHNIQUE: CTA imaging of the head and neck from the aortic arch to the skull vertex with out contrast and with intravenous contrast. Multiplanar and multisequence images were obtained. CONTRAST: Isovue 370 VOLUME: 100 mL. One or more dose reduction techniques were used (e.g., Automated exposure control, adjustment of the mA and/or kV according to patient size, use of iterative reconstruction technique). RADIATION DOSE SUMMARY: CTDlvol: 20.76+ 19.24 mGy DLP: 806.96 mGycm COMPARISON: 02/14/2024. FINDINGS: Aortic Arch: Atherosclerosis without significant stenosis Brachiocephalic and Subclavians: Atherosclerotic but patent. RIGHT Carotid: Right CCA: Patent. Right ICA: Occluded with distal reconstitution in the petrous portion. Right ECA: Patent LEFT Carotid: Left CCA: Patent Left ICA: Atherosclerosis without significant stenosis. Left ECA: Patent Vertebrals: RIGHT Vertebral: LEFT Vertebral: Anatomy: [place] anatomy is normal. Aneurysm or avm: No intracranial aneurysms or large vascular malformations are identified. Anterior cerebral arteries: Patent Middle cerebral arteries: Patent Basilar artery: Patent Posterior cerebral arteries: Patent Other findings: Neck: Lungs: Centrilobular emphysema. Bones: Degenerative changes of the cervical spine. CT/STROKE CTA Head AND Neck W/Con IMPRESSION: Occluded right cervical ICA. Critical results were communicated to Dr. Kevin Reading Location: [place] [id number]
[2025-03-28 21:12] LABS: Bedside Glucose 136 mg/dL (74-106)
--- NOTE | 2025-03-28 21:15 | NURSING ---
Bedside report given to SHIRIN Arcos in ICU.
--- NOTE | 2025-03-28 21:30 | NURSING ---
At 2032, medications given early per pt request. Pt wanting to take PO meds early while sitting up in chair and get to bed to get a good night's rest. Pt c/o 6/10 abdominal and back pain, Oxyir given per pt request. After taking PO meds, while eating a [employer] cookie, pt with blank stare, stopped conversation, left sided facial droop. This RN yelled for discharge rn to call stroke alert at 2034. Upon further assessment, also discovered pt's left arm to be flaccid. Pt vitals and blood sugar obtained. Dr. Vigil and stroke team at bedside. Assisted pt to bed and transported to CT scan. Head CT completed, [facility] neurologist assessment completed via teleneuro while in radiology. Pt opens eyes to sternal rub, states name with slurred speech, and able to lift rt arm during assessment. Left sided facial droop, left arm paralysis, left leg weakness present. Pt transported to ICU for continuation of care. Family in waiting room, this RN gave an update on pt.
--- NOTE | 2025-03-28 21:49 | PCM.PN.BLA ---
Progress Note 89-year-old female here for back pain and was awaiting a kyphoplasty, her course was complicated by pneumonia and being on Airvo, her Plavix and Lovenox have been held in anticipation of kyphoplasty which has not been done yet. Her last dose of subcu Lovenox was on 03/24/2025 and her Plavix was discontinued on 03/21/2025. Her last surgery was back in March when she had a stroke and carotid endarterectomy at another facility. At 2034 on 03/28/2025 she was eating dinner and just been given her medications including an oxycodone and immediately while the nurse was in the room she stopped responding developed a significant left facial droop as well as left-sided paralysis. On my evaluation she also had hemineglect, was completely aphasic as well as dysarthric. She has an NIH of 24 stroke alert was called and she was taken down for CT scan, CT of the brain does not show a head bleed and CTA of the head and neck is still pending final read, on my read there appears to be a right ICA occlusion and stenosis with reconstitution intracranially. In discussion with the neurologist we agreed to TNK so this was ordered and she was sent to the ICU for monitoring. Will repeat imaging in 24 hours unless CTA of the head and neck demonstrates an LVO at which point she will be transferred to [facility]. Critical care time 60 minutes Procedures Hospitalists Procedures: 23232 Critical Care 1st Hr
--- NOTE | 2025-03-28 22:25 | RAD_ITS ---
PROCEDURE: CHEST 1 VIEW 03/28/2025 REASON FOR EXAM: STROKE TECHNIQUE: Frontal view of the chest. COMPARISON: None. FINDINGS: The heart is normal in size. The lungs are clear. No pleural effusion or pneumothorax. No acute osseous abnormalities. RAD/Chest 1 View IMPRESSION: No Acute Findings. Reading Location: [place] [id number]
--- NOTE | 2025-03-28 22:25 | RAD_ITS ---
PROCEDURE: ABDOMEN SINGLE VIEW 03/28/2025 REASON FOR EXAM: STROKE TECHNIQUE: Single view abdomen. COMPARISON: None. FINDINGS: Bowel gas: Bowel gas pattern is remarkable for mild constipation. Nonspecific bowel gas pattern. Calcifications: No suspicious calcifications. Bones: There are degenerative changes of the spine. Other: A [place]o catheter is present. RAD/Abdomen Single View IMPRESSION: Probable constipation. Nonspecific bowel gas pattern. Reading Location: [place] [id number]
[2025-03-29] VITALS (40 sets, daily range): BP systolic 88–141; BP diastolic 38–100; PULSE 60–103; RESP 12–26; TEMP 36.3–37.7; O2SAT 85–99; BMI 31.1; BMI 32.2
[2025-03-29] MEDS: Ipratropium/Albuterol Sulfate 3 ML AMPUL.NEB INHALATION ×3 (06:48→19:23)
[2025-03-29] MEDS: Acetylcysteine 800 MG/4 ML VIAL.NEB. INHALATION ×3 (06:48→19:23)
[2025-03-29] MEDS: Gabapentin 100 MG Capsule PO ×2 (08:06→12:34)
[2025-03-29] MEDS: predniSONE 20 MG Tablet 40 MG PO (08:07)
[2025-03-29] MEDS: Sodium Chloride 1 GM Tablet PO ×2 (08:08→22:14)
[2025-03-29] MEDS: levoFLOXacin 750 MG Tablet PO (08:09)
[2025-03-29] MEDS: oxyCODONE 5 MG Tablet PO ×4 (08:28→22:12)
--- NOTE | 2025-03-29 09:20 | CON.PCM.CC_ITS ---
HPI Consult Data Date of Consult: 03/29/25 HPI Narrative HPI Narrative: AISHA PARKER, is a 89yo F w/ COPD on home 2L NC, R carotid stenosis s/p CEA on Plavix, HTN, HLD, osteoporosis who was admitted 03/19 for severe back pain. She fell on Monday prior to admit (thought to have been mechanical fall), and since then had severe back pain. She was found to have T12 compression fracture; was evaluated by ortho who recommended kyphoplasty once respiratory status stable. She did have worsening hypoxia requiring 5-6L NC, and was found to have pseudomonas PNA for which she has been receiving abx. Then last night while eating dinner she had acute onset aphasia and L sided facial droop. Tele- neurology was consulted STAT, and pt received TNK for possible stroke. CTA head/neck showed occluded R ICA; neurology had apparently recommended transfer to [facility] overnight for possible intervention on this but family wanted to wait and see how she responded with TNK. This AM pt is more alert/talkative than yesterday and facial droop resolved. Still coughing up some thick phlegm. She continues to report back pain, otherwise difficult to obtain further history from her. Does not consistently answer questions and other times is tangential, still with some dysarthria as well. ROS: As per HPI, otherwise unable to obtain d/t altered mental status/dysarthria [facility] Medical History Macular degeneration Contact dermatitis due to plant Bilateral carotid artery stenosis Pure hypercholesterolemia Sinus bradycardia Tobacco abuse COPD (chronic obstructive pulmonary disease) Renal artery stenosis Osteoarthritis Osteoporosis Adrenal hyperplasia Home Medications ?Medication ?Instructions ?Recorded ?Last Taken ?Type loratadine 10 mg tablet 10 mg PO DAILY PRN Allergies 04/21/14 Unknown History omega-3 fatty acids 1,000 mg 1,000 mg PO DAILY FOLLOW- UP NEEDED 08/23/19 Unknown History capsule (Fish Oil Concentrate) irbesartan 300 mg tablet 300 mg PO .AM HTN 12/31/21 U nknown History amlodipine 5 mg tablet 5 mg PO DAILY HTN 02/03/22 U nknown History budesonide 160 mcg-glycopyr 9 2 inh inhalation BID TWAN ATHING 03/14/22 Unknown History mcg-formot 4.8 mcg/actuation HFA inhaler calcium 600 mg (as 1 tab PO DAILY FOLLOW-UP NEE DED 08/08/22 Unknown History carbonate)-vitamin D3 20 mcg (800 unit) tablet (Caltrate with Vitamin D3) metoprolol tartrate 25 mg tablet 25 mg PO BID HTN 08/30 03/20 Unknown History zoledronic acid 5 mg/100 mL in 1 ea IV .Qyear FOLLOW-U P NEEDED 09/13/22 Unknown History mannitol 5 %-water intravenous piggybck hydralazine 50 mg tablet 50 mg PO BID FOLLOW-UP NEEDE D 07/31/23 Unknown History rosuvastatin 40 mg tablet 40 mg PO DAILY FOLLOW-UP NEE DED 07/31/23 Unknown History vit C 250 mg-vit E 90 mg-zinc 40 1 tab PO BID FOLLOW-U P NEEDED 07/31/23 Unknown History mg-copper 1 [id number] capsule (PreserVision AREDS-2) calcium carbonate (Tums) 200 mg PO ONCE PRN dyspepsia 09/25/24 Unknown History latanoprost 0.005 % eye drops 1 drp ophthalmic (eye) Q DAY 09/25/24 Unknown History FOLLOW-UP NEEDED lidocaine 5 % topical patch 1 patch topical DAILY #15 ea 01/12/25 Unknown Rx (Lidoderm) clopidogrel 75 mg tablet 75 mg PO DAILY FOLLOW-UP NEE DED #1 01/16/25 Unknown Rx TAB hydrocodone-acetaminophen 5-325mg 1 tab PO Q6H PRN PRN Pain 3 days 03/18/25 Unknown Rx 5mg-325mg #12 TABLETS ibuprofen 200 mg tablet (Advil) 200 mg PO TID PAIN Unknown History prednisone 20 mg tablet 20 mg PO DAILY recently plac ed on 03/19/25 03/18/25 History this march 10 Allergy/AdvReac Type Severity Reaction Status Date / Time amlodipine AdvReac Intermediate Severe Verified 03/19/25 08:47 swelling in ankles Penicillins (PCN) AdvReac diarrhea Verified 03/19/25 08:47 Family History Mother CAD (coronary artery disease) Hypertension Brother Hypertension Presence of permanent cardiac pacemaker Brother Hypertension Father Hypertension Surgical History H/O carotid endarterectomy (~03/2024) History of YAG laser capsulotomy of lens of right eye History of tonsillectomy and adenoidectomy History of total hysterectomy Hx of cataract surgery H/O detached retina repair Social History Smoking Status: Current every day smoker tobacco type: cigarettes alcohol intake: current alcohol intake frequency: 0-2 drinks per day Alcohol type: beer substance use type: does not use caffeine: Yes (occasionally) Objective Data Objective Data Vital Signs: Vital Signs Last response 3 Temperature 37.3 C 03/29/25 06:02 Temperature Source Core 03/29/25 06:02 Pulse Rate 77 03/29/25 07:02 Pulse Strength Normal (2+) 03/29/25 07:51 Respiratory Rate 17 03/29/25 07:02 Respiratory Effort Normal 03/29/25 06:00 Respiratory Depth Normal 03/29/25 06:00 Respiratory Pattern Normal 03/29/25 06:49 Blood Pressure 94/83 H 03/29/25 07:02 Blood Pressure Mean 86 03/29/25 07:02 Blood Pressure Source Monitor 03/29/25 07:02 Blood Pressure Position Semi-Fowlers 03/29/25 07:02 Blood Pressure Location Left Arm 03/29/25 07:02 Pulse Ox 95 03/29/25 07:02 Oxygen Delivery Method Nasal Cannula 03/29/25 07:02 Oxygen Flow Rate (L/min) 5 03/29/25 07:02 Fraction of Inspired Oxygen (FIO2) 53 03/29/25 06:02 I&O: I&O Last 24 Hours 3 03/28/25 03/28/25 03/29/25 11:59 23:59 11:59 Intake Total 700 / 1350 650 / 1350 Output Total 400 / 400 Balance 700 / 1200 650 / 1200 -400 / -400 I&O: Total Stay 3 03/19/25 08:46 thru 03/29/25 06:00 Intake Total 9100 Output Total 1375 Balance 7725 Current Meds Ordered / Administered: Current meds ordered / Administered 3 Generic Name Dose Route Start Last Admin Trade Name Freq PRN Reason Stop Dose Admin Acetaminophen 1,000 mg 03/24/25 14:00 03/29/25 05:50 Acetaminophen 500 Mg Tablet PO Not Given Q8 ROSELIA Acetylcysteine 800 mg 03/23/25 12:15 03/29/25 06:48 Acetylcysteine 800 Mg/4 Ml Vial.Neb. INHALATION 800 mg Q6HWA.RT ROSELIA Administration Al Hydroxide/Mg Hydroxide 30 ml 03/22/25 19:18 03/22/25 19:39 Mag Hydrox/Al Hydrox/Simeth 30 Ml Udc PO 30 ml Q6H PRN PRN Administration HEARTBURN OR INDIGESTION Albuterol Sulfate 2.5 mg 03/19/25 11:37 Albuterol 2.5 Mg/3 Ml Vial.Neb. INHALATION Q2H PRN PRN SOB &/OR WHEEZING Albuterol/Ipratropium 3 ml 03/23/25 12:15 03/29/25 06:48 Ipratropium/Albuterol Sulfate 3 Ml Ampul.Neb INHALATION 3 ml Q6HWA.RT ROSELIA Administration Amlodipine Besylate 10 mg 03/22/25 10:00 03/28/25 09:57 Amlodipine 10 Mg Tablet PO 10 mg DAILY ROSELIA Administration Protocol Atorvastatin Calcium 80 mg 03/19/25 22:00 03/28/25 20:25 Atorvastatin Calcium 80 Mg Tablet PO 80 mg QHS ROSELIA Administration Calcium/Vitamin D 1 tablet 03/20/25 08:00 03/23/25 10:09 Calcium Carb/Vitamin D 1 Tablet Tablet PO 1 tablet DAILYCM ROSELIA Administration Diphenhydramine HCl 50 mg 03/28/25 21:25 Diphenhydramine 50 Mg/Ml Syringe IV 03/29/25 21:26 X1 PRN Allergic Reaction Enoxaparin Sodium 40 mg 03/20/25 10:00 03/24/25 08:18 Enoxaparin 40 Mg/0.4 Ml Syringe SC 40 mg DAILY ROSELIA Administration Epinephrine HCl 0.3 mg 03/28/25 21:25 Epi Pen (Equiv) 0.3 Mg Syringe IM 03/29/25 21:26 X1 PRN Alleric Reaction Gabapentin 100 mg 03/19/25 12:00 03/29/25 08:06 Gabapentin 100 Mg Capsule PO 100 mg TIDCM ROSELIA Administration Guaifenesin 1,200 mg 03/21/25 10:00 03/28/25 20:24 Guaifenesin 1,200 Mg Tablet PO 1,200 mg BID ROSELIA Administration Hydralazine HCl 50 mg 03/19/25 22:00 03/28/25 20:25 Hydralazine 50 Mg Tablet PO 50 mg BID ROSELIA Administration Protocol Sodium Chloride 250 mls @ 15 mls/hr 03/19/25 12:04 IV .[id number] PRN Saline Flush Sodium Chloride 250 mls @ 15 mls/hr 03/19/25 12:04 IV .[id number] PRN Additional IVPB Infusion Nicardipine/Sodium Chloride 20 mg in 200 mls @ 50 mls/hr 03/28/25 21:25 Cardene-Toney 20 Mg/200 Ml Soln CONT INF Q4H PRN See Instructions Protocol 5 MG/HR Famotidine 20 mg/ Sodium 10 mls @ 300 mls/hr 03/28/25 21:25 Chloride IV 03/29/25 21:26 X1 PRN Allergic Reaction Ibuprofen 200 mg 03/19/25 22:00 03/23/25 02:22 Ibuprofen 200 Mg Tablet PO Not Given TID ROSELIA Labetalol HCl 20 mg 03/28/25 21:25 Labetalol 20 Mg/4 Ml Vial IV 03/29/25 21:26 X1 PRN BP Goals Latanoprost 1 drp 03/19/25 22:00 03/28/25 20:26 Latanoprost 0.005% 1 Bottle OPHTHALMIC 1 drp QHS ROSELIA Administration Levofloxacin 750 mg 03/27/25 10:00 03/29/25 08:09 Levofloxacin 750 Mg Tablet PO 750 mg Q48 ROSELIA Administration Lidocaine 1 patch 03/19/25 14:00 03/28/25 09:59 Lidocaine 5% Patch TOPICAL 1 patch DAILY ROSELIA Administration Protocol Loratadine 10 mg 03/19/25 17:23 Loratadine 10 Mg Tablet PO DAILY PRN Allergies Losartan Potassium 100 mg 03/20/25 10:00 03/28/25 09:57 Losartan Potassium 100 Mg Tablet PO 100 mg DAILY ROSELIA Administration Methylprednisolone 125 mg 03/28/25 21:25 Methylprednisolone 125 Mg/2 Ml Vial IV 03/29/25 21:26 X1 PRN Allergic Reaction Metoprolol Tartrate 25 mg 03/19/25 22:00 03/28/25 20:25 Metoprolol Tartrate 25 Mg Tablet PO 25 mg BID ROSELIA Administration Protocol Morphine Sulfate 2 mg 03/24/25 13:02 Morphine 2 Mg/Ml Syringe IV Q3H PRN PRN Pain Score 6-10 Multivitamins/Minerals 1 cap 05/21/25 22:00 03/23/25 12:01 Multivitamin (Healthy Eyes) Capsule PO 1 cap BID ROSELIA Administration Nicotine 14 mg 03/19/25 14:00 03/28/25 09:58 Nicotine 14 Mg Patch TD 14 mg DAILY ROSELIA Administration [id number] Ethyl Esters 1 gm 03/20/25 10:00 03/28/25 09:58 [place]-3 Acid Ethyl Esters 1 Gm Capsule PO 1 gm DAILY ROSELIA Administration Ondansetron HCl 4 mg 03/19/25 11:37 03/19/25 18:51 Ondansetron 4 Mg/2 Ml Vial IV 4 mg Q8H PRN PRN Administration NAUSEA/VOMITING Oxycodone HCl 5 mg 03/24/25 13:02 03/29/25 08:28 Oxycodone 5 Mg Tablet PO 5 mg Q4H PRN PRN Administration Pain Score 4-10 Polyethylene Glycol 17 gm 03/21/25 10:00 03/28/25 09:55 Polyethylene Glycol 3350 17 Gm Packet PO Not Given DAILY ROSELIA Prednisone 40 mg 03/29/25 08:00 03/29/25 08:07 Prednisone 20 Mg Tablet PO 40 mg BREAKFAST ROSELIA Administration Senna/Docusate Sodium 2 tablet 03/19/25 22:00 03/28/25 20:25 Senna/Docusate Sodium 1 Tablet PO 2 tablet BID ROSELIA Administration Sodium Chloride 10 - 40 ml 03/19/25 12:04 03/28/25 22:02 0.9% Saline Lock 10 Ml Syringe IV 10 ml UD PRN Administration SALINE FLUSH Sodium Chloride 1 gm 03/21/25 12:19 03/29/25 08:08 Sodium Chloride 1 Gm Tablet PO 1 gm BID ROSELIA Administration Sodium Chloride 10 ml 03/28/25 21:25 0.9% Saline Lock 10 Ml Syringe IV UD PRN Before/After Tenecteplase Administration Lab / Micro Data 03/28/25 05:59 03/28/25 05:59 Labs: Laboratory Results - last 24 hr 03/28/25 20:41: POC Glucose 136 H Imaging Radiology Impression Brain CT 03/28/25 20:44 IMPRESSION: NO ACUTE FINDINGS Reading Location: [id number] Head/Neck CTA 03/28/25 21:05 IMPRESSION: Occluded right cervical ICA. Critical results were communicated to Dr. Kevin Reading Location: [id number] Chest X-Ray 03/28/25 22:25 IMPRESSION: No Acute Findings. Reading Location: [id number] KUB X-Ray 03/28/25 22:25 IMPRESSION: Probable constipation. Nonspecific bowel gas pattern. Reading Location: [id number] Assessment and Plan . Assessment and plan: Physical Exam: Gen - NAD, elderly, fatigued HEENT - MM dry. Sclera anicteric Resp - +crackles. Breathing nonlabored CV - RRR. No m/g/r Abd - Soft, NT, ND Ext - No c/c/e. Skin - No rashes? Neuro - +mild L sided weakness, dysarthria, improving I have reviewed the pertinent vital sign, laboratory, and imaging data. ASSESSMENT: # Suspected acute CVA - s/p TNK 03/28 # Acute on chronic hypoxic respiratory failure - on home 2L NC # Occluded R ICA - Noted on CTA head/neck. Had prior R CEA for carotid stenosis in 03/2024 as well, on plavix for this though was held for past few days for possible kyphoplasty # Pseudomonas PNA # SBO/ileus # Acute encephalopathy # h/o TIA # HTN # HLD # Osteoporosis PLAN: -Cont close ICU monitoring, Q1h neuro checks after TNK. MR brain pending and will need repeat CT head 24 hrs after TNK. Neurology following, f/u additional recs -Increased to airvo transiently overnight but now back down to 5L NC, wean to keep sats > 90%. Cont duonebs/mucomyst, add CPT as well given substantial secretions -Switch prednisone to IV solumedrol for now pending swallow eval -Cont levaquin (switch to IV for now). Consider broadening abx if worsening hypoxia/infiltrates -PRN diuresis to maintain euvolemia -Surgery following for ileus, monitor for worsening abd sx. No vomiting today thus far FEN/GI: NPO pending swallow eval Proph DVT/GI: SCDs Code status: DNR but OK with intubation Updated family at bedside Critical Care Time: 60 mins The entirety of this encounter was done via telemedicine using both audio and video. Consent was unable to be obtained for the telemedicine encounter due to the patient's mental status.
--- NOTE | 2025-03-29 09:44 | PCM.PN.HOSP ---
Reason for Visit Reason for Visit: Diagnoses Elevated white blood cell count, unspecified (03/19/25) Hypo-osmolality and hyponatremia (03/19/25) Acute and chronic respiratory failure with hypoxia (03/19/25) Ileus, unspecified (03/19/25) Constipation, unspecified (03/19/25) Dorsalgia, unspecified (03/19/25) Age-related osteoporosis without current pathological fracture (03/19/25) Difficulty in walking, not elsewhere classified (03/19/25) Stable burst fracture of T11-T12 vertebra, initial encounter for closed fracture (03/19/25) Unspecified fall, initial encounter (03/19/25) Subjective Subjective Saw patient at bedside this morning, daughter present. Patient unfortunately had an acute stroke overnight and was transferred out of the ICU. See quick note overnight for further details. This morning patient was sitting back in bed comfortably. She does have continued mild facial droop noted and ongoing left upper extremity drift and sensation changes noted. She did appear fatigued and noted that she did not get much of any sleep overnight. She was reporting continued lower back pain, similar to previous days. No other new concerns morning. Objective Data Objective Data Vital Signs: Vital Signs Temp Pulse Resp BP Pulse Ox O2 Del Method O2 Flow Rate 99.1 F 77 17 94/83 H 95 Nasal Cannula 5 03/29/25 06:02 03/29/25 07:02 03/29/25 07:02 03/29/25 07:02 03/29/25 07:02 03/29/25 07:02 03/29/25 07:02 FiO2 53 03/29/25 06:02 Oxygen Flow Rate (L/min) 5 Oxygen Delivery Method Nasal Cannula Weight: 74.8 kg Body Mass Index (BMI) 32.2 Intake & Output: Intake and Output for Last 24 Hours 03/27/25 03/28/25 03/29/25 23:59 23:59 23:59 Intake Total 1400 / 1400 1350 / 1350 Output Total 900 / 900 400 / 400 Balance 500 / 500 1350 / 1200 -400 / -400 Lab / Micro Data 03/28/25 05:59 03/28/25 05:59 Labs: Laboratory Results - last 24 hr 03/28/25 20:41: POC Glucose 136 H Micro: Microbiology 03/20/25 15:50 Sputum, Expectorated/Coughed Gram Stain - Final 03/20/25 15:50 Sputum, Expectorated/Coughed Respiratory Culture - Final Pseudomonas aeruginosa Radiography Diagnostic Testing: Radiology Impression Brain CT 03/28/25 20:44 IMPRESSION: NO ACUTE FINDINGS Reading Location: [place] [address] Head/Neck CTA 03/28/25 21:05 IMPRESSION: Occluded right cervical ICA. Critical results were communicated to Dr. Kevin Reading Location: [place] [address] Chest X-Ray 03/28/25 22:25 IMPRESSION: No Acute Findings. Reading Location: [place] [address] KUB X-Ray 03/28/25 22:25 IMPRESSION: Probable constipation. Nonspecific bowel gas pattern. Reading Location: [place] [address] Physical Exam Const alert, oriented x3 and no apparent distress Constitutional Narrative: Elderly female, class I obesity, mild to moderately fatigued appearing but otherwise sitting up comfortably in bed, conversing normally and in no acute distress. General Appearance: cooperative and comfortable HEENT normocephalic, head/scalp atraumatic, hearing grossly normal bilaterally, nasal mucous membranes and turbinates normal and moist oral mucous membranes Eyes PERRL, EOMs intact bilaterally and conjunctivae normal Neck full ROM Chest inspection of chest normal Resp normal respiratory effort and no use of accessory muscles Resp Narrative: Breathing comfortably on 5 L nasal cannula at rest. Mildly decreased breath sounds bilaterally with mild crackles noted throughout bilaterally. Otherwise no wheezing noted. Stable. Cardio regular rate, regular rhythm, no murmurs and peripheral pulses 2+ throughout GI GI Narrative: Abdomen mildly distended but soft and no tenderness to palpation. Stable. Extremity normal to inspection and no pedal edema Skin no rashes or lesions noted Neuro oriented x3 Neuro Narrative: Mild left facial droop and left upper extremity drift noted. Reported left upper extremity sensory changes noted as well. Speech: speech normal Psych mental status grossly normal Assessment & Plan Assessment/Plan (1) Intractable back pain: (2) T12 burst fracture: (3) Acute on chronic hypoxic respiratory failure: (4) Ileus: PLAN: Plan Patient is an 89-year-old female who presented to [facility] ED on 03/19/2025 with intractable back pain. 1. Intractable back pain secondary to T12 compression fracture, acute on chronic debility with inability to ambulate ? Orthopedic surgery following. PT/OT/case management following. Presented with worsening back pain after recent fall at home. MRI thoracic/lumbar spine showed a burst fracture at T12. Planning for kyphoplasty with orthopedic surgery; currently delayed due to patient's respiratory status and per orthopedics she will need to be completely better from a respiratory standpoint to tolerate general anesthesia. Ortho also noted that if the pain does improve with time, she may not need any cement augmentation. They will follow-up with the patient on Monday pending her respiratory status. Continue to hold Plavix for procedure at this point. Pain control with scheduled Tylenol, gabapentin and lidocaine patch and as needed oxycodone and IV morphine. Planning for SNF placement and [facility] TCU on discharge once medically ready. 2. Acute on chronic hypoxic respiratory failure secondary to pseudomonal pneumonia, history of COPD ? On home continuous 2 L nasal cannula. Has required up to Airvo at 50 L during hospitalization. Sputum culture positive for Pseudomonas. Chest x-ray with mild pulmonary vascular congestion but no focal consolidations. Leukocytosis peaked at 23, now much improved. Continue treatment with IV Levaquin. Currently on Airvo with good saturations and breathing comfortably; notably patient is a mouth breather. Repeat chest x-ray on 03/27 with reported new right middle lobe infiltrate from x-ray admission, suspected secondary to her pneumonia; no other new findings noted. ABG on 03/27 showed pH 7.49, PO2 only 74 on Airvo at 40 L. Given dose of IV Lasix on 03/27 and patient weaned down to 5 L nasal cannula by 03/28. Will continue spot dose IV diuretics as needed and continue to wean supplemental oxygen as able. Continue scheduled aerosols, Acapella, I-S, Mucinex and Mucomyst. Continue home long-acting inhalers. 3. 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 Neurology following. Follows with vascular surgery in [place]. Had right CEA done there in March 2024. Most recent ultrasound in 2024 showed moderate right extracranial ICA stenosis and mild left extracranial ICA stenosis. Unfortunately patient developed significant acute neurologic deficits on the evening of 03/28 including left-sided facial droop and left upper weakness and numbness/tingling. CTA head/neck showed right ICA occlusion with distal reconstitution. Discussed with neurology who recommended either emergent transfer for mechanical thrombectomy versus TNK. Family opted for TNK administration and monitoring here; TNK was given and patient was moved to the ICU for closer monitoring. Plan is for repeat CT head tonight and MRI brain tomorrow morning. Does not appear patient will require transfer at this time but will need to discuss further with neurology. 4. Ileus, improving ? General Surgery followed. Patient did have 2 bowel movements on 03/22 but since then developed worsening nausea with no flatus. CT abdomen pelvis on 03/23 showed ileus but no evidence of bowel obstruction. Suspected ileus is multifactorial with narcotics and decreased mobility as large contributors. Per general surgery, no need for surgical intervention at this time. Repeat KUB on 03/25 with some improvement noted. Continue bowel regimen with suppository and enemas as needed. Completed 4 doses of IV Reglan with some improvement, now discontinued. Escalated to regular diet on 03/26 and has tolerated without issue. Continue to monitor. 5. 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 Suspect secondary to back pain and pseudomonal pneumonia. Sodium improved to 133 by 03/25. Continue salt tablets and fluid restricted diet. 6. Mild REBEKA, resolved ? Creatinine worsened to 1.22 on 03/23, baseline around 0.6. Suspect secondary to poor p.o. intake. Started on maintenance IV fluids with ileus with improvement back to baseline by 03/25. 7. Daily alcohol use ? Reports drinking about 2 beers daily. No signs of acute alcohol withdrawal during hospitalization, no need for CIWA protocol. 8. Tobacco abuse ? Continue nicotine patch while inpatient. Recommended cessation on discharge. Chronic medical conditions: ? 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 Complicates hospital course, care and prognosis. May need to uptitrate oxygen nocturnally while inpatient. ? Bilateral carotid artery stenosis: Had moderate right extracranial internal carotid artery stenosis and mild left extracranial internal carotid artery stenosis on last duplex in 2024, stable from previous. Notably Plavix is on hold as above. Continue home rosuvastatin. Continue outpatient follow-up with Dr. Araiza. ? Macular degeneration: Continue home eyedrops. ? Hypertension, hyperlipidemia: Continue home statin, metoprolol, irbesartan, hydralazine, amlodipine. ? Osteoporosis: Vitamin D level greater than 30. Holding home calcium carbonate and vitamin D supplementation until bowel function improves. Is on injectable zoledronic acid yearly. Continue outpatient follow-up. DVT prophylaxis: Lovenox CODE STATUS: DNR CCA, okay for short-term intubation Expected disposition: TBD Total clinical time spent by myself addressing the patient's medical issues, reviewing all the data, and collaborating with patient's care team: 35 minutes. Charges/Coding Visit Charges Inpatient E&M: 08305 Subs Hosp L2 NIHSS NIHSS Nursing Documentation NIHSS Nursing Documentation: NIHSS: Ischemic Stroke/TIA Start: 03/29/25 04:41 Freq: Status: Active Protocol: Activity Type Activity Date Activity User E-sign Co-sign Detail Recorded Client Recorded Date Recorded By Document 03/28/25 21:37 [id number] 03/29/25 04:48 03/28/25 21:37 NIH Stroke Scale [NIHSS] A score of 0 is normal or asymptomatic . Total possible score is 42. Inpatient: RN or Physician to activate a stroke alert for onset of new stroke symptoms or with NIHSS increase >/= 3 points. Following change in neurological status, NIHSS will be performed per physician order or more frequently PRN. -1a. Level of Consciousness 1 - Not alert; Arousable by minor stimuli to obey, answer & respond -1b. LOC Questions 2 - Answers NEITHER question correctly -1c. LOC Commands 2 - Performs NEITHER task correctly -2. Best Gaze 0 - Normal -3. Visual 0 - No visual loss -4. Facial Palsy 1 - Minor paralysis ( flattened nasolabial fold , asymmetry on smiling) -5a. Left Arm 2 - Some effort against gravity; -5b. Right Arm 0 - No drift; arm holds 90 ( or 45) degrees for full 10 seconds -6a. Left Leg 3 - No effort against gravity ; leg falls to bed immediately -6b. Right Leg 0 - No drift; leg holds 30- degree position for full 5 seconds -7. Limb Ataxia 2 - Present in 2 limbs -8. Sensory 0 - Normal; no sensory loss -9. Best Language 2 - Severe aphasia; -10. Dysarthria 2 - Severe dysarthria; -11. Extinction and Inattention 0 - No abnormality -Total 17 Query Text:A score of 0 is normal or asymptomatic. Total possible score is 42 . ED: Notify Physician for NIHSS increase by > / = 3 points. Inpatient: RN or Physician to activate a stroke alert for NIHSS increase of > / = 3 points. Thrombolytic: Vital Signs & NIHSS Start: 03/28/25 21:26 Text: Assess and document vital signs and NIHSS Status: Active within 15 minutes prior to Tenecteplase administration Freq: [id number] Protocol: Activity Type Activity Date Activity User E-sign Co-sign Detail Recorded Client Recorded Date Recorded By Document 03/29/25 07:02 TB [id number] 03/29/25 07:24 TB 03/29/25 07:02 Vital Signs [Pulse] -Pulse Rate (60-100) 77 -Pulse Location Monitor [Respirations] -Respiratory Rate (12-18) 17 -Respiratory rate source Monitor -Pulse Oximetry 95 -Oxygen Delivery Method Nasal Cannula -O2 L/MIN (L/min) 5 [Blood Pressure] -Blood Pressure (90/60-120/80) 94/83 H -Blood Pressure Mean (mm Hg) 86 -Source Monitor -Position Semi-Fowlers -Blood Pressure Location Left Arm -Is the SBP > or = 180 No -Is the DBP > or = 105 No NIH Stroke Scale [NIHSS] A score of 0 is normal or asymptomatic . Total possible score is 42. Inpatient: RN or Physician to activate a stroke alert for onset of new stroke symptoms or with NIHSS increase >/= 3 points. Following change in neurological status, NIHSS will be performed per physician order or more frequently PRN. -1a. Level of Consciousness 0 - Alert; keenly responsive -1b. LOC Questions 0 - Answers BOTH questions correctly -1c. LOC Commands 0 - Performs BOTH tasks correctly -2. Best Gaze 0 - Normal -3. Visual 0 - No visual loss -4. Facial Palsy 1 - Minor paralysis ( flattened nasolabial fold , asymmetry on smiling) -5a. Left Arm 0 - No drift; arm holds 90 ( or 45) degrees for full 10 seconds -5b. Right Arm 0 - No drift; arm holds 90 ( or 45) degrees for full 10 seconds -6a. Left Leg 0 - No drift; leg holds 30- degree position for full 5 seconds -6b. Right Leg 0 - No drift; leg holds 30- degree position for full 5 seconds -7. Limb Ataxia 0 - Absent -8. Sensory 0 - Normal; no sensory loss -9. Best Language 1 - Mild-to- moderate aphasia; -10. Dysarthria 1 = Mild-to- moderate dysarthria; -11. Extinction and Inattention 0 - No abnormality -Total 3 Query Text:A score of 0 is normal or asymptomatic. Total possible score is 42 . ED: Notify Physician for NIHSS increase by > / = 3 points. Inpatient: RN or Physician to activate a stroke alert for NIHSS increase of > / = 3 points.
--- NOTE | 2025-03-29 12:32 | CON.PCM.NE_ITS ---
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 Please obtain CTH in 24 hours following TNK to ensure no hemorrhagic transformation - SBP goal <180, MAP >65. Hold all anticoagulation and antiplatelet in 24 hours following TNK - CTA with cervical R ICA then distal reconstitution, a transfer to [facility] or other thrombectomy capable center for evaluation of mechanical thrombectomy was recommended overnight. Family wanted to wait and evaluate her status following TNK - Brain MRI Wo contrast when able - Eunatremia (Na goal 135-145), please avoid hyponatremia - Check LDL and A1c, LDL goal <70. Continue statin for secondary stroke prevention - PT/OT/MINERALOGY PROFESSOR evaluation - Keep on tele while inpatient - Stroke education and vascular risk factors modification I personally attended this patient and spent a total time of 55 minutes evaluating this patient including clinical assessment, review of chart, medical history imaging, and determining appropriate treatment and workup. HPI Consult Data Date of Consult: 03/29/25 HPI Narrative HPI Narrative: AISHA PARKER, is a 89 yo F with a hx of R carotid stenosis s/p R CEA on Plavix, chronic hypoxic respiratory failure from COPD on O2, HTN, HLD who was admitted for intractable back pain secondary to T12 compression fracture with plan for kyphoplasty with orthopedic surgery which was delayed due to current respiratory status. Per notes, her last dose of subcu Lovenox was on 03/24/2025 and her Plavix was discontinued on 03/21/2025. Her LKW was at 20:35 on 03/28/25. Telestroke was called for acute onset of left facial droop and L sided weakness. NIHSS was 24 on telestroke. TNK was recommended and given, CTA revealed R cervical ICA occlusion with distal reconstitution, telestroke recommended a transfer to [facility] or any other thrombectomy capable center for evaluation of mechanical thrombectomy. Family wanted to see how the patient will do after TNK before considering transfer. Patient is doing better this morning, her NIHSS is down to 7 (see below) [facility] Medical History Macular degeneration Contact dermatitis due to plant Bilateral carotid artery stenosis Pure hypercholesterolemia Sinus bradycardia Tobacco abuse COPD (chronic obstructive pulmonary disease) Renal artery stenosis Osteoarthritis Osteoporosis Adrenal hyperplasia Home Medications ?Medication ?Instructions ?Recorded ?Last Taken ?Type loratadine 10 mg tablet 10 mg PO DAILY PRN Allergies 04/21/14 Unknown History omega-3 fatty acids 1,000 mg 1,000 mg PO DAILY FOLLOW- UP NEEDED 08/23/19 Unknown History capsule (Fish Oil Concentrate) irbesartan 300 mg tablet 300 mg PO .AM HTN 12/31/21 U nknown History amlodipine 5 mg tablet 5 mg PO DAILY HTN 02/03/22 U nknown History budesonide 160 mcg-glycopyr 9 2 inh inhalation BID TWAN ATHING 03/14/22 Unknown History mcg-formot 4.8 mcg/actuation HFA inhaler calcium 600 mg (as 1 tab PO DAILY FOLLOW-UP NEE DED 08/08/22 Unknown History carbonate)-vitamin D3 20 mcg (800 unit) tablet (Caltrate with Vitamin D3) metoprolol tartrate 25 mg tablet 25 mg PO BID HTN 08/30 03/20 Unknown History zoledronic acid 5 mg/100 mL in 1 ea IV .Qyear FOLLOW-U P NEEDED 09/13/22 Unknown History mannitol 5 %-water intravenous piggybck hydralazine 50 mg tablet 50 mg PO BID FOLLOW-UP NEEDE D 07/31/23 Unknown History rosuvastatin 40 mg tablet 40 mg PO DAILY FOLLOW-UP NEE DED 07/31/23 Unknown History vit C 250 mg-vit E 90 mg-zinc 40 1 tab PO BID FOLLOW-U P NEEDED 07/31/23 Unknown History mg-copper 1 dm-hzhcbg-eqewuk capsule (PreserVision AREDS-2) calcium carbonate (Tums) 200 mg PO ONCE PRN dyspepsia 09/25/24 Unknown History latanoprost 0.005 % eye drops 1 drp ophthalmic (eye) Q DAY 09/25/24 Unknown History FOLLOW-UP NEEDED lidocaine 5 % topical patch 1 patch topical DAILY #15 ea 01/12/25 Unknown Rx (Lidoderm) clopidogrel 75 mg tablet 75 mg PO DAILY FOLLOW-UP NEE DED #1 01/16/25 Unknown Rx TAB hydrocodone-acetaminophen 5-325mg 1 tab PO Q6H PRN PRN Pain 3 days 03/18/25 Unknown Rx 5mg-325mg #12 TABLETS ibuprofen 200 mg tablet (Advil) 200 mg PO TID PAIN Unknown History prednisone 20 mg tablet 20 mg PO DAILY recently plac ed on 03/19/25 03/18/25 History this march 10 Allergy/AdvReac Type Severity Reaction Status Date / Time amlodipine AdvReac Intermediate Severe Verified 03/19/25 08:47 swelling in ankles Penicillins (PCN) AdvReac diarrhea Verified 03/19/25 08:47 Family History Mother CAD (coronary artery disease) Hypertension Brother Hypertension Presence of permanent cardiac pacemaker Brother Hypertension Father Hypertension Surgical History H/O carotid endarterectomy (~03/2024) History of YAG laser capsulotomy of lens of right eye History of tonsillectomy and adenoidectomy History of total hysterectomy Hx of cataract surgery H/O detached retina repair Social History Smoking Status: Current every day smoker tobacco type: cigarettes alcohol intake: current alcohol intake frequency: 0-2 drinks per day Alcohol type: beer substance use type: does not use caffeine: Yes (occasionally) Vital Signs Vital Signs Vital Signs: 03/28/25 13:32 03/28/25 13:34 03/28/25 13:34 Temperature Temperature Source Pulse Rate 77 Pulse Strength Respiratory Rate 18 Respiratory Effort Respiratory Depth Respiratory Pattern Normal Blood Pressure Blood Pressure Mean Blood Pressure Source Blood Pressure Position Blood Pressure Location Pulse Ox Oxygen Delivery Method Nasal Cannula Oxygen Flow Rate (L/min) 4 4 Fraction of Inspired Oxygen (FIO2) 95 03/28/25 15:24 03/28/25 15:24 03/28/25 19:29 Temperature 98.4 F Temperature Source Oral Pulse Rate 76 74 Pulse Strength Respiratory Rate 17 18 Respiratory Effort Normal Non-Labored Respiratory Depth Normal Respiratory Pattern Normal Normal Blood Pressure 142/72 H Blood Pressure Mean 95 Blood Pressure Source Blood Pressure Position Blood Pressure Location Pulse Ox 95 Oxygen Delivery Method Nasal Cannula Nasal Cannula Oxygen Flow Rate (L/min) 4 4 Fraction of Inspired Oxygen (FIO2) 03/28/25 19:38 03/28/25 20:15 03/28/25 20:19 Temperature 97.5 F L Temperature Source Temporal Pulse Rate 82 Pulse Strength Respiratory Rate 18 Respiratory Effort Normal Non-Labored Respiratory Depth Normal Respiratory Pattern Normal Blood Pressure 117/56 L Blood Pressure Mean 76 Blood Pressure Source Monitor Blood Pressure Position Semi-Fowlers Blood Pressure Location Left Arm Pulse Ox 96 94 Oxygen Delivery Method Nasal Cannula Nasal Cannula Nasal Cannula Oxygen Flow Rate (L/min) 3 3 3 Fraction of Inspired Oxygen (FIO2) 03/28/25 20:25 03/28/25 20:25 03/28/25 20:35 Temperature 97.5 F L Temperature Source Temporal Pulse Rate 82 82 88 Pulse Strength Respiratory Rate 18 Respiratory Effort Respiratory Depth Respiratory Pattern Blood Pressure 116/68 Blood Pressure Mean 84 Blood Pressure Source Monitor Blood Pressure Position Sitting Blood Pressure Location Right Arm Pulse Ox 92 Oxygen Delivery Method Nasal Cannula Oxygen Flow Rate (L/min) 3 Fraction of Inspired Oxygen (FIO2) 03/28/25 20:37 03/28/25 21:07 03/28/25 21:24 Temperature Temperature Source Pulse Rate 88 72 84 Pulse Strength Respiratory Rate 20 H 18 18 Respiratory Effort Respiratory Depth Respiratory Pattern Blood Pressure 116/68 133/48 H 133/42 H Blood Pressure Mean 84 76 72 Blood Pressure Source Monitor Monitor Blood Pressure Position Semi-Fowlers Blood Pressure Location Right Arm Pulse Ox 92 96 98 Oxygen Delivery Method Nasal Cannula Nasal Cannula Nasal Cannula Oxygen Flow Rate (L/min) 4 4 4 Fraction of Inspired Oxygen (FIO2) 03/28/25 21:37 03/28/25 22:02 03/28/25 22:02 Temperature Temperature Source Pulse Rate 79 71 Pulse Strength Respiratory Rate 22 H 17 Respiratory Effort Respiratory Depth Respiratory Pattern Blood Pressure 118/95 H 148/60 H 148/60 H Blood Pressure Mean 102 89 Blood Pressure Source Monitor Monitor Blood Pressure Position Blood Pressure Location Pulse Ox 95 95 Oxygen Delivery Method Nasal Cannula Nasal Cannula Oxygen Flow Rate (L/min) 4 4 Fraction of Inspired Oxygen (FIO2) 03/28/25 22:02 03/28/25 22:17 03/28/25 22:32 Temperature 97.5 F L Temperature Source Temporal Pulse Rate 71 75 65 Pulse Strength Respiratory Rate 17 16 15 Respiratory Effort Respiratory Depth Respiratory Pattern Blood Pressure 148/60 H 111/68 120/103 H Blood Pressure Mean 89 82 108 Blood Pressure Source Monitor Monitor Monitor Blood Pressure Position Blood Pressure Location Pulse Ox 95 95 95 Oxygen Delivery Method Nasal Cannula Nasal Cannula Nasal Cannula Oxygen Flow Rate (L/min) 4 4 4 Fraction of Inspired Oxygen (FIO2) 03/28/25 22:47 03/28/25 23:00 03/28/25 23:02 Temperature Temperature Source Pulse Rate 66 61 62 Pulse Strength Respiratory Rate 17 19 H Respiratory Effort Respiratory Depth Respiratory Pattern Blood Pressure 145/44 H 105/44 L Blood Pressure Mean 77 64 Blood Pressure Source Monitor Monitor Blood Pressure Position Semi-Fowlers Blood Pressure Location Left Arm Pulse Ox 98 95 Oxygen Delivery Method Nasal Cannula Nasal Cannula Oxygen Flow Rate (L/min) 4 4 Fraction of Inspired Oxygen (FIO2) 03/28/25 23:17 03/28/25 23:32 03/28/25 23:47 Temperature Temperature Source Pulse Rate 62 68 63 Pulse Strength Respiratory Rate 17 21 H 18 Respiratory Effort Respiratory Depth Respiratory Pattern Blood Pressure 116/49 L 131/70 H 125/57 H Blood Pressure Mean 71 90 79 Blood Pressure Source Monitor Monitor Monitor Blood Pressure Position Semi-Fowlers Semi-Fowlers Semi-Fowlers Blood Pressure Location Left Arm Left Arm Left Arm Pulse Ox 96 96 93 Oxygen Delivery Method Nasal Cannula Nasal Cannula Nasal Cannula Oxygen Flow Rate (L/min) 4 4 4 Fraction of Inspired Oxygen (FIO2) 03/29/25 00:00 03/29/25 00:00 03/29/25 00:02 Temperature 97.3 F L Temperature Source Temporal Pulse Rate 62 63 Pulse Strength Respiratory Rate 20 H 20 H Respiratory Effort Normal Respiratory Depth Normal Respiratory Pattern Normal Blood Pressure 122/58 H 122/58 H Blood Pressure Mean 79 79 Blood Pressure Source Monitor Blood Pressure Position Semi-Fowlers Blood Pressure Location Left Arm Pulse Ox 93 93 Oxygen Delivery Method Nasal Cannula High Flow Nasal Cannula Oxygen Flow Rate (L/min) 4 6 6 Fraction of Inspired Oxygen (FIO2) 03/29/25 00:32 03/29/25 01:02 03/29/25 01:32 Temperature 99.1 F 99.0 F Temperature Source Core Core Pulse Rate 62 61 62 Pulse Strength Respiratory Rate 12 15 18 Respiratory Effort Respiratory Depth Respiratory Pattern Blood Pressure 99/48 L 128/74 H 127/98 H Blood Pressure Mean 65 92 107 Blood Pressure Source Monitor Monitor Monitor Blood Pressure Position Semi-Fowlers Semi-Fowlers Semi-Fowlers Blood Pressure Location Left Arm Left Arm Left Arm Pulse Ox 98 95 98 Oxygen Delivery Method High Flow High Flow Airvo Oxygen Flow Rate (L/min) 6 10 50 Fraction of Inspired Oxygen (FIO2) 53 03/29/25 01:33 03/29/25 02:00 03/29/25 02:02 Temperature 99.0 F Temperature Source Core Pulse Rate 60 67 Pulse Strength Respiratory Rate 15 21 H Respiratory Effort Normal Respiratory Depth Normal Respiratory Pattern Normal Normal Blood Pressure 94/47 L Blood Pressure Mean 62 Blood Pressure Source Monitor Blood Pressure Position Semi-Fowlers Blood Pressure Location Left Arm Pulse Ox 93 98 Oxygen Delivery Method Airvo Airvo Oxygen Flow Rate (L/min) 50 50 Fraction of Inspired Oxygen (FIO2) 55 53 53 03/29/25 02:32 03/29/25 03:00 03/29/25 03:00 Temperature 99.1 F Temperature Source Core Pulse Rate 67 61 67 Pulse Strength Respiratory Rate 21 H 20 H Respiratory Effort Respiratory Depth Respiratory Pattern Normal Blood Pressure 93/60 Blood Pressure Mean 71 Blood Pressure Source Monitor Blood Pressure Position Semi-Fowlers Blood Pressure Location Left Arm Pulse Ox 98 98 Oxygen Delivery Method Airvo Oxygen Flow Rate (L/min) 50 Fraction of Inspired Oxygen (FIO2) 53 54 03/29/25 03:02 03/29/25 03:32 03/29/25 04:02 Temperature 99.1 F 99.0 F 98.9 F Temperature Source Core Core Core Pulse Rate 67 70 70 Pulse Strength Respiratory Rate 16 19 H 19 H Respiratory Effort Respiratory Depth Respiratory Pattern Blood Pressure 129/48 H 134/52 H 140/50 H Blood Pressure Mean 75 79 80 Blood Pressure Source Monitor Monitor Monitor Blood Pressure Position Semi-Fowlers Semi-Fowlers Semi-Fowlers Blood Pressure Location Left Arm Left Arm Left Arm Pulse Ox 97 95 98 Oxygen Delivery Method Airvo Airvo Airvo Oxygen Flow Rate (L/min) 50 50 50 Fraction of Inspired Oxygen (FIO2) 53 53 53 03/29/25 04:32 03/29/25 05:02 03/29/25 05:32 Temperature 98.8 F 98.8 F 98.9 F Temperature Source Core Core Core Pulse Rate 72 76 76 Pulse Strength Respiratory Rate 20 H 17 20 H Respiratory Effort Respiratory Depth Respiratory Pattern Blood Pressure 109/38 L 109/51 L 121/49 H Blood Pressure Mean 61 70 73 Blood Pressure Source Monitor Monitor Monitor Blood Pressure Position Semi-Fowlers Semi-Fowlers Semi-Fowlers Blood Pressure Location Left Arm Left Arm Left Arm Pulse Ox 95 95 95 Oxygen Delivery Method Airvo Airvo Airvo Oxygen Flow Rate (L/min) 50 50 50 Fraction of Inspired Oxygen (FIO2) 53 53 53 03/29/25 06:00 03/29/25 06:02 03/29/25 06:49 Temperature 99.1 F Temperature Source Core Pulse Rate 82 79 Pulse Strength Respiratory Rate 20 H 25 H Respiratory Effort Normal Respiratory Depth Normal Respiratory Pattern Normal Normal Blood Pressure 121/48 H Blood Pressure Mean 72 Blood Pressure Source Monitor Blood Pressure Position Semi-Fowlers Blood Pressure Location Left Arm Pulse Ox 95 Oxygen Delivery Method Airvo Airvo Oxygen Flow Rate (L/min) 50 50 Fraction of Inspired Oxygen (FIO2) 53 53 03/29/25 06:49 03/29/25 07:00 03/29/25 07:02 Temperature Temperature Source Pulse Rate 78 77 Pulse Strength Respiratory Rate 17 Respiratory Effort Respiratory Depth Respiratory Pattern Blood Pressure 94/83 H Blood Pressure Mean 86 Blood Pressure Source Monitor Blood Pressure Position Semi-Fowlers Blood Pressure Location Left Arm Pulse Ox 95 95 Oxygen Delivery Method Nasal Cannula Nasal Cannula Oxygen Flow Rate (L/min) 5 5 Fraction of Inspired Oxygen (FIO2) 03/29/25 07:51 03/29/25 07:59 03/29/25 08:02 Temperature 97.6 F L Temperature Source Temporal Pulse Rate 75 Pulse Strength Normal (2+) Respiratory Rate 19 H Respiratory Effort Non-Labored Short of Breath Respiratory Depth Normal Respiratory Pattern Tachypnea Blood Pressure 88/70 L Blood Pressure Mean 76 Blood Pressure Source Monitor Blood Pressure Position Semi-Fowlers Blood Pressure Location Left Arm Pulse Ox 92 Oxygen Delivery Method Nasal Cannula Nasal Cannula Oxygen Flow Rate (L/min) 5 5 Fraction of Inspired Oxygen (FIO2) 03/29/25 09:02 03/29/25 10:02 03/29/25 11:02 Temperature Temperature Source Pulse Rate 96 85 76 Pulse Strength Respiratory Rate 24 H 21 H 21 H Respiratory Effort Respiratory Depth Respiratory Pattern Blood Pressure 127/51 H 107/53 L 90/69 Blood Pressure Mean 76 71 76 Blood Pressure Source Monitor Monitor Monitor Blood Pressure Position Semi-Fowlers Semi-Fowlers Semi-Fowlers Blood Pressure Location Left Arm Left Arm Left Arm Pulse Ox 95 93 92 Oxygen Delivery Method Nasal Cannula Nasal Cannula Nasal Cannula Oxygen Flow Rate (L/min) 5 5 5 Fraction of Inspired Oxygen (FIO2) Weight Weight: 74.8 kg Body Mass Index (BMI) 32.2 Physical Exam Narrative Patient is awake and alert, follows commands, EOMI, oriented x3, mild L arm drift, no drift on the RUE/RLE, LLE is briskly antigravity (also limited to pain), reduced sensation to LT over the L side, mild facial droop, mild tactile extniction Lab / Micro Data 03/28/25 05:59 03/28/25 05:59 Labs: Laboratory Results - last 24 hr 03/28/25 20:41: POC Glucose 136 H Imaging Radiology Impression Brain CT 03/28/25 20:44 IMPRESSION: NO ACUTE FINDINGS Reading Location: [id number] Head/Neck CTA 03/28/25 21:05 IMPRESSION: Occluded right cervical ICA. Critical results were communicated to Dr. Kevin Reading Location: [id number] Chest X-Ray 03/28/25 22:25 IMPRESSION: No Acute Findings. Reading Location: [id number] KUB X-Ray 03/28/25 22:25 IMPRESSION: Probable constipation. Nonspecific bowel gas pattern. Reading Location: [id number] Active Medications Active Medications Active Medications: Current Medications Generic Name Dose Route Start Last Admin Trade Name Freq PRN Reason Stop Dose Admin Acetaminophen 1,000 mg 03/24/25 14:00 03/29/25 05:50 Acetaminophen 500 Mg Tablet PO Not Given Q8 ROSELIA Acetylcysteine 800 mg 03/23/25 12:15 03/29/25 06:48 Acetylcysteine 800 Mg/4 Ml Vial.Neb. INHALATION 800 mg Q6HWA.RT ROSELIA Administration Al Hydroxide/Mg Hydroxide 30 ml 03/22/25 19:18 03/22/25 19:39 Mag Hydrox/Al Hydrox/Simeth 30 Ml Udc PO 30 ml Q6H PRN PRN Administration HEARTBURN OR INDIGESTION Albuterol Sulfate 2.5 mg 03/19/25 11:37 Albuterol 2.5 Mg/3 Ml Vial.Neb. INHALATION Q2H PRN PRN SOB &/OR WHEEZING Albuterol/Ipratropium 3 ml 03/23/25 12:15 03/29/25 06:48 Ipratropium/Albuterol Sulfate 3 Ml Ampul.Neb INHALATION 3 ml Q6HWA.RT ROSELIA Administration Amlodipine Besylate 10 mg 03/22/25 10:00 03/29/25 11:11 Amlodipine 10 Mg Tablet PO Not Given DAILY ROSELIA Protocol Atorvastatin Calcium 80 mg 03/19/25 22:00 03/28/25 20:25 Atorvastatin Calcium 80 Mg Tablet PO 80 mg QHS ROSELIA Administration Calcium/Vitamin D 1 tablet 03/20/25 08:00 03/23/25 10:09 Calcium Carb/Vitamin D 1 Tablet Tablet PO 1 tablet DAILYCM ROSELIA Administration Diphenhydramine HCl 50 mg 03/28/25 21:25 Diphenhydramine 50 Mg/Ml Syringe IV 03/29/25 21:26 X1 PRN Allergic Reaction Enoxaparin Sodium 40 mg 03/20/25 10:00 03/24/25 08:18 Enoxaparin 40 Mg/0.4 Ml Syringe SC 40 mg DAILY ROSELIA Administration Epinephrine HCl 0.3 mg 03/28/25 21:25 Epi Pen (Equiv) 0.3 Mg Syringe IM 03/29/25 21:26 X1 PRN Alleric Reaction Gabapentin 100 mg 03/19/25 12:00 03/29/25 08:06 Gabapentin 100 Mg Capsule PO 100 mg TIDCM ROSELIA Administration Guaifenesin 1,200 mg 03/21/25 10:00 03/29/25 11:11 Guaifenesin 1,200 Mg Tablet PO Not Given BID ROSELIA Hydralazine HCl 50 mg 03/19/25 22:00 03/29/25 11:10 Hydralazine 50 Mg Tablet PO Not Given BID ROSELIA Protocol Sodium Chloride 250 mls @ 15 mls/hr 03/19/25 12:04 IV .[id number] PRN Saline Flush Sodium Chloride 250 mls @ 15 mls/hr 03/19/25 12:04 IV .[id number] PRN Additional IVPB Infusion Nicardipine/Sodium Chloride 20 mg in 200 mls @ 50 mls/hr 03/28/25 21:25 Cardene-Toney 20 Mg/200 Ml Soln CONT INF Q4H PRN See Instructions Protocol 5 MG/HR Famotidine 20 mg/ Sodium 10 mls @ 300 mls/hr 03/28/25 21:25 Chloride IV 03/29/25 21:26 X1 PRN Allergic Reaction Ibuprofen 200 mg 03/19/25 22:00 03/23/25 02:22 Ibuprofen 200 Mg Tablet PO Not Given TID ROSELIA Labetalol HCl 20 mg 03/28/25 21:25 Labetalol 20 Mg/4 Ml Vial IV 03/29/25 21:26 X1 PRN BP Goals Latanoprost 1 drp 03/19/25 22:00 03/28/25 20:26 Latanoprost 0.005% 1 Bottle OPHTHALMIC 1 drp QHS ROSELIA Administration Levofloxacin 750 mg 03/27/25 10:00 03/29/25 08:09 Levofloxacin 750 Mg Tablet PO 750 mg Q48 ROSELIA Administration Lidocaine 1 patch 03/19/25 14:00 03/29/25 11:11 Lidocaine 5% Patch TOPICAL Not Given DAILY [facility] Protocol Loratadine 10 mg 03/19/25 17:23 Loratadine 10 Mg Tablet PO DAILY PRN Allergies Losartan Potassium 100 mg 03/20/25 10:00 03/29/25 11:10 Losartan Potassium 100 Mg Tablet PO Not Given DAILY [facility] Methylprednisolone 125 mg 03/28/25 21:25 Methylprednisolone 125 Mg/2 Ml Vial IV 03/29/25 21:26 X1 PRN Allergic Reaction Metoprolol Tartrate 25 mg 03/19/25 22:00 03/29/25 11:10 Metoprolol Tartrate 25 Mg Tablet PO Not Given BID [facility] Protocol Morphine Sulfate 2 mg 03/24/25 13:02 Morphine 2 Mg/Ml Syringe IV Q3H PRN PRN Pain Score 6-10 Multivitamins/Minerals 1 cap 03/19/25 22:00 03/23/25 12:01 Multivitamin (Healthy Eyes) Capsule PO 1 cap BID ROSELIA Administration Nicotine 14 mg 03/19/25 14:00 03/29/25 11:11 Nicotine 14 Mg Patch TD Not Given DAILY [facility] [id number] Ethyl Esters 1 gm 03/20/25 10:00 03/29/25 11:10 Ransom-3 Acid Ethyl Esters 1 Gm Capsule PO Not Given DAILY ROSELIA Ondansetron HCl 4 mg 03/19/25 11:37 03/19/25 18:51 Ondansetron 4 Mg/2 Ml Vial IV 4 mg Q8H PRN PRN Administration NAUSEA/VOMITING Oxycodone HCl 5 mg 03/24/25 13:02 03/29/25 08:28 Oxycodone 5 Mg Tablet PO 5 mg Q4H PRN PRN Administration Pain Score 4-10 Polyethylene Glycol 17 gm 03/21/25 10:00 03/29/25 11:10 Polyethylene Glycol 3350 17 Gm Packet PO Not Given DAILY ROSELIA Prednisone 40 mg 03/29/25 08:00 03/29/25 08:07 Prednisone 20 Mg Tablet PO 40 mg BREAKFAST ROSELIA Administration Senna/Docusate Sodium 2 tablet 03/19/25 22:00 03/29/25 11:11 Senna/Docusate Sodium 1 Tablet PO Not Given BID ROSELIA Sodium Chloride 10 - 40 ml 03/19/25 12:04 03/28/25 22:02 0.9% Saline Lock 10 Ml Syringe IV 10 ml UD PRN Administration SALINE FLUSH Sodium Chloride 1 gm 03/21/25 12:19 03/29/25 08:08 Sodium Chloride 1 Gm Tablet PO 1 gm BID ROSELIA Administration Sodium Chloride 10 ml 03/28/25 21:25 0.9% Saline Lock 10 Ml Syringe IV UD PRN Before/After Tenecteplase Administration NIHSS NIHSS Nursing Documentation NIHSS Nursing Documentation: NIHSS: Ischemic Stroke/TIA Start: 03/29/25 04:41 Freq: Status: Active Protocol: Activity Type Activity Date Activity User E-sign Co-sign Detail Recorded Client Recorded Date Recorded By Document 03/28/25 21:37 [id number] 03/29/25 04:48 03/28/25 21:37 NIH Stroke Scale [NIHSS] A score of 0 is normal or asymptomatic . Total possible score is 42. Inpatient: RN or Physician to activate a stroke alert for onset of new stroke symptoms or with NIHSS increase >/= 3 points. Following change in neurological status, NIHSS will be performed per physician order or more frequently PRN. -1a. Level of Consciousness 1 - Not alert; Arousable by minor stimuli to obey, answer & respond -1b. LOC Questions 2 - Answers NEITHER question correctly -1c. LOC Commands 2 - Performs NEITHER task correctly -2. Best Gaze 0 - Normal -3. Visual 0 - No visual loss -4. Facial Palsy 1 - Minor paralysis ( flattened nasolabial fold , asymmetry on smiling) -5a. Left Arm 2 - Some effort against gravity; -5b. Right Arm 0 - No drift; arm holds 90 ( or 45) degrees for full 10 seconds -6a. Left Leg 3 - No effort against gravity ; leg falls to bed immediately -6b. Right Leg 0 - No drift; leg holds 30- degree position for full 5 seconds -7. Limb Ataxia 2 - Present in 2 limbs -8. Sensory 0 - Normal; no sensory loss -9. Best Language 2 - Severe aphasia; -10. Dysarthria 2 - Severe dysarthria; -11. Extinction and Inattention 0 - No abnormality -Total 17 Query Text:A score of 0 is normal or asymptomatic. Total possible score is 42 . ED: Notify Physician for NIHSS increase by > / = 3 points. Inpatient: RN or Physician to activate a stroke alert for NIHSS increase of > / = 3 points. Thrombolytic: Vital Signs & NIHSS Start: 03/28/25 21:26 Text: Assess and document vital signs and NIHSS Status: Active within 15 minutes prior to Tenecteplase administration Freq: [id number] Protocol: Activity Type Activity Date Activity User E-sign Co-sign Detail Recorded Client Recorded Date Recorded By Document 03/29/25 11:02 ARB [id number] 03/29/25 11:06 ARB 03/29/25 11:02 Vital Signs [Pulse] -Pulse Rate (60-100) 76 -Pulse Location Monitor [Respirations] -Respiratory Rate (12-18) 21 H -Respiratory rate source Monitor -Pulse Oximetry 92 -Oxygen Delivery Method Nasal Cannula -O2 L/MIN 5 [Blood Pressure] -Blood Pressure (90/60-120/80) 90/69 -Blood Pressure Mean 76 -Source Monitor -Position Semi-Fowlers -Blood Pressure Location Left Arm -Is the SBP > or = 180 No -Is the DBP > or = 105 No NIH Stroke Scale [NIHSS] A score of 0 is normal or asymptomatic . Total possible score is 42. Inpatient: RN or Physician to activate a stroke alert for onset of new stroke symptoms or with NIHSS increase >/= 3 points. Following change in neurological status, NIHSS will be performed per physician order or more frequently PRN. -1a. Level of Consciousness 0 - Alert; keenly responsive -1b. LOC Questions 0 - Answers BOTH questions correctly -1c. LOC Commands 0 - Performs BOTH tasks correctly -2. Best Gaze 0 - Normal -3. Visual 0 - No visual loss -4. Facial Palsy 1 - Minor paralysis ( flattened nasolabial fold , asymmetry on smiling) -5a. Left Arm 0 - No drift; arm holds 90 ( or 45) degrees for full 10 seconds -5b. Right Arm 0 - No drift; arm holds 90 ( or 45) degrees for full 10 seconds -6a. Left Leg 0 - No drift; leg holds 30- degree position for full 5 seconds -6b. Right Leg 0 - No drift; leg holds 30- degree position for full 5 seconds -7. Limb Ataxia 0 - Absent -8. Sensory 1 - Mild-to- moderate sensory loss; -9. Best Language 1 - Mild-to- moderate aphasia; -10. Dysarthria 0 - Normal -11. Extinction and Inattention 0 - No abnormality -Total 3 Query Text:A score of 0 is normal or asymptomatic. Total possible score is 42 . ED: Notify Physician for NIHSS increase by > / = 3 points. Inpatient: RN or Physician to activate a stroke alert for NIHSS increase of > / = 3 points. NIHSS 1a. Level of Consciousness: 0 - Alert; keenly responsive 1b. LOC Questions: 0 - Answers BOTH questions correctly 1c. LOC Commands: 0 - Performs BOTH tasks correctly 2. Best Gaze: 0 - Normal 3. Visual: 0 - No visual loss 4. Facial Palsy: 1 - Minor paralysis (flattened nasolabial fold, asymmetry on smiling) 5a. Left Arm: 1 - Drift; arm drifts downward but doesn?t hit the bed 5b. Right Arm: 0 - No drift; arm holds 90 (or 45) degrees for full 10 seconds 6a. Left Le - Some effort against gravity; 6b. Right Le - No drift; leg holds 30-degree position for full 5 seconds 7. Limb Ataxia: 0 - Absent 8. Sensory: 1 - [id number] sensory loss; 9. Best Language: 0 - No aphasia; normal 10. Dysarthria: 1 = [id number] dysarthria; 11. Extinction and Inattention: 1 - Visual, tactile, auditory, spatial, or personal inattention; Total: 7
[2025-03-29] MEDS: Acetaminophen 500 MG Tablet 1000 MG PO ×2 (14:38→22:17)
--- NOTE | 2025-03-29 20:37 | NURSING ---
2000- TNK handout/ education brought bedside and reviewed with daughter and patient by this RN. No questions expressed at this time.
[2025-03-29] MEDS: hydrALAZINE 50 MG Tablet PO (22:11)
[2025-03-29] MEDS: Atorvastatin Calcium 80 MG Tablet PO (22:12)
[2025-03-29] MEDS: Metoprolol Tartrate 25 MG Tablet PO (22:12)
[2025-03-29] MEDS: Senna/Docusate Sodium 1 Tablet 2 TABLET PO (22:14)
[2025-03-29] MEDS: 0.9% Saline Lock 10 ML Syringe IV (22:14)
[2025-03-29] MEDS: Latanoprost 0.005% 1 Bottle 1 DRP OPHTHALMIC (22:15)
[2025-03-29] MEDS: guaiFENesin 1,200 MG Tablet 1200 MG PO (22:21)
--- NOTE | 2025-03-29 22:39 | CT_ITS ---
PROCEDURE: BRAIN/HEAD WITHOUT CONTRAST 03/29/2025 REASON FOR EXAM: S/P 24 HRS SINK TNK, R/O HEMORRHAGIC STROKE TECHNIQUE: Head CT without intravenous contrast. Coronal and Sagittal reconstruction series were provided. One or more dose reduction techniques were used (e.g., Automated exposure control, adjustment of the mA and/or kV according to patient size, use of iterative reconstruction technique. RADIATION DOSE SUMMARY: CTDlvol: 44.99 mGy DLP: 796.11 mGycm COMPARISON: 03/28/2025. FINDINGS: New hypodensity extending of the peripherally within the right parietal lobe likely representing revolving watershed infarction secondary to the occluded right ICA visualized on yesterday's CTA. No evidence of acute hemorrhage. Mild global parenchymal atrophy. Periventricular white matter hypodensity likely representing mild chronic microvascular ischemia. CT/Brain/Head without Contrast IMPRESSION: Right parietal lobe hypodensity likely representing a watershed infarction favo red to be sequela of an occluded right ICA. No evidence of acute hemorrhage. Reading Location: [id number]
[2025-03-30] VITALS (31 sets, daily range): BP systolic 91–157; BP diastolic 42–73; PULSE 52–80; RESP 12–24; TEMP 36.5–37.6; O2SAT 86–98; BMI 31.8
[2025-03-30] MEDS: Acetaminophen 500 MG Tablet 1000 MG PO ×2 (05:36→23:01)
[2025-03-30] MEDS: oxyCODONE 5 MG Tablet PO (05:39)
[2025-03-30 05:50] LABS: Hematocrit 31.7 % (37-47); Hemoglobin 10.3 g/dL (12.0-15.0); Mean Corp Hgb Conc 32.5 g/dL (32-36); Mean Corpuscular Volume 89.3 fL (81-99); Mean Platelet Vol. 9.3 fl (6.2-12.0); Platelet Count 300 K/mm3 (150-450); RBC Distribution Width CV 14.6 % (11.6-14.6); RBC Distribution Width SD 47.4 fl (35.1-43.9); Red Blood Count 3.55 M/mm3 (4.2-5.4); White Blood Count 20.4 K/mm3 (4.4-11.0)
[2025-03-30 06:30] LABS: Anion Gap 9 (5-15); BUN 18 mg/dL (4-19); BUN/Creat Ratio 30.6 RATIO (10-20); Calcium,Total 8.7 mg/dL (7.6-11.0); Carbon Dioxide 29.6 mmol/L (21.0-32.0); Chloride 98 mmol/L (98-108); Creatinine, Serum 0.58 mg/dL (0.70-1.20); EST Glomerular Filtration Rate 88 (>60); Estimated Creatinine Clearance 44.35 ml/min (50-250); Glucose 93 mg/dL (70-99); Potassium 3.8 mmol/L (3.3-5.1); Sodium Level 136 mmol/L (133-145)
[2025-03-30] MEDS: Acetylcysteine 800 MG/4 ML VIAL.NEB. INHALATION ×2 (07:00→12:41)
[2025-03-30] MEDS: Ipratropium/Albuterol Sulfate 3 ML AMPUL.NEB INHALATION ×2 (07:00→12:41)
[2025-03-30] MEDS: Furosemide 40 MG/4 ML Vial IV ×2 (07:51→12:24)
[2025-03-30] MEDS: amLODIPine 10 MG Tablet PO (07:51)
[2025-03-30] MEDS: Gabapentin 100 MG Capsule PO ×3 (07:51→17:52)
[2025-03-30] MEDS: Omega-3 Acid Ethyl Esters 1 GM Capsule PO (07:51)
[2025-03-30] MEDS: hydrALAZINE 50 MG Tablet PO ×2 (07:52→22:58)
[2025-03-30] MEDS: Senna/Docusate Sodium 1 Tablet 2 TABLET PO ×2 (07:52→22:57)
[2025-03-30] MEDS: Metoprolol Tartrate 25 MG Tablet PO ×2 (07:54→22:59)
[2025-03-30] MEDS: Losartan Potassium 100 MG Tablet PO (07:54)
[2025-03-30] MEDS: Sodium Chloride 1 GM Tablet PO ×2 (07:54→22:59)
[2025-03-30] MEDS: guaiFENesin 1,200 MG Tablet 1200 MG PO ×2 (07:55→22:58)
--- NOTE | 2025-03-30 08:18 | PN.CC_ITS ---
Objective Data Objective Data Vital Signs: Vital Signs Last response 3 Temperature 36.8 C 03/30/25 07:00 Temperature Source Core 03/30/25 07:00 Pulse Rate 68 03/30/25 07:54 Pulse Strength Normal (2+) 03/29/25 20:48 Respiratory Rate 18 03/30/25 07:01 Respiratory Effort Normal, Non-Labored 03/30/25 04:00 Respiratory Depth Normal 03/30/25 04:00 Respiratory Pattern Normal 03/30/25 07:01 Blood Pressure 149/52 H 03/30/25 07:54 Blood Pressure Mean 81 03/30/25 07:00 Blood Pressure Source Monitor 03/30/25 07:00 Blood Pressure Position Semi-Fowlers 03/30/25 07:00 Blood Pressure Location Left Arm 03/30/25 07:00 Pulse Ox 94 03/30/25 07:01 Oxygen Delivery Method Airvo 03/30/25 07:00 Oxygen Flow Rate (L/min) 60 03/30/25 07:00 Fraction of Inspired Oxygen (FIO2) 65 03/30/25 07:01 I&O: I&O Last 24 Hours 3 03/29/25 03/29/25 03/30/25 11:59 23:59 11:59 Output Total 500 / 770 270 / 770 125 / 125 Balance -500 / -770 -270 / -770 -125 / -125 I&O: Total Stay 3 03/19/25 08:46 thru 03/30/25 05:09 Intake Total 9100 Output Total 1870 Balance 7230 Current Meds Ordered / Administered: Current meds ordered / Administered 3 Generic Name Dose Route Start Last Admin Trade Name Freq PRN Reason Stop Dose Admin Acetaminophen 1,000 mg 03/24/25 14:00 03/30/25 05:36 Acetaminophen 500 Mg Tablet PO 1,000 mg Q8 ROSELIA Administration Acetylcysteine 800 mg 03/23/25 12:15 03/30/25 07:00 Acetylcysteine 800 Mg/4 Ml Vial.Neb. INHALATION 800 mg Q6HWA.RT ROSELIA Administration Al Hydroxide/Mg Hydroxide 30 ml 03/22/25 19:18 03/22/25 19:39 Mag Hydrox/Al Hydrox/Simeth 30 Ml Udc PO 30 ml Q6H PRN PRN Administration HEARTBURN OR INDIGESTION Albuterol Sulfate 2.5 mg 03/19/25 11:37 Albuterol 2.5 Mg/3 Ml Vial.Neb. INHALATION Q2H PRN PRN SOB &/OR WHEEZING Albuterol/Ipratropium 3 ml 03/23/25 12:15 03/30/25 07:00 Ipratropium/Albuterol Sulfate 3 Ml Ampul.Neb INHALATION 3 ml Q6HWA.RT ROSELIA Administration Amlodipine Besylate 10 mg 03/22/25 10:00 03/30/25 07:51 Amlodipine 10 Mg Tablet PO 10 mg DAILY ROSELIA Administration Protocol Atorvastatin Calcium 80 mg 03/19/25 22:00 03/29/25 22:12 Atorvastatin Calcium 80 Mg Tablet PO 80 mg QHS ROSELIA Administration Calcium/Vitamin D 1 tablet 03/20/25 08:00 03/23/25 10:09 Calcium Carb/Vitamin D 1 Tablet Tablet PO 1 tablet DAILYCM ROSELIA Administration Enoxaparin Sodium 40 mg 03/20/25 10:00 03/24/25 08:18 Enoxaparin 40 Mg/0.4 Ml Syringe SC 40 mg DAILY ROSELIA Administration Gabapentin 100 mg 03/19/25 12:00 03/30/25 07:51 Gabapentin 100 Mg Capsule PO 100 mg TIDCM ROSELIA Administration Guaifenesin 1,200 mg 03/21/25 10:00 03/30/25 07:55 Guaifenesin 1,200 Mg Tablet PO 1,200 mg BID ROSELIA Administration Hydralazine HCl 50 mg 03/19/25 22:00 03/30/25 07:52 Hydralazine 50 Mg Tablet PO 50 mg BID ROSELIA Administration Protocol Sodium Chloride 250 mls @ 15 mls/hr 03/19/25 12:04 IV .[id number] PRN Saline Flush Sodium Chloride 250 mls @ 15 mls/hr 03/19/25 12:04 IV .[id number] PRN Additional IVPB Infusion Nicardipine/Sodium Chloride 20 mg in 200 mls @ 50 mls/hr 03/28/25 21:25 Cardene-Toney 20 Mg/200 Ml Soln CONT INF Q4H PRN See Instructions Protocol 5 MG/HR Levofloxacin 750 mg in 150 mls @ 100 mls/hr 03/31/25 10:00 Levaquin Iv IV 04/02/25 23:59 Q48 ROSELIA Ibuprofen 200 mg 03/19/25 22:00 03/23/25 02:22 Ibuprofen 200 Mg Tablet PO Not Given TID ROSELIA Latanoprost 1 drp 03/19/25 22:00 03/29/25 22:15 Latanoprost 0.005% 1 Bottle OPHTHALMIC 1 drp QHS ROSELIA Administration Lidocaine 1 patch 03/19/25 14:00 03/29/25 11:11 Lidocaine 5% Patch TOPICAL Not Given DAILY [facility] Protocol Loratadine 10 mg 03/19/25 17:23 Loratadine 10 Mg Tablet PO DAILY PRN Allergies Losartan Potassium 100 mg 03/20/25 10:00 03/30/25 07:54 Losartan Potassium 100 Mg Tablet PO 100 mg DAILY ROSELIA Administration Methylprednisolone 40 mg 03/29/25 15:00 03/30/25 07:55 Methylprednisolone 40 Mg/Ml Vial IV 40 mg DAILY ROSELIA Administration Metoprolol Tartrate 25 mg 03/19/25 22:00 03/30/25 07:54 Metoprolol Tartrate 25 Mg Tablet PO 25 mg BID [facility] Administration Protocol Morphine Sulfate 2 mg 03/24/25 13:02 Morphine 2 Mg/Ml Syringe IV Q3H PRN PRN Pain Score 6-10 Multivitamins/Minerals 1 cap 03/19/25 22:00 03/23/25 12:01 Multivitamin (Healthy Eyes) Capsule PO 1 cap BID [facility] Administration Nicotine 14 mg 03/19/25 14:00 03/29/25 11:11 Nicotine 14 Mg Patch TD Not Given DAILY [facility] Nuzsb-0-Uucu Ethyl Esters 1 gm 03/20/25 10:00 03/30/25 07:51 [place]-3 Acid Ethyl Esters 1 Gm Capsule PO 1 gm DAILY [facility] Administration Ondansetron HCl 4 mg 03/19/25 11:37 03/19/25 18:51 Ondansetron 4 Mg/2 Ml Vial IV 4 mg Q8H PRN PRN Administration NAUSEA/VOMITING Oxycodone HCl 5 mg 03/24/25 13:02 03/30/25 05:39 Oxycodone 5 Mg Tablet PO 5 mg Q4H PRN PRN Administration Pain Score 4-10 Polyethylene Glycol 17 gm 03/21/25 10:00 03/29/25 11:10 Polyethylene Glycol 3350 17 Gm Packet PO Not Given DAILY [facility] Senna/Docusate Sodium 2 tablet 03/19/25 22:00 03/30/25 07:52 Senna/Docusate Sodium 1 Tablet PO 2 tablet BID ROSELIA Administration Sodium Chloride 10 - 40 ml 03/19/25 12:04 03/29/25 22:14 0.9% Saline Lock 10 Ml Syringe IV 20 ml UD PRN Administration SALINE FLUSH Sodium Chloride 1 gm 03/21/25 12:19 03/30/25 07:54 Sodium Chloride 1 Gm Tablet PO 1 gm BID ROSELIA Administration Sodium Chloride 10 ml 03/28/25 21:25 0.9% Saline Lock 10 Ml Syringe IV UD PRN Before/After Tenecteplase Administration Lab / Micro Data 03/30/25 05:33 03/30/25 05:33 Labs: Laboratory Results - last 24 hr 03/30/25 05:33: WBC 20.4 H, RBC 3.55 L, Hgb 10.3 L, Hct 31.7 L, MCV 89.3, MCH 29.0, MCHC 32.5, RDW Std Deviation 47.4 H, RDW Coeff of Osiel 14.6, Plt Count 300, MPV 9.3, Sodium 136, Potassium 3.8, Chloride 98, Carbon Dioxide 29.6, Anion Gap 9, BUN 18, Creatinine 0.58 L, Estim Creat Clear Calc 44.35 L, Est GFR (MDRD) Non-Af 88, BUN/Creatinine Ratio 30.6 H, Glucose 93, Calcium 8.7 Imaging Radiology Impression Brain CT 03/29/25 22:39 IMPRESSION: Right parietal lobe hypodensity likely representing a watershed infarction favored to be sequela of an occluded right ICA. No evidence of acute hemorrhage. Reading Location: [place] [id number] Assessment and Plan . Assessment and plan: Subjective: No acute events o/n. Still with some weakness/dysarthria but improving. Fluctuating between 8L NC and HHFNC Physical Exam: Gen - NAD, elderly, fatigued HEENT - MM dry. Sclera anicteric Resp - +crackles. Breathing nonlabored CV - RRR. No m/g/r Abd - Soft, NT, ND Ext - No c/c/e. Skin - No rashes? Neuro - +mild L sided weakness, dysarthria, improving I have reviewed the pertinent vital sign, laboratory, and imaging data. 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 Had prior R CEA for carotid stenosis in 03/2024 as well, on plavix for this though was held for past few days for possible kyphoplasty # Pseudomonas PNA # SBO/ileus # Acute encephalopathy # T12 compression fracture # h/o TIA # HTN # HLD # Osteoporosis PLAN: -Cont close ICU monitoring, Q1h neuro checks after TNK. MR brain confirms acute CVA. Neurology following, f/u additional recs -Back up to airvo 60%/60L, wean to keep sats > 90%. Cont duonebs/mucomyst, added CPT as well given substantial secretions. Repeat CXR, consider ABG if worsening -Switched prednisone to IV solumedrol for now, can likely switch back to PO if remains stable -Cont levaquin (switched to IV for now after CVA). Consider broadening abx if worsening hypoxia/infiltrates -PRN diuresis to maintain euvolemia -Surgery following for ileus, monitor for worsening abd sx. No recurrent vomiting so far -Ortho previously following, kyphoplasty deferred pending improvement in other medical issues/respiratory failure FEN/GI: Cleared for minced diet Proph DVT/GI: SCDs Code status: DNR but OK with intubation Updated family at bedside Critical Care Time: 50 mins The entirety of this encounter was done via telemedicine using both audio and video. Consent was unable to be obtained for the telemedicine encounter due to the patient's mental status.
--- NOTE | 2025-03-30 08:43 | PCM.PN.HOSP ---
Reason for Visit Reason for Visit: Diagnoses Elevated white blood cell count, unspecified (03/19/25) Hypo-osmolality and hyponatremia (03/19/25) Acute and chronic respiratory failure with hypoxia (03/19/25) Ileus, unspecified (03/19/25) Constipation, unspecified (03/19/25) Dorsalgia, unspecified (03/19/25) Age-related osteoporosis without current pathological fracture (03/19/25) Difficulty in walking, not elsewhere classified (03/19/25) Stable burst fracture of T11-T12 vertebra, initial encounter for closed fracture (03/19/25) Unspecified fall, initial encounter (03/19/25) Subjective Subjective Saw patient at bedside this morning. Daughter and son are present. Saw the patient well teleneurology was seeing her. Neurology noted that patient has some continued left-sided deficits including sensory deficits and left arm drift, but overall she is doing well considering the stroke that she had. MRI brain showed a significant area of right temporoparietal restricted diffusion secondary to stroke. Neurology noted that this was likely a plaque that broke off and occluded, but that occlusion is resolved now. Noted that there will be no need for vascular stenting in that area at this point. Recommended dual antiplatelet therapy but if a procedure is planned, would be okay for only baby aspirin daily for now. Otherwise patient is on high flow nasal cannula and is fatigued appearing but is answering questions appropriately. No other new concerns this morning. Objective Data Objective Data Vital Signs: Vital Signs Temp Pulse Resp BP Pulse Ox O2 Del Method O2 Flow Rate 98.2 F 62 21 H 154/60 H 98 Airvo 60 03/30/25 08:00 03/30/25 08:00 03/30/25 08:00 03/30/25 08:00 03/30/25 08:00 03/30/25 08:00 03/30/25 08:00 FiO2 65 03/30/25 08:00 Oxygen Flow Rate (L/min) 60 Oxygen Delivery Method Airvo Weight: 73.5 kg Body Mass Index (BMI) 31.8 Intake & Output: Intake and Output for Last 24 Hours 03/28/25 03/29/25 03/30/25 23:59 23:59 23:59 Intake Total 1350 / 1350 Output Total 770 / 770 125 / 125 Balance 1350 / 1200 -770 / -770 -125 / -125 Lab / Micro Data 03/30/25 05:33 03/30/25 05:33 Labs: Laboratory Results - last 24 hr 03/30/25 05:33: WBC 20.4 H, RBC 3.55 L, Hgb 10.3 L, Hct 31.7 L, MCV 89.3, MCH 29.0, MCHC 32.5, RDW Std Deviation 47.4 H, RDW Coeff of Osiel 14.6, Plt Count 300, MPV 9.3, Sodium 136, Potassium 3.8, Chloride 98, Carbon Dioxide 29.6, Anion Gap 9, BUN 18, Creatinine 0.58 L, Estim Creat Clear Calc 44.35 L, Est GFR (MDRD) Non-Af 88, BUN/Creatinine Ratio 30.6 H, Glucose 93, Calcium 8.7 Micro: Microbiology 03/20/25 15:50 Sputum, Expectorated/Coughed Gram Stain - Final 03/20/25 15:50 Sputum, Expectorated/Coughed Respiratory Culture - Final Pseudomonas aeruginosa Radiography Diagnostic Testing: Radiology Impression Brain CT 03/29/25 22:39 IMPRESSION: Right parietal lobe hypodensity likely representing a watershed infarction favored to be sequela of an occluded right ICA. No evidence of acute hemorrhage. Reading Location: [place] [id number] Physical Exam Const alert, oriented x3 and no apparent distress Constitutional Narrative: Elderly female, class I obesity, fatigued appearing but is A&Ox3 and answering questions with short appropriate responses, otherwise sitting back in bed fairly comfortably and in no acute distress. General Appearance: cooperative and comfortable HEENT normocephalic, head/scalp atraumatic, hearing grossly normal bilaterally, nasal mucous membranes and turbinates normal and moist oral mucous membranes Eyes PERRL, EOMs intact bilaterally and conjunctivae normal Eyes Narrative: Significant macular degeneration noted with poor vision. Neck full ROM Chest inspection of chest normal Resp normal respiratory effort and no use of accessory muscles Resp Narrative: Breathing comfortably on 50 L Airvo at rest. Mildly decreased breath sounds bilaterally particularly in lung bases with mild crackles noted throughout bilaterally. Similar to previous days though decreased respiratory excursion noted today. No wheezing noted. Cardio regular rate, regular rhythm, no murmurs and peripheral pulses 2+ throughout GI GI Narrative: Abdomen mildly distended but soft and no tenderness to palpation. Stable. Extremity normal to inspection and no pedal edema Skin no rashes or lesions noted Neuro oriented x3 Neuro Narrative: Mild left facial droop and left upper extremity drift noted. Left upper extremity sensory changes noted as well. Stable. Speech: speech normal Assessment & Plan Assessment/Plan (1) Intractable back pain: (2) T12 burst fracture: (3) Acute on chronic hypoxic respiratory failure: (4) Ileus: PLAN: Plan Patient is an 89-year-old female who presented to [facility] ED on 03/19/2025 with intractable back pain. 1. Intractable back pain secondary to T12 compression fracture, acute on chronic debility with inability to ambulate ? Orthopedic surgery following. PT/OT/case management following. Presented with worsening back pain after recent fall at home. MRI thoracic/lumbar spine showed a burst fracture at T12. Initial plan was for kyphoplasty with orthopedics but this was delayed due to patient respiratory status. Orthopedics noted that patient needed to be completely better from a respiratory standpoint to tolerate general anesthesia. Given her ongoing oxygen requirements, presume orthopedics will continue to hold off on procedure. Will consult pain management for consideration of pain injection and assistance with management of pain medications. Will have patient continue to work with therapy with hopes that patient may be medically ready for SNF placement in the next several days. Continue pain control with scheduled Tylenol, gabapentin and lidocaine patch and as needed oxycodone and IV morphine for now. 2. Acute on chronic hypoxic respiratory failure secondary to pseudomonal pneumonia, history of COPD ? On home continuous 2 L nasal cannula. Has required up to Airvo at 50 L during hospitalization. Sputum culture positive for Pseudomonas. Chest x-ray with mild pulmonary vascular congestion but no focal consolidations. Leukocytosis peaked at 23, now much improved. Patient was requiring Airvo for several days without much improvement on Levaquin. Gave doses of spot diuretics on 03/27 and 03/28 with improvement in respiratory status. Unfortunately patient requiring Airvo again after recent stroke but suspect this is primarily due to decreased respiratory exertion. Will give another spot dose of IV Lasix on 03/30 and wean supplemental oxygen as able. Continue p.o. Levaquin with stop date of 04/02. Continue scheduled aerosols, Acapella, I-S, Mucinex and Mucomyst. Continue home long-acting inhalers. 3. 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 Neurology following. Follows with vascular surgery in [place]; had right CEA done there in March 2024. Most recent ultrasound in 2024 showed moderate right extracranial ICA stenosis and mild left extracranial ICA stenosis. Unfortunately patient developed significant acute neurologic deficits on the evening of 03/28 including left-sided facial droop and left upper weakness and numbness/tingling. NIHSS score was 24. CTA head/neck showed right ICA occlusion with distal reconstitution. Discussed with neurology who recommended either emergent transfer for mechanical thrombectomy versus TNK. Family opted for TNK administration and monitoring here; TNK was given and patient was moved to the ICU for closer monitoring. Repeat CT head at 24 hours showed area of infarction but no hemorrhage. MRI brain on morning of 03/30 again showed area of infarction in the right temporoparietal lobe but no other concerning findings. Per neurology, suspect patient had a plaque from known carotid stenosis break off and cause the occlusion. No need for transfer as patient will not need any neurosurgical intervention to that area. Recommended dual antiplatelet therapy but noted that patient is okay for baby aspirin alone for now, as we will hold Plavix for possible pain injection. Will plan to resume Plavix 75 mg daily after pain injection. PT/OT/case management following as above. 4. Ileus, improving ? General Surgery followed. Patient did have 2 bowel movements on 03/22 but since then developed worsening nausea with no flatus. CT abdomen pelvis on 03/23 showed ileus but no evidence of bowel obstruction. Suspected ileus is multifactorial with narcotics and decreased mobility as large contributors. Per general surgery, no need for surgical intervention at this time. Repeat KUB on 03/25 with some improvement noted. Continue bowel regimen with suppository and enemas as needed. Completed 4 doses of IV Reglan with some improvement, now discontinued. Escalated to regular diet on 03/26 and has tolerated without issue. Continue to monitor. 5. 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 Suspect secondary to back pain and pseudomonal pneumonia. Sodium improved to 133 by 03/25. Continue salt tablets and fluid restricted diet. 6. Mild REBEKA, resolved ? Creatinine worsened to 1.22 on 03/23, baseline around 0.6. Suspect secondary to poor p.o. intake. Started on maintenance IV fluids with ileus with improvement back to baseline by 03/25. 7. Daily alcohol use ? Reports drinking about 2 beers daily. No signs of acute alcohol withdrawal during hospitalization, no need for CIWA protocol. 8. Tobacco abuse ? Continue nicotine patch while inpatient. Recommended cessation on discharge. Chronic medical conditions: ? 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 Complicates hospital course, care and prognosis. May need to uptitrate oxygen nocturnally while inpatient. ? Bilateral carotid artery stenosis: Had moderate right extracranial internal carotid artery stenosis and mild left extracranial internal carotid artery stenosis on last duplex in 2024, stable from previous. Notably Plavix is on hold as above. Continue home rosuvastatin. Continue outpatient follow-up with Dr. Araiza. ? Macular degeneration: Continue home eyedrops. ? Hypertension, hyperlipidemia: Continue home statin, metoprolol, irbesartan, hydralazine, amlodipine. ? Osteoporosis: Vitamin D level greater than 30. Holding home calcium carbonate and vitamin D supplementation until bowel function improves. Is on injectable zoledronic acid yearly. Continue outpatient follow-up. DVT prophylaxis: Lovenox CODE STATUS: DNR CCA, okay for short-term intubation Expected disposition: SNF, TBD Total clinical time spent by myself addressing the patient's medical issues, reviewing all the data, and collaborating with patient's care team: 35 minutes. Charges/Coding Visit Charges Inpatient E&M: 48977 Subs Hosp L2 NIHSS NIHSS Nursing Documentation NIHSS Nursing Documentation: NIHSS: Ischemic Stroke/TIA Start: 03/29/25 04:41 Freq: Status: Active Protocol: Activity Type Activity Date Activity User E-sign Co-sign Detail Recorded Client Recorded Date Recorded By Document 03/28/25 21:37 GW [id number] 03/29/25 04:48 GW 03/28/25 21:37 NIH Stroke Scale [NIHSS] A score of 0 is normal or asymptomatic . Total possible score is 42. Inpatient: RN or Physician to activate a stroke alert for onset of new stroke symptoms or with NIHSS increase >/= 3 points. Following change in neurological status, NIHSS will be performed per physician order or more frequently PRN. -1a. Level of Consciousness 1 - Not alert; Arousable by minor stimuli to obey, answer & respond -1b. LOC Questions 2 - Answers NEITHER question correctly -1c. LOC Commands 2 - Performs NEITHER task correctly -2. Best Gaze 0 - Normal -3. Visual 0 - No visual loss -4. Facial Palsy 1 - Minor paralysis ( flattened nasolabial fold , asymmetry on smiling) -5a. Left Arm 2 - Some effort against gravity; -5b. Right Arm 0 - No drift; arm holds 90 ( or 45) degrees for full 10 seconds -6a. Left Leg 3 - No effort against gravity ; leg falls to bed immediately -6b. Right Leg 0 - No drift; leg holds 30- degree position for full 5 seconds -7. Limb Ataxia 2 - Present in 2 limbs -8. Sensory 0 - Normal; no sensory loss -9. Best Language 2 - Severe aphasia; -10. Dysarthria 2 - Severe dysarthria; -11. Extinction and Inattention 0 - No abnormality -Total 17 Query Text:A score of 0 is normal or asymptomatic. Total possible score is 42 . ED: Notify Physician for NIHSS increase by > / = 3 points. Inpatient: RN or Physician to activate a stroke alert for NIHSS increase of > / = 3 points. Thrombolytic: Vital Signs & NIHSS Start: 03/28/25 21:26 Text: Assess and document vital signs and NIHSS Status: Active within 15 minutes prior to Tenecteplase administration Freq: [id number],[id number],Q2H Protocol: Activity Type Activity Date Activity User E-sign Co-sign Detail Recorded Client Recorded Date Recorded By Document 03/30/25 08:00 ARB [id number] 03/30/25 08:24 ARB 03/30/25 08:00 Vital Signs [Temperature Protocol: VS] -Temperature (97.8 F-99.1 F) 98.2 F -Temperature Source Core [Pulse] -Pulse Rate (60-100) 62 -Pulse Location Monitor [Respirations] -Respiratory Rate (12-18) 21 H -Respiratory rate source Monitor -Pulse Oximetry 98 -Oxygen Delivery Method Airvo -O2 L/MIN (L/min) 60 -FIO2 % 65 [Blood Pressure] -Blood Pressure (90/60-120/80) 154/60 H -Blood Pressure Mean (mm Hg) 91 -Source Monitor -Position Semi-Fowlers -Blood Pressure Location Left Arm -Is the SBP > or = 180 No -Is the DBP > or = 105 No NIH Stroke Scale [NIHSS] A score of 0 is normal or asymptomatic . Total possible score is 42. Inpatient: RN or Physician to activate a stroke alert for onset of new stroke symptoms or with NIHSS increase >/= 3 points. Following change in neurological status, NIHSS will be performed per physician order or more frequently PRN. -1a. Level of Consciousness 0 - Alert; keenly responsive -1b. LOC Questions 0 - Answers BOTH questions correctly -1c. LOC Commands 0 - Performs BOTH tasks correctly -2. Best Gaze 0 - Normal -3. Visual 0 - No visual loss -4. Facial Palsy 1 - Minor paralysis ( flattened nasolabial fold , asymmetry on smiling) -5a. Left Arm 0 - No drift; arm holds 90 ( or 45) degrees for full 10 seconds -5b. Right Arm 0 - No drift; arm holds 90 ( or 45) degrees for full 10 seconds -6a. Left Leg 0 - No drift; leg holds 30- degree position for full 5 seconds -6b. Right Leg 0 - No drift; leg holds 30- degree position for full 5 seconds -7. Limb Ataxia 0 - Absent -8. Sensory 1 - Mild-to- moderate sensory loss; -9. Best Language 1 - Mild-to- moderate aphasia; -10. Dysarthria 0 - Normal -11. Extinction and Inattention 0 - No abnormality -Total 3 Query Text:A score of 0 is normal or asymptomatic. Total possible score is 42 . ED: Notify Physician for NIHSS increase by > / = 3 points. Inpatient: RN or Physician to activate a stroke alert for NIHSS increase of > / = 3 points.
--- NOTE | 2025-03-30 09:00 | MRI_ITS ---
PROCEDURE: BRAIN WITHOUT CONTRAST 03/30/2025 REASON FOR EXAM: CVA TECHNIQUE: Noncontrast brain MRI. Multiplanar and multisequence images were obtained. COMPARISON: 03/29/2025 CT. FINDINGS: Right temporo parietal restricted diffusion in keeping with the prior CT findings of a probable watershed infarction. No evidence of acute hemorrhage or hemorrhagic transformation. Mild global parenchymal atrophy. Periventricular white matter T2/FLAIR hyperintense foci likely representing chronic microvascular ischemia. MRI/Brain without Contrast IMPRESSION: Right temporoparietal acute infarction. No evidence of acute hemorrhage. Reading Location: [id number]
--- NOTE | 2025-03-30 11:35 | PN.NEURO_ITS ---
Assessment and Plan: Neuro Assessment/Plan AISHA PARKER is a 89 F with a hx of R carotid stenosis s/p R CEA on Plavix (that was held for surgical planning), chronic hypoxic respiratory failure from COPD on O2, HTN, HLD who was admitted for intractable back pain secondary to T12 compression fracture with plan for kyphoplasty with orthopedic surgery which was delayed due to current respiratory status, being evaluated by Teleneurology for L sided weakness Diagnosis: R parietotemporal infarction in the setting of R cervical ICA occlusion- Stroke etiology large vessels atherosclerotic disease Plan: - S/p TNK. CTH in 24 hours with no hemorrhagic transformation - Brain MRI Wo was completed which revealed the stroke in the parietotemporal area - Please start ASA 81 mg qd for secondary stroke prevention. Plavix to be resumed when possible after surgery - Ok for chemical DVT ppx from stroke standpoint - Avoid hypotension - Continue statin for secondary stroke prevention - Eunatremia - PT/OT/[employer] evaluation - Keep on tele while inpatient - Stroke education and vascular risk factors modification I personally attended this patient and spent a total time of 36 minutes evaluating this patient including clinical assessment, review of chart, medical history imaging, and determining appropriate treatment and workup. Subject: Neurology Subjective Family feels she slightly more confused today Objective Data Objective Data Vital Signs: Vital Signs Temp Pulse Resp BP Pulse Ox O2 Del Method O2 Flow Rate 98.6 F 59 L 18 146/53 H 90 Nasal Cannula 8 03/30/25 10:00 03/30/25 10:00 03/30/25 10:00 03/30/25 10:00 03/30/25 10:00 03/30/25 10:00 03/30/25 10:00 FiO2 65 03/30/25 09:00 Oxygen Flow Rate (L/min) 8 Oxygen Delivery Method Nasal Cannula Weight: 73.5 kg Body Mass Index (BMI) 31.8 Intake & Output: Intake and Output for Last 24 Hours 03/28/25 03/29/25 03/30/25 23:59 23:59 23:59 Intake Total 1350 / 1350 Output Total 770 / 770 1075 / 1075 Balance 1350 / 1200 -770 / -770 -1075 / -1075 Lab / Micro Data 03/30/25 05:33 03/30/25 05:33 Labs: Laboratory Results - last 24 hr 03/30/25 05:33: WBC 20.4 H, RBC 3.55 L, Hgb 10.3 L, Hct 31.7 L, MCV 89.3, MCH 29.0, MCHC 32.5, RDW Std Deviation 47.4 H, RDW Coeff of Osiel 14.6, Plt Count 300, MPV 9.3, Sodium 136, Potassium 3.8, Chloride 98, Carbon Dioxide 29.6, Anion Gap 9, BUN 18, Creatinine 0.58 L, Estim Creat Clear Calc 44.35 L, Est GFR (MDRD) Non-Af 88, BUN/Creatinine Ratio 30.6 H, Glucose 93, Calcium 8.7 Micro: Microbiology 03/20/25 15:50 Sputum, Expectorated/Coughed Gram Stain - Final 03/20/25 15:50 Sputum, Expectorated/Coughed Respiratory Culture - Final Pseudomonas aeruginosa Radiography Diagnostic Testing: Radiology Impression Brain CT 03/29/25 22:39 IMPRESSION: Right parietal lobe hypodensity likely representing a watershed infarction favored to be sequela of an occluded right ICA. No evidence of acute hemorrhage. Reading Location: [id number] Brain MRI 03/30/25 09:00 IMPRESSION: Right temporoparietal acute infarction. No evidence of acute hemorrhage. Reading Location: [id number] Physical Exam Narrative Patient is awake and alert, follows simple commands, EOMI, oriented x3, mild L arm drift, no drift on the RUE/RLE, LLE is briskly antigravity (also limited to pain), reduced sensation to LT over the L side, mild facial droop, mild tactile extniction NIHSS NIHSS Nursing Documentation NIHSS Nursing Documentation: NIHSS: Ischemic Stroke/TIA Start: 03/29/25 04:41 Freq: Status: Active Protocol: Activity Type Activity Date Activity User E-sign Co-sign Detail Recorded Client Recorded Date Recorded By Document 03/28/25 21:37 [id number] 03/29/25 04:48 03/28/25 21:37 NIH Stroke Scale [NIHSS] A score of 0 is normal or asymptomatic . Total possible score is 42. Inpatient: RN or Physician to activate a stroke alert for onset of new stroke symptoms or with NIHSS increase >/= 3 points. Following change in neurological status, NIHSS will be performed per physician order or more frequently PRN. -1a. Level of Consciousness 1 - Not alert; Arousable by minor stimuli to obey, answer & respond -1b. LOC Questions 2 - Answers NEITHER question correctly -1c. LOC Commands 2 - Performs NEITHER task correctly -2. Best Gaze 0 - Normal -3. Visual 0 - No visual loss -4. Facial Palsy 1 - Minor paralysis ( flattened nasolabial fold , asymmetry on smiling) -5a. Left Arm 2 - Some effort against gravity; -5b. Right Arm 0 - No drift; arm holds 90 ( or 45) degrees for full 10 seconds -6a. Left Leg 3 - No effort against gravity ; leg falls to bed immediately -6b. Right Leg 0 - No drift; leg holds 30- degree position for full 5 seconds -7. Limb Ataxia 2 - Present in 2 limbs -8. Sensory 0 - Normal; no sensory loss -9. Best Language 2 - Severe aphasia; -10. Dysarthria 2 - Severe dysarthria; -11. Extinction and Inattention 0 - No abnormality -Total 17 Query Text:A score of 0 is normal or asymptomatic. Total possible score is 42 . ED: Notify Physician for NIHSS increase by > / = 3 points. Inpatient: RN or Physician to activate a stroke alert for NIHSS increase of > / = 3 points. Thrombolytic: Vital Signs & NIHSS Start: 03/28/25 21:26 Text: Assess and document vital signs and NIHSS Status: Active within 15 minutes prior to Tenecteplase administration Freq: [id number],[id number],Q2H Protocol: Activity Type Activity Date Activity User E-sign Co-sign Detail Recorded Client Recorded Date Recorded By Document 03/30/25 10:00 ARB [id number] 03/30/25 10:43 ARB 03/30/25 10:00 Vital Signs [Temperature Protocol: VS] -Temperature (97.8 F-99.1 F) 98.6 F -Temperature Source Core [Pulse] -Pulse Rate (60-100) 59 L -Pulse Location Monitor [Respirations] -Respiratory Rate (12-18) 18 -Respiratory rate source Monitor -Pulse Oximetry 90 -Oxygen Delivery Method Nasal Cannula -O2 L/MIN (L/min) 8 [Blood Pressure] -Blood Pressure (90/60-120/80) 146/53 H -Blood Pressure Mean (mm Hg) 84 -Source Monitor -Position Semi-Fowlers -Blood Pressure Location Left Arm -Is the SBP > or = 180 No -Is the DBP > or = 105 No NIH Stroke Scale [NIHSS] A score of 0 is normal or asymptomatic . Total possible score is 42. Inpatient: RN or Physician to activate a stroke alert for onset of new stroke symptoms or with NIHSS increase >/= 3 points. Following change in neurological status, NIHSS will be performed per physician order or more frequently PRN. -1a. Level of Consciousness 0 - Alert; keenly responsive -1b. LOC Questions 0 - Answers BOTH questions correctly -1c. LOC Commands 0 - Performs BOTH tasks correctly -2. Best Gaze 0 - Normal -3. Visual 0 - No visual loss -4. Facial Palsy 1 - Minor paralysis ( flattened nasolabial fold , asymmetry on smiling) -5a. Left Arm 0 - No drift; arm holds 90 ( or 45) degrees for full 10 seconds -5b. Right Arm 0 - No drift; arm holds 90 ( or 45) degrees for full 10 seconds -6a. Left Leg 0 - No drift; leg holds 30- degree position for full 5 seconds -6b. Right Leg 0 - No drift; leg holds 30- degree position for full 5 seconds -7. Limb Ataxia 0 - Absent -8. Sensory 1 - Mild-to- moderate sensory loss; -9. Best Language 1 - Mild-to- moderate aphasia; -10. Dysarthria 0 - Normal -11. Extinction and Inattention 0 - No abnormality -Total 3 Query Text:A score of 0 is normal or asymptomatic. Total possible score is 42 . ED: Notify Physician for NIHSS increase by > / = 3 points. Inpatient: RN or Physician to activate a stroke alert for NIHSS increase of > / = 3 points. NIHSS 1a. Level of Consciousness: 0 - Alert; keenly responsive 1b. LOC Questions: 0 - Answers BOTH questions correctly 1c. LOC Commands: 0 - Performs BOTH tasks correctly 2. Best Gaze: 0 - Normal 3. Visual: 0 - No visual loss 4. Facial Palsy: 1 - Minor paralysis (flattened nasolabial fold, asymmetry on smiling) 5a. Left Arm: 1 - Drift; arm drifts downward but doesn?t hit the bed 5b. Right Arm: 0 - No drift; arm holds 90 (or 45) degrees for full 10 seconds 6a. Left Le - Some effort against gravity; 6b. Right Le - No drift; leg holds 30-degree position for full 5 seconds 7. Limb Ataxia: 0 - Absent 8. Sensory: 1 - [id number] sensory loss; 9. Best Language: 0 - No aphasia; normal 10. Dysarthria: 1 = [id number] dysarthria; 11. Extinction and Inattention: 1 - Visual, tactile, auditory, spatial, or personal inattention; Total: 7
--- NOTE | 2025-03-30 12:05 | RAD_ITS ---
PROCEDURE: CHEST 1 VIEW (PORTABLE) 03/30/2025 REASON FOR EXAM: RESP FAILURE, PNA, CHF TECHNIQUE: Frontal view of the chest. COMPARISON: Chest radiograph 03/28/2025. FINDINGS: Hardware: None. Heart: Mild cardiomegaly. Calcific plaque of the thoracic aorta. Lungs: Consolidation within the right lower lung zone. Retrocardiac density with questionable air-fluid level. Trace bilateral pleural effusions. No pneumothorax. Bones: Degenerative changes are identified within the thoracic spine. RAD/Chest 1 View (Portable) IMPRESSION: 1. Right lower lung zone consolidation, most compatible with pneumonitis/pneumo dinesh or fluid overload. 2. New retrocardiac density with questionable air-fluid level. Findings may be due to patient positioning, pneumonitis/pneumonia or hiatal hernia. If clinically indicated, two-view chest radiograph could be obtained for further evaluation. Reading Location: [id number]
[2025-03-30] MEDS: Aspirin 81 MG TAB.CHEW PO (12:24)
[2025-03-30 13:58] LABS: D-Dimer Quantitative (DVT/PE) 3.62 FEU/ug/m (0.27-0.49)
[2025-03-30 14:42] LABS: Pro- Brain NATRIURETIC PEPTIDE 470 pg/mL (<=1800)
--- NOTE | 2025-03-30 15:28 | CT_ITS ---
PROCEDURE: CTA CHEST W/WO CONTRAST 03/30/2025 REASON FOR EXAM: RESP FAILURE, ASSESS FOR PE, ELEVATED DIMER TECHNIQUE: CTA axial imaging of the chest with intravenous contrast. Multiplanar and multisequence images were obtained. 3D post processing was performed PATIENT PREPARATION: Per protocol CONTRAST: 79 mL Isovue 370 One or more dose reduction techniques were used (e.g., Automated exposure control, adjustment of the mA and/or kV according to patient size, use of iterative reconstruction technique). RADIATION DOSE SUMMARY: CTDlvol: 13.4 mGy DLP: 451 mGycm COMPARISON: Chest radiograph 03/30/2025, CT chest 12/29/2022, thoracic spine CT and MRI on 03/19/2025 FINDINGS: Lymph nodes: No significant lymphadenopathy. Heart: Moderate multivessel coronary calcification. Thoracic Aorta: Aortic atherosclerosis. No aneurysm. Pulmonary Vessels: Respiratory motion limits evaluation to the lobar level in the left lower lobe. Otherwise there is no evidence of pulmonary embolism through the major subsegmental branches. Lungs and Airways: Nonobstructing debris present throughout the trachea and mainstem bronchi. There is mucous plugging in the distal airways at the left lung base. Diffuse bronchial wall thickening. Centrilobular emphysema. There is consolidation with volume loss in the lower lobes bilaterally. Pleura: Small right pleural effusion. Upper Abdomen: Unremarkable. Bones: There is a compression deformity at T12 with near-complete height loss, and 5 mm of retropulsion of fracture fragments. The spinal canal measures 6 mm in AP diameter at this level. Soft tissues: Mild body wall edema. CT/CTA Chest W/WO Contrast IMPRESSION: 1. No pulmonary embolism identified. 2. Nonobstructing debris throughout the proximal airways, with mucous plugging in the left lower lobe, suggestive of aspiration. Bibasilar consolidation with volume loss may be the result of atelectasis and/o r infection. 3. Small right pleural effusion. 4. Compression deformity at T12 with 5 mm retropulsion of fracture fragments, as described on recent prior exams. 5. Emphysema. Reading Location: [id number]
[2025-03-30] MEDS: Latanoprost 0.005% 1 Bottle 1 DRP OPHTHALMIC (23:02)
[2025-03-30] MEDS: Atorvastatin Calcium 80 MG Tablet PO (23:04)
[2025-03-31] VITALS (21 sets, daily range): BP systolic 87–142; BP diastolic 40–70; PULSE 55–82; RESP 15–27; TEMP 36.2–36.5; O2SAT 92–99; BMI 32.6
[2025-03-31 04:15] LABS: Hematocrit 28.2 % (37-47); Hemoglobin 9.2 g/dL (12.0-15.0); Mean Corp Hgb Conc 32.6 g/dL (32-36); Mean Corpuscular Hgb 28.8 pg (27.0-32.0); Mean Corpuscular Volume 88.1 fL (81-99); Mean Platelet Vol. 9.2 fl (6.2-12.0); Platelet Count 282 K/mm3 (150-450); RBC Distribution Width CV 14.6 % (11.6-14.6); RBC Distribution Width SD 46.9 fl (35.1-43.9); White Blood Count 15.4 K/mm3 (4.4-11.0)
[2025-03-31 05:30] LABS: Anion Gap 11 (5-15); BUN 23 mg/dL (4-19); BUN/Creat Ratio 39.6 RATIO (10-20); Calcium,Total 8.3 mg/dL (7.6-11.0); Carbon Dioxide 29.6 mmol/L (21.0-32.0); Chloride 97 mmol/L (98-108); Cholesterol 87 mg/dL (<=200); Creatinine, Serum 0.59 mg/dL (0.70-1.20); EST Glomerular Filtration Rate 87 (>60); Estimated Creatinine Clearance 44.35 ml/min (50-250); Glucose 98 mg/dL (70-99); High Density Lipoprotein 46 mg/dL; Low Density Lipoprotein Calc. 22 mg/dL; Potassium 3.1 mmol/L (3.3-5.1); Sodium Level 137 mmol/L (133-145); Triglycerides 99 mg/dL; Very Low Density Lipoprotein 20 mg/dL (5-40); cholesterol:hdl ratio screen 1.91
[2025-03-31] MEDS: Acetaminophen 500 MG Tablet 1000 MG PO ×2 (06:18→20:46)
[2025-03-31] MEDS: Ipratropium/Albuterol Sulfate 3 ML AMPUL.NEB INHALATION ×3 (06:51→20:21)
[2025-03-31] MEDS: Gabapentin 100 MG Capsule PO ×3 (09:30→17:13)
[2025-03-31] MEDS: levoFLOXacin IV 750 MG/150 ML BAG 100 MG IV (09:31)
[2025-03-31] MEDS: Enoxaparin 40 MG/0.4 ML Syringe SC (09:45)
[2025-03-31] MEDS: Aspirin 81 MG TAB.CHEW PO (09:45)
[2025-03-31] MEDS: Senna/Docusate Sodium 1 Tablet 2 TABLET PO ×2 (09:46→20:45)
[2025-03-31] MEDS: Metoprolol Tartrate 25 MG Tablet PO ×2 (09:48→20:44)
[2025-03-31] MEDS: hydrALAZINE 50 MG Tablet PO ×2 (09:49→20:45)
[2025-03-31] MEDS: Polyethylene Glycol 3350 17 GM PACKET PO (09:49)
[2025-03-31] MEDS: 0.9% Saline Lock 10 ML Syringe IV ×2 (10:58→20:47)
[2025-03-31] MEDS: Sodium Chloride 1 GM Tablet PO ×2 (10:59→20:46)
[2025-03-31] MEDS: guaiFENesin 1,200 MG Tablet 1200 MG PO ×2 (10:59→20:44)
[2025-03-31] MEDS: amLODIPine 10 MG Tablet PO (10:59)
[2025-03-31] MEDS: Lidocaine 5% Patch 1 PATCH TOPICAL (11:00)
[2025-03-31] MEDS: Losartan Potassium 100 MG Tablet PO (11:00)
[2025-03-31] MEDS: Omega-3 Acid Ethyl Esters 1 GM Capsule PO (11:00)
--- NOTE | 2025-03-31 12:36 | PN.CC_ITS ---
Assessment & Plan Assessment/Plan (1) Acute on chronic hypoxic respiratory failure: PLAN: Plan RECOMMENDATIONS: 1. Continue to wean supplemental oxygen to maintain saturations at or above 90%. 2. Continue antimicrobial therapy. 3. Continue scheduled bronchodilators and steroids. 4. Encourage incentive spirometer use and mobilize patient as tolerated. 5. Continue intermittent use of Lasix to maintain euvolemic state. IMPRESSIONS: 1. Acute on chronic hypoxemic respiratory failure Likely secondary to COPD exacerbation in the setting of Pseudomonas pneumonia. Continue to wean supplemental oxygen to maintain saturations at or above 90%. The patient will be maintained on antimicrobials, bronchodilators and steroids, as ordered. She will require outpatient follow-up after discharge with her primary [facility] consultant, Dr. Fleming. 2. Acute CVA status post tenecteplase Continue routine medical management per neurology recommendations. 3. T12 compression fracture/history of TIA/small bowel obstruction/ileus/occluded right ICA Complicates care, management, recovery and prognosis. Continue supportive measures as noted above. This note was generated with [employer] dictation software. It may contain incorrect words, spelling, and punctuation that were not noted in checking the note before signing. Subjective Subjective The patient was seen and examined at the bedside this morning. Events from the last 24 hours have been reviewed. The patient is currently afebrile, hemodynamically stable and maintaining appropriate oxygen saturations on 10 L/min via nasal cannula. According to the patient, she has a baseline oxygen requirement of 2 L/min and has been managed by Dr. Fleming on an outpatient basis for her COPD. Although she denies any shortness of breath, she does report ongoing low back pain. Objective Data Objective Data The patient's most recent lab work, culture data and imaging studies have all been personally reviewed. Sputum culture was positive for Pseudomonas aeruginosa. Vital Signs: Vital Signs Temp Pulse Resp BP Pulse Ox O2 Del Method O2 Flow Rate 97.7 F L 69 20 H 107/44 L 94 Airvo 10 03/31/25 08:41 03/31/25 09:49 03/31/25 08:41 03/31/25 09:49 03/31/25 08:41 03/31/25 08:41 03/31/25 08:00 FiO2 60 03/31/25 08:41 Oxygen Flow Rate (L/min) 10 Oxygen Delivery Method Airvo Weight: 166 lb 3.657 oz Body Mass Index (BMI) 32.6 Intake & Output: Intake and Output for Last 24 Hours 03/29/25 03/30/25 03/31/25 23:59 23:59 23:59 Intake Total 220 / 320 700 / 700 Output Total 770 / 770 1835 / 1910 875 / 875 Balance -770 / -770 -1615 / -1590 -175 / -175 Lab / Micro Data Attestation: I reviewed the patient's lab results. 03/31/25 03:53 03/31/25 03:53 Labs: Laboratory Results - last 24 hr 03/30/25 13:20: D-Dimer Quant (PE/DVT) 3.62 H*, NT pro BNP II 470, Triglycerides Cancelled, Cholesterol Cancelled, LDL Cholesterol, Calc Cancelled, VLDL Cholesterol Cancelled, HDL Cholesterol Cancelled, Cholesterol/HDL Ratio Cancelled 03/31/25 03:53: WBC 15.4 H, RBC 3.20 L, Hgb 9.2 L, Hct 28.2 L, MCV 88.1, MCH 28.8, MCHC 32.6, RDW Std Deviation 46.9 H, RDW Coeff of Osiel 14.6, Plt Count 282, MPV 9.2, Sodium 137, Potassium 3.1 L, Chloride 97 L, Carbon Dioxide 29.6, Anion Gap 11, BUN 23 H, Creatinine 0.59 L, Estim Creat Clear Calc 44.35 L, Est GFR (MDRD) Non-Af 87, BUN/Creatinine Ratio 39.6 H, Glucose 98, Calcium 8.3, Triglycerides 99, Cholesterol 87, LDL Cholesterol, Calc 22, VLDL Cholesterol 20, HDL Cholesterol 46, Cholesterol/HDL Ratio 1.91 Micro: Microbiology 03/20/25 15:50 Sputum, Expectorated/Coughed Gram Stain - Final 03/20/25 15:50 Sputum, Expectorated/Coughed Respiratory Culture - Final Pseudomonas aeruginosa Radiography Diagnostic Testing: Radiology Impression Chest X-Ray 03/30/25 12:05 IMPRESSION: 1. Right lower lung zone consolidation, most compatible with pneumonitis/pneumonia or fluid overload. 2. New retrocardiac density with questionable air-fluid level. Findings may be due to patient positioning, pneumonitis/pneumonia or hiatal hernia. If clinically indicated, two-view chest radiograph could be obtained for further evaluation. Reading Location: [id number] Chest CTA 03/30/25 15:28 IMPRESSION: 1. No pulmonary embolism identified. 2. Nonobstructing debris throughout the proximal airways, with mucous plugging in the left lower lobe, suggestive of aspiration. Bibasilar consolidation with volume loss may be the result of atelectasis and/or infection. 3. Small right pleural effusion. 4. Compression deformity at T12 with 5 mm retropulsion of fracture fragments, as described on recent prior exams. 5. Emphysema. Reading Location: [id number] Physical Exam Const alert and no apparent distress Constitutional Narrative: Sitting in bedside recliner. Daughter is present at the bedside. General Appearance: cooperative HEENT normocephalic and head/scalp atraumatic Eyes PERRL, EOMs intact bilaterally and conjunctivae normal Neck supple General: trachea midline Chest inspection of chest normal Resp normal respiratory effort Auscultation: diminished lung sounds; Negative for rales, rhonchi or wheezes Cardio regular rate and regular rhythm GI normal to inspection, nondistended, normoactive bowel sounds Extremity no clubbing, cyanosis or edema Skin no rashes or lesions noted Neuro CN's II-XII intact bilaterally and no focal motor deficits Psych Mood & Affect: flat affect Charges/Coding Visit Charges Inpatient E&M: 24584 Subs Hosp L2
--- NOTE | 2025-03-31 14:41 | PCM.PN.HOSP ---
Reason for Visit Reason for Visit: Diagnoses Elevated white blood cell count, unspecified (03/19/25) Hypo-osmolality and hyponatremia (03/19/25) Acute and chronic respiratory failure with hypoxia (03/19/25) Ileus, unspecified (03/19/25) Constipation, unspecified (03/19/25) Dorsalgia, unspecified (03/19/25) Age-related osteoporosis without current pathological fracture (03/19/25) Difficulty in walking, not elsewhere classified (03/19/25) Stable burst fracture of T11-T12 vertebra, initial encounter for closed fracture (03/19/25) Unspecified fall, initial encounter (03/19/25) Subjective Subjective Feeling ok. Objective Data Objective Data Vital Signs: Vital Signs Temp Pulse Resp BP Pulse Ox O2 Del Method O2 Flow Rate 36.5 C L 72 25 H 107/44 L 94 Airvo 10 03/31/25 08:41 03/31/25 13:58 03/31/25 13:58 03/31/25 09:49 03/31/25 12:45 03/31/25 08:41 03/31/25 12:45 FiO2 60 03/31/25 08:41 Oxygen Flow Rate (L/min) 10 Oxygen Delivery Method Airvo Weight: 75.4 kg Body Mass Index (BMI) 32.6 Intake & Output: Intake and Output for Last 24 Hours 03/29/25 03/30/25 03/31/25 23:59 23:59 23:59 Intake Total 220 / 320 700 / 700 Output Total 770 / 770 1835 / 1910 875 / 875 Balance -770 / -770 -1615 / -1590 -175 / -175 Lab / Micro Data 03/31/25 03:53 03/31/25 03:53 Labs: Laboratory Results - last 24 hr 03/30/25 13:20: NT pro BNP II 470, Triglycerides Cancelled, Cholesterol Cancelled, LDL Cholesterol, Calc Cancelled, VLDL Cholesterol Cancelled, HDL Cholesterol Cancelled, Cholesterol/HDL Ratio Cancelled 03/31/25 03:53: WBC 15.4 H, RBC 3.20 L, Hgb 9.2 L, Hct 28.2 L, MCV 88.1, MCH 28.8, MCHC 32.6, RDW Std Deviation 46.9 H, RDW Coeff of Osiel 14.6, Plt Count 282, MPV 9.2, Sodium 137, Potassium 3.1 L, Chloride 97 L, Carbon Dioxide 29.6, Anion Gap 11, BUN 23 H, Creatinine 0.59 L, Estim Creat Clear Calc 44.35 L, Est GFR (MDRD) Non-Af 87, BUN/Creatinine Ratio 39.6 H, Glucose 98, Calcium 8.3, Triglycerides 99, Cholesterol 87, LDL Cholesterol, Calc 22, VLDL Cholesterol 20, HDL Cholesterol 46, Cholesterol/HDL Ratio 1.91 Micro: Microbiology 03/20/25 15:50 Sputum, Expectorated/Coughed Gram Stain - Final 03/20/25 15:50 Sputum, Expectorated/Coughed Respiratory Culture - Final Pseudomonas aeruginosa Radiography Diagnostic Testing: Radiology Impression Chest CTA 03/30/25 15:28 IMPRESSION: 1. No pulmonary embolism identified. 2. Nonobstructing debris throughout the proximal airways, with mucous plugging in the left lower lobe, suggestive of aspiration. Bibasilar consolidation with volume loss may be the result of atelectasis and/or infection. 3. Small right pleural effusion. 4. Compression deformity at T12 with 5 mm retropulsion of fracture fragments, as described on recent prior exams. 5. Emphysema. Reading Location: [facility] Physical Exam Const alert and no apparent distress HEENT head/scalp atraumatic and moist oral mucous membranes Neck no lymphadenopathy and supple Resp normal respiratory effort, no retractions, no use of accessory muscles and clear to auscultation bilaterally Cardio regular rate, regular rhythm, S1 normal heart sound and S2 normal heart sound GI normal to inspection, nondistended, normoactive bowel sounds, soft to palpation, non-tender and non-distended Extremity normal to inspection and full ROM Neuro no focal motor deficits and no sensory deficits noted Sensorium / Orientation: awake, alert, oriented to person and oriented to place Coordination / Balance: [id number] test normal Motor Exam: strength 5/5 throughout Assessment & Plan Assessment/Plan (1) T12 burst fracture: PLAN: s/p fall. kyphoplasty held given respiratory failure. pain mgmt consulted for pain control. Currently on lidoderm, scheduled acetaminophen, PRN oxy and morphine. (2) Acute on chronic hypoxic respiratory failure: PLAN: 2/2 pneumonia and AECOPD weaned off Airvo. (3) Pneumonia: PLAN: pseudomonas on IV levofloxacin to be continued through the . 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 NIHSS score was 24. CTA head/neck showed right ICA occlusion with distal reconstitution. Discussed with neurology who recommended either emergent transfer for mechanical thrombectomy versus TNK. Family opted for TNK administration and monitoring here; TNK was given and patient was moved to the ICU for closer monitoring. Repeat CT head at 24 hours showed area of infarction but no hemorrhage. MRI brain on morning of 03/30 again showed area of infarction in the right temporoparietal lobe but no other concerning findings. Per neurology, suspect patient had a plaque from known carotid stenosis break off and cause the occlusion. No need for transfer as patient will not need any neurosurgical intervention to that area. Recommended dual antiplatelet therapy but noted that patient is okay for baby aspirin alone for now, as we will hold Plavix for possible pain injection. Will plan to resume Plavix 75 mg daily after pain injection. PT/OT/case management following as above. PLAN: Plan Hypokalemia replace and monitor Chronic medical conditions: ? 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 Complicates hospital course, care and prognosis. May need to uptitrate oxygen nocturnally while inpatient. ? Bilateral carotid artery stenosis: Had moderate right extracranial internal carotid artery stenosis and mild left extracranial internal carotid artery stenosis on last duplex in 2024, stable from previous. Notably Plavix is on hold as above. Continue home rosuvastatin. Continue outpatient follow-up with Dr. Araiza. ? Macular degeneration: Continue home eyedrops. ? Hypertension, hyperlipidemia: Continue home statin, metoprolol, irbesartan, hydralazine, amlodipine. ? Osteoporosis: Vitamin D level greater than 30. Holding home calcium carbonate and vitamin D supplementation until bowel function improves. Is on injectable zoledronic acid yearly. Continue outpatient follow-up. DVT prophylaxis: Lovenox CODE STATUS: DNR CCA, okay for short-term intubation Expected disposition: SNF, TBD DW patient's daughter. I explained that the patient is not terminal at this point, but has large hurdles moving forward. She states that the patient is not ready to give up and wants to keep on fighting. I did tell that she may benefit from oupt palliative care consultation. Greater than 50 minutes of which greater than 50% of the time was counsling the patient and daughter about the overall treatment, rehab, etc. Charges/Coding Visit Charges Inpatient E&M: 46295 Subs Hosp L3 NIHSS NIHSS Nursing Documentation NIHSS Nursing Documentation: NIHSS: Ischemic Stroke/TIA Start: 03/29/25 04:41 Freq: Status: Active Protocol: Activity Type Activity Date Activity User E-sign Co-sign Detail Recorded Client Recorded Date Recorded By Document 03/28/25 21:37 [id number] 03/29/25 04:48 03/28/25 21:37 NIH Stroke Scale [NIHSS] A score of 0 is normal or asymptomatic . Total possible score is 42. Inpatient: RN or Physician to activate a stroke alert for onset of new stroke symptoms or with NIHSS increase >/= 3 points. Following change in neurological status, NIHSS will be performed per physician order or more frequently PRN. -1a. Level of Consciousness 1 - Not alert; Arousable by minor stimuli to obey, answer & respond -1b. LOC Questions 2 - Answers NEITHER question correctly -1c. LOC Commands 2 - Performs NEITHER task correctly -2. Best Gaze 0 - Normal -3. Visual 0 - No visual loss -4. Facial Palsy 1 - Minor paralysis ( flattened nasolabial fold , asymmetry on smiling) -5a. Left Arm 2 - Some effort against gravity; -5b. Right Arm 0 - No drift; arm holds 90 ( or 45) degrees for full 10 seconds -6a. Left Leg 3 - No effort against gravity ; leg falls to bed immediately -6b. Right Leg 0 - No drift; leg holds 30- degree position for full 5 seconds -7. Limb Ataxia 2 - Present in 2 limbs -8. Sensory 0 - Normal; no sensory loss -9. Best Language 2 - Severe aphasia; -10. Dysarthria 2 - Severe dysarthria; -11. Extinction and Inattention 0 - No abnormality -Total 17 Query Text:A score of 0 is normal or asymptomatic. Total possible score is 42 . ED: Notify Physician for NIHSS increase by > / = 3 points. Inpatient: RN or Physician to activate a stroke alert for NIHSS increase of > / = 3 points. Thrombolytic: Vital Signs & NIHSS Start: 03/28/25 21:26 Text: Assess and document vital signs and NIHSS Status: Complete within 15 minutes prior to Tenecteplase administration Freq: [id number] Protocol: Activity Type Activity Date Activity User E-sign Co-sign Detail Recorded Client Recorded Date Recorded By Document 03/30/25 14:00 ARB [id number] 03/30/25 14:18 ARB 03/30/25 14:00 Vital Signs [Temperature Protocol: VS] -Temperature (36.6 C-37.3 C) 37.6 C H -Temperature Source Core [Pulse] -Pulse Rate (60-100) 62 -Pulse Location Monitor [Respirations] -Respiratory Rate (12-18) 18 -Respiratory rate source Monitor -Pulse Oximetry 91 -Oxygen Delivery Method Nasal Cannula -O2 L/MIN (L/min) 8 [Blood Pressure] -Blood Pressure (90/60-120/80) 91/42 L -Blood Pressure Mean (mm Hg) 58 -Source Monitor -Position Sitting -Blood Pressure Location Left Arm -Is the SBP > or = 180 No -Is the DBP > or = 105 No NIH Stroke Scale [NIHSS] A score of 0 is normal or asymptomatic . Total possible score is 42. Inpatient: RN or Physician to activate a stroke alert for onset of new stroke symptoms or with NIHSS increase >/= 3 points. Following change in neurological status, NIHSS will be performed per physician order or more frequently PRN. -1a. Level of Consciousness 0 - Alert; keenly responsive -1b. LOC Questions 0 - Answers BOTH questions correctly -1c. LOC Commands 0 - Performs BOTH tasks correctly -2. Best Gaze 0 - Normal -3. Visual 0 - No visual loss -4. Facial Palsy 1 - Minor paralysis ( flattened nasolabial fold , asymmetry on smiling) -5a. Left Arm 0 - No drift; arm holds 90 ( or 45) degrees for full 10 seconds -5b. Right Arm 0 - No drift; arm holds 90 ( or 45) degrees for full 10 seconds -6a. Left Leg 0 - No drift; leg holds 30- degree position for full 5 seconds -6b. Right Leg 0 - No drift; leg holds 30- degree position for full 5 seconds -7. Limb Ataxia 0 - Absent -8. Sensory 1 - Mild-to- moderate sensory loss; -9. Best Language 1 - Mild-to- moderate aphasia; -10. Dysarthria 0 - Normal -11. Extinction and Inattention 0 - No abnormality -Total 3 Query Text:A score of 0 is normal or asymptomatic. Total possible score is 42 . ED: Notify Physician for NIHSS increase by > / = 3 points. Inpatient: RN or Physician to activate a stroke alert for NIHSS increase of > / = 3 points.
[2025-03-31] MEDS: Potassium Chloride Oral Tablet 20 MEQ 40 MEQ PO (17:13)
[2025-03-31] MEDS: Atorvastatin Calcium 80 MG Tablet PO (20:46)
[2025-03-31] MEDS: Latanoprost 0.005% 1 Bottle 1 DRP OPHTHALMIC (20:49)
[2025-04-01] VITALS (24 sets, daily range): BP systolic 118–194; BP diastolic 45–84; PULSE 22–95; RESP 16–27; TEMP 36.4–36.9; O2SAT 86–100; BMI 32.8
[2025-04-01] MEDS: Acetaminophen 500 MG Tablet 1000 MG PO ×3 (05:25→22:34)
[2025-04-01 06:09] LABS: Absolute Lymphocyte Count 0.98 X10^3/uL (0.83-4.51); Absolute Neutrophil Count 12.1 X10^3/uL (2.0-7.7); Basophil# 0.02 X10^3/uL; Basophil% 0.1 % (0-1); Eosinophil# 0.04 X10^3/uL; Eosinophils% 0.3 % (0-5); Hematocrit 28.4 % (37-47); Hemoglobin 9.2 g/dL (12.0-15.0); Lymphocyte # 0.98 X10^3/ul (0.83-4.51); Mean Corp Hgb Conc 32.4 g/dL (32-36); Mean Corpuscular Hgb 28.8 pg (27.0-32.0); Mean Platelet Vol. 9.4 fl (6.2-12.0); Monocyte# 0.62 X10^3/uL; Monocyte% 4.4 % (0-10); NRBC Flagged by Analyzer 0 % (0-5); Neutrophil # 12.13 X10^3/uL (2.7-7.7); Neutrophil % 87.1 % (47-70); Platelet Count 295 K/mm3 (150-450); RBC Distribution Width CV 14.6 % (11.6-14.6); RBC Distribution Width SD 47.6 fl (35.1-43.9); Red Blood Count 3.19 M/mm3 (4.2-5.4)
[2025-04-01] MEDS: oxyCODONE 5 MG Tablet PO ×2 (06:40→14:49)
[2025-04-01 06:57] LABS: Anion Gap 11 (5-15); BUN 22 mg/dL (4-19); BUN/Creat Ratio 41.6 RATIO (10-20); Calcium,Total 8.3 mg/dL (7.6-11.0); Carbon Dioxide 27.5 mmol/L (21.0-32.0); Chloride 101 mmol/L (98-108); Creatinine, Serum 0.52 mg/dL (0.70-1.20); EST Glomerular Filtration Rate 90 (>60); Estimated Creatinine Clearance 45.07 ml/min (50-250); Glucose 91 mg/dL (70-99); Potassium 3.3 mmol/L (3.3-5.1); Sodium Level 139 mmol/L (133-145)
[2025-04-01] MEDS: Ipratropium/Albuterol Sulfate 3 ML AMPUL.NEB INHALATION ×3 (07:51→21:56)
--- NOTE | 2025-04-01 08:18 | PN.HOSP_ITS ---
Reason for Visit Reason for Visit: Diagnoses Elevated white blood cell count, unspecified (03/19/25) Hypo-osmolality and hyponatremia (03/19/25) Cerebral infarction, unspecified (03/19/25) Pneumonia, unspecified organism (03/19/25) Acute and chronic respiratory failure with hypoxia (03/19/25) Ileus, unspecified (03/19/25) Constipation, unspecified (03/19/25) Dorsalgia, unspecified (03/19/25) Age-related osteoporosis without current pathological fracture (03/19/25) Difficulty in walking, not elsewhere classified (03/19/25) Stable burst fracture of T11-T12 vertebra, initial encounter for closed fracture (03/19/25) Unspecified fall, initial encounter (03/19/25) Subjective Subjective Back on Airvo. Objective Data Objective Data Vital Signs: Vital Signs Temp Pulse Resp BP Pulse Ox O2 Del Method O2 Flow Rate 36.9 C 68 22 H 127/50 H 100 Airvo 10 04/01/25 02:00 04/01/25 07:52 04/01/25 07:52 04/01/25 02:00 04/01/25 07:52 04/01/25 02:00 03/31/25 22:00 FiO2 50 04/01/25 07:52 Oxygen Flow Rate (L/min) 10 Oxygen Delivery Method Airvo Weight: 75.8 kg Body Mass Index (BMI) 32.8 Intake & Output: Intake and Output for Last 24 Hours 03/30/25 03/31/25 04/01/25 23:59 23:59 23:59 Intake Total 220 / 320 940 / 1040 150 / 150 Output Total 1835 / 1910 1075 / 1225 300 / 300 Balance -1615 / -1590 -135 / -185 -150 / -150 Lab / Micro Data 04/01/25 05:03 04/01/25 05:03 Labs: Laboratory Results - last 24 hr 04/01/25 05:03: WBC 14.0 H, RBC 3.19 L, Hgb 9.2 L, Hct 28.4 L, MCV 89.0, MCH 28.8, MCHC 32.4, RDW Std Deviation 47.6 H, RDW Coeff of Osiel 14.6, Plt Count 295, MPV 9.4, Immature Gran % (Auto) 1.100 H, Neut % (Auto) 87.1 H, Lymph % (Auto) 7.0 L, [place] % (Auto) 4.4, Eos % (Auto) 0.3, Baso % (Auto) 0.1, Absolute Neuts (auto) 12.1 H, Absolute Lymphs (auto) 0.98, Nucleated RBC % 0, Sodium 139, Potassium 3.3, Chloride 101, Carbon Dioxide 27.5, Anion Gap 11, BUN 22 H, C reatinine 0.52 L, Estim Creat Clear Calc 45.07 L, Est GFR (MDRD) Non-Af 90, B UN/Creatinine Ratio 41.6 H, Glucose 91, Calcium 8.3 Micro: Microbiology 03/20/25 15:50 Sputum, Expectorated/Coughed Gram Stain - Final 03/20/25 15:50 Sputum, Expectorated/Coughed Respiratory Culture - Final Pseudomonas aeruginosa Physical Exam Const alert and no apparent distress Constitutional Narrative: up in chair on Airvo. No respiratory distress. No conversational dyspnea. HEENT head/scalp atraumatic and moist oral mucous membranes Resp normal respiratory effort, no retractions, no use of accessory muscles and clear to auscultation bilaterally Cardio regular rate, regular rhythm, S1 normal heart sound and S2 normal heart sound GI normal to inspection, nondistended, normoactive bowel sounds, soft to palpation and non-tender Extremity normal to inspection Assessment & Plan Assessment/Plan (1) T12 burst fracture: PLAN: s/p fall. kyphoplasty held given respiratory failure. pain mgmt consulted for pain control. DW Dr. Mcgee, he does not advise nerve block given the TNK she received and there is no data to suggest an appropriate timing. So will hold off at this time. Patient to follow up as outpt. Currently on lidoderm, scheduled acetaminophen, PRN oxy and morphine. (2) Acute on chronic hypoxic respiratory failure: PLAN: 2/2 pneumonia and AECOPD back on Airvo on Furosemide challenge. encouraged IS and flutter valve. (3) Pneumonia: PLAN: pseudomonas on IV levofloxacin to be continued through the 4th. 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 NIHSS score was 24. CTA head/neck showed right ICA occlusion with distal reconstitution. Discussed with neurology who recommended either emergent transfer for mechanical thrombectomy versus TNK. Family opted for TNK administration and monitoring here; TNK was given and patient was moved to the ICU for closer monitoring. Repeat CT head at 24 hours showed area of infarction but no hemorrhage. MRI brain on morning of 03/30 again showed area of infarction in the right temporoparietal lobe but no other concerning findings. Per neurology, suspect patient had a plaque from known carotid stenosis break off and cause the occlusion. No need for transfer as patient will not need any neurosurgical intervention to that area. Recommended dual antiplatelet therapy but noted that patient is okay for baby aspirin alone for now, as we will hold Plavix for possible pain injection. Will plan to resume Plavix 75 mg daily after pain injection. PT/OT/case management following as above. PLAN: Plan Hypokalemia * replace and monitor Chronic medical conditions: ? 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 Complicates hospital course, care and prognosis. May need to uptitrate oxygen nocturnally while inpatient. ? Bilateral carotid artery stenosis: Had moderate right extracranial internal carotid artery stenosis and mild left extracranial internal carotid artery stenosis on last duplex in 2024, stable from previous. Notably Plavix is on hold as above. Continue home rosuvastatin. Continue outpatient follow-up with Dr. Araiza. ? Macular degeneration: Continue home eyedrops. ? Hypertension, hyperlipidemia: Continue home statin, metoprolol, irbesartan, hydralazine, amlodipine. ? Osteoporosis: Vitamin D level greater than 30. Holding home calcium carbonate and vitamin D supplementation until bowel function improves. Is on injectable zoledronic acid yearly. Continue outpatient follow-up. DVT prophylaxis: Lovenox CODE STATUS: DNR CCA, okay for short-term intubation Expected disposition: SNF, TBD DW dtr at bedside. Charges/Coding Visit Charges Inpatient E&M: 75347 Subs Hosp L2 NIHSS NIHSS Nursing Documentation NIHSS Nursing Documentation: NIHSS: Ischemic Stroke/TIA Start: 03/29/25 04:41 Freq: Status: Complete Protocol: Activity Type Activity Date Activity User E-sign Co-sign Detail Recorded Client Recorded Date Recorded By Document 03/28/25 21:37 [id number] 03/29/25 04:48 GW 03/28/25 21:37 NIH Stroke Scale [NIHSS] A score of 0 is normal or asymptomatic . Total possible score is 42. Inpatient: RN or Physician to activate a stroke alert for onset of new stroke symptoms or with NIHSS increase >/= 3 points. Following change in neurological status, NIHSS will be performed per physician order or more frequently PRN. -1a. Level of Consciousness 1 - Not alert; Arousable by minor stimuli to obey, answer & respond -1b. LOC Questions 2 - Answers NEITHER question correctly -1c. LOC Commands 2 - Performs NEITHER task correctly -2. Best Gaze 0 - Normal -3. Visual 0 - No visual loss -4. Facial Palsy 1 - Minor paralysis ( flattened nasolabial fold , asymmetry on smiling) -5a. Left Arm 2 - Some effort against gravity; -5b. Right Arm 0 - No drift; arm holds 90 ( or 45) degrees for full 10 seconds -6a. Left Leg 3 - No effort against gravity ; leg falls to bed immediately -6b. Right Leg 0 - No drift; leg holds 30- degree position for full 5 seconds -7. Limb Ataxia 2 - Present in 2 limbs -8. Sensory 0 - Normal; no sensory loss -9. Best Language 2 - Severe aphasia; -10. Dysarthria 2 - Severe dysarthria; -11. Extinction and Inattention 0 - No abnormality -Total 17 Query Text:A score of 0 is normal or asymptomatic. Total possible score is 42 . ED: Notify Physician for NIHSS increase by > / = 3 points. Inpatient: RN or Physician to activate a stroke alert for NIHSS increase of > / = 3 points. Thrombolytic: Vital Signs & NIHSS Start: 03/28/25 21:26 Text: Assess and document vital signs and NIHSS Status: Complete within 15 minutes prior to Tenecteplase administration Freq: [id number],Q2H Protocol: Activity Type Activity Date Activity User E-sign Co-sign Detail Recorded Client Recorded Date Recorded By Document 03/30/25 14:00 ARB [id number] 03/30/25 14:18 ARB 03/30/25 14:00 Vital Signs [Temperature Protocol: VS] -Temperature (36.6 C-37.3 C) 37.6 C H -Temperature Source Core [Pulse] -Pulse Rate (60-100) 62 -Pulse Location Monitor [Respirations] -Respiratory Rate (12-18) 18 -Respiratory rate source Monitor -Pulse Oximetry 91 -Oxygen Delivery Method Nasal Cannula -O2 L/MIN (L/min) 8 [Blood Pressure] -Blood Pressure (90/60-120/80) 91/42 L -Blood Pressure Mean (mm Hg) 58 -Source Monitor -Position Sitting -Blood Pressure Location Left Arm -Is the SBP > or = 180 No -Is the DBP > or = 105 No NIH Stroke Scale [NIHSS] A score of 0 is normal or asymptomatic . Total possible score is 42. Inpatient: RN or Physician to activate a stroke alert for onset of new stroke symptoms or with NIHSS increase >/= 3 points. Following change in neurological status, NIHSS will be performed per physician order or more frequently PRN. -1a. Level of Consciousness 0 - Alert; keenly responsive -1b. LOC Questions 0 - Answers BOTH questions correctly -1c. LOC Commands 0 - Performs BOTH tasks correctly -2. Best Gaze 0 - Normal -3. Visual 0 - No visual loss -4. Facial Palsy 1 - Minor paralysis ( flattened nasolabial fold , asymmetry on smiling) -5a. Left Arm 0 - No drift; arm holds 90 ( or 45) degrees for full 10 seconds -5b. Right Arm 0 - No drift; arm holds 90 ( or 45) degrees for full 10 seconds -6a. Left Leg 0 - No drift; leg holds 30- degree position for full 5 seconds -6b. Right Leg 0 - No drift; leg holds 30- degree position for full 5 seconds -7. Limb Ataxia 0 - Absent -8. Sensory 1 - Mild-to- moderate sensory loss; -9. Best Language 1 - Mild-to- moderate aphasia; -10. Dysarthria 0 - Normal -11. Extinction and Inattention 0 - No abnormality -Total 3 Query Text:A score of 0 is normal or asymptomatic. Total possible score is 42 . ED: Notify Physician for NIHSS increase by > / = 3 points. Inpatient: RN or Physician to activate a stroke alert for NIHSS increase of > / = 3 points.
[2025-04-01] MEDS: Omega-3 Acid Ethyl Esters 1 GM Capsule PO (08:37)
[2025-04-01] MEDS: hydrALAZINE 50 MG Tablet PO ×2 (08:37→22:34)
[2025-04-01] MEDS: guaiFENesin 1,200 MG Tablet 1200 MG PO ×2 (08:38→22:33)
[2025-04-01] MEDS: Gabapentin 100 MG Capsule PO ×3 (08:38→16:51)
[2025-04-01] MEDS: Sodium Chloride 1 GM Tablet PO ×2 (08:38→22:33)
[2025-04-01] MEDS: Aspirin 81 MG TAB.CHEW PO (08:38)
[2025-04-01] MEDS: 0.9% Saline Lock 10 ML Syringe IV ×2 (08:38→16:51)
[2025-04-01] MEDS: Polyethylene Glycol 3350 17 GM PACKET PO (08:39)
[2025-04-01] MEDS: Lidocaine 5% Patch 1 PATCH TOPICAL (08:39)
--- NOTE | 2025-04-01 09:45 | PCM.PN.INT ---
Assessment & Plan Assessment/Plan (1) Acute on chronic hypoxic respiratory failure: PLAN: Plan RECOMMENDATIONS: 1. Continue to wean supplemental oxygen to maintain saturations at or above 90%. 2. Continue antimicrobial therapy. 3. Continue scheduled bronchodilators and steroids. 4. Encourage incentive spirometer use and mobilize patient as tolerated. 5. Will continue attempts at diuresis, as tolerated by hemodynamics and renal function. IMPRESSIONS: 1. Acute on chronic hypoxemic respiratory failure Likely secondary to COPD exacerbation in the setting of Pseudomonas pneumonia. Continue to wean supplemental oxygen to maintain saturations at or above 90%. The patient will be maintained on antimicrobials, bronchodilators and steroids, as ordered. She will require outpatient follow-up after discharge with her primary truss driver helper, Dr. Fleming. In addition, given that the patient is overall net positive from a volume perspective for the hospitalization, we will administer diuretics today. 2. Acute CVA status post tenecteplase Continue routine medical management per neurology recommendations. 3. T12 compression fracture/history of TIA/small bowel obstruction/ileus/occluded right ICA Complicates care, management, recovery and prognosis. Continue supportive measures as noted above. This note was generated with [employer] dictation software. It may contain incorrect words, spelling, and punctuation that were not noted in checking the note before signing. Subjective Subjective The patient was seen and examined at the bedside this morning. Events from the last 24 hours have been reviewed. The patient is currently afebrile, hemodynamically stable and maintaining appropriate oxygen saturations on heated high flow oxygen. The patient is documented to be overall net +5.5 L for the hospitalization. White blood cell count is elevated at 14,000. Chemistry profile was within normal limits. Objective Data Objective Data The patient's most recent lab work, culture data and imaging studies have all been personally reviewed. Sputum culture was positive for Pseudomonas aeruginosa. Vital Signs: Vital Signs Temp Pulse Resp BP Pulse Ox O2 Del Method O2 Flow Rate 98.4 F 70 22 H 127/50 H 100 Airvo 10 04/01/25 02:00 04/01/25 08:37 04/01/25 07:52 04/01/25 02:00 04/01/25 07:52 04/01/25 02:00 03/31/25 22:00 FiO2 50 04/01/25 07:52 Oxygen Flow Rate (L/min) 10 Oxygen Delivery Method Airvo Weight: 167 lb 1.766 oz Body Mass Index (BMI) 32.8 Intake & Output: Intake and Output for Last 24 Hours 03/30/25 03/31/25 04/01/25 23:59 23:59 23:59 Intake Total 220 / 320 940 / 1040 150 / 150 Output Total 1835 / 1910 1075 / 1225 300 / 300 Balance -1615 / -1590 -135 / -185 -150 / -150 Lab / Micro Data Attestation: I reviewed the patient's lab results. 04/01/25 05:03 04/01/25 05:03 Labs: Laboratory Results - last 24 hr 04/01/25 05:03: WBC 14.0 H, RBC 3.19 L, Hgb 9.2 L, Hct 28.4 L, MCV 89.0, MCH 28.8, MCHC 32.4, RDW Std Deviation 47.6 H, RDW Coeff of Osiel 14.6, Plt Count 295, MPV 9.4, Immature Gran % (Auto) 1.100 H, Neut % (Auto) 87.1 H, Lymph % (Auto) 7.0 L, [place] % (Auto) 4.4, Eos % (Auto) 0.3, Baso % (Auto) 0.1, Absolute Neuts (auto) 12.1 H, Absolute Lymphs (auto) 0.98, Nucleated RBC % 0, Sodium 139, Potassium 3.3, Chloride 101, Carbon Dioxide 27.5, Anion Gap 11, BUN 22 H, Creatinine 0.52 L, Estim Creat Clear Calc 45.07 L, Est GFR (MDRD) Non-Af 90, BUN/Creatinine Ratio 41.6 H, Glucose 91, Calcium 8.3 Micro: Microbiology 03/20/25 15:50 Sputum, Expectorated/Coughed Gram Stain - Final 03/20/25 15:50 Sputum, Expectorated/Coughed Respiratory Culture - Final Pseudomonas aeruginosa Radiography Diagnostic Testing: Radiology Impression Chest X-Ray 03/30/25 12:05 IMPRESSION: 1. Right lower lung zone consolidation, most compatible with pneumonitis/pneumonia or fluid overload. 2. New retrocardiac density with questionable air-fluid level. Findings may be due to patient positioning, pneumonitis/pneumonia or hiatal hernia. If clinically indicated, two-view chest radiograph could be obtained for further evaluation. Reading Location: [id number] Chest CTA 03/30/25 15:28 IMPRESSION: 1. No pulmonary embolism identified. 2. Nonobstructing debris throughout the proximal airways, with mucous plugging in the left lower lobe, suggestive of aspiration. Bibasilar consolidation with volume loss may be the result of atelectasis and/or infection. 3. Small right pleural effusion. 4. Compression deformity at T12 with 5 mm retropulsion of fracture fragments, as described on recent prior exams. 5. Emphysema. Reading Location: [id number] Physical Exam Const alert and no apparent distress Constitutional Narrative: Sitting in bedside recliner. Daughter is present at the bedside. General Appearance: cooperative HEENT normocephalic and head/scalp atraumatic Eyes PERRL, EOMs intact bilaterally and conjunctivae normal Neck supple General: trachea midline Chest inspection of chest normal Resp normal respiratory effort Auscultation: diminished lung sounds; Negative for rales, rhonchi or wheezes Cardio regular rate and regular rhythm GI normal to inspection, nondistended, normoactive bowel sounds Extremity no clubbing, cyanosis or edema Skin no rashes or lesions noted Neuro CN's II-XII intact bilaterally and no focal motor deficits Psych Mood & Affect: flat affect Charges/Coding Visit Charges Inpatient E&M: 12688 Subs Hosp L2
[2025-04-01] MEDS: Senna/Docusate Sodium 1 Tablet 2 TABLET PO ×2 (10:18→22:34)
[2025-04-01] MEDS: amLODIPine 10 MG Tablet PO (10:18)
[2025-04-01] MEDS: Metoprolol Tartrate 25 MG Tablet PO ×2 (10:19→22:33)
[2025-04-01] MEDS: Losartan Potassium 100 MG Tablet PO (10:19)
--- NOTE | 2025-04-01 16:04 | CON.PCM_ITS ---
Assessment & Plan Assessment/Plan (1) Age-related osteoporosis with current pathol fracture of vertebra: PLAN: On evaluation and assessment of the imaging and occur medical comorbidities including severe respiratory issues along with recent stroke I believe that intervention was not a reasonable nor safe option at this time. I spoke with Dr. Frias and he is in agreement. She recently received anticoagulation medication as well which would increase risk for bleeding associated with procedures. Furthermore I do not know if she isn't we will be able to tolerate safely laying flat nor the anesthetic due ot her respiratory issues a this time. We discussed at great length with the patient and her daughter possible treatment options for the compression fracture which include conservative treatment as well as intervention such as kyphoplasty. We discussed the kyphoplasty would not be recommended at this time and they understood. If she improves clinically this can be reconsidered in the future if still appropriate. Continue conservative treatment modalities including multimodal pain regimen along with physical therapy. HPI Consult Data Date of Consult: 04/01/25 HPI Narrative Reason for Consultation: Intractable back pain HPI Narrative: AISHA PARKER, is a 89 F who presents with a hx of R carotid stenosis s/p R CEA on Plavix, chronic hypoxic respiratory failure from COPD on O2, HTN, HLD who was admitted for intractable back pain secondary to T12 compression fracture. She developed pneumonia in his requiring high flow supplemental oxygen. she then developed an acute thrombotic stroke and was treated with TNK for right cervical ICA occlusion. her back pain remains significant and severe it is worse with activity and movement. It improves proves to some degree with rest. Dr. Sy saw her yesterday and spoke with the patient and her daughter about possible intervention. She is currently being treated conservatively with medications and physical therapy. [facility] Medical History Macular degeneration Contact dermatitis due to plant Bilateral carotid artery stenosis Pure hypercholesterolemia Sinus bradycardia Tobacco abuse COPD (chronic obstructive pulmonary disease) Renal artery stenosis Osteoarthritis Osteoporosis Adrenal hyperplasia Home Medications ?Medication ?Instructions ?Recorded ?Last Taken ?Type loratadine 10 mg tablet 10 mg PO DAILY PRN Allergies 04/21/14 Unknown History omega-3 fatty acids 1,000 mg 1,000 mg PO DAILY FOLLOW- UP NEEDED 08/23/19 Unknown History capsule (Fish Oil Concentrate) irbesartan 300 mg tablet 300 mg PO .AM HTN 12/31/21 U nknown History amlodipine 5 mg tablet 5 mg PO DAILY HTN 02/03/22 U nknown History budesonide 160 mcg-glycopyr 9 2 inh inhalation BID TWAN ATHING 03/14/22 Unknown History mcg-formot 4.8 mcg/actuation HFA inhaler calcium 600 mg (as 1 tab PO DAILY FOLLOW-UP NEE DED 08/08/22 Unknown History carbonate)-vitamin D3 20 mcg (800 unit) tablet (Caltrate with Vitamin D3) metoprolol tartrate 25 mg tablet 25 mg PO BID HTN 08/30 03/20 Unknown History zoledronic acid 5 mg/100 mL in 1 ea IV .Qyear FOLLOW-U P NEEDED 09/13/22 Unknown History mannitol 5 %-water intravenous piggybck hydralazine 50 mg tablet 50 mg PO BID FOLLOW-UP NEEDE D 07/31/23 Unknown History rosuvastatin 40 mg tablet 40 mg PO DAILY FOLLOW-UP NEE DED 07/31/23 Unknown History vit C 250 mg-vit E 90 mg-zinc 40 1 tab PO BID FOLLOW-U P NEEDED 07/31/23 Unknown History mg-copper 1 [id number] capsule (PreserVision AREDS-2) calcium carbonate (Tums) 200 mg PO ONCE PRN dyspepsia 09/25/24 Unknown History latanoprost 0.005 % eye drops 1 drp ophthalmic (eye) Q DAY 09/25/24 Unknown History FOLLOW-UP NEEDED lidocaine 5 % topical patch 1 patch topical DAILY #15 ea 01/12/25 Unknown Rx (Lidoderm) clopidogrel 75 mg tablet 75 mg PO DAILY FOLLOW-UP NEE DED #1 01/16/25 Unknown Rx TAB hydrocodone-acetaminophen 5-325mg 1 tab PO Q6H PRN PRN Pain 3 days 03/18/25 Unknown Rx 5mg-325mg #12 TABLETS ibuprofen 200 mg tablet (Advil) 200 mg PO TID PAIN Unknown History prednisone 20 mg tablet 20 mg PO DAILY recently plac ed on 03/19/25 03/18/25 History this march 10 Allergy/AdvReac Type Severity Reaction Status Date / Time amlodipine AdvReac Intermediate Severe Verified 03/19/25 08:47 swelling in ankles Penicillins (PCN) AdvReac diarrhea Verified 03/19/25 08:47 Family History Mother CAD (coronary artery disease) Hypertension Brother Hypertension Presence of permanent cardiac pacemaker Brother Hypertension Father Hypertension Surgical History H/O carotid endarterectomy (~03/2024) History of YAG laser capsulotomy of lens of right eye History of tonsillectomy and adenoidectomy History of total hysterectomy Hx of cataract surgery H/O detached retina repair Social History Smoking Status: Current every day smoker tobacco type: cigarettes alcohol intake: current alcohol intake frequency: 0-2 drinks per day Alcohol type: beer substance use type: does not use caffeine: Yes (occasionally) Physical Exam Narrative Lumbar paraspinal tenderness + bilaterally Pain to percussion over lumbar/lower thoracic spine SLR - bilaterally Pain is worsened with hip flexion bilaterally Hip provocative maneuvers negative 5/5 strength Normal sensation No hyper nor hyporeflexia of the lower extremities. On high flow nasal cannula Lab / Micro Data 04/01/25 05:03 04/01/25 05:03 Labs: Laboratory Results - last 24 hr 04/01/25 05:03: WBC 14.0 H, RBC 3.19 L, Hgb 9.2 L, Hct 28.4 L, MCV 89.0, MCH 28.8, MCHC 32.4, RDW Std Deviation 47.6 H, RDW Coeff of Osiel 14.6, Plt Count 295, MPV 9.4, Immature Gran % (Auto) 1.100 H, Neut % (Auto) 87.1 H, Lymph % (Auto) 7.0 L, [place] % (Auto) 4.4, Eos % (Auto) 0.3, Baso % (Auto) 0.1, Absolute Neuts (auto) 12.1 H, Absolute Lymphs (auto) 0.98, Nucleated RBC % 0, Sodium 139, Potassium 3.3, Chloride 101, Carbon Dioxide 27.5, Anion Gap 11, BUN 22 H, C reatinine 0.52 L, Estim Creat Clear Calc 45.07 L, Est GFR (MDRD) Non-Af 90, B UN/Creatinine Ratio 41.6 H, Glucose 91, Calcium 8.3
[2025-04-01] MEDS: Furosemide 40 MG/4 ML Vial IV (16:51)
[2025-04-01] MEDS: Atorvastatin Calcium 80 MG Tablet PO (22:33)
[2025-04-01] MEDS: Latanoprost 0.005% 1 Bottle 1 DRP OPHTHALMIC (22:35)
[2025-04-02] VITALS (25 sets, daily range): BP systolic 96–183; BP diastolic 43–78; PULSE 52–88; RESP 14–26; TEMP 36.3–36.5; O2SAT 87–100; BMI 32.7
[2025-04-02 05:42] LABS: Absolute Lymphocyte Count 0.92 X10^3/uL (0.83-4.51); Basophil# 0.02 X10^3/uL; Basophil% 0.1 % (0-1); Eosinophil# 0.06 X10^3/uL; Eosinophils% 0.4 % (0-5); Hematocrit 30.4 % (37-47); Hemoglobin 9.8 g/dL (12.0-15.0); Lymphocyte # 0.92 X10^3/ul (0.83-4.51); Lymphocyte % 6.2 % (19-41); Mean Corp Hgb Conc 32.2 g/dL (32-36); Mean Corpuscular Hgb 28.6 pg (27.0-32.0); Mean Corpuscular Volume 88.6 fL (81-99); Mean Platelet Vol. 9.5 fl (6.2-12.0); Monocyte% 5.4 % (0-10); NRBC Flagged by Analyzer 0 % (0-5); Platelet Count 336 K/mm3 (150-450); RBC Distribution Width CV 14.9 % (11.6-14.6); RBC Distribution Width SD 48.2 fl (35.1-43.9); Red Blood Count 3.43 M/mm3 (4.2-5.4); White Blood Count 14.9 K/mm3 (4.4-11.0)
[2025-04-02] MEDS: Acetaminophen 500 MG Tablet 1000 MG PO ×3 (05:54→21:38)
[2025-04-02 06:19] LABS: Anion Gap 10 (5-15); BUN 23 mg/dL (4-19); BUN/Creat Ratio 47.9 RATIO (10-20); Calcium,Total 8.4 mg/dL (7.6-11.0); Carbon Dioxide 26.9 mmol/L (21.0-32.0); Chloride 100 mmol/L (98-108); Creatinine, Serum 0.47 mg/dL (0.70-1.20); EST Glomerular Filtration Rate 92 (>60); Glucose 94 mg/dL (70-99); Potassium 3.2 mmol/L (3.3-5.1); Sodium Level 137 mmol/L (133-145)
[2025-04-02] MEDS: Ipratropium/Albuterol Sulfate 3 ML AMPUL.NEB INHALATION ×3 (07:21→20:15)
[2025-04-02] MEDS: guaiFENesin 1,200 MG Tablet 1200 MG PO ×2 (08:44→21:38)
[2025-04-02] MEDS: Gabapentin 100 MG Capsule PO ×3 (08:44→17:16)
[2025-04-02] MEDS: hydrALAZINE 50 MG Tablet PO ×2 (08:44→21:39)
[2025-04-02] MEDS: Aspirin 81 MG TAB.CHEW PO (08:44)
[2025-04-02] MEDS: Omega-3 Acid Ethyl Esters 1 GM Capsule PO (08:45)
[2025-04-02] MEDS: Polyethylene Glycol 3350 17 GM PACKET PO (08:45)
[2025-04-02] MEDS: Sodium Chloride 1 GM Tablet PO ×2 (08:45→21:39)
[2025-04-02] MEDS: Furosemide 40 MG/4 ML Vial IV ×2 (08:46→17:15)
[2025-04-02] MEDS: 0.9% Saline Lock 10 ML Syringe IV ×3 (08:48→17:16)
--- NOTE | 2025-04-02 09:03 | PN.HOSP_ITS ---
Reason for Visit Reason for Visit: Diagnoses Elevated white blood cell count, unspecified (03/19/25) Hypo-osmolality and hyponatremia (03/19/25) Cerebral infarction, unspecified (03/19/25) Pneumonia, unspecified organism (03/19/25) Acute and chronic respiratory failure with hypoxia (03/19/25) Ileus, unspecified (03/19/25) Constipation, unspecified (03/19/25) Dorsalgia, unspecified (03/19/25) Age-related osteoporosis with current pathological fracture, vertebra(e), initial encounter for fracture (03/19/25) Age-related osteoporosis without current pathological fracture (03/19/25) Difficulty in walking, not elsewhere classified (03/19/25) Stable burst fracture of T11-T12 vertebra, initial encounter for closed fracture (03/19/25) Unspecified fall, initial encounter (03/19/25) Subjective Subjective Still on Airvo Objective Data Objective Data Vital Signs: Vital Signs Temp Pulse Resp BP Pulse Ox O2 Del Method O2 Flow Rate 36.5 C L 75 21 H 160/78 H 100 Airvo 60 04/02/25 08:41 04/02/25 08:44 04/02/25 08:41 04/02/25 08:41 04/02/25 08:41 04/02/25 08:41 04/02/25 08:41 FiO2 68 04/02/25 08:41 Oxygen Flow Rate (L/min) 60 Oxygen Delivery Method Airvo Weight: 75.6 kg Body Mass Index (BMI) 32.7 Intake & Output: Intake and Output for Last 24 Hours 03/31/25 04/01/25 04/02/25 23:59 23:59 23:59 Intake Total 940 / 1040 450 / 450 100 / 100 Output Total 1075 / 1225 1025 / 1025 225 / 225 Balance -135 / -185 -575 / -575 -125 / -125 Lab / Micro Data 04/02/25 05:01 04/02/25 05:01 Labs: Laboratory Results - last 24 hr 04/02/25 05:01: WBC 14.9 H, RBC 3.43 L, Hgb 9.8 L, Hct 30.4 L, MCV 88.6, MCH 28.6, MCHC 32.2, RDW Std Deviation 48.2 H, RDW Coeff of Osiel 14.9 H, Plt Count 336, MPV 9.5, Immature Gran % (Auto) 0.900, Neut % (Auto) 87.0 H, Lymph % (Auto) 6.2 L, [place] % (Auto) 5.4, Eos % (Auto) 0.4, Baso % (Auto) 0.1, Absolute Neuts (auto) 13.0 H, Absolute Lymphs (auto) 0.92, Nucleated RBC % 0, Sodium 137, P otassium 3.2 L, Chloride 100, Carbon Dioxide 26.9, Anion Gap 10, BUN 23 H, C reatinine 0.47 L, Estim Creat Clear Calc 45.00 L, Est GFR (MDRD) Non-Af 92, B UN/Creatinine Ratio 47.9 H, Glucose 94, Calcium 8.4 Micro: Microbiology 03/20/25 15:50 Sputum, Expectorated/Coughed Gram Stain - Final 03/20/25 15:50 Sputum, Expectorated/Coughed Respiratory Culture - Final Pseudomonas aeruginosa Physical Exam Const alert and no apparent distress HEENT head/scalp atraumatic and moist oral mucous membranes Resp normal respiratory effort, no retractions and no use of accessory muscles Resp Narrative: bibasilar crackles. Cardio regular rate, regular rhythm, S1 normal heart sound and S2 normal heart sound GI normal to inspection, nondistended, normoactive bowel sounds, soft to palpation and non-tender Extremity normal to inspection and full ROM Neuro Sensorium / Orientation: awake and alert Assessment & Plan Assessment/Plan (1) T12 burst fracture: PLAN: s/p fall. kyphoplasty held given respiratory failure. pain mgmt consulted for pain control. DW Dr. Mcgee, he does not advise nerve block given the TNK she received and there is no data to suggest an appropriate timing. So will hold off at this time. Patient to follow up as outpt. Currently on lidoderm, scheduled acetaminophen, PRN oxy and morphine. (2) Acute on chronic hypoxic respiratory failure: PLAN: 2/2 pneumonia and AECOPD back on Airvo resume Furosemide encouraged IS and flutter valve. wean oxygen as tolerated. (3) Pneumonia: PLAN: pseudomonas on IV levofloxacin to be continued through the 4th. 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 NIHSS score was 24. CTA head/neck showed right ICA occlusion with distal reconstitution. Discussed with neurology who recommended either emergent transfer for mechanical thrombectomy versus TNK. Family opted for TNK administration and monitoring here; TNK was given and patient was moved to the ICU for closer monitoring. Repeat CT head at 24 hours showed area of infarction but no hemorrhage. MRI brain on morning of 03/30 again showed area of infarction in the right temporoparietal lobe but no other concerning findings. Per neurology, suspect patient had a plaque from known carotid stenosis break off and cause the occlusion. No need for transfer as patient will not need any neurosurgical intervention to that area. Recommended dual antiplatelet therapy but noted that patient is okay for baby aspirin alone for now, as we will hold Plavix for possible pain injection. Will plan to resume Plavix 75 mg daily after pain injection. PT/OT/case management following as above. PLAN: Plan Hypokalemia * replace and monitor Chronic medical conditions: ? 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 Complicates hospital course, care and prognosis. May need to uptitrate oxygen nocturnally while inpatient. ? Bilateral carotid artery stenosis: Had moderate right extracranial internal carotid artery stenosis and mild left extracranial internal carotid artery stenosis on last duplex in 2024, stable from previous. Notably Plavix is on hold as above. Continue home rosuvastatin. Continue outpatient follow-up with Dr. Araiza. ? Macular degeneration: Continue home eyedrops. ? Hypertension, hyperlipidemia: Continue home statin, metoprolol, irbesartan, hydralazine, amlodipine. ? Osteoporosis: Vitamin D level greater than 30. Holding home calcium carbonate and vitamin D supplementation until bowel function improves. Is on injectable zoledronic acid yearly. Continue outpatient follow-up. DVT prophylaxis: Lovenox CODE STATUS: DNR CCA, okay for short-term intubation Expected disposition: SNF, TBD DW patient's son at bedside. Anticipate slow respiratory recovery. Charges/Coding Visit Charges Inpatient E&M: 75089 Subs Hosp L2 NIHSS NIHSS Nursing Documentation NIHSS Nursing Documentation: NIHSS: Ischemic Stroke/TIA Start: 03/29/25 04:41 Freq: Status: Complete Protocol: Activity Type Activity Date Activity User E-sign Co-sign Detail Recorded Client Recorded Date Recorded By Document 03/28/25 21:37 [id number] 03/29/25 04:48 03/28/25 21:37 NIH Stroke Scale [NIHSS] A score of 0 is normal or asymptomatic . Total possible score is 42. Inpatient: RN or Physician to activate a stroke alert for onset of new stroke symptoms or with NIHSS increase >/= 3 points. Following change in neurological status, NIHSS will be performed per physician order or more frequently PRN. -1a. Level of Consciousness 1 - Not alert; Arousable by minor stimuli to obey, answer & respond -1b. LOC Questions 2 - Answers NEITHER question correctly -1c. LOC Commands 2 - Performs NEITHER task correctly -2. Best Gaze 0 - Normal -3. Visual 0 - No visual loss -4. Facial Palsy 1 - Minor paralysis ( flattened nasolabial fold , asymmetry on smiling) -5a. Left Arm 2 - Some effort against gravity; -5b. Right Arm 0 - No drift; arm holds 90 ( or 45) degrees for full 10 seconds -6a. Left Leg 3 - No effort against gravity ; leg falls to bed immediately -6b. Right Leg 0 - No drift; leg holds 30- degree position for full 5 seconds -7. Limb Ataxia 2 - Present in 2 limbs -8. Sensory 0 - Normal; no sensory loss -9. Best Language 2 - Severe aphasia; -10. Dysarthria 2 - Severe dysarthria; -11. Extinction and Inattention 0 - No abnormality -Total 17 Query Text:A score of 0 is normal or asymptomatic. Total possible score is 42 . ED: Notify Physician for NIHSS increase by > / = 3 points. Inpatient: RN or Physician to activate a stroke alert for NIHSS increase of > / = 3 points. Thrombolytic: Vital Signs & NIHSS Start: 03/28/25 21:26 Text: Assess and document vital signs and NIHSS Status: Complete within 15 minutes prior to Tenecteplase administration Freq: [id number] Protocol: Activity Type Activity Date Activity User E-sign Co-sign Detail Recorded Client Recorded Date Recorded By Document 03/30/25 14:00 ARB [id number] 03/30/25 14:18 ARB 03/30/25 14:00 Vital Signs [Temperature Protocol: VS] -Temperature (36.6 C-37.3 C) 37.6 C H -Temperature Source Core [Pulse] -Pulse Rate (60-100) 62 -Pulse Location Monitor [Respirations] -Respiratory Rate (12-18) 18 -Respiratory rate source Monitor -Pulse Oximetry 91 -Oxygen Delivery Method Nasal Cannula -O2 L/MIN (L/min) 8 [Blood Pressure] -Blood Pressure (90/60-120/80) 91/42 L -Blood Pressure Mean (mm Hg) 58 -Source Monitor -Position Sitting -Blood Pressure Location Left Arm -Is the SBP > or = 180 No -Is the DBP > or = 105 No NIH Stroke Scale [NIHSS] A score of 0 is normal or asymptomatic . Total possible score is 42. Inpatient: RN or Physician to activate a stroke alert for onset of new stroke symptoms or with NIHSS increase >/= 3 points. Following change in neurological status, NIHSS will be performed per physician order or more frequently PRN. -1a. Level of Consciousness 0 - Alert; keenly responsive -1b. LOC Questions 0 - Answers BOTH questions correctly -1c. LOC Commands 0 - Performs BOTH tasks correctly -2. Best Gaze 0 - Normal -3. Visual 0 - No visual loss -4. Facial Palsy 1 - Minor paralysis ( flattened nasolabial fold , asymmetry on smiling) -5a. Left Arm 0 - No drift; arm holds 90 ( or 45) degrees for full 10 seconds -5b. Right Arm 0 - No drift; arm holds 90 ( or 45) degrees for full 10 seconds -6a. Left Leg 0 - No drift; leg holds 30- degree position for full 5 seconds -6b. Right Leg 0 - No drift; leg holds 30- degree position for full 5 seconds -7. Limb Ataxia 0 - Absent -8. Sensory 1 - Mild-to- moderate sensory loss; -9. Best Language 1 - Mild-to- moderate aphasia; -10. Dysarthria 0 - Normal -11. Extinction and Inattention 0 - No abnormality -Total 3 Query Text:A score of 0 is normal or asymptomatic. Total possible score is 42 . ED: Notify Physician for NIHSS increase by > / = 3 points. Inpatient: RN or Physician to activate a stroke alert for NIHSS increase of > / = 3 points.
[2025-04-02] MEDS: levoFLOXacin IV 750 MG/150 ML BAG 100 MG IV (11:16)
[2025-04-02] MEDS: Lidocaine 5% Patch 1 PATCH TOPICAL (11:16)
[2025-04-02] MEDS: Metoprolol Tartrate 25 MG Tablet PO ×2 (11:19→21:39)
[2025-04-02] MEDS: Losartan Potassium 100 MG Tablet PO (11:20)
[2025-04-02] MEDS: amLODIPine 10 MG Tablet PO (11:20)
[2025-04-02] MEDS: Enoxaparin 40 MG/0.4 ML Syringe SC (13:00)
[2025-04-02] MEDS: Potassium Chloride Oral Tablet 20 MEQ 40 MEQ PO (17:16)
--- NOTE | 2025-04-02 17:47 | PN.CC_ITS ---
Objective Data Objective Data Vital Signs: Vital Signs Last response 3 Temperature 36.4 C L 04/02/25 17:00 Temperature Source Oral 04/02/25 17:00 Pulse Rate 57 L 04/02/25 17:00 Pulse Strength Normal (2+) 04/02/25 09:10 Respiratory Rate 17 04/02/25 17:00 Respiratory Effort Normal 04/02/25 03:00 Respiratory Depth Normal 04/02/25 03:00 Respiratory Pattern Tachypnea 04/02/25 17:24 Blood Pressure 116/44 L 04/02/25 17:00 Blood Pressure Mean 68 04/02/25 17:00 Blood Pressure Source Monitor 04/02/25 17:00 Blood Pressure Position Semi-Fowlers 04/02/25 17:00 Blood Pressure Location Left Arm 04/02/25 17:00 Pulse Ox 95 04/02/25 17:00 Oxygen Delivery Method Airvo 04/02/25 17:24 Oxygen Flow Rate (L/min) 50 04/02/25 17:00 Fraction of Inspired Oxygen (FIO2) 58 04/02/25 17:00 I&O: I&O Last 24 Hours 3 04/01/25 04/02/25 04/02/25 23:59 11:59 23:59 Intake Total 100 / 450 100 / 250 150 / 250 Output Total 625 / 1025 225 / 225 Balance -525 / -575 -125 / 25 150 / 25 I&O: Total Stay 3 03/19/25 08:46 thru 04/02/25 17:28 Intake Total 37015 Output Total 5905 Balance 5055 Current Meds Ordered / Administered: Current meds ordered / Administered 3 Generic Name Dose Route Start Last Admin Trade Name Freq PRN Reason Stop Dose Admin Acetaminophen 1,000 mg 03/24/25 14:00 04/02/25 13:00 Acetaminophen 500 Mg Tablet PO 1,000 mg Q8 ROSELIA Administration Al Hydroxide/Mg Hydroxide 30 ml 03/22/25 19:18 03/22/25 19:39 Mag Hydrox/Al Hydrox/Simeth 30 Ml Udc PO 30 ml Q6H PRN PRN Administration HEARTBURN OR INDIGESTION Albuterol Sulfate 2.5 mg 03/19/25 11:37 Albuterol 2.5 Mg/3 Ml Vial.Neb. INHALATION Q2H PRN PRN SOB &/OR WHEEZING Albuterol/Ipratropium 3 ml 03/23/25 12:15 04/02/25 12:39 Ipratropium/Albuterol Sulfate 3 Ml Ampul.Neb INHALATION 3 ml Q6HWA.RT ROSELIA Administration Amlodipine Besylate 10 mg 03/22/25 10:00 04/02/25 11:20 Amlodipine 10 Mg Tablet PO 10 mg DAILY ROSELIA Administration Protocol Aspirin 81 mg 03/30/25 11:20 04/02/25 08:44 Aspirin 81 Mg Tab.Chew PO 81 mg BREAKFAST ROSELIA Administration Atorvastatin Calcium 80 mg 03/19/25 22:00 04/01/25 22:33 Atorvastatin Calcium 80 Mg Tablet PO 80 mg QHS ROSELIA Administration Calcium/Vitamin D 1 tablet 03/20/25 08:00 03/23/25 10:09 Calcium Carb/Vitamin D 1 Tablet Tablet PO 1 tablet DAILYCM ROSELIA Administration Enoxaparin Sodium 40 mg 03/20/25 10:00 04/02/25 13:00 Enoxaparin 40 Mg/0.4 Ml Syringe SC 40 mg DAILY ROSELIA Administration Furosemide 40 mg 04/02/25 18:00 04/02/25 17:15 Furosemide 40 Mg/4 Ml Vial IV 40 mg BIDLX ROSELIA Administration Protocol Gabapentin 100 mg 03/19/25 12:00 04/02/25 17:16 Gabapentin 100 Mg Capsule PO 100 mg TIDCM ROSELIA Administration Guaifenesin 1,200 mg 03/21/25 10:00 04/02/25 08:44 Guaifenesin 1,200 Mg Tablet PO 1,200 mg BID ROSELIA Administration Hydralazine HCl 50 mg 03/19/25 22:00 04/02/25 08:44 Hydralazine 50 Mg Tablet PO 50 mg BID ROSELIA Administration Protocol Sodium Chloride 250 mls @ 15 mls/hr 03/19/25 12:04 IV .[id number] PRN Saline Flush Sodium Chloride 250 mls @ 15 mls/hr 03/19/25 12:04 IV .[id number] PRN Additional IVPB Infusion Levofloxacin 750 mg in 150 mls @ 100 mls/hr 03/31/25 10:00 04/02/25 12:48 Levaquin Iv IV 04/02/25 23:59 Infused Q48 ROSELIA Infusion Ibuprofen 200 mg 03/19/25 22:00 03/23/25 02:22 Ibuprofen 200 Mg Tablet PO Not Given TID ROSELIA Latanoprost 1 drp 03/19/25 22:00 04/01/25 22:35 Latanoprost 0.005% 1 Bottle OPHTHALMIC 1 drp QHS ROSELIA Administration Lidocaine 1 patch 03/19/25 14:00 04/02/25 11:16 Lidocaine 5% Patch TOPICAL 1 patch DAILY ROSELIA Administration Protocol Loratadine 10 mg 03/19/25 17:23 Loratadine 10 Mg Tablet PO DAILY PRN Allergies Losartan Potassium 100 mg 03/20/25 10:00 04/02/25 11:20 Losartan Potassium 100 Mg Tablet PO 100 mg DAILY ROSELIA Administration Methylprednisolone 40 mg 03/29/25 15:00 04/02/25 08:46 Methylprednisolone 40 Mg/Ml Vial IV 40 mg DAILY ROSELIA Administration Metoprolol Tartrate 25 mg 03/19/25 22:00 04/02/25 11:19 Metoprolol Tartrate 25 Mg Tablet PO 25 mg BID ROSELIA Administration Protocol Morphine Sulfate 2 mg 03/24/25 13:02 Morphine 2 Mg/Ml Syringe IV Q3H PRN PRN Pain Score 6-10 Multivitamins/Minerals 1 cap 03/19/25 22:00 03/23/25 12:01 Multivitamin (Healthy Eyes) Capsule PO 1 cap BID ROSELIA Administration Nicotine 14 mg 03/19/25 14:00 04/02/25 08:45 Nicotine 14 Mg Patch TD 14 mg DAILY ROSELIA Administration [id number] Ethyl Esters 1 gm 03/20/25 10:00 04/02/25 08:45 [place]-3 Acid Ethyl Esters 1 Gm Capsule PO 1 gm DAILY ROSELIA Administration Ondansetron HCl 4 mg 03/19/25 11:37 03/19/25 18:51 Ondansetron 4 Mg/2 Ml Vial IV 4 mg Q8H PRN PRN Administration NAUSEA/VOMITING Oxycodone HCl 5 mg 03/24/25 13:02 04/01/25 14:49 Oxycodone 5 Mg Tablet PO 5 mg Q4H PRN PRN Administration Pain Score 4-10 Polyethylene Glycol 17 gm 03/21/25 10:00 04/02/25 08:45 Polyethylene Glycol 3350 17 Gm Packet PO 17 gm DAILY ROSELIA Administration Potassium Chloride 40 meq 04/02/25 17:00 04/02/25 17:16 Potassium Chloride Oral Tablet 20 Meq PO 04/03/25 08:01 40 meq BIDCM ROSELIA Administration Senna/Docusate Sodium 2 tablet 03/19/25 22:00 04/02/25 11:22 Senna/Docusate Sodium 1 Tablet PO Not Given BID ROSELIA Sodium Chloride 10 - 40 ml 03/19/25 12:04 04/02/25 17:16 0.9% Saline Lock 10 Ml Syringe IV 10 ml UD PRN Administration SALINE FLUSH Sodium Chloride 1 gm 03/21/25 12:19 04/02/25 08:45 Sodium Chloride 1 Gm Tablet PO 1 gm BID ROSELIA Administration Sodium Chloride 10 ml 03/28/25 21:25 0.9% Saline Lock 10 Ml Syringe IV UD PRN Before/After Tenecteplase Administration Lab / Micro Data 04/02/25 05:01 04/02/25 05:01 Labs: Laboratory Results - last 24 hr 04/02/25 05:01: WBC 14.9 H, RBC 3.43 L, Hgb 9.8 L, Hct 30.4 L, MCV 88.6, MCH 28.6, MCHC 32.2, RDW Std Deviation 48.2 H, RDW Coeff of Osiel 14.9 H, Plt Count 336, MPV 9.5, Immature Gran % (Auto) 0.900, Neut % (Auto) 87.0 H, Lymph % (Auto) 6.2 L, [place] % (Auto) 5.4, Eos % (Auto) 0.4, Baso % (Auto) 0.1, Absolute Neuts (auto) 13.0 H, Absolute Lymphs (auto) 0.92, Nucleated RBC % 0, Sodium 137, P otassium 3.2 L, Chloride 100, Carbon Dioxide 26.9, Anion Gap 10, BUN 23 H, C reatinine 0.47 L, Estim Creat Clear Calc 45.00 L, Est GFR (MDRD) Non-Af 92, B UN/Creatinine Ratio 47.9 H, Glucose 94, Calcium 8.4 Assessment and Plan . Assessment and plan: HPI Patient seen and examined Chart and data reviewed She appears comfortable, she is responsive but hypoactive O2 via HHFNC - 50 LPM, FiO2 0.6 SpO2 95% I/O (-) w/ diuretics Her cough seems weak CT reviewed - I suspect she likely has NTM infection in addition to COPD EXAM GEN NAD VS as above HEENT HHFNC NECK obese COR RRR CHEST basilar crackles ABD soft EXT minimal edema SKIN w/d RANDY NF ASSESSMENT/PLAN 1. Dyspnea / hypoxemia 2. AECOPD 3. ATX v. PNA 4. Acute CVA 5. Vertebral fracture -supplemental O2 via HHFNC -continue inhaled BD, steroids, ABX, diuretics, B-P hygiene -VTE ppx The entirety of this encounter was done via Telemedicine
[2025-04-02] MEDS: Atorvastatin Calcium 80 MG Tablet PO (21:38)
[2025-04-02] MEDS: Latanoprost 0.005% 1 Bottle 1 DRP OPHTHALMIC (21:40)
[2025-04-03] VITALS (26 sets, daily range): BP systolic 111–152; BP diastolic 45–89; PULSE 56–96; RESP 15–28; TEMP 36.3–36.7; O2SAT 19–98; BMI 32.7; BMI 30.4
[2025-04-03] MEDS: Ipratropium/Albuterol Sulfate 3 ML AMPUL.NEB INHALATION ×3 (03:50→20:05)
--- NOTE | 2025-04-03 03:56 | PCM.HOSP.N ---
Hospitalist Note Patient with increasing oxygen requirements on Airvo. Most recent imaging chest CT on 03/30/2025 with nonobstructing debris throughout the proximal airways with mucous plug in the left lower lobe suggestive of aspiration with bibasilar consolidation with volume loss possibly infectious. Patient also on IV Lasix 40 mg twice daily. Was also treated with antibiotics for Pseudomonas pneumonia per note review. Given increasing requirements will request chest x-ray now and ABG to be cautious.
--- NOTE | 2025-04-03 04:05 | RAD_ITS ---
PROCEDURE: CHEST 1 VIEW (PORTABLE) 04/03/2025 REASON FOR EXAM: DYSPNEA TECHNIQUE: Frontal view of the chest. COMPARISON: Chest radiograph dated 03/30/2020 FINDINGS: Hardware: None Heart: Cardiac and mediastinal contours are stable. Aortic atherosclerosis. Lungs: Interval improvement in aeration at the right lung base, with slight persistent opacity in this location. No new focal consolidation. Small right pleural effusion likely persists. Bones: Degenerative changes are identified within the thoracic spine. Healed left-sided rib fracture. RAD/Chest 1 View (Portable) IMPRESSION: Improvement in aeration at the right lung base, with slight residual opacity. Reading Location: [facility]
[2025-04-03] MEDS: oxyCODONE 5 MG Tablet PO (04:35)
[2025-04-03 04:36] LABS: Allen Test Positive; Base Excess 12 mmol/L (-2 to +2); Blood Gas Specimen Type ART; Mode Not entered; PO2 53 mmHG (75-100); SITE L Radial; SO2 89 % (95-99); Total Carbon Dioxide 36 mmol/L; pH 7.49 (7.35-7.45)
[2025-04-03] MEDS: Acetaminophen 500 MG Tablet 1000 MG PO ×3 (05:15→23:27)
[2025-04-03 05:46] LABS: Absolute Lymphocyte Count 0.89 X10^3/uL (0.83-4.51); Basophil# 0.01 X10^3/uL; Basophil% 0.1 % (0-1); Eosinophil# 0.03 X10^3/uL; Eosinophils% 0.2 % (0-5); Hematocrit 32.5 % (37-47); Hemoglobin 10.4 g/dL (12.0-15.0); Lymphocyte # 0.89 X10^3/ul (0.83-4.51); Lymphocyte % 6.4 % (19-41); Mean Corpuscular Hgb 28.4 pg (27.0-32.0); Mean Corpuscular Volume 88.8 fL (81-99); Mean Platelet Vol. 9.6 fl (6.2-12.0); Monocyte# 0.85 X10^3/uL; Monocyte% 6.1 % (0-10); NRBC Flagged by Analyzer 0 % (0-5); Neutrophil % 86.7 % (47-70); Platelet Count 362 K/mm3 (150-450); RBC Distribution Width CV 14.7 % (11.6-14.6); RBC Distribution Width SD 47.7 fl (35.1-43.9); Red Blood Count 3.66 M/mm3 (4.2-5.4); White Blood Count 13.9 K/mm3 (4.4-11.0)
[2025-04-03 06:20] LABS: Anion Gap 14 (5-15); BUN 24 mg/dL (4-19); BUN/Creat Ratio 43.1 RATIO (10-20); Calcium,Total 8.3 mg/dL (7.6-11.0); Carbon Dioxide 25.3 mmol/L (21.0-32.0); Chloride 99 mmol/L (98-108); Creatinine, Serum 0.55 mg/dL (0.70-1.20); EST Glomerular Filtration Rate 89 (>60); Estimated Creatinine Clearance 43.44 ml/min (50-250); Glucose 95 mg/dL (70-99); Potassium 3.3 mmol/L (3.3-5.1); Sodium Level 139 mmol/L (133-145)
--- NOTE | 2025-04-03 08:23 | PN.HOSP_ITS ---
Reason for Visit Reason for Visit: Diagnoses Elevated white blood cell count, unspecified (03/19/25) Hypo-osmolality and hyponatremia (03/19/25) Cerebral infarction, unspecified (03/19/25) Pneumonia, unspecified organism (03/19/25) Acute and chronic respiratory failure with hypoxia (03/19/25) Ileus, unspecified (03/19/25) Constipation, unspecified (03/19/25) Dorsalgia, unspecified (03/19/25) Age-related osteoporosis with current pathological fracture, vertebra(e), initial encounter for fracture (03/19/25) Age-related osteoporosis without current pathological fracture (03/19/25) Difficulty in walking, not elsewhere classified (03/19/25) Stable burst fracture of T11-T12 vertebra, initial encounter for closed fracture (03/19/25) Unspecified fall, initial encounter (03/19/25) Subjective Subjective Still on Airvo. Using IS, but weak effort. Objective Data Objective Data Vital Signs: Vital Signs Temp Pulse Resp BP Pulse Ox O2 Del Method O2 Flow Rate 36.4 C L 75 21 H 149/70 H 95 Airvo 60 04/03/25 03:00 04/03/25 07:00 04/03/25 07:00 04/03/25 07:00 04/03/25 07:00 04/03/25 07:00 04/03/25 07:00 FiO2 60 04/03/25 07:00 Oxygen Flow Rate (L/min) 60 Oxygen Delivery Method Airvo Weight: 70.6 kg Body Mass Index (BMI) 30.4 Intake & Output: Intake and Output for Last 24 Hours 04/01/25 04/02/25 04/03/25 23:59 23:59 23:59 Intake Total 450 / 450 250 / 250 60 / 60 Output Total 1025 / 1025 925 / 925 Balance -575 / -575 -675 / -675 60 Lab / Micro Data 04/03/25 05:00 04/03/25 05:00 Labs: Laboratory Results - last 24 hr 04/03/25 05:00: WBC 13.9 H, RBC 3.66 L, Hgb 10.4 L, Hct 32.5 L, MCV 88.8, MCH 28.4, MCHC 32.0, RDW Std Deviation 47.7 H, RDW Coeff of Osiel 14.7 H, Plt Count 362, MPV 9.6, Immature Gran % (Auto) 0.500, Neut % (Auto) 86.7 H, Lymph % (Auto) 6.4 L, [place] % (Auto) 6.1, Eos % (Auto) 0.2, Baso % (Auto) 0.1, Absolute Neuts (auto) 12.0 H, Absolute Lymphs (auto) 0.89, Nucleated RBC % 0, Sodium 139, Potassium 3.3, Chloride 99, Carbon Dioxide 25.3, Anion Gap 14, BUN 24 H, C reatinine 0.55 L, Estim Creat Clear Calc 43.44 L, Est GFR (MDRD) Non-Af 89, B UN/Creatinine Ratio 43.1 H, Glucose 95, Calcium 8.3 Micro: Microbiology 03/20/25 15:50 Sputum, Expectorated/Coughed Gram Stain - Final 03/20/25 15:50 Sputum, Expectorated/Coughed Respiratory Culture - Final Pseudomonas aeruginosa ABG Data ABG results: ABG 04/03/25 04:27 Specimen Type ART Sample Site L Radial pH 7.49 H Bicarbonate Actual 35.0 H Total CO2 36 Base Excess 12 H O2 Saturation 89 L O2 % 62.0 ABG pCO2 46.0 H ABG pO2 53 L Bao Test Positive O2 Delivery Device AirVo Vent Mode Not entered Clinical Comments Flow 60 L/min Radiography Diagnostic Testing: Radiology Impression Chest X-Ray 04/03/25 04:05 IMPRESSION: Improvement in aeration at the right lung base, with slight residual opacity. Reading Location: [id number] Physical Exam Const alert and no apparent distress Constitutional Narrative: had pt demonstrate her use of the IS. The plunger only went up slightly and she took very short shallow breaths. HEENT head/scalp atraumatic and moist oral mucous membranes Resp no use of accessory muscles Resp Narrative: poor inspiratory effort. Cardio regular rate and regular rhythm Assessment & Plan Assessment/Plan (1) Acute on chronic hypoxic respiratory failure: PLAN: ongoing 2/2 pneumonia and AECOPD back on Airvo continue Furosemide encouraged IS and flutter valve. wean oxygen as tolerated. advised patient to take in deeper, slower breaths with IS. 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 NIHSS score was 24. CTA head/neck showed right ICA occlusion with distal reconstitution. Discussed with neurology who recommended either emergent transfer for mechanical thrombectomy versus TNK. Family opted for TNK administration and monitoring here; TNK was given and patient was moved to the ICU for closer monitoring. Repeat CT head at 24 hours showed area of infarction but no hemorrhage. MRI brain on morning of 03/30 again showed area of infarction in the right temporoparietal lobe but no other concerning findings. Per neurology, suspect patient had a plaque from known carotid stenosis break off and cause the occlusion. No need for transfer as patient will not need any neurosurgical intervention to that area. Recommended dual antiplatelet therapy but noted that patient is okay for baby aspirin alone for now, as we will hold Plavix for possible pain injection. Continue ASA and clopidogrel for 21days. (3) Pneumonia: PLAN: pseudomonas IV levoflaxacin completed. (4) T12 burst fracture: PLAN: s/p fall. kyphoplasty held given respiratory failure. pain mgmt consulted for pain control. DW Dr. Mcgee, he does not advise nerve block given the TNK she received and there is no data to suggest an appropriate timing. So will hold off at this time. Patient to follow up as outpt. Currently on lidoderm, scheduled acetaminophen, PRN oxy and morphine. (5) Ileus: PLAN: resolved PLAN: Plan Hypokalemia * replace and monitor Chronic medical conditions: ? 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 Complicates hospital course, care and prognosis. May need to uptitrate oxygen nocturnally while inpatient. ? Bilateral carotid artery stenosis: Had moderate right extracranial internal carotid artery stenosis and mild left extracranial internal carotid artery stenosis on last duplex in 2024, stable from previous. Notably Plavix is on hold as above. Continue home rosuvastatin. Continue outpatient follow-up with Dr. Araiza. ? Macular degeneration: Continue home eyedrops. ? Hypertension, hyperlipidemia: Continue home statin, metoprolol, irbesartan, hydralazine, amlodipine. ? Osteoporosis: DVT prophylaxis: Lovenox CODE STATUS: DNR CCA, okay for short-term intubation Expected disposition: SNF, TBD. Give likely protracted course, and likely no immediate improvement, CM looking into LTAC. DW patient's son. Charges/Coding Visit Charges Inpatient E&M: 44843 Subs Hosp L2 NIHSS NIHSS Nursing Documentation NIHSS Nursing Documentation: NIHSS: Ischemic Stroke/TIA Start: 03/29/25 04:41 Freq: Status: Complete Protocol: Activity Type Activity Date Activity User E-sign Co-sign Detail Recorded Client Recorded Date Recorded By Document 03/28/25 21:37 [id number] 03/29/25 04:48 03/28/25 21:37 NIH Stroke Scale [NIHSS] A score of 0 is normal or asymptomatic . Total possible score is 42. Inpatient: RN or Physician to activate a stroke alert for onset of new stroke symptoms or with NIHSS increase >/= 3 points. Following change in neurological status, NIHSS will be performed per physician order or more frequently PRN. -1a. Level of Consciousness 1 - Not alert; Arousable by minor stimuli to obey, answer & respond -1b. LOC Questions 2 - Answers NEITHER question correctly -1c. LOC Commands 2 - Performs NEITHER task correctly -2. Best Gaze 0 - Normal -3. Visual 0 - No visual loss -4. Facial Palsy 1 - Minor paralysis ( flattened nasolabial fold , asymmetry on smiling) -5a. Left Arm 2 - Some effort against gravity; -5b. Right Arm 0 - No drift; arm holds 90 ( or 45) degrees for full 10 seconds -6a. Left Leg 3 - No effort against gravity ; leg falls to bed immediately -6b. Right Leg 0 - No drift; leg holds 30- degree position for full 5 seconds -7. Limb Ataxia 2 - Present in 2 limbs -8. Sensory 0 - Normal; no sensory loss -9. Best Language 2 - Severe aphasia; -10. Dysarthria 2 - Severe dysarthria; -11. Extinction and Inattention 0 - No abnormality -Total 17 Query Text:A score of 0 is normal or asymptomatic. Total possible score is 42 . ED: Notify Physician for NIHSS increase by > / = 3 points. Inpatient: RN or Physician to activate a stroke alert for NIHSS increase of > / = 3 points. Thrombolytic: Vital Signs & NIHSS Start: 03/28/25 21:26 Text: Assess and document vital signs and NIHSS Status: Complete within 15 minutes prior to Tenecteplase administration Freq: [id number] Protocol: Activity Type Activity Date Activity User E-sign Co-sign Detail Recorded Client Recorded Date Recorded By Document 03/30/25 14:00 ARB [id number] 03/30/25 14:18 ARB 03/30/25 14:00 Vital Signs [Temperature Protocol: VS] -Temperature (36.6 C-37.3 C) 37.6 C H -Temperature Source Core [Pulse] -Pulse Rate (60-100) 62 -Pulse Location Monitor [Respirations] -Respiratory Rate (12-18) 18 -Respiratory rate source Monitor -Pulse Oximetry 91 -Oxygen Delivery Method Nasal Cannula -O2 L/MIN (L/min) 8 [Blood Pressure] -Blood Pressure (90/60-120/80) 91/42 L -Blood Pressure Mean (mm Hg) 58 -Source Monitor -Position Sitting -Blood Pressure Location Left Arm -Is the SBP > or = 180 No -Is the DBP > or = 105 No NIH Stroke Scale [NIHSS] A score of 0 is normal or asymptomatic . Total possible score is 42. Inpatient: RN or Physician to activate a stroke alert for onset of new stroke symptoms or with NIHSS increase >/= 3 points. Following change in neurological status, NIHSS will be performed per physician order or more frequently PRN. -1a. Level of Consciousness 0 - Alert; keenly responsive -1b. LOC Questions 0 - Answers BOTH questions correctly -1c. LOC Commands 0 - Performs BOTH tasks correctly -2. Best Gaze 0 - Normal -3. Visual 0 - No visual loss -4. Facial Palsy 1 - Minor paralysis ( flattened nasolabial fold , asymmetry on smiling) -5a. Left Arm 0 - No drift; arm holds 90 ( or 45) degrees for full 10 seconds -5b. Right Arm 0 - No drift; arm holds 90 ( or 45) degrees for full 10 seconds -6a. Left Leg 0 - No drift; leg holds 30- degree position for full 5 seconds -6b. Right Leg 0 - No drift; leg holds 30- degree position for full 5 seconds -7. Limb Ataxia 0 - Absent -8. Sensory 1 - Mild-to- moderate sensory loss; -9. Best Language 1 - Mild-to- moderate aphasia; -10. Dysarthria 0 - Normal -11. Extinction and Inattention 0 - No abnormality -Total 3 Query Text:A score of 0 is normal or asymptomatic. Total possible score is 42 . ED: Notify Physician for NIHSS increase by > / = 3 points. Inpatient: RN or Physician to activate a stroke alert for NIHSS increase of > / = 3 points.
[2025-04-03] MEDS: hydrALAZINE 50 MG Tablet PO ×2 (09:15→23:25)
[2025-04-03] MEDS: Senna/Docusate Sodium 1 Tablet 2 TABLET PO ×2 (09:16→09:17)
[2025-04-03] MEDS: Losartan Potassium 100 MG Tablet PO (09:17)
[2025-04-03] MEDS: Aspirin 81 MG TAB.CHEW PO (09:17)
[2025-04-03] MEDS: Sodium Chloride 1 GM Tablet PO ×2 (09:17→23:26)
[2025-04-03] MEDS: amLODIPine 10 MG Tablet PO ×2 (09:18→09:32)
[2025-04-03] MEDS: Metoprolol Tartrate 25 MG Tablet PO ×2 (09:18→23:26)
[2025-04-03] MEDS: Gabapentin 100 MG Capsule PO ×3 (09:32→17:18)
[2025-04-03] MEDS: Omega-3 Acid Ethyl Esters 1 GM Capsule PO (09:32)
[2025-04-03] MEDS: Enoxaparin 40 MG/0.4 ML Syringe SC (09:32)
[2025-04-03] MEDS: Polyethylene Glycol 3350 17 GM PACKET PO (09:33)
[2025-04-03] MEDS: guaiFENesin 1,200 MG Tablet 1200 MG PO ×2 (09:33→23:26)
--- NOTE | 2025-04-03 10:04 | CASEMGMT ---
Discharge Planning A list of?LTACH providers including quality and resource use data and consistent with the patient's preferred geographic region, medical needs, and insurance network were provided from the [facility] Guide link to the RN EAMNI. Florinda Vail, Discharge Planning Asst.
--- NOTE | 2025-04-03 10:45 | CASEMGMT ---
Addendum entered by Candis Doss 04/03/25 14:43: Patient has been accepted by [facility]. Santiago Gonzalez liaison at [facility] and taken to patient's room, son at bedside. Carlos completed consents. Discharge planned for tomorrow. CM will continue to follow this patient and plan for a safe discharge. Original Note: SHIRIN JOAQUIN updated by hospitalist that patient may benefit from LTACH at discharge. SHIRIN JOAQUIN in to discuss with patient and son. Patient and Son Kwame is agreeable to LTACH referral and prefers [facility]. Patient and son had no further questions or concerns. SHIRIN JOAQUIN updated DC business planning director and referral sent to [facility]. CM will continue to follow this patient and plan for a safe discharge.
[2025-04-03] MEDS: Potassium Chloride Oral Tablet 20 MEQ 40 MEQ PO (11:14)
[2025-04-03] MEDS: Furosemide 40 MG/4 ML Vial IV ×2 (11:14→17:27)
[2025-04-03] MEDS: Lidocaine 5% Patch 1 PATCH TOPICAL (11:15)
--- NOTE | 2025-04-03 11:59 | PCM.PN.INT ---
Assessment & Plan Assessment/Plan (1) Acute on chronic hypoxic respiratory failure: PLAN: Plan RECOMMENDATIONS: 1. Continue to wean supplemental oxygen to maintain saturations at or above 90%. 2. Continue antimicrobial therapy. 3. Continue scheduled bronchodilators and steroids. 4. Encourage incentive spirometer use and mobilize patient as tolerated. 5. Ongoing diuresis as tolerated by hemodynamics and renal function. IMPRESSIONS: 1. Acute on chronic hypoxemic respiratory failure Likely secondary to COPD exacerbation in the setting of Pseudomonas pneumonia. CTA chest ruled out pulmonary embolism. Continue to wean supplemental oxygen to maintain saturations at or above 90%. The patient will be maintained on antimicrobials, bronchodilators and steroids, as ordered. She will require outpatient follow-up after discharge with her primary financial controller, Dr. Fleming. In addition, given that the patient is overall net positive from a volume perspective for the hospitalization, we will continue diuretics, as tolerated by hemodynamics and renal function. 2. Acute CVA status post tenecteplase Continue routine medical management per neurology recommendations. 3. T12 compression fracture/history of TIA/small bowel obstruction/ileus/occluded right ICA Complicates care, management, recovery and prognosis. Continue supportive measures as noted above. This note was generated with [employer] dictation software. It may contain incorrect words, spelling, and punctuation that were not noted in checking the note before signing. Subjective Subjective The patient was seen and examined at the bedside this morning. Events from the last 24 hours have been reviewed. The patient is currently afebrile, hemodynamically stable and maintaining appropriate oxygen saturations on heated high flow with an FiO2 requirement of 60%. The patient is documented to be overall net +4.4 L for the hospitalization. White blood cell count was noted to be 14,000. Hemoglobin and platelet count are stable. Arterial blood gas from this morning was notable for a pH of 7.49 with a pCO2 of 46 and pO2 of 53. Creatinine is within normal limits. Objective Data Objective Data The patient's most recent lab work, culture data and imaging studies have all been personally reviewed. Sputum culture was positive for Pseudomonas aeruginosa. Vital Signs: Vital Signs Temp Pulse Resp BP Pulse Ox O2 Del Method O2 Flow Rate 97.4 F L 86 17 118/72 94 Airvo 60 04/03/25 09:00 04/03/25 09:18 04/03/25 09:00 04/03/25 09:15 04/03/25 09:00 04/03/25 09:00 04/03/25 09:00 FiO2 60 04/03/25 09:00 Oxygen Flow Rate (L/min) 60 Oxygen Delivery Method Airvo Weight: 155 lb 10.342 oz Body Mass Index (BMI) 30.4 Intake & Output: Intake and Output for Last 24 Hours 04/01/25 04/02/25 04/03/25 23:59 23:59 23:59 Intake Total 450 / 450 250 / 250 60 / 60 Output Total 1025 / 1025 925 / 925 Balance -575 / -575 -675 / -675 60 / 60 Lab / Micro Data Attestation: I reviewed the patient's lab results. 04/03/25 05:00 04/03/25 05:00 Labs: Laboratory Results - last 24 hr 04/03/25 05:00: WBC 13.9 H, RBC 3.66 L, Hgb 10.4 L, Hct 32.5 L, MCV 88.8, MCH 28.4, MCHC 32.0, RDW Std Deviation 47.7 H, RDW Coeff of Osiel 14.7 H, Plt Count 362, MPV 9.6, Immature Gran % (Auto) 0.500, Neut % (Auto) 86.7 H, Lymph % (Auto) 6.4 L, [place] % (Auto) 6.1, Eos % (Auto) 0.2, Baso % (Auto) 0.1, Absolute Neuts (auto) 12.0 H, Absolute Lymphs (auto) 0.89, Nucleated RBC % 0, Sodium 139, Potassium 3.3, Chloride 99, Carbon Dioxide 25.3, Anion Gap 14, BUN 24 H, Creatinine 0.55 L, Estim Creat Clear Calc 43.44 L, Est GFR (MDRD) Non-Af 89, BUN/Creatinine Ratio 43.1 H, Glucose 95, Calcium 8.3 Micro: Microbiology 03/20/25 15:50 Sputum, Expectorated/Coughed Gram Stain - Final 03/20/25 15:50 Sputum, Expectorated/Coughed Respiratory Culture - Final Pseudomonas aeruginosa ABG Data ABG results: ABG 04/03/25 04:27 Specimen Type ART Sample Site L Radial pH 7.49 H Bicarbonate Actual 35.0 H Total CO2 36 Base Excess 12 H O2 Saturation 89 L O2 % 62.0 ABG pCO2 46.0 H ABG pO2 53 L Bao Test Positive O2 Delivery Device AirVo Vent Mode Not entered Clinical Comments Flow 60 L/min Radiography Diagnostic Testing: Radiology Impression Chest X-Ray 04/03/25 04:05 IMPRESSION: Improvement in aeration at the right lung base, with slight residual opacity. Reading Location: [facility] Physical Exam Const alert and no apparent distress Constitutional Narrative: Sitting in bedside recliner. General Appearance: cooperative HEENT normocephalic and head/scalp atraumatic General Ear: hearing grossly impaired Eyes PERRL, EOMs intact bilaterally and conjunctivae normal Neck supple General: trachea midline Chest inspection of chest normal Resp normal respiratory effort Auscultation: diminished lung sounds; Negative for rales, rhonchi or wheezes Cardio regular rate and regular rhythm GI normal to inspection, nondistended, normoactive bowel sounds Extremity no clubbing, cyanosis or edema Skin no rashes or lesions noted Neuro CN's II-XII intact bilaterally and no focal motor deficits Psych Mood & Affect: flat affect Charges/Coding Visit Charges Inpatient E&M: 02254 Subs Hosp L2
--- NOTE | 2025-04-03 12:18 | CASEMGMT ---
Discharge Planning Referral sent to [facility]. Florinda Vail DC Planning Asst.
[2025-04-03] MEDS: Clopidogrel Bisulfate 75 MG Tablet PO (16:20)
[2025-04-03] MEDS: Calcium Carbonate 500 MG Tablet PO (17:18)
[2025-04-03] MEDS: Atorvastatin Calcium 80 MG Tablet PO (23:27)
[2025-04-03] MEDS: Latanoprost 0.005% 1 Bottle 1 DRP OPHTHALMIC (23:30)
[2025-04-04] VITALS (12 sets, daily range): BP systolic 143–156; BP diastolic 61–76; PULSE 59–90; RESP 15–20; TEMP 36.4–36.6; O2SAT 94–99; BMI 30.4; BMI 30.7
[2025-04-04] MEDS: Acetaminophen 500 MG Tablet 1000 MG PO ×3 (05:17→21:13)
[2025-04-04 06:56] LABS: Absolute Lymphocyte Count 0.64 X10^3/uL (0.83-4.51); Absolute Neutrophil Count 7.1 X10^3/uL (2.0-7.7); Eosinophil# 0.09 X10^3/uL; Eosinophils% 1.1 % (0-5); Hematocrit 28.1 % (37-47); Lymphocyte # 0.64 X10^3/ul (0.83-4.51); Lymphocyte % 7.6 % (19-41); Mean Corpuscular Hgb 28.1 pg (27.0-32.0); Mean Corpuscular Volume 87.8 fL (81-99); Mean Platelet Vol. 9.1 fl (6.2-12.0); Monocyte# 0.53 X10^3/uL; Monocyte% 6.3 % (0-10); NRBC Flagged by Analyzer 0 % (0-5); Neutrophil # 7.14 X10^3/uL (2.7-7.7); Neutrophil % 84.4 % (47-70); Platelet Count 298 K/mm3 (150-450); RBC Distribution Width CV 14.7 % (11.6-14.6); RBC Distribution Width SD 47.7 fl (35.1-43.9); White Blood Count 8.5 K/mm3 (4.4-11.0)
[2025-04-04 07:39] LABS: Anion Gap 8 (5-15); BUN 24 mg/dL (4-19); BUN/Creat Ratio 47.9 RATIO (10-20); Calcium,Total 8.5 mg/dL (7.6-11.0); Carbon Dioxide 29.2 mmol/L (21.0-32.0); Chloride 100 mmol/L (98-108); EST Glomerular Filtration Rate 91 (>60); Estimated Creatinine Clearance 43.66 ml/min (50-250); Glucose 94 mg/dL (70-99); Potassium 3.6 mmol/L (3.3-5.1); Sodium Level 137 mmol/L (133-145)
[2025-04-04] MEDS: Ipratropium/Albuterol Sulfate 3 ML AMPUL.NEB INHALATION ×2 (07:54→20:48)
--- NOTE | 2025-04-04 08:59 | PN.HOSP_ITS ---
Reason for Visit Reason for Visit: Diagnoses Elevated white blood cell count, unspecified (03/19/25) Hypo-osmolality and hyponatremia (03/19/25) Cerebral infarction, unspecified (03/19/25) Pneumonia, unspecified organism (03/19/25) Acute and chronic respiratory failure with hypoxia (03/19/25) Ileus, unspecified (03/19/25) Constipation, unspecified (03/19/25) Dorsalgia, unspecified (03/19/25) Age-related osteoporosis with current pathological fracture, vertebra(e), initial encounter for fracture (03/19/25) Age-related osteoporosis without current pathological fracture (03/19/25) Difficulty in walking, not elsewhere classified (03/19/25) Stable burst fracture of T11-T12 vertebra, initial encounter for closed fracture (03/19/25) Unspecified fall, initial encounter (03/19/25) Subjective Subjective weaned down to 5 liter/min today of oxygen, with limited activity did not require more than 5 liters/min Objective Data Objective Data Vital Signs: Vital Signs Temp Pulse Resp BP Pulse Ox O2 Del Method O2 Flow Rate 36.6 C 59 L 15 147/68 H 94 High Flow 5 04/04/25 05:00 04/04/25 07:54 04/04/25 07:54 04/04/25 05:00 04/04/25 08:13 04/04/25 08:13 04/04/25 08:13 FiO2 43 04/04/25 07:54 Oxygen Flow Rate (L/min) 5 Oxygen Delivery Method High Flow Weight: 71.3 kg Body Mass Index (BMI) 30.7 Intake & Output: Intake and Output for Last 24 Hours 04/02/25 04/03/25 04/04/25 23:59 23:59 23:59 Intake Total 250 / 250 660 / 660 120 / 120 Output Total 925 / 925 750 / 750 300 / 300 Balance -675 / -675 -90 / -90 -180 / -180 Lab / Micro Data 04/04/25 06:30 04/04/25 06:30 Labs: Laboratory Results - last 24 hr 04/04/25 06:30: WBC 8.5, RBC 3.20 L, Hgb 9.0 L, Hct 28.1 L, MCV 87.8, MCH 28.1, MCHC 32.0, RDW Std Deviation 47.7 H, RDW Coeff of Osiel 14.7 H, Plt Count 298, MPV 9.1, Immature Gran % (Auto) 0.600, Neut % (Auto) 84.4 H, Lymph % (Auto) 7.6 L, [place] % (Auto) 6.3, Eos % (Auto) 1.1, Baso % (Auto) 0.0, Absolute Neuts (auto) 7.1, Absolute Lymphs (auto) 0.64 L, Nucleated RBC % 0, Sodium 137, Potassium 3.6, Chloride 100, Carbon Dioxide 29.2, Anion Gap 8, BUN 24 H, Creatinine 0.50 L , Estim Creat Clear Calc 43.66 L, Est GFR (MDRD) Non-Af 91, BUN/Creatinine Ratio 47.9 H, Glucose 94, Calcium 8.5 Micro: Microbiology 03/20/25 15:50 Sputum, Expectorated/Coughed Gram Stain - Final 03/20/25 15:50 Sputum, Expectorated/Coughed Respiratory Culture - Final Pseudomonas aeruginosa Physical Exam Const alert and no apparent distress Constitutional Narrative: up in chair. no respiratory distress. no conversational dyspnea. HEENT head/scalp atraumatic and moist oral mucous membranes Resp normal respiratory effort, no retractions, no use of accessory muscles and clear to auscultation bilaterally Cardio regular rate, regular rhythm, S1 normal heart sound and S2 normal heart sound GI normal to inspection, nondistended, normoactive bowel sounds, soft to palpation, non-tender and non-distended Assessment & Plan Assessment/Plan (1) Acute on chronic hypoxic respiratory failure: PLAN: improving 2/2 pneumonia and AECOPD back on Airvo continue Furosemide encouraged IS and flutter valve. wean oxygen as tolerated. advised patient to take in deeper, slower breaths with IS. 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 NIHSS score was 24. CTA head/neck showed right ICA occlusion with distal reconstitution. Discussed with neurology who recommended either emergent transfer for mechanical thrombectomy versus TNK. Family opted for TNK administration and monitoring here; TNK was given and patient was moved to the ICU for closer monitoring. Repeat CT head at 24 hours showed area of infarction but no hemorrhage. MRI brain on morning of 03/30 again showed area of infarction in the right temporoparietal lobe but no other concerning findings. Per neurology, suspect patient had a plaque from known carotid stenosis break off and cause the occlusion. No need for transfer as patient will not need any neurosurgical intervention to that area. Recommended dual antiplatelet therapy but noted that patient is okay for baby aspirin alone for now, as we will hold Plavix for possible pain injection. Continue ASA and clopidogrel for 21days. (3) Pneumonia: PLAN: pseudomonas IV levoflaxacin completed. (4) T12 burst fracture: PLAN: s/p fall. kyphoplasty held given respiratory failure. pain mgmt consulted for pain control. DW Dr. Mcgee, he does not advise nerve block given the TNK she received and there is no data to suggest an appropriate timing. So will hold off at this time. Patient to follow up as outpt. Currently on lidoderm, scheduled acetaminophen, PRN oxy and morphine. (5) Ileus: PLAN: resolved PLAN: Plan Hypokalemia * replace and monitor Chronic medical conditions: ? 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 Complicates hospital course, care and prognosis. May need to uptitrate oxygen nocturnally while inpatient. ? Bilateral carotid artery stenosis: Had moderate right extracranial internal carotid artery stenosis and mild left extracranial internal carotid artery stenosis on last duplex in 2024, stable from previous. Notably Plavix is on hold as above. Continue home rosuvastatin. Continue outpatient follow-up with Dr. Araiza. ? Macular degeneration: Continue home eyedrops. ? Hypertension, hyperlipidemia: Continue home statin, metoprolol, irbesartan, hydralazine, amlodipine. ? Osteoporosis: DVT prophylaxis: Lovenox CODE STATUS: DNR CCA, okay for short-term intubation Expected disposition: SNF, TBD. Give likely protracted course, and likely no immediate improvement, CM looking into LTAC. DW patient's son. Charges/Coding Visit Charges Inpatient E&M: 37149 Subs Hosp L2 NIHSS NIHSS Nursing Documentation NIHSS Nursing Documentation: NIHSS: Ischemic Stroke/TIA Start: 03/29/25 04:41 Freq: Status: Complete Protocol: Activity Type Activity Date Activity User E-sign Co-sign Detail Recorded Client Recorded Date Recorded By Document 03/28/25 21:37 [id number] 03/29/25 04:48 03/28/25 21:37 NIH Stroke Scale [NIHSS] A score of 0 is normal or asymptomatic . Total possible score is 42. Inpatient: RN or Physician to activate a stroke alert for onset of new stroke symptoms or with NIHSS increase >/= 3 points. Following change in neurological status, NIHSS will be performed per physician order or more frequently PRN. -1a. Level of Consciousness 1 - Not alert; Arousable by minor stimuli to obey, answer & respond -1b. LOC Questions 2 - Answers NEITHER question correctly -1c. LOC Commands 2 - Performs NEITHER task correctly -2. Best Gaze 0 - Normal -3. Visual 0 - No visual loss -4. Facial Palsy 1 - Minor paralysis ( flattened nasolabial fold , asymmetry on smiling) -5a. Left Arm 2 - Some effort against gravity; -5b. Right Arm 0 - No drift; arm holds 90 ( or 45) degrees for full 10 seconds -6a. Left Leg 3 - No effort against gravity ; leg falls to bed immediately -6b. Right Leg 0 - No drift; leg holds 30- degree position for full 5 seconds -7. Limb Ataxia 2 - Present in 2 limbs -8. Sensory 0 - Normal; no sensory loss -9. Best Language 2 - Severe aphasia; -10. Dysarthria 2 - Severe dysarthria; -11. Extinction and Inattention 0 - No abnormality -Total 17 Query Text:A score of 0 is normal or asymptomatic. Total possible score is 42 . ED: Notify Physician for NIHSS increase by > / = 3 points. Inpatient: RN or Physician to activate a stroke alert for NIHSS increase of > / = 3 points. Thrombolytic: Vital Signs & NIHSS Start: 03/28/25 21:26 Text: Assess and document vital signs and NIHSS Status: Complete within 15 minutes prior to Tenecteplase administration Freq: [id number] Protocol: Activity Type Activity Date Activity User E-sign Co-sign Detail Recorded Client Recorded Date Recorded By Document 03/30/25 14:00 ARB [id number] 03/30/25 14:18 ARB 03/30/25 14:00 Vital Signs [Temperature Protocol: VS] -Temperature (36.6 C-37.3 C) 37.6 C H -Temperature Source Core [Pulse] -Pulse Rate (60-100) 62 -Pulse Location Monitor [Respirations] -Respiratory Rate (12-18) 18 -Respiratory rate source Monitor -Pulse Oximetry 91 -Oxygen Delivery Method Nasal Cannula -O2 L/MIN (L/min) 8 [Blood Pressure] -Blood Pressure (90/60-120/80) 91/42 L -Blood Pressure Mean (mm Hg) 58 -Source Monitor -Position Sitting -Blood Pressure Location Left Arm -Is the SBP > or = 180 No -Is the DBP > or = 105 No NIH Stroke Scale [NIHSS] A score of 0 is normal or asymptomatic . Total possible score is 42. Inpatient: RN or Physician to activate a stroke alert for onset of new stroke symptoms or with NIHSS increase >/= 3 points. Following change in neurological status, NIHSS will be performed per physician order or more frequently PRN. -1a. Level of Consciousness 0 - Alert; keenly responsive -1b. LOC Questions 0 - Answers BOTH questions correctly -1c. LOC Commands 0 - Performs BOTH tasks correctly -2. Best Gaze 0 - Normal -3. Visual 0 - No visual loss -4. Facial Palsy 1 - Minor paralysis ( flattened nasolabial fold , asymmetry on smiling) -5a. Left Arm 0 - No drift; arm holds 90 ( or 45) degrees for full 10 seconds -5b. Right Arm 0 - No drift; arm holds 90 ( or 45) degrees for full 10 seconds -6a. Left Leg 0 - No drift; leg holds 30- degree position for full 5 seconds -6b. Right Leg 0 - No drift; leg holds 30- degree position for full 5 seconds -7. Limb Ataxia 0 - Absent -8. Sensory 1 - Mild-to- moderate sensory loss; -9. Best Language 1 - Mild-to- moderate aphasia; -10. Dysarthria 0 - Normal -11. Extinction and Inattention 0 - No abnormality -Total 3 Query Text:A score of 0 is normal or asymptomatic. Total possible score is 42 . ED: Notify Physician for NIHSS increase by > / = 3 points. Inpatient: RN or Physician to activate a stroke alert for NIHSS increase of > / = 3 points.
[2025-04-04] MEDS: Losartan Potassium 100 MG Tablet PO (09:45)
[2025-04-04] MEDS: guaiFENesin 1,200 MG Tablet 1200 MG PO ×2 (09:45→21:05)
[2025-04-04] MEDS: hydrALAZINE 50 MG Tablet PO ×2 (09:45→21:09)
[2025-04-04] MEDS: Metoprolol Tartrate 25 MG Tablet PO ×2 (09:45→21:09)
[2025-04-04] MEDS: Clopidogrel Bisulfate 75 MG Tablet PO (09:45)
[2025-04-04] MEDS: Aspirin 81 MG TAB.CHEW PO (09:46)
[2025-04-04] MEDS: Gabapentin 100 MG Capsule PO ×3 (09:46→17:15)
[2025-04-04] MEDS: Furosemide 40 MG/4 ML Vial IV ×2 (09:46→17:15)
--- NOTE | 2025-04-04 09:46 | PN.CC_ITS ---
Assessment & Plan Assessment/Plan (1) Acute on chronic hypoxic respiratory failure: PLAN: Plan RECOMMENDATIONS: 1. Continue to wean supplemental oxygen to maintain saturations at or above 90%. 2. Antimicrobial therapy has completed. 3. Continue scheduled bronchodilators and steroids. 4. Encourage incentive spirometer use and mobilize patient as tolerated. 5. Ongoing diuresis as tolerated by hemodynamics and renal function. IMPRESSIONS: 1. Acute on chronic hypoxemic respiratory failure Likely secondary to COPD exacerbation in the setting of Pseudomonas pneumonia. CTA chest ruled out pulmonary embolism. Continue to wean supplemental oxygen to maintain saturations at or above 90%. The patient has completed a treatment course of antimicrobials and will remain on bronchodilators and steroids, as ordered. She will require outpatient follow-up after discharge with her primary pot liner, Dr. Fleming. In addition, given that the patient is overall net positive from a volume perspective for the hospitalization, agree with continuing diuretics, as tolerated by hemodynamics and renal function. 2. Acute CVA status post tenecteplase Continue routine medical management per neurology recommendations. 3. T12 compression fracture/history of TIA/small bowel obstruction/ileus/occluded right ICA Complicates care, management, recovery and prognosis. Continue supportive measures as noted above. This note was generated with [employer] dictation software. It may contain incorrect words, spelling, and punctuation that were not noted in checking the note before signing. Subjective Subjective The patient was seen and examined at the bedside this morning. Events from the last 24 hours have been reviewed. The patient is currently afebrile, hemodynamically stable and maintaining appropriate oxygen saturations on 5 L/min and nasal cannula. Oxygenation status is slowly improving. She is currently documented to be overall net +4 L for the hospitalization. White blood cell count has normalized. Hemoglobin and platelet count are stable. Creatinine remains within normal limits. Objective Data Objective Data The patient's most recent lab work, culture data and imaging studies have all been personally reviewed. Sputum culture was positive for Pseudomonas aeruginosa. Vital Signs: Vital Signs Temp Pulse Resp BP Pulse Ox O2 Del Method O2 Flow Rate 97.9 F 59 L 15 147/68 H 94 High Flow 5 04/04/25 05:00 04/04/25 07:54 04/04/25 07:54 04/04/25 05:00 04/04/25 08:13 04/04/25 08:13 04/04/25 08:13 FiO2 43 04/04/25 07:54 Oxygen Flow Rate (L/min) 5 Oxygen Delivery Method High Flow Weight: 157 lb 3.033 oz Body Mass Index (BMI) 30.7 Intake & Output: Intake and Output for Last 24 Hours 04/02/25 04/03/25 04/04/25 23:59 23:59 23:59 Intake Total 250 / 250 660 / 660 120 / 120 Output Total 925 / 925 750 / 750 300 / 300 Balance -675 / -675 -90 / -90 -180 / -180 Lab / Micro Data Attestation: I reviewed the patient's lab results. 04/04/25 06:30 04/04/25 06:30 Labs: Laboratory Results - last 24 hr 04/04/25 06:30: WBC 8.5, RBC 3.20 L, Hgb 9.0 L, Hct 28.1 L, MCV 87.8, MCH 28.1, MCHC 32.0, RDW Std Deviation 47.7 H, RDW Coeff of Osiel 14.7 H, Plt Count 298, MPV 9.1, Immature Gran % (Auto) 0.600, Neut % (Auto) 84.4 H, Lymph % (Auto) 7.6 L, [place] % (Auto) 6.3, Eos % (Auto) 1.1, Baso % (Auto) 0.0, Absolute Neuts (auto) 7.1, Absolute Lymphs (auto) 0.64 L, Nucleated RBC % 0, Sodium 137, Potassium 3.6, Chloride 100, Carbon Dioxide 29.2, Anion Gap 8, BUN 24 H, Creatinine 0.50 L , Estim Creat Clear Calc 43.66 L, Est GFR (MDRD) Non-Af 91, BUN/Creatinine Ratio 47.9 H, Glucose 94, Calcium 8.5 Micro: Microbiology 03/20/25 15:50 Sputum, Expectorated/Coughed Gram Stain - Final 03/20/25 15:50 Sputum, Expectorated/Coughed Respiratory Culture - Final Pseudomonas aeruginosa ABG Data ABG results: ABG 04/03/25 04:27 Specimen Type ART Sample Site L Radial pH 7.49 H Bicarbonate Actual 35.0 H Total CO2 36 Base Excess 12 H O2 Saturation 89 L O2 % 62.0 ABG pCO2 46.0 H ABG pO2 53 L Bao Test Positive O2 Delivery Device AirVo Vent Mode Not entered Clinical Comments Flow 60 L/min Radiography Diagnostic Testing: Radiology Impression Chest X-Ray 04/03/25 04:05 IMPRESSION: Improvement in aeration at the right lung base, with slight residual opacity. Reading Location: [facility] Physical Exam Const alert and no apparent distress General Appearance: cooperative HEENT normocephalic and head/scalp atraumatic General Ear: hearing grossly impaired Eyes PERRL, EOMs intact bilaterally and conjunctivae normal Neck supple General: trachea midline Chest inspection of chest normal Resp normal respiratory effort Auscultation: diminished lung sounds; Negative for rales, rhonchi or wheezes Cardio regular rate and regular rhythm GI normal to inspection, nondistended, normoactive bowel sounds Extremity no clubbing, cyanosis or edema Skin no rashes or lesions noted Neuro CN's II-XII intact bilaterally, moves all extremities and no focal motor deficits Psych Mood & Affect: flat affect Charges/Coding Visit Charges Inpatient E&M: 10290 Subs Hosp L2
[2025-04-04] MEDS: Lidocaine 5% Patch 1 PATCH TOPICAL ×2 (09:47→09:48)
[2025-04-04] MEDS: Sodium Chloride 1 GM Tablet PO ×2 (09:47→21:06)
[2025-04-04] MEDS: Omega-3 Acid Ethyl Esters 1 GM Capsule PO (09:48)
[2025-04-04] MEDS: Enoxaparin 40 MG/0.4 ML Syringe SC (09:48)
--- NOTE | 2025-04-04 10:30 | CASEMGMT ---
Patient weaned off Airvo and currently on 5lpm NC. Son prefers for patient to stay locally if Ltach is not needed. SHIRIN CM updated hospitalist and SW. Will observed and follow-up on Monday to plan safe discharge of TCU vs [facility].
--- NOTE | 2025-04-04 15:12 | CASEMGMT ---
HALEIGH notified [facility] in TCU that patient may be ready for discharge over the weekend. There is a different physician covering TCU and she does not feel patient is medically ready for discharge to TCU. Patient will be re-looked at on Monday. Sonia BARRERA
[2025-04-04] MEDS: Atorvastatin Calcium 80 MG Tablet PO (21:05)
[2025-04-04] MEDS: Latanoprost 0.005% 1 Bottle 1 DRP OPHTHALMIC (21:08)
[2025-04-05] VITALS (15 sets, daily range): BP systolic 112–133; BP diastolic 46–65; PULSE 57–92; RESP 16–20; TEMP 36.1–36.6; O2SAT 90–98; BMI 30.7; BMI 32.0
[2025-04-05] MEDS: Acetaminophen 500 MG Tablet 1000 MG PO ×3 (06:52→20:33)
[2025-04-05] MEDS: Ipratropium/Albuterol Sulfate 3 ML AMPUL.NEB INHALATION ×3 (07:40→20:00)
--- NOTE | 2025-04-05 09:22 | PN.HOSP_ITS ---
Reason for Visit Reason for Visit: Diagnoses Elevated white blood cell count, unspecified (03/19/25) Hypo-osmolality and hyponatremia (03/19/25) Cerebral infarction, unspecified (03/19/25) Pneumonia, unspecified organism (03/19/25) Acute and chronic respiratory failure with hypoxia (03/19/25) Ileus, unspecified (03/19/25) Constipation, unspecified (03/19/25) Dorsalgia, unspecified (03/19/25) Age-related osteoporosis with current pathological fracture, vertebra(e), initial encounter for fracture (03/19/25) Age-related osteoporosis without current pathological fracture (03/19/25) Difficulty in walking, not elsewhere classified (03/19/25) Stable burst fracture of T11-T12 vertebra, initial encounter for closed fracture (03/19/25) Unspecified fall, initial encounter (03/19/25) Subjective Subjective Oxygen continues to be weaned down, now at 3l/m Objective Data Objective Data Vital Signs: Vital Signs Temp Pulse Resp BP Pulse Ox O2 Del Method O2 Flow Rate 36.1 C L 70 20 H 114/46 L 96 Nasal Cannula 3 04/05/25 04:05 04/05/25 07:41 04/05/25 07:41 04/05/25 04:05 04/05/25 07:41 04/05/25 07:41 04/05/25 07:41 FiO2 43 04/04/25 07:54 Oxygen Flow Rate (L/min) 3 Oxygen Delivery Method Nasal Cannula Weight: 74.4 kg Body Mass Index (BMI) 32.0 Intake & Output: Intake and Output for Last 24 Hours 04/03/25 04/04/25 04/05/25 23:59 23:59 23:59 Intake Total 660 / 660 600 / 600 Output Total 750 / 750 1000 / 1000 2400 / 2400 Balance -90 / -90 -400 / -400 -2400 / -2400 Lab / Micro Data 04/04/25 06:30 04/04/25 06:30 Micro: Microbiology 03/20/25 15:50 Sputum, Expectorated/Coughed Gram Stain - Final 03/20/25 15:50 Sputum, Expectorated/Coughed Respiratory Culture - Final Pseudomonas aeruginosa Physical Exam Const alert and no apparent distress HEENT head/scalp atraumatic and moist oral mucous membranes Resp normal respiratory effort, no retractions, no use of accessory muscles and clear to auscultation bilaterally Cardio regular rate, regular rhythm, S1 normal heart sound and S2 normal heart sound GI normal to inspection, nondistended, normoactive bowel sounds, soft to palpation, non-tender and non-distended Extremity normal to inspection Assessment & Plan Assessment/Plan (1) Acute on chronic hypoxic respiratory failure: PLAN: conintues to improve 2/2 pneumonia and AECOPD back on Airvo continue Furosemide encouraged IS and flutter valve. wean oxygen as tolerated. advised patient to take in deeper, slower breaths with IS. 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 NIHSS score was 24. CTA head/neck showed right ICA occlusion with distal reconstitution. Discussed with neurology who recommended either emergent transfer for mechanical thrombectomy versus TNK. Family opted for TNK administration and monitoring here; TNK was given and patient was moved to the ICU for closer monitoring. Repeat CT head at 24 hours showed area of infarction but no hemorrhage. MRI brain on morning of 03/30 again showed area of infarction in the right temporoparietal lobe but no other concerning findings. Per neurology, suspect patient had a plaque from known carotid stenosis break off and cause the occlusion. No need for transfer as patient will not need any neurosurgical intervention to that area. Recommended dual antiplatelet therapy but noted that patient is okay for baby aspirin alone for now, as we will hold Plavix for possible pain injection. Continue ASA and clopidogrel for 21days. (3) Pneumonia: PLAN: pseudomonas IV levoflaxacin completed. (4) T12 burst fracture: PLAN: s/p fall. kyphoplasty held given respiratory failure. pain mgmt consulted for pain control. DW Dr. Mcgee, he does not advise nerve block given the TNK she received and there is no data to suggest an appropriate timing. So will hold off at this time. Patient to follow up as outpt. Currently on lidoderm, scheduled acetaminophen, PRN oxy and morphine. (5) Ileus: PLAN: resolved PLAN: Plan Hypokalemia * replace and monitor Chronic medical conditions: ? 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 Complicates hospital course, care and prognosis. May need to uptitrate oxygen nocturnally while inpatient. ? Bilateral carotid artery stenosis: Had moderate right extracranial internal carotid artery stenosis and mild left extracranial internal carotid artery stenosis on last duplex in 2024, stable from previous. Notably Plavix is on hold as above. Continue home rosuvastatin. Continue outpatient follow-up with Dr. Araiza. ? Macular degeneration: Continue home eyedrops. ? Hypertension, hyperlipidemia: Continue home statin, metoprolol, irbesartan, hydralazine, amlodipine. ? Osteoporosis: DVT prophylaxis: Lovenox CODE STATUS: DNR CCA, okay for short-term intubation Expected disposition: SNF but not until 04/07 given the weekend. Charges/Coding Visit Charges Inpatient E&M: 59823 Subs Hosp L2 NIHSS NIHSS Nursing Documentation NIHSS Nursing Documentation: NIHSS: Ischemic Stroke/TIA Start: 03/29/25 04:41 Freq: Status: Complete Protocol: Activity Type Activity Date Activity User E-sign Co-sign Detail Recorded Client Recorded Date Recorded By Document 03/28/25 21:37 [id number] 03/29/25 04:48 03/28/25 21:37 NIH Stroke Scale [NIHSS] A score of 0 is normal or asymptomatic . Total possible score is 42. Inpatient: RN or Physician to activate a stroke alert for onset of new stroke symptoms or with NIHSS increase >/= 3 points. Following change in neurological status, NIHSS will be performed per physician order or more frequently PRN. -1a. Level of Consciousness 1 - Not alert; Arousable by minor stimuli to obey, answer & respond -1b. LOC Questions 2 - Answers NEITHER question correctly -1c. LOC Commands 2 - Performs NEITHER task correctly -2. Best Gaze 0 - Normal -3. Visual 0 - No visual loss -4. Facial Palsy 1 - Minor paralysis ( flattened nasolabial fold , asymmetry on smiling) -5a. Left Arm 2 - Some effort against gravity; -5b. Right Arm 0 - No drift; arm holds 90 ( or 45) degrees for full 10 seconds -6a. Left Leg 3 - No effort against gravity ; leg falls to bed immediately -6b. Right Leg 0 - No drift; leg holds 30- degree position for full 5 seconds -7. Limb Ataxia 2 - Present in 2 limbs -8. Sensory 0 - Normal; no sensory loss -9. Best Language 2 - Severe aphasia; -10. Dysarthria 2 - Severe dysarthria; -11. Extinction and Inattention 0 - No abnormality -Total 17 Query Text:A score of 0 is normal or asymptomatic. Total possible score is 42 . ED: Notify Physician for NIHSS increase by > / = 3 points. Inpatient: RN or Physician to activate a stroke alert for NIHSS increase of > / = 3 points. Thrombolytic: Vital Signs & NIHSS Start: 03/28/25 21:26 Text: Assess and document vital signs and NIHSS Status: Complete within 15 minutes prior to Tenecteplase administration Freq: [id number],Q2H Protocol: Activity Type Activity Date Activity User E-sign Co-sign Detail Recorded Client Recorded Date Recorded By Document 03/30/25 14:00 ARB [id number] 03/30/25 14:18 ARB 03/30/25 14:00 Vital Signs [Temperature Protocol: VS] -Temperature (36.6 C-37.3 C) 37.6 C H -Temperature Source Core [Pulse] -Pulse Rate (60-100) 62 -Pulse Location Monitor [Respirations] -Respiratory Rate (12-18) 18 -Respiratory rate source Monitor -Pulse Oximetry 91 -Oxygen Delivery Method Nasal Cannula -O2 L/MIN (L/min) 8 [Blood Pressure] -Blood Pressure (90/60-120/80) 91/42 L -Blood Pressure Mean (mm Hg) 58 -Source Monitor -Position Sitting -Blood Pressure Location Left Arm -Is the SBP > or = 180 No -Is the DBP > or = 105 No NIH Stroke Scale [NIHSS] A score of 0 is normal or asymptomatic . Total possible score is 42. Inpatient: RN or Physician to activate a stroke alert for onset of new stroke symptoms or with NIHSS increase >/= 3 points. Following change in neurological status, NIHSS will be performed per physician order or more frequently PRN. -1a. Level of Consciousness 0 - Alert; keenly responsive -1b. LOC Questions 0 - Answers BOTH questions correctly -1c. LOC Commands 0 - Performs BOTH tasks correctly -2. Best Gaze 0 - Normal -3. Visual 0 - No visual loss -4. Facial Palsy 1 - Minor paralysis ( flattened nasolabial fold , asymmetry on smiling) -5a. Left Arm 0 - No drift; arm holds 90 ( or 45) degrees for full 10 seconds -5b. Right Arm 0 - No drift; arm holds 90 ( or 45) degrees for full 10 seconds -6a. Left Leg 0 - No drift; leg holds 30- degree position for full 5 seconds -6b. Right Leg 0 - No drift; leg holds 30- degree position for full 5 seconds -7. Limb Ataxia 0 - Absent -8. Sensory 1 - Mild-to- moderate sensory loss; -9. Best Language 1 - Mild-to- moderate aphasia; -10. Dysarthria 0 - Normal -11. Extinction and Inattention 0 - No abnormality -Total 3 Query Text:A score of 0 is normal or asymptomatic. Total possible score is 42 . ED: Notify Physician for NIHSS increase by > / = 3 points. Inpatient: RN or Physician to activate a stroke alert for NIHSS increase of > / = 3 points.
[2025-04-05] MEDS: Lidocaine 5% Patch 1 PATCH TOPICAL ×2 (10:40→10:44)
[2025-04-05] MEDS: hydrALAZINE 50 MG Tablet PO ×2 (10:40→20:34)
[2025-04-05] MEDS: 0.9% Saline Lock 10 ML Syringe IV ×2 (10:41→16:29)
[2025-04-05] MEDS: oxyCODONE 5 MG Tablet PO ×2 (10:41→16:29)
[2025-04-05] MEDS: Furosemide 40 MG/4 ML Vial IV ×2 (10:41→16:29)
[2025-04-05] MEDS: Metoprolol Tartrate 25 MG Tablet PO ×2 (10:42→20:34)
[2025-04-05] MEDS: Omega-3 Acid Ethyl Esters 1 GM Capsule PO (10:42)
[2025-04-05] MEDS: Clopidogrel Bisulfate 75 MG Tablet PO (10:42)
[2025-04-05] MEDS: Aspirin 81 MG TAB.CHEW PO (10:42)
[2025-04-05] MEDS: Losartan Potassium 100 MG Tablet PO (10:42)
[2025-04-05] MEDS: Enoxaparin 40 MG/0.4 ML Syringe SC (10:42)
[2025-04-05] MEDS: amLODIPine 10 MG Tablet PO (10:42)
[2025-04-05] MEDS: Sodium Chloride 1 GM Tablet PO ×2 (10:42→20:35)
[2025-04-05] MEDS: guaiFENesin 1,200 MG Tablet 1200 MG PO ×2 (10:42→20:34)
[2025-04-05] MEDS: Gabapentin 100 MG Capsule PO ×3 (11:05→16:29)
--- NOTE | 2025-04-05 17:20 | PN.CC_ITS ---
Objective Data Objective Data Vital Signs: Vital Signs Last response 3 Temperature 36.6 C 04/05/25 16:27 Temperature Source Temporal 04/05/25 16:27 Pulse Rate 66 04/05/25 16:27 Pulse Strength Normal (2+) 04/05/25 10:00 Respiratory Rate 20 H 04/05/25 16:27 Respiratory Effort Normal, Non-Labored 04/05/25 16:38 Respiratory Depth Normal 04/05/25 16:38 Respiratory Pattern Normal 04/05/25 16:38 Blood Pressure 121/56 H 04/05/25 16:27 Blood Pressure Mean 77 04/05/25 16:27 Blood Pressure Source Monitor 04/03/25 07:00 Blood Pressure Position Semi-Fowlers 04/02/25 20:00 Blood Pressure Location Left Arm 04/02/25 20:00 Pulse Ox 98 04/05/25 16:27 Oxygen Delivery Method Nasal Cannula 04/05/25 16:38 Oxygen Flow Rate (L/min) 3 04/05/25 16:38 Fraction of Inspired Oxygen (FIO2) 43 04/04/25 07:54 I&O: I&O Last 24 Hours 3 04/04/25 04/05/25 04/05/25 23:59 11:59 23:59 Intake Total 480 / 600 240 / 240 Output Total 700 / 1000 2400 / 2650 250 / 2650 Balance -220 / -400 -2400 / -2410 -10 / -2410 I&O: Total Stay 3 03/19/25 08:46 thru 04/05/25 13:55 Intake Total 17855 Output Total 37045 Balance 1455 Current Meds Ordered / Administered: Current meds ordered / Administered 3 Generic Name Dose Route Start Last Admin Trade Name Freq PRN Reason Stop Dose Admin Acetaminophen 1,000 mg 03/24/25 14:00 04/05/25 13:51 Acetaminophen 500 Mg Tablet PO 1,000 mg Q8 ROSELIA Administration Al Hydroxide/Mg Hydroxide 30 ml 03/22/25 19:18 03/22/25 19:39 Mag Hydrox/Al Hydrox/Simeth 30 Ml Udc PO 30 ml Q6H PRN PRN Administration HEARTBURN OR INDIGESTION Albuterol Sulfate 2.5 mg 03/19/25 11:37 Albuterol 2.5 Mg/3 Ml Vial.Neb. INHALATION Q2H PRN PRN SOB &/OR WHEEZING Albuterol/Ipratropium 3 ml 03/23/25 12:15 04/05/25 13:46 Ipratropium/Albuterol Sulfate 3 Ml Ampul.Neb INHALATION 3 ml Q6HWA.RT ROSELIA Administration Amlodipine Besylate 10 mg 03/22/25 10:00 04/05/25 10:42 Amlodipine 10 Mg Tablet PO 10 mg DAILY ROSELIA Administration Protocol Aspirin 81 mg 03/30/25 11:20 04/05/25 10:42 Aspirin 81 Mg Tab.Chew PO 81 mg BREAKFAST ROSELIA Administration Atorvastatin Calcium 80 mg 03/19/25 22:00 04/04/25 21:05 Atorvastatin Calcium 80 Mg Tablet PO 80 mg QHS ROSELIA Administration Calcium/Vitamin D 1 tablet 03/20/25 08:00 03/23/25 10:09 Calcium Carb/Vitamin D 1 Tablet Tablet PO 1 tablet DAILYCM ROSELIA Administration Clopidogrel Bisulfate 75 mg 04/03/25 13:15 04/05/25 10:42 Clopidogrel Bisulfate 75 Mg Tablet PO 75 mg DAILY ROSELIA Administration Enoxaparin Sodium 40 mg 03/20/25 10:00 04/05/25 10:42 Enoxaparin 40 Mg/0.4 Ml Syringe SC 40 mg DAILY ROSELIA Administration Furosemide 40 mg 04/02/25 18:00 04/05/25 16:29 Furosemide 40 Mg/4 Ml Vial IV 40 mg BIDLX ROSELIA Administration Protocol Gabapentin 100 mg 03/19/25 12:00 04/05/25 16:29 Gabapentin 100 Mg Capsule PO 100 mg TIDCM ROSELIA Administration Guaifenesin 1,200 mg 03/21/25 10:00 04/05/25 10:42 Guaifenesin 1,200 Mg Tablet PO 1,200 mg BID ROSELIA Administration Hydralazine HCl 50 mg 03/19/25 22:00 04/05/25 10:40 Hydralazine 50 Mg Tablet PO 50 mg BID ROSELIA Administration Protocol Sodium Chloride 250 mls @ 15 mls/hr 03/19/25 12:04 IV .[id number] PRN Saline Flush Sodium Chloride 250 mls @ 15 mls/hr 03/19/25 12:04 IV .[id number] PRN Additional IVPB Infusion Ibuprofen 200 mg 03/19/25 22:00 03/23/25 02:22 Ibuprofen 200 Mg Tablet PO Not Given TID ROSELIA Latanoprost 1 drp 03/19/25 22:00 04/04/25 21:08 Latanoprost 0.005% 1 Bottle OPHTHALMIC 1 drp QHS ROSELIA Administration Lidocaine 1 patch 03/19/25 14:00 04/05/25 10:40 Lidocaine 5% Patch TOPICAL 1 patch DAILY ROSELIA Administration Protocol Lidocaine 1 patch 04/04/25 10:00 04/05/25 10:44 Lidocaine 5% Patch TOPICAL 1 patch DAILY ROSELIA Administration Protocol Losartan Potassium 100 mg 03/20/25 10:00 04/05/25 10:42 Losartan Potassium 100 Mg Tablet PO 100 mg DAILY ROSELIA Administration Methylprednisolone 40 mg 03/29/25 15:00 04/05/25 10:41 Methylprednisolone 40 Mg/Ml Vial IV 40 mg DAILY ROESLIA Administration Metoprolol Tartrate 25 mg 03/19/25 22:00 04/05/25 10:42 Metoprolol Tartrate 25 Mg Tablet PO 25 mg BID [facility] Administration Protocol Morphine Sulfate 2 mg 03/24/25 13:02 Morphine 2 Mg/Ml Syringe IV Q3H PRN PRN Pain Score 6-10 Multivitamins/Minerals 1 cap 03/19/25 22:00 03/23/25 12:01 Multivitamin (Healthy Eyes) Capsule PO 1 cap BID ROSELIA Administration Nicotine 14 mg 03/19/25 14:00 04/05/25 10:40 Nicotine 14 Mg Patch TD 14 mg DAILY [facility] Administration [id number] Ethyl Esters 1 gm 03/20/25 10:00 04/05/25 10:42 Vesper-3 Acid Ethyl Esters 1 Gm Capsule PO 1 gm DAILY ROSELIA Administration Ondansetron HCl 4 mg 03/19/25 11:37 03/19/25 18:51 Ondansetron 4 Mg/2 Ml Vial IV 4 mg Q8H PRN PRN Administration NAUSEA/VOMITING Oxycodone HCl 5 mg 03/24/25 13:02 04/05/25 16:29 Oxycodone 5 Mg Tablet PO 5 mg Q4H PRN PRN Administration Pain Score 4-10 Polyethylene Glycol 17 gm 03/21/25 10:00 04/05/25 10:43 Polyethylene Glycol 3350 17 Gm Packet PO Not Given DAILY [facility] Senna/Docusate Sodium 2 tablet 03/19/25 22:00 04/05/25 10:43 Senna/Docusate Sodium 1 Tablet PO Not Given BID [facility] Sodium Chloride 10 - 40 ml 05/21/25 12:04 04/05/25 16:29 0.9% Saline Lock 10 Ml Syringe IV 10 ml UD PRN Administration SALINE FLUSH Sodium Chloride 1 gm 03/21/25 12:19 04/05/25 10:42 Sodium Chloride 1 Gm Tablet PO 1 gm BID ROSELIA Administration Sodium Chloride 10 ml 03/28/25 21:25 0.9% Saline Lock 10 Ml Syringe IV UD PRN Before/After Tenecteplase Administration Lab / Micro Data 04/04/25 06:30 04/04/25 06:30 Assessment and Plan . Assessment and plan: Subjective: No acute events o/n. She feels breathing OK today. Still coughing up some phlegm. Tolerating minced diet. No overt coughing/choked noted with eating today Physical Exam: Gen - NAD, elderly, fatigued HEENT - MM dry. Sclera anicteric Resp - +mild crackles. Breathing nonlabored CV - RRR. No m/g/r Abd - Soft, NT, ND Ext - No c/c. +LE edema Skin - No rashes? Neuro - +mild L sided weakness, improving. I have reviewed the pertinent vital sign, laboratory, and imaging data. 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 Had prior R CEA for carotid stenosis in 03/2024 as well, on plavix for this though was held for past few days for possible kyphoplasty # Pseudomonas PNA # SBO/ileus # Acute encephalopathy # T12 compression fracture # Fall # h/o TIA # HTN # HLD # Osteoporosis PLAN: -On 3L NC, wean to keep sats > 90%. Encourage IS, mobilization as tolerated -Cont diuresis, target negative fluid balance as tolerated -Taper IV solumedrol to prednisone, and can likely stop in next few days if continued improvement -Cont flutter valve, mucinex, duoneb -s/p levaquin for pseudomonas PNA -Planning for transfer to rehab unit now. Ortho surgery for spinal fracture deferred for now pending clinical improvement FEN/GI: Minced diet Proph DVT/GI: Lovenox Code status: DNR but OK with intubation Updated family at bedside. We will monitor peripherally over the weekend, but please call us if any questions or if clinical worsening The entirety of this encounter was done via telemedicine using both audio and video. Consent was unable to be obtained for the telemedicine encounter due to the patient's mental status.
[2025-04-05] MEDS: Latanoprost 0.005% 1 Bottle 1 DRP OPHTHALMIC (20:33)
[2025-04-05] MEDS: Atorvastatin Calcium 80 MG Tablet PO (20:34)
[2025-04-06] VITALS (10 sets, daily range): BP systolic 97–129; BP diastolic 46–85; PULSE 64–88; RESP 18–24; TEMP 35.5–36.6; O2SAT 93–99; BMI 30.9
[2025-04-06 05:02] LABS: Absolute Lymphocyte Count 0.66 X10^3/uL (0.83-4.51); Absolute Neutrophil Count 5.9 X10^3/uL (2.0-7.7); Basophil# 0.01 X10^3/uL; Basophil% 0.1 % (0-1); Eosinophil# 0.02 X10^3/uL; Eosinophils% 0.3 % (0-5); Hematocrit 28.4 % (37-47); Hemoglobin 9.2 g/dL (12.0-15.0); Lymphocyte # 0.66 X10^3/ul (0.83-4.51); Lymphocyte % 9.2 % (19-41); Mean Corp Hgb Conc 32.4 g/dL (32-36); Mean Corpuscular Hgb 28.5 pg (27.0-32.0); Mean Corpuscular Volume 87.9 fL (81-99); Mean Platelet Vol. 9.3 fl (6.2-12.0); Monocyte# 0.48 X10^3/uL; Monocyte% 6.7 % (0-10); NRBC Flagged by Analyzer 0 % (0-5); Neutrophil # 5.92 X10^3/uL (2.7-7.7); Neutrophil % 82.9 % (47-70); Platelet Count 317 K/mm3 (150-450); RBC Distribution Width CV 14.9 % (11.6-14.6); RBC Distribution Width SD 47.8 fl (35.1-43.9); Red Blood Count 3.23 M/mm3 (4.2-5.4); White Blood Count 7.2 K/mm3 (4.4-11.0)
[2025-04-06 05:31] LABS: Anion Gap 11 (5-15); BUN 32 mg/dL (4-19); BUN/Creat Ratio 56.5 RATIO (10-20); Calcium,Total 8.9 mg/dL (7.6-11.0); Carbon Dioxide 30.6 mmol/L (21.0-32.0); Chloride 99 mmol/L (98-108); Creatinine, Serum 0.56 mg/dL (0.70-1.20); EST Glomerular Filtration Rate 88 (>60); Estimated Creatinine Clearance 44.63 ml/min (50-250); Glucose 99 mg/dL (70-99); Sodium Level 141 mmol/L (133-145)
[2025-04-06] MEDS: Ipratropium/Albuterol Sulfate 3 ML AMPUL.NEB INHALATION ×3 (08:06→20:11)
--- NOTE | 2025-04-06 09:04 | PCM.PN.HOSP ---
Reason for Visit Reason for Visit: Diagnoses Elevated white blood cell count, unspecified (03/19/25) Hypo-osmolality and hyponatremia (03/19/25) Cerebral infarction, unspecified (03/19/25) Pneumonia, unspecified organism (03/19/25) Acute and chronic respiratory failure with hypoxia (03/19/25) Ileus, unspecified (03/19/25) Constipation, unspecified (03/19/25) Dorsalgia, unspecified (03/19/25) Age-related osteoporosis with current pathological fracture, vertebra(e), initial encounter for fracture (03/19/25) Age-related osteoporosis without current pathological fracture (03/19/25) Difficulty in walking, not elsewhere classified (03/19/25) Stable burst fracture of T11-T12 vertebra, initial encounter for closed fracture (03/19/25) Unspecified fall, initial encounter (03/19/25) Subjective Subjective No new events. Awaiting on placement. Objective Data Objective Data Vital Signs: Vital Signs Temp Pulse Resp BP Pulse Ox O2 Del Method O2 Flow Rate 36.6 C 66 20 H 124/85 H 94 Nasal Cannula 4 04/06/25 02:50 04/06/25 08:08 04/06/25 08:08 04/06/25 02:50 04/06/25 08:08 04/06/25 08:08 04/06/25 08:08 FiO2 43 04/04/25 07:54 Oxygen Flow Rate (L/min) 4 Oxygen Delivery Method Nasal Cannula Weight: 71.9 kg Body Mass Index (BMI) 30.9 Intake & Output: Intake and Output for Last 24 Hours 04/04/25 04/05/25 04/06/25 23:59 23:59 23:59 Intake Total 600 / 600 600 / 600 Output Total 1000 / 1000 3500 / 3700 300 / 300 Balance -400 / -400 -2900 / -3100 -300 / -300 Lab / Micro Data 04/06/25 04:16 04/06/25 04:16 Labs: Laboratory Results - last 24 hr 04/06/25 04:16: WBC 7.2, RBC 3.23 L, Hgb 9.2 L, Hct 28.4 L, MCV 87.9, MCH 28.5, MCHC 32.4, RDW Std Deviation 47.8 H, RDW Coeff of Osiel 14.9 H, Plt Count 317, MPV 9.3, Immature Gran % (Auto) 0.800, Neut % (Auto) 82.9 H, Lymph % (Auto) 9.2 L, [place] % (Auto) 6.7, Eos % (Auto) 0.3, Baso % (Auto) 0.1, Absolute Neuts (auto) 5.9, Absolute Lymphs (auto) 0.66 L, Nucleated RBC % 0, Sodium 141, Potassium 3.0 L, Chloride 99, Carbon Dioxide 30.6, Anion Gap 11, BUN 32 H, Creatinine 0.56 L, Estim Creat Clear Calc 44.63 L, Est GFR (MDRD) Non-Af 88, BUN/Creatinine Ratio 56.5 H, Glucose 99, Calcium 8.9 Micro: Microbiology 03/20/25 15:50 Sputum, Expectorated/Coughed Gram Stain - Final 03/20/25 15:50 Sputum, Expectorated/Coughed Respiratory Culture - Final Pseudomonas aeruginosa Physical Exam Const alert and no apparent distress Constitutional Narrative: up in chair. no respiratory distress. no conversational dyspnea. HEENT head/scalp atraumatic and moist oral mucous membranes Resp normal respiratory effort, no retractions, no use of accessory muscles and clear to auscultation bilaterally Cardio regular rate, regular rhythm, S1 normal heart sound and S2 normal heart sound GI normal to inspection, nondistended, normoactive bowel sounds, soft to palpation, non-tender and non-distended Extremity normal to inspection Assessment & Plan Assessment/Plan (1) Acute on chronic hypoxic respiratory failure: PLAN: continues to improve 2/2 pneumonia and AECOPD on 3 liters NC continue Furosemide encouraged IS and flutter valve. wean oxygen as tolerated. 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 NIHSS score was 24. CTA head/neck showed right ICA occlusion with distal reconstitution. Discussed with neurology who recommended either emergent transfer for mechanical thrombectomy versus TNK. Family opted for TNK administration and monitoring here; TNK was given and patient was moved to the ICU for closer monitoring. Repeat CT head at 24 hours showed area of infarction but no hemorrhage. MRI brain on morning of 03/30 again showed area of infarction in the right temporoparietal lobe but no other concerning findings. Per neurology, suspect patient had a plaque from known carotid stenosis break off and cause the occlusion. No need for transfer as patient will not need any neurosurgical intervention to that area. Recommended dual antiplatelet therapy but noted that patient is okay for baby aspirin alone for now, as we will hold Plavix for possible pain injection. Continue ASA and clopidogrel for 21days. (3) Pneumonia: PLAN: pseudomonas IV levoflaxacin completed. (4) T12 burst fracture: PLAN: s/p fall. kyphoplasty held given respiratory failure. pain mgmt consulted for pain control. DW Dr. Mcgee, he does not advise nerve block given the TNK she received and there is no data to suggest an appropriate timing. So will hold off at this time. Patient to follow up as outpt. Currently on lidoderm, scheduled acetaminophen, PRN oxy and morphine. (5) Ileus: PLAN: resolved PLAN: Plan Hypokalemia replace and monitor Chronic medical conditions: ? 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 Complicates hospital course, care and prognosis. May need to uptitrate oxygen nocturnally while inpatient. ? Bilateral carotid artery stenosis: Had moderate right extracranial internal carotid artery stenosis and mild left extracranial internal carotid artery stenosis on last duplex in 2024, stable from previous. Notably Plavix is on hold as above. Continue home rosuvastatin. Continue outpatient follow-up with Dr. Araiza. ? Macular degeneration: Continue home eyedrops. ? Hypertension, hyperlipidemia: Continue home statin, metoprolol, irbesartan, hydralazine, amlodipine. ? Osteoporosis: DVT prophylaxis: Lovenox CODE STATUS: DNR CCA, okay for short-term intubation Expected disposition: SNF but not until 04/07 given the weekend. Transfer to [facility] as she is remaining stable (and improving) and medically ready for discharge. Charges/Coding Visit Charges Inpatient E&M: 82230 Subs Hosp L2 NIHSS NIHSS Nursing Documentation NIHSS Nursing Documentation: NIHSS: Ischemic Stroke/TIA Start: 03/29/25 04:41 Freq: Status: Complete Protocol: Activity Type Activity Date Activity User E-sign Co-sign Detail Recorded Client Recorded Date Recorded By Document 03/28/25 21:37 [id number] 03/29/25 04:48 03/28/25 21:37 NIH Stroke Scale [NIHSS] A score of 0 is normal or asymptomatic . Total possible score is 42. Inpatient: RN or Physician to activate a stroke alert for onset of new stroke symptoms or with NIHSS increase >/= 3 points. Following change in neurological status, NIHSS will be performed per physician order or more frequently PRN. -1a. Level of Consciousness 1 - Not alert; Arousable by minor stimuli to obey, answer & respond -1b. LOC Questions 2 - Answers NEITHER question correctly -1c. LOC Commands 2 - Performs NEITHER task correctly -2. Best Gaze 0 - Normal -3. Visual 0 - No visual loss -4. Facial Palsy 1 - Minor paralysis ( flattened nasolabial fold , asymmetry on smiling) -5a. Left Arm 2 - Some effort against gravity; -5b. Right Arm 0 - No drift; arm holds 90 ( or 45) degrees for full 10 seconds -6a. Left Leg 3 - No effort against gravity ; leg falls to bed immediately -6b. Right Leg 0 - No drift; leg holds 30- degree position for full 5 seconds -7. Limb Ataxia 2 - Present in 2 limbs -8. Sensory 0 - Normal; no sensory loss -9. Best Language 2 - Severe aphasia; -10. Dysarthria 2 - Severe dysarthria; -11. Extinction and Inattention 0 - No abnormality -Total 17 Query Text:A score of 0 is normal or asymptomatic. Total possible score is 42 . ED: Notify Physician for NIHSS increase by > / = 3 points. Inpatient: RN or Physician to activate a stroke alert for NIHSS increase of > / = 3 points. Thrombolytic: Vital Signs & NIHSS Start: 03/28/25 21:26 Text: Assess and document vital signs and NIHSS Status: Complete within 15 minutes prior to Tenecteplase administration Freq: [id number],Q2H Protocol: Activity Type Activity Date Activity User E-sign Co-sign Detail Recorded Client Recorded Date Recorded By Document 03/30/25 14:00 ARB [id number] 03/30/25 14:18 ARB 03/30/25 14:00 Vital Signs [Temperature Protocol: VS] -Temperature (36.6 C-37.3 C) 37.6 C H -Temperature Source Core [Pulse] -Pulse Rate (60-100) 62 -Pulse Location Monitor [Respirations] -Respiratory Rate (12-18) 18 -Respiratory rate source Monitor -Pulse Oximetry 91 -Oxygen Delivery Method Nasal Cannula -O2 L/MIN (L/min) 8 [Blood Pressure] -Blood Pressure (90/60-120/80) 91/42 L -Blood Pressure Mean (mm Hg) 58 -Source Monitor -Position Sitting -Blood Pressure Location Left Arm -Is the SBP > or = 180 No -Is the DBP > or = 105 No NIH Stroke Scale [NIHSS] A score of 0 is normal or asymptomatic . Total possible score is 42. Inpatient: RN or Physician to activate a stroke alert for onset of new stroke symptoms or with NIHSS increase >/= 3 points. Following change in neurological status, NIHSS will be performed per physician order or more frequently PRN. -1a. Level of Consciousness 0 - Alert; keenly responsive -1b. LOC Questions 0 - Answers BOTH questions correctly -1c. LOC Commands 0 - Performs BOTH tasks correctly -2. Best Gaze 0 - Normal -3. Visual 0 - No visual loss -4. Facial Palsy 1 - Minor paralysis ( flattened nasolabial fold , asymmetry on smiling) -5a. Left Arm 0 - No drift; arm holds 90 ( or 45) degrees for full 10 seconds -5b. Right Arm 0 - No drift; arm holds 90 ( or 45) degrees for full 10 seconds -6a. Left Leg 0 - No drift; leg holds 30- degree position for full 5 seconds -6b. Right Leg 0 - No drift; leg holds 30- degree position for full 5 seconds -7. Limb Ataxia 0 - Absent -8. Sensory 1 - Mild-to- moderate sensory loss; -9. Best Language 1 - Mild-to- moderate aphasia; -10. Dysarthria 0 - Normal -11. Extinction and Inattention 0 - No abnormality -Total 3 Query Text:A score of 0 is normal or asymptomatic. Total possible score is 42 . ED: Notify Physician for NIHSS increase by > / = 3 points. Inpatient: RN or Physician to activate a stroke alert for NIHSS increase of > / = 3 points.
[2025-04-06] MEDS: Aspirin 81 MG TAB.CHEW PO (09:24)
[2025-04-06] MEDS: hydrALAZINE 50 MG Tablet PO (09:25)
[2025-04-06] MEDS: Losartan Potassium 100 MG Tablet PO (09:25)
[2025-04-06] MEDS: Furosemide 40 MG/4 ML Vial IV ×2 (09:26→17:53)
[2025-04-06] MEDS: Lidocaine 5% Patch 1 PATCH TOPICAL ×2 (09:26→09:46)
[2025-04-06] MEDS: Metoprolol Tartrate 25 MG Tablet PO (09:27)
[2025-04-06] MEDS: Omega-3 Acid Ethyl Esters 1 GM Capsule PO (09:27)
[2025-04-06] MEDS: Enoxaparin 40 MG/0.4 ML Syringe SC (09:28)
[2025-04-06] MEDS: guaiFENesin 1,200 MG Tablet 1200 MG PO ×2 (09:28→21:56)
[2025-04-06] MEDS: amLODIPine 10 MG Tablet PO (09:29)
[2025-04-06] MEDS: Sodium Chloride 1 GM Tablet PO ×2 (09:30→21:56)
[2025-04-06] MEDS: Clopidogrel Bisulfate 75 MG Tablet PO (09:30)
[2025-04-06] MEDS: predniSONE 20 MG Tablet PO (09:36)
[2025-04-06] MEDS: Gabapentin 100 MG Capsule PO ×3 (09:36→17:52)
[2025-04-06] MEDS: 0.9% Saline Lock 10 ML Syringe IV ×2 (09:37→17:53)
[2025-04-06] MEDS: oxyCODONE 5 MG Tablet PO ×2 (13:07→23:46)
[2025-04-06] MEDS: Acetaminophen 500 MG Tablet 1000 MG PO ×2 (15:14→21:56)
[2025-04-06] MEDS: Potassium Chloride Oral Tablet 20 MEQ 60 MEQ PO (19:21)
[2025-04-06] MEDS: Latanoprost 0.005% 1 Bottle 1 DRP OPHTHALMIC (21:55)
[2025-04-06] MEDS: Atorvastatin Calcium 80 MG Tablet PO (21:56)
[2025-04-07] VITALS (9 sets, daily range): BP systolic 106–123; BP diastolic 52–70; PULSE 75–105; RESP 16–21; TEMP 36.6–36.8; O2SAT 92–97; BMI 30.9
[2025-04-07] MEDS: Ipratropium/Albuterol Sulfate 3 ML AMPUL.NEB INHALATION ×2 (07:20→12:47)
--- NOTE | 2025-04-07 09:44 | CASEMGMT ---
Patient is ready for discharge. [facility] sent [facility] a message asking if it was okay for patient to come today. Await response. Sonia George OFFICE [facility] CONSULTANT [facility]
[2025-04-07] MEDS: Lidocaine 5% Patch 1 PATCH TOPICAL ×2 (09:48)
[2025-04-07] MEDS: Omega-3 Acid Ethyl Esters 1 GM Capsule PO (09:48)
[2025-04-07] MEDS: predniSONE 20 MG Tablet PO (09:48)
[2025-04-07] MEDS: guaiFENesin 1,200 MG Tablet 1200 MG PO (09:48)
[2025-04-07] MEDS: Aspirin 81 MG TAB.CHEW PO (09:48)
[2025-04-07] MEDS: amLODIPine 10 MG Tablet PO (09:48)
[2025-04-07] MEDS: Gabapentin 100 MG Capsule PO ×2 (09:48→13:20)
[2025-04-07] MEDS: Enoxaparin 40 MG/0.4 ML Syringe SC (09:49)
[2025-04-07] MEDS: Sodium Chloride 1 GM Tablet PO (09:49)
[2025-04-07] MEDS: Clopidogrel Bisulfate 75 MG Tablet PO (09:49)
--- NOTE | 2025-04-07 11:09 | PCM.TXEXTCAR ---
Diet Diet Order/Speech Therapy: INPATIENT Hospital Diet / Speech Therapy Order(s) 03/29/25 09:51 Diet: Regular - General Food consistency:: Soft & Bite Sized Liquid Consistency:: Regular/Thin Type of Dietary Supplement:: Magic Cup Dessert Fluid restriction:: 1500 mL Diet Comments: kang magic cup w/ lunch & dinner; 1:1 supervision w/ intake; Assist PRN Routine Orders/Code Status Code Status: DNRCC-A DC O2, CPAP, BIPAP needs Home O2 Discharge instructions: Yes Type of respiratory needs?: Oxygen Oxygen frequency: Continuous Continuous oxygen liters per minute: 2 Therapies Weight Bearing: Full weight bearing Physical Therapy: Eval and Treat Occupational Therapy: Eval and Treat Problem/Diagnosis (1) Acute on chronic hypoxic respiratory failure: Status: Chronic Code(s): J96.21 - Acute and chronic respiratory failure with hypoxia Plan: continues to improve 2/2 pneumonia and AECOPD on 3 liters NC continue Furosemide encouraged IS and flutter valve. wean oxygen as tolerated. 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 NIHSS score was 24. CTA head/neck showed right ICA occlusion with distal reconstitution. Discussed with neurology who recommended either emergent transfer for mechanical thrombectomy versus TNK. Family opted for TNK administration and monitoring here; TNK was given and patient was moved to the ICU for closer monitoring. Repeat CT head at 24 hours showed area of infarction but no hemorrhage. MRI brain on morning of 03/30 again showed area of infarction in the right temporoparietal lobe but no other concerning findings. Per neurology, suspect patient had a plaque from known carotid stenosis break off and cause the occlusion. No need for transfer as patient will not need any neurosurgical intervention to that area. Recommended dual antiplatelet therapy but noted that patient is okay for baby aspirin alone for now, as we will hold Plavix for possible pain injection. Continue ASA and clopidogrel for 21days. (3) Pneumonia: Status: Acute Code(s): J18.9 - Pneumonia, unspecified organism Plan: pseudomonas IV levoflaxacin completed. (4) T12 burst fracture: Status: Acute Code(s): S22.081A - Stable burst fracture of T11-T12 vertebra, initial encounter for closed fracture Plan: s/p fall. kyphoplasty held given respiratory failure. pain mgmt consulted for pain control. DW Dr. Mcgee, he does not advise nerve block given the TNK she received and there is no data to suggest an appropriate timing. So will hold off at this time. Patient to follow up as outpt. Currently on lidoderm, scheduled acetaminophen, PRN oxy and morphine. (5) Ileus: Status: Acute Code(s): K56.7 - Ileus, unspecified Plan: resolved Plan Hypokalemia replace and monitor Chronic medical conditions: ? 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 Complicates hospital course, care and prognosis. May need to uptitrate oxygen nocturnally while inpatient. ? Bilateral carotid artery stenosis: Had moderate right extracranial internal carotid artery stenosis and mild left extracranial internal carotid artery stenosis on last duplex in 2024, stable from previous. Notably Plavix is on hold as above. Continue home rosuvastatin. Continue outpatient follow-up with Dr. Araiza. ? Macular degeneration: Continue home eyedrops. ? Hypertension, hyperlipidemia: Continue home statin, metoprolol, irbesartan, hydralazine, amlodipine. ? Osteoporosis: DVT prophylaxis: Lovenox CODE STATUS: DNR CCA, okay for short-term intubation Expected disposition: SNF but not until 04/07 given the weekend. Transfer to [facility] as she is remaining stable (and improving) and medically ready for discharge. Allergies/Procedures Done in Hospital Allergies amlodipine Adverse Reaction (Intermediate, Verified 03/19/25 08:47) Severe swelling in ankles with higher doses, able to take in small dose Penicillins (PCN) Adverse Reaction (Verified 03/19/25 08:47) diarrhea Procedures: 2-D Echocardiogram Type of Care/Length of Stay Estimated LOS: Convalescent Care Less Than 30 days Type of Care Needed: LTAC Rehab Potential: Fair Prognosis: Fair Additional Orders/Day of Discharge Day of Discharge: 04/07/25 Dietary and Speech Recommendations Dietitian Recommendations/Changes: Will continue Regular diet with fluid restriction per MD to manage medical conditions. Texture/consistency per LOGISTICS PROJECT MANAGER. Continue magic cup w/ lunch and dinner for increased nutrition if consumed. Discharge Plan Admission Admit Date/Time: 03/19/25 11:01 Primary Reason for Your Visit: CVA. Attending Provider: José Luis Robbins Primary Care Provider: Khushi Balderrama Consulting Providers: Gita Arce; Garth Nguyen; Faizan Koo; Epifanio Kang; Michael Sy Discharge Orders/Prescriptions Prescriptions: New acetaminophen 500 mg Tablet 1,000 mg PO Q8 Qty: 0 0RF amlodipine 10 mg Tablet 10 mg PO DAILY Qty: 0 0RF aspirin 81 mg Tablet,Chewable 81 mg PO BREAKFAST Qty: 0 0RF gabapentin 100 mg Capsule 100 mg PO TIDCM Qty: 0 0RF oxycodone 5 mg Tablet 5 mg PO Q4H PRN PRN (Reason: Pain Score 4-10) 3 Days Qty: 12 0RF enoxaparin 40 mg/0.4 mL Syringe 40 mg subcut DAILY Qty: 0 0RF atorvastatin 80 mg Tablet 80 mg PO QHS Qty: 0 0RF potassium chloride 20 mEq Tablet,Er Particles/Crystals 40 meq PO DAILYCM Qty: 0 0RF Continued omega-3 fatty acids [Fish Oil Concentrate] 1,000 mg capsule 1,000 mg PO DAILY hyihkzipdk-gdxjvpyc-mowhruwghs 160-9-4.8 mcg/actuation HFA aerosol inhaler 2 inh inhalation BID metoprolol tartrate 25 mg tablet 25 mg PO BID hydralazine 50 mg tablet 50 mg PO BID PreserVision AREDS-2 250-90-40-1 mg capsule 1 tab PO BID latanoprost 0.005 % drops 1 drp ophthalmic (eye) QDAY calcium carbonate [Tums] 200 mg calcium (500 mg) tablet,chewable 200 mg PO ONCE PRN (Reason: dyspepsia) clopidogrel 75 mg tablet 75 mg PO DAILY Qty: 1 0RF loratadine 10 MG tablet 10 mg PO DAILY PRN (Reason: Allergies) zoledronic yayb-nokfnpfz-avmwi 5 mg/100 mL piggyback 1 ea IV .Qyear Patient Comments: ONCE PER YEAR calcium carbonate-vitamin D3 [Caltrate with Vitamin D3] 600 mg-20 mcg (800 unit) Tablet 1 tab PO DAILY lidocaine [Lidoderm] 5 % adhesive patch,medicated 1 patch topical DAILY Qty: 15 0RF Rx Instructions: leave on most painful area for up to 12 hrs prednisone 20 mg tablet 20 mg PO DAILY Patient Comments: started on mar 10 2025 irbesartan 300 mg tablet 300 mg PO .AM Discontinued rosuvastatin 40 mg tablet 40 mg PO DAILY hydrocodone-acetaminophen 5-325 mg tablet 1 tab PO Q6H PRN PRN (Reason: Pain) 3 Days Qty: 12 0RF ibuprofen [Advil] 200 mg tablet 200 mg PO TID amlodipine 5 mg tablet 5 mg PO DAILY Referrals / Follow Up: Khushi Balderrama MD [Primary Care Provider] - Within 2 Weeks Edison Mcgee MD [Med Staff - Active Staff] - Within 1 Month Hong Bryan MD [Non-Staff -Ordering Privileges] - Within 1 Month Disposition Disposition (needs filled in before D/C Order can be placed): Residential Facility
--- NOTE | 2025-04-07 11:18 | PCM.DC.SUM ---
Providers Date of Admission: 03/19/25 Primary Care Physician: Dr. Khushi Balderrama MD Consultations 03/19/25 18:56 Consult: Orthopedics Routine Consulting Provider: Epifanio Sargent Reason for Consult: Acute t12 compression fracture EMERGENT Consult: No MD Notified: Yes Date Notified: 03/19/25 Time Notified: 18:56 Method of Notification: Text 03/23/25 13:04 Consult: General Surgery Routine Consulting Provider: Faizan Koo Reason for Consult: Ileus versus bowel obstruction EMERGENT Consult: No MD Notified: Yes Date Notified: 03/23/25 Time Notified: 13:04 Method of Notification: Verbal 03/28/25 21:26 Consult: Business Resiliency Manager / Pulmonary Medicine Routine Consulting Provider: Pulmonary Medicine [facility] Reason for Consult: Acute Ischemic Stroke/TIA EMERGENT Consult: Yes Notified: Yes Date Notified: 03/28/25 Time Notified: 21:26 Method of Notification: Verbal Consult: Tele-Neurology Routine Consulting Provider: [facility] Reason for Consult: Acute Ischemic Stroke/TIA EMERGENT Consult: Yes Notified: Yes Date Notified: 03/28/25 Time Notified: 21:26 Method of Notification: Verbal Nursing Unit Staff Notify [facility] of Tele-Neurology Consult: Yes 03/30/25 11:16 Consult: Pain Management Routine Consulting Provider: Michael Sy Reason for Consult: T12 fracture, eval for pain injection EMERGENT Consult: No MD Notified: Yes Date Notified: 03/31/25 Time Notified: 08:52 Method of Notification: Answering Service Reason For Visit: INTRACTABLE BACK PAIN Diagnosis Discharge Diagnosis (1) Acute on chronic hypoxic respiratory failure: Status: Chronic Code(s): J96.21 - Acute and chronic respiratory failure with hypoxia Plan: continues to improve 2/2 pneumonia and AECOPD on 3 liters NC continue Furosemide encouraged IS and flutter valve. wean oxygen as tolerated. 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 NIHSS score was 24. CTA head/neck showed right ICA occlusion with distal reconstitution. Discussed with neurology who recommended either emergent transfer for mechanical thrombectomy versus TNK. Family opted for TNK administration and monitoring here; TNK was given and patient was moved to the ICU for closer monitoring. Repeat CT head at 24 hours showed area of infarction but no hemorrhage. MRI brain on morning of 03/30 again showed area of infarction in the right temporoparietal lobe but no other concerning findings. Per neurology, suspect patient had a plaque from known carotid stenosis break off and cause the occlusion. No need for transfer as patient will not need any neurosurgical intervention to that area. Recommended dual antiplatelet therapy but noted that patient is okay for baby aspirin alone for now, as we will hold Plavix for possible pain injection. Continue ASA and clopidogrel for 21days. (3) Pneumonia: Status: Acute Code(s): J18.9 - Pneumonia, unspecified organism Plan: pseudomonas IV levoflaxacin completed. (4) T12 burst fracture: Status: Acute Code(s): S22.081A - Stable burst fracture of T11-T12 vertebra, initial encounter for closed fracture Plan: s/p fall. kyphoplasty held given respiratory failure. pain mgmt consulted for pain control. DW Dr. Mcgee, he does not advise nerve block given the TNK she received and there is no data to suggest an appropriate timing. So will hold off at this time. Patient to follow up as outpt. Currently on lidoderm, scheduled acetaminophen, PRN oxy and morphine. (5) Ileus: Status: Acute Code(s): K56.7 - Ileus, unspecified Plan: resolved Plan Hypokalemia replace and monitor Chronic medical conditions: ? 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 Complicates hospital course, care and prognosis. May need to uptitrate oxygen nocturnally while inpatient. ? Bilateral carotid artery stenosis: Had moderate right extracranial internal carotid artery stenosis and mild left extracranial internal carotid artery stenosis on last duplex in 2024, stable from previous. Notably Plavix is on hold as above. Continue home rosuvastatin. Continue outpatient follow-up with Dr. Araiza. ? Macular degeneration: Continue home eyedrops. ? Hypertension, hyperlipidemia: Continue home statin, metoprolol, irbesartan, hydralazine, amlodipine. ? Osteoporosis: DVT prophylaxis: Lovenox CODE STATUS: DNR CCA, okay for short-term intubation Expected disposition: SNF but not until 04/07 given the weekend. Transfer to [facility] as she is remaining stable (and improving) and medically ready for discharge. Medications at Discharge Home Medications loratadine 10 mg tablet 10 mg PO DAILY PRN Allergies 04/21/14 omega-3 fatty acids 1,000 mg capsule (Fish Oil Concentrate) 1,000 mg PO DAILY FOLLOW-UP NEEDED 08/23/19 irbesartan 300 mg tablet 300 mg PO .AM HTN 12/31/21 budesonide 160 mcg-glycopyr 9 mcg-formot 4.8 mcg/actuation HFA inhaler 2 inh inhalation BID BREATHING 03/14/22 calcium 600 mg (as carbonate)-vitamin D3 20 mcg (800 unit) tablet (Caltrate with Vitamin D3) 1 tab PO DAILY FOLLOW-UP NEEDED 08/08/22 metoprolol tartrate 25 mg tablet 25 mg PO BID HTN 09/13/22 zoledronic acid 5 mg/100 mL in mannitol 5 %-water intravenous piggybck 1 ea IV .Qyear FOLLOW-UP NEEDED 09/13/22 hydralazine 50 mg tablet 50 mg PO BID FOLLOW-UP NEEDED 07/31/23 vit C 250 mg-vit E 90 mg-zinc 40 mg-copper 1 go-rzgxzo-hnwbiv capsule (PreserVision AREDS-2) 1 tab PO BID FOLLOW-UP NEEDED 07/31/23 calcium carbonate (Tums) 200 mg PO ONCE PRN dyspepsia 09/25/24 latanoprost 0.005 % eye drops 1 drp ophthalmic (eye) QDAY FOLLOW-UP NEEDED 09/25/24 lidocaine 5 % topical patch (Lidoderm) 1 patch topical DAILY #15 ea 01/12/25 clopidogrel 75 mg tablet 75 mg PO DAILY FOLLOW-UP NEEDED #1 TAB 01/16/25 prednisone 20 mg tablet 20 mg PO DAILY recently placed on this march 10 03/19/25 acetaminophen 500 mg tablet 1,000 mg (2 x 500 mg) PO Q8 #0 tabs 04/07/25 amlodipine 10 mg tablet 10 mg PO DAILY #0 tabs 04/07/25 aspirin 81 mg chewable tablet 81 mg PO BREAKFAST #0 tabs 04/07/25 atorvastatin 80 mg tablet 80 mg PO QHS #0 tabs 04/07/25 enoxaparin 40 mg/0.4 mL subcutaneous syringe 40 mg (0.4 mL) subcut DAILY #0 mL 04/07/25 gabapentin 100 mg capsule 100 mg PO TIDCM #0 caps 04/07/25 oxycodone 5 mg tablet 5 mg PO Q4H PRN PRN Pain Score 4-10 3 days #12 tabs 04/07/25 potassium chloride 20 mEq tablet,extended release(part/cryst) 40 meq (2 x 20 mEq) PO DAILYCM #0 tabs 04/07/25 Hospital Course Operations None Procedures 2-D Echocardiogram Summary of Care Provided Minutes Spent on Discharge: 35 Hospital Course: Is a patient who fell and sustained a T12 burst fracture. Her hospitalization was complicated by an acute stroke that required TNK, acute respiratory failure secondary to pseudomonal pneumonia as well as an ileus. From stroke perspective, patient did well and will continue with her previous medications with aspirin, clopidogrel, her statin will be changed over to atorvastatin. For pseudomonal pneumonia, patient received Levaquin and completed the course of treatment. She did have hypoxic respiratory failure requiring her to be on Airvo and had a very slow recovery. Patient has since been weaned down to 2 L nasal cannula. Patient will be discharged to transitional care unit in stable condition. For her T12 burst fracture, initial plan was for her to see pain management have kyphoplasty but after the TNK, patient was seen by pain management and who wished to avoid doing any kind epidural injections for her back given the fact that she did receive TN K and there is no data supports the appropriate timing of having epidural injections post TNK. So she will follow-up with pain management in a month's time to see how she is doing to see if that would be indicated at that time. Weight / BMI Weight Weight: 71.9 kg Body Mass Index (BMI) 30.9 ABG / Lab / Microbiology Data 04/06/25 04:16 04/06/25 04:16 Microbiology: Microbiology 03/20/25 15:50 Sputum, Expectorated/Coughed Gram Stain - Final 03/20/25 15:50 Sputum, Expectorated/Coughed Respiratory Culture - Final Pseudomonas aeruginosa D/C Instructions DC O2, CPAP, BIPAP Needs Home O2 Discharge instructions: Yes Type of respiratory needs?: Oxygen Oxygen frequency: Continuous Continuous oxygen liters per minute: 2 DC home with Oxygen: Yes Home O2 MD Review: I have reviewed the oxygen testing, and the patient qualifies for home oxygen equipment and portability. The patient is mobile in the home and the community. Meaningful Use Info Meaningful Use Meaningful Use Diagnoses (Choose all that apply): Ischemic CVA CVA Therapy Assessed for PT,OT and/or ST?: Yes Ischemic Stroke Antithrombotic order at d/c?: Yes Dx of Atrial fib/flutter?: No Anticoagulant at discharge?: No Reason anticoagulant not ordered: Treatment not Indicated Statin Dosing Therapy Reference: STATIN DOSE THERAPY REFERENCE: * Patients > 75 years receive moderate or high dose statin therapy. * Patients 75 years or YOUNGER should receive HIGH intensity statin dose unless contraindicated. You will be required to document reason for non-treatment if statin daily dose does not meet guidelines. HIGH DOSE STATIN THERAPY DAILY Atorvastatin > than or = to 40 mg Rosuvastatin > than or = to 20 mg Amlodipine + Atorvastatin > than or = to 2.5/40 mg Ezetimibe + Simvastatin 10/80 mg Simvastatin 80mg Statins at discharge?: Yes Primary Dx Acute Ischemic CVA?: Yes IV thrombolytic ordered during stay?: Yes Discharge Plan Admission Admit Date/Time: 03/19/25 11:01 Primary Reason for Your Visit: CVA. Attending Provider: José Luis Robbins Primary Care Provider: Khushi Balderrama Consulting Providers: Gita Arce; Garth Nguyen; Faizan Koo; Epifanio Sargent; Michael Sy Discharge Orders/Prescriptions Prescriptions: New acetaminophen 500 mg Tablet 1,000 mg PO Q8 Qty: 0 0RF amlodipine 10 mg Tablet 10 mg PO DAILY Qty: 0 0RF aspirin 81 mg Tablet,Chewable 81 mg PO BREAKFAST Qty: 0 0RF gabapentin 100 mg Capsule 100 mg PO TIDCM Qty: 0 0RF oxycodone 5 mg Tablet 5 mg PO Q4H PRN PRN (Reason: Pain Score 4-10) 3 Days Qty: 12 0RF enoxaparin 40 mg/0.4 mL Syringe 40 mg subcut DAILY Qty: 0 0RF atorvastatin 80 mg Tablet 80 mg PO QHS Qty: 0 0RF potassium chloride 20 mEq Tablet,Er Particles/Crystals 40 meq PO DAILYCM Qty: 0 0RF Continued omega-3 fatty acids [Fish Oil Concentrate] 1,000 mg capsule 1,000 mg PO DAILY ryfsfqzzqt-ituwjwil-jlboymidia 160-9-4.8 mcg/actuation HFA aerosol inhaler 2 inh inhalation BID metoprolol tartrate 25 mg tablet 25 mg PO BID hydralazine 50 mg tablet 50 mg PO BID PreserVision AREDS-2 250-90-40-1 mg capsule 1 tab PO BID latanoprost 0.005 % drops 1 drp ophthalmic (eye) QDAY calcium carbonate [Tums] 200 mg calcium (500 mg) tablet,chewable 200 mg PO ONCE PRN (Reason: dyspepsia) clopidogrel 75 mg tablet 75 mg PO DAILY Qty: 1 0RF loratadine 10 MG tablet 10 mg PO DAILY PRN (Reason: Allergies) zoledronic cquk-bdhfbvxo-leatx 5 mg/100 mL piggyback 1 ea IV .Qyear Patient Comments: ONCE PER YEAR calcium carbonate-vitamin D3 [Caltrate with Vitamin D3] 600 mg-20 mcg (800 unit) Tablet 1 tab PO DAILY lidocaine [Lidoderm] 5 % adhesive patch,medicated 1 patch topical DAILY Qty: 15 0RF Rx Instructions: leave on most painful area for up to 12 hrs prednisone 20 mg tablet 20 mg PO DAILY Patient Comments: started on mar 10 2025 irbesartan 300 mg tablet 300 mg PO .AM Discontinued rosuvastatin 40 mg tablet 40 mg PO DAILY hydrocodone-acetaminophen 5-325 mg tablet 1 tab PO Q6H PRN PRN (Reason: Pain) 3 Days Qty: 12 0RF ibuprofen [Advil] 200 mg tablet 200 mg PO TID amlodipine 5 mg tablet 5 mg PO DAILY Referrals / Follow Up: Khushi Balderrama MD [Primary Care Provider] - Within 2 Weeks Edison Mcgee MD [Med Staff - Active Staff] - Within 1 Month Hong Bryan MD [Non-Staff -Ordering Privileges] - Within 1 Month Disposition Disposition (needs filled in before D/C Order can be placed): [facility] Charges/Coding Visit Charges Inpatient E&M: 82413 Disch Hosp >30min
--- NOTE | 2025-04-07 11:45 | CASEMGMT ---
Patient is ready for discharge to [facility]. SW spoke with patient and her son. Introduced self and role at [facility]. SW explained that patient is going to be moved to [facility] today. Both were in agreement with plan. Plan: d/c to [facility] under skilled level of care. Sonia BARRERA
--- NOTE | 2025-04-07 12:55 | NURSING ---
This RN has checked pt's blood pressure twice since shift change. Blood pressure was 112/70 at 0830 and 106/57 around 1130. Pt is refusing blood pressure medications at this time due to BP being on lower side. Will continue to monitor
[2025-04-07] MEDS: Acetaminophen 500 MG Tablet 1000 MG PO (14:18)
--- NOTE | 2025-04-07 16:35 | ST.MBS ---
Modified Barium Swallow Patient Information Study Date: 04/07/25 Study Time: 13:30 Direct Billable Minutes: 120 Total Minutes procedure & reportin Diagnosis: I63.9 - Cerebral infarction Referring Physician: José Luis Robbins Current Diet Ordered: Soft and Bite Size / Thin Liquids Dentition: Edentulous (The patient wears upper and lower dentures, though they are extremely ill-fitting. Edentulous at the time of the study.) Respiratory Status: Oxygenating on 2L/M nasal cannula Penetration-Aspiration Scale Penetration-Aspiration Scale: OBJECTIVE ASSESSMENT OF SWALLOW FUNCTION (QUANTITATIVE ? PER TRIAL): PENETRATION / ASPIRATION SCALE ([place]): 1 = does not enter airway 2 = enters airway/above vocal folds/ejected 3 = enters airway/above vocal folds/not ejected 4 = enters airway/contacts vocal folds/ejected 5 = enters airway/contacts vocal folds/not ejected 6 = enters airway/below vocal folds/ejected 7 = enters airway/below vocal folds/not ejected despite effort 8 = enters airway/below vocal folds/no effort VIDEOFLOROSCOPIC SCALE SCORE ([place]): Grade I = aspiration of material that has penetrated into the laryngeal vestibule, intact cough reflex Grade II = aspiration < 10 % of the bolus, intact cough reflex Grade III = aspiration of < 10 % of the bolus, reduced cough reflex or aspiration of > 10 % of the bolus, intact cough reflex Grade IV = aspiration of > 10 % of the bolus, reduced cough reflex Penetration-Aspiration Scale Score Thin Liquid via teaspoon: Result: 7= enters airways/below vocal folds/not ejected despite effort Thin Liquid via teaspoon Trial 2: Result: 1= does not enter airway Thin Liquid via teaspoon Trial 3: Result: 2= enter airway/above vocal folds/ejected Thin Liquid via small single sip: cup: Result: 1= does not enter airway Thin Liquid via single sip: straw: Result: 2= enter airway/above vocal folds/ejected Thin Liquid via sequential sips:straw: Result: 2= enter airway/above vocal folds/ejected [place] Thick Liquid via small single sip: cup: Result: 1= does not enter airway [place] Thick Liquid via small single sip: cup Trial 2: Result: 1= does not enter airway [place] Thick Liquid via small single sip: cup: Result: 1= does not enter airway Pudding: Result: 1= does not enter airway Cookie: Result: 1= does not enter airway Thin Liquid via small single sip: cup Trial 2: Result: 1= does not enter airway Oral Phase Labial Seal: No Labial Escape Tongue Control During Bolus Hold: Posterior escape of less than half of bolus Bolus Preparation/Mastication: Disorganized chewing/mashing with solid pieces of bolus unchewed Bolus Transport/Lingual Motion: Delayed initiation of tongue motion Oral Residue: Residue collection on oral structures Pharyngeal Phase Initiation of Pharyngeal Swallow: Bolus head in pyriforms Soft Palate Elevation: No bolus between soft palate and pharyngeal wall Laryngeal Elevation: Partial superior movement thyroid cart/partial apprx aryt-epig petiole Anterior Hyoid Excursion: Partial anterior movement Epiglottic Movement: Complete inversion Laryngeal Vestibule Closure at Height of Swallow: Incomplete; narrow column of air/contrast in laryngeal vestibule Pharyngeal Stripping Wave: Present - diminished Pharyngoesophageal Segment Opening: Parital distension and partial duration; parital obstruction of flow Tongue Base Retraction: Narrow column of contrast between tongue base & post. pharyngeal wall Pharyngeal Residue: Collection of residue within or on pharyngeal structures Esophageal Phase Esophageal Clearance: Esophageal retention w/ retrograde flow below pharyngoesophageal seg. 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 During PO trials conducted by this OPTO MECHANICAL TECHNICIAN on 04/05/2025, the dentures had to be removed, as they were unstable and began to float/fall out while the patient attempted to masticate soft and bite-sized textures. Given the poor fit, the OPTO MECHANICAL TECHNICIAN proceeded with the study with the patient being edentulous. The patient demonstrated slowed mastication of a small portion of a [place] [employer] cookie (approximately 1/5 of the cookie), likely due to lack of dentition. Multiple swallows were required to clear the bolus, and occasional oral residue was observed. Aspiration was noted on the initial PO trial under fluoroscopy with thin liquids administered by teaspoon. This was attributed to incomplete airway closure and delayed pharyngeal swallow initiation, with the bolus reaching the level of the pyriform sinuses prior to swallow onset. No further aspiration events were observed throughout the remainder of the study. The patient remains at risk for aspiration due to delayed pharyngeal swallow onset, incomplete laryngeal elevation and closure, and decreased anterior hyoid excursion. Pharyngeal residue was most prominent in the vallecula and pyriform sinuses, though the patient was able to clear this with double swallows. Esophageal retention was observed in the mid-esophagus following one bite of pudding. However, a liquid wash effectively improved esophageal motility, resulting in complete clearance. An alternating bite-sip strategy is recommended to support pharyngoesophageal clearence. Recommendations Diet: Minced and Moist Textures and Thin Liquids Compensatory Strategies: Small Bites, Small Sips, Slow Rate, Multiple Swallows, Alternate bites/solids and sips/liquids, Sitting upright and Remain sitting upright for 30 minutes after PO intake Supervision: Distant Supervision Recommend Repeat Modified Barium Swallow: No Need for Skilled Speech Therapy Services: Yes Comment: Recommending continued speech therapy at next level of care to determine the patient's ability to safely consume modified textures while maintaining adequate nutritional intake. The treating OPTO MECHANICAL TECHNICIAN should conduct PO trials at bedside to assess the most appropriate diet level considering the patient?s dentition status. Speech therapy should continue to assess diet tolerance, train compensatory swallowing strategies, and implement an oropharyngeal strengthening exercise program to support improved swallow function. Recommended Referrals: GI Consult and Dental Evaluation Education Completed: 1. Described result of evaluation. and 2. Pt understands evaluation & agrees with goals and treatment plan. Status Active ST Patient: Active Contact Information [facility] Speech Therapy:: Shawnee Aguila M.A., [facility]-[employer]TO MECHANICAL TECHNICIAN Speech-Language Pathologist [facility] [phone]? ?FAX [phone]? [email or web address] [address] [place] [address]? ?[place] [address]
== END 2025-04-07 15:11 | disposition skilled nursing facility (03) | DRG 542 ==
LOC: ED 11:01 → MS3 11:10 → ICU 03-28 22:32 → PCU 03-30 15:39
PROVIDERS: Hospitalist; Internal Medicine; Internal Medicine Pulmonary Disease; Admitting Provider Internal Medicine; Emergency Provider Emergency Medicine; PCP Internal Medicine
DX: M80.08XA Age-related osteoporosis with current pathological fracture, vertebra(e), initial encounter for fracture (principal); J96.21 Acute and chronic respiratory failure with hypoxia; J15.1 Pneumonia due to Pseudomonas; I63.59 Cerebral infarction due to unspecified occlusion or stenosis of other cerebral artery; E22.2 Syndrome of inappropriate secretion of antidiuretic hormone; K56.7 Ileus, unspecified; J44.0 Chronic obstructive pulmonary disease with (acute) lower respiratory infection; G81.91 Hemiplegia, unspecified affecting right dominant side; N17.9 Acute kidney failure, unspecified; J44.1 Chronic obstructive pulmonary disease with (acute) exacerbation; R47.01 Aphasia; R29.724 NIHSS score 24; I70.1 Atherosclerosis of renal artery; I10 Essential (primary) hypertension; I65.23 Occlusion and stenosis of bilateral carotid arteries; Z68.32 Body mass index [BMI] 32.0-32.9, adult; E78.00 Pure hypercholesterolemia, unspecified; G47.33 Obstructive sleep apnea (adult) (pediatric); F17.210 Nicotine dependence, cigarettes, uncomplicated; E87.6 Hypokalemia; W18.39XA Other fall on same level, initial encounter; F10.90 Alcohol use, unspecified, uncomplicated; K59.09 Other constipation; H35.30 Unspecified macular degeneration; Z66 Do not resuscitate; E66.811 Obesity, class 1; R29.810 Facial weakness; R47.1 Dysarthria and anarthria; R29.707 NIHSS score 7; Z98.62 Peripheral vascular angioplasty status; Z99.81 Dependence on supplemental oxygen; Z79.02 Long term (current) use of antithrombotics/antiplatelets; Z79.51 Long term (current) use of inhaled steroids; Z79.82 Long term (current) use of aspirin; Z79.899 Other long term (current) drug therapy; Z86.73 Personal history of transient ischemic attack (TIA), and cerebral infarction without residual deficits
CPT/HCPCS: 36415; 36600; 70450; 70496; 70498; 70551; 71045; 71275; 72110; 72128; 72131; 72146; 72148; 74018; 74176; 74230; 80048; 80053; 80061; 81001; 82306; 82607; 82728; 82746; 82803; 82962; 83540; 83550; 83735; 83880; 84100; 85025; 85027; 85379; 85610; 85730; 87070; 87077; 87184; 87186; 87205; 92507; 92523; 92526; 92610; 92611; 94640; 94660; 94667; 94668; 94762; 96372; 97110; 97116; 97162; 97166; 97168; 97530; 97535; 99252; 99282; 99285; J3101; Q9967; A4216; G0463; J1938; J2405

== ENCOUNTER 2025-04-07 15:11 | Inpatient (IN) | payer MEDICARE, OTHER, SELFPAY ==
[2025-04-07 15:25] VITALS: BP 103/42; PULSE 90; RESP 14; TEMP 36.1; O2SAT 93; BMI 29.0
[2025-04-07] MEDS: Gabapentin 100 MG Capsule PO (17:44)
--- NOTE | 2025-04-07 18:55 | RAD_ITS ---
PROCEDURE: CHEST PA AND LATERAL 04/07/2025 REASON FOR EXAM: COUGH, CRACKLES. TECHNIQUE: Frontal and lateral views of the chest. COMPARISON: Chest radiograph 04/03/2025. FINDINGS: Hardware: None. Heart: The heart size is normal. Mediastinum: The mediastinal contour is stable. Thoracic aortic calcifications. Lungs: Trace bilateral pleural effusions. Bibasilar atelectasis. No focal consolidation or pneumothorax. Bones: Degenerative changes are identified within the thoracic spine. RAD/Chest PA and Lateral IMPRESSION: NO SIGNIFICANT CHANGE SINCE THE PRIOR EXAM. Reading Location: [id number]
--- NOTE | 2025-04-07 19:56 | HP.PCM_ITS ---
HPI - General General Date of Admission: 04/07/25 Date of Service: 04/07/25 Chief Complaint: Here for rehabilitation. HPI Narrative AISHA PARKER, is a 89 Female who presents with followin03/19/2025 [facility] ED fall. Intractable back pain after fall, pain unbearable. Unable to perform ADL's, patient agreeable to placement. 03/19/2025 Admit [facility]. Tylenol, Tizanidine, Gabapentin, Oxycodone, morphine, Lidoderm, MRI TLS spine for back pain. PT/OT/CM. 03/19/2025 MRI showed T12 compression fracture. 03/20/2025 More comfortable. 03/21/2025 Back is sore. 03/22/2025 BM x 2, belly feeling better. IV antibiotics for pneumonia. Sodium chloride 1gm twice daily for hyponatremia 2/2 siadh. 03/23/2025 Requiring more oxygen. Plan T12 kyphoplasty, consider TLSO brace. Levaquin iv for pseudomonal pneumonia. Airvo for oxygen. IV fluids, Reglan, General surgery, NPO for ileus. 03/24/2025 Fatigued, on Airvo. Hold Plavix for T12 kyphoplasty. PT/OT SNF. Levaquin for pseudomonas pneumonia. Airvo for acute respiratory failure with hypoxia. Stop Reglan, ileus improved. [facility] protocol for alcohol dependence. 03/25/2025 Passing flatus, smear of BM. 03/25/2025 Less bloated. Levaquin IV, Air for acute respiratory failure with hypoxia 2/2 pneumonia. Ileus improving, advance to regular diet. 03/26/2025 Improved energy, abdomen softer, eating regular diet. On Airvo, wean as tolerated. T12 kyphoplasty when respiratory status improved. Levaquin IV, Airvo for pneumonia, acute respiratory failure with hypoxia. Ileus resolved, REBEKA resolved, sodium 133. 03/27/2025 Tired. Hold Plavix for T12 kyphoplasty. Lasix IV given. Levaquin iv for pseudomonas pneumonia. Ileus resolved, REBEKA resolved. 03/28/2025 Tired, good urine output with Lasix, Oxygen 5 liters. T12 kyphoplasty once ARF resolved. PT/OT SNF. 03/29/2025 Stroke overnight, 2/2 right ICA occlusion, TNK given. 03/30/2025 Stroke with left tayler. MRI brain showed right temporoparietal stroke, Aspirin 81mg daily. Planning epidural steroid injection T12 compression fracture when off dual antiplatelet therapy. 04/01/2025 Dr. Mcgee recommended no intervention for T12 compression fracture due to TNK administration. 04/06/2025 Lasix, Oxygen 3 liters for acute respiratory failure with hypoxia 2/2 pneumonia, acute exacerbation copd. Neurology recommended aspirin 81mg daily, Plavix 75mg daily x 21 days, then Aspirin 81mg daily. Finished Levaquin iv for pneumonia. 04/07/2025 Admit to TCU with debility, here for rehabilitation, strengthening, prior to discharge home with son. Resident son Kwame present for my interview. [facility] Medical History (Updated 04/07/25 @ 20:[address] Joel Pat MD) Macular degeneration Contact dermatitis due to plant Bilateral carotid artery stenosis Pure hypercholesterolemia Sinus bradycardia Tobacco abuse COPD (chronic obstructive pulmonary disease) Renal artery stenosis Osteoarthritis Osteoporosis Adrenal hyperplasia Home Medications ?Medication ?Instructions ?Recorded ?Last Taken ?Type loratadine 10 mg tablet 10 mg PO DAILY PRN Allergies 04/21/14 Unknown History omega-3 fatty acids 1,000 mg 1,000 mg PO DAILY FOLLOW- UP NEEDED 08/23/19 Unknown History capsule (Fish Oil Concentrate) irbesartan 300 mg tablet 300 mg PO .AM HTN 12/31/21 U nknown History budesonide 160 mcg-glycopyr 9 2 inh inhalation BID TWAN ATHING 03/14/22 Unknown History mcg-formot 4.8 mcg/actuation HFA inhaler calcium 600 mg (as 1 tab PO DAILY FOLLOW-UP NEE DED 08/08/22 Unknown History carbonate)-vitamin D3 20 mcg (800 unit) tablet (Caltrate with Vitamin D3) metoprolol tartrate 25 mg tablet 25 mg PO BID HTN 08/30 03/20 Unknown History zoledronic acid 5 mg/100 mL in 1 ea IV .Qyear FOLLOW-U P NEEDED 09/13/22 Unknown History mannitol 5 %-water intravenous piggybck hydralazine 50 mg tablet 50 mg PO BID FOLLOW-UP NEEDE D 07/31/23 Unknown History vit C 250 mg-vit E 90 mg-zinc 40 1 tab PO BID FOLLOW-U P NEEDED 07/31/23 Unknown History mg-copper 1 ec-[id number] capsule (PreserVision AREDS-2) calcium carbonate (Tums) 200 mg PO ONCE PRN dyspepsia 09/25/24 Unknown History latanoprost 0.005 % eye drops 1 drp ophthalmic (eye) Q DAY 09/25/24 Unknown History FOLLOW-UP NEEDED lidocaine 5 % topical patch 1 patch topical DAILY pain #15 ea 01/12/25 Unknown Rx (Lidoderm) clopidogrel 75 mg tablet 75 mg PO DAILY FOLLOW-UP NEE DED #1 01/16/25 Unknown Rx TAB prednisone 20 mg tablet 20 mg PO DAILY recently plac ed on 03/19/25 03/18/25 History this march 10 acetaminophen 500 mg tablet 1,000 mg (2 x 500 mg) PO Q 8 pain 04/07/25 Unknown Rx 1-10 #0 tabs amlodipine 10 mg tablet 10 mg PO DAILY BP #0 tabs Unknown Rx aspirin 81 mg chewable tablet 81 mg PO BREAKFAST blood thinner 04/07/25 Unknown Rx #0 tabs atorvastatin 80 mg tablet 80 mg PO QHS cholesterol #0 tabs 04/07/25 Unknown Rx enoxaparin 40 mg/0.4 mL 40 mg (0.4 mL) subcut DAILY blood 04/07/25 Unknown Rx subcutaneous syringe thinner #0 mL gabapentin 100 mg capsule 100 mg PO TIDCM pain #0 caps 04/07/25 Unknown Rx oxycodone 5 mg tablet 5 mg PO Q4H PRN PRN Pain Sco re 04/07/25 Unknown Rx 4-10 3 days #12 tabs potassium chloride 20 mEq 40 meq (2 x 20 mEq) PO DAILY CM 04/07/25 Unknown Rx tablet,extended release(part/cryst) supplement #0 tabs Allergy/AdvReac Type Severity Reaction Status Date / Time amlodipine AdvReac Intermediate Severe Verified 03/19/25 08:47 swelling in ankles Penicillins (PCN) AdvReac diarrhea Verified 03/19/25 08:47 Family History Mother CAD (coronary artery disease) Hypertension Brother Hypertension Presence of permanent cardiac pacemaker Brother Hypertension Father Hypertension Surgical History H/O carotid endarterectomy (~03/2024) History of YAG laser capsulotomy of lens of right eye History of tonsillectomy and adenoidectomy History of total hysterectomy Hx of cataract surgery H/O detached retina repair Social History (Updated 04/07/25 @ 20:[address] Joel Pat MD) household members: children and other details: Lives son Kwame, summertime, works 4a-6a, 4p-6p, works 14 hrs daily otherwise Smoking Status: Current every day smoker tobacco type: cigarettes alcohol intake: current alcohol intake frequency: 0-2 drinks per day Alcohol type: beer substance use type: does not use caffeine: Yes (occasionally) ROS Constitutional Constitutional: Denies chills, fever(s) or weight gain ENT HEENT: Denies headache(s), nasal congestion or nasal discharge Cardiovascular Cardiovascular: Denies chest pain or palpitations Respiratory/Chest Respiratory/Chest: Denies cough, excessive phlegm production or shortness of breath with exertion Gastrointestinal Gastrointestinal: Denies abdominal pain, nausea or vomiting Genitourinary Genitourinary: Denies dysuria Musculoskeletal Musculoskeletal: Denies joint pain or joint swelling Integumentary Integumentary: Denies rash or wounds Neurologic Neurologic: Denies focal weakness, numbness or tingling Psychiatric Psychiatric: Denies anxiety, auditory hallucinations, depression, homicidal ideation or suicidal ideation Vital Signs Vital Signs Vital Signs: 04/07/25 15:25 04/07/25 15:25 04/07/25 16:25 Temperature 96.9 F L Temperature Source Temporal Pulse Rate 90 90 Pulse Rhythm Regular Pulse Strength Normal (2+) Respiratory Rate 14 14 Respiratory Effort Normal Non-Labored Respiratory Depth Normal Respiratory Pattern Normal Blood Pressure 103/42 L Blood Pressure Mean 62 Blood Pressure Source Monitor Blood Pressure Position Semi-Fowlers Blood Pressure Location Left Arm Pulse Ox 93 93 Oxygen Delivery Method Nasal Cannula Nasal Cannula Nasal Cannula Oxygen Flow Rate (L/min) 2 2 2 Weight Weight: 67.33 kg Body Mass Index (BMI) 29.0 Physical Exam Const alert General Appearance: cooperative HEENT normocephalic Eyes PERRL and EOMs intact bilaterally Neck supple, no JVD and no carotid bruits Resp normal respiratory effort, normal air movement and clear to auscultation bilaterally Cardio regular rate and regular rhythm GI normal to inspection, nondistended, normoactive bowel sounds, non-tender and non-distended Extremity normal capillary refill General Extremity: Negative for edema Skin no rashes or lesions noted General Skin Exam: no breakdown Neuro moves all extremities Neuro Narrative: Right sided neglect. Psych affect normal Appearance: appropriate Assessment & Plan Assessment/Plan (1) Debility: (2) T12 compression fracture: (3) Acute respiratory failure with hypoxia: (4) Pneumonia: (5) Hyponatremia: (6) Ileus: (7) CVA (cerebral vascular accident): (8) Allergic rhinitis: (9) Hyperlipidemia: (10) Essential (primary) hypertension: (11) COPD (chronic obstructive pulmonary disease): (12) Osteoporosis: (13) Carotid artery stenosis: (14) Tobacco abuse: PLAN: Plan 89 year old female with below past medical history hospitalized for T12 compression fracture, complicated by acute respiratory failure 2/2 pneumonia/copd exacerbation, hyponatremia, ileus, stroke s/p TNK, admitted to TCU with debility, here for rehabilitation, strengthening, prior to discharge home with son. * Debility - PT/OT. * Dysphagia - ST. * Pain - Tylenol 1000mg q8, Oxycodone 5mg q4 prn pain (4-10), Lidoderm 1 patch td daily. * Bowel - senna/colace 1 tablet bid, Magnesium citrate 300mL daily prn. * Adult immunization - Administer pneumonia vaccine, covid vaccine, flu vaccine as appropriate. * DVT prophylaxis - Lovenox 40mg sc daily. * Hypertension - Metoprolol 25mg bid, Hydralazine 50mg bid, Amlodipine 10mg daily. * Stroke s/p TNK - Aspirin 81mg daily, Plavix 75mg daily thru 04/19/2025, then Aspirin 81mg daily only. * Hyperlipidemia - Atorvastatin 80mg qhs, Lentner 3 1 gm daily. * Calcium deficiency - Calcium D 1 tablet daily. * COPD - Fluticasone/Salmeterol 1 puff q12, Incruse 1 puff daily, Prednisone 20mg daily. * Neuropathic pain - Gabapentin 100mg tidcm. * Glaucoma - Latanoprost 1gtt ou qhs. * Allergic rhinitis - Loratadine 10mg daily prn. * Skin irritation - Calmoseptine topical bid. * Macular degeneration - Healthy Eyes 1 cap bid. * Thrush - Nystatin 500,000 4x/day thru 04/17/2025. * Hypokalemia - KCL 40meq daily.
[2025-04-07] MEDS: 0.9% Saline Lock 10 ML Syringe IV (21:59)
[2025-04-07] MEDS: Acetaminophen 500 MG Tablet 1000 MG PO (22:08)
[2025-04-07] MEDS: NYSTATIN 500,000 UNIT/5 ML UDC 500000 UNIT PO (22:08)
[2025-04-07 22:09] VITALS: BP 123/56; PULSE 94
[2025-04-07] MEDS: Metoprolol Tartrate 25 MG Tablet PO (22:09)
[2025-04-07] MEDS: hydrALAZINE 50 MG Tablet PO (22:09)
[2025-04-07] MEDS: Atorvastatin Calcium 80 MG Tablet PO (22:09)
[2025-04-07] MEDS: Multivitamin (Healthy Eyes) Capsule 1 CAP PO (22:09)
[2025-04-07] MEDS: Latanoprost 0.005% 1 Bottle 1 DRP OPHTHALMIC (22:10)
[2025-04-07] MEDS: Fluticasone/Salmeterol 232-14 Inhaler 1 PUFF INHALATION (22:10)
[2025-04-07 22:25] VITALS: BP 123/56; PULSE 94
[2025-04-08] VITALS (8 sets, daily range): BP systolic 102–107; BP diastolic 49–83; PULSE 79–82; RESP 18; TEMP 36.6; O2SAT 92–94
[2025-04-08 06:10] LABS: Absolute Lymphocyte Count 0.84 X10^3/uL (0.83-4.51); Absolute Neutrophil Count 6.7 X10^3/uL (2.0-7.7); Basophil# 0.01 X10^3/uL; Basophil% 0.1 % (0-1); Eosinophil# 0.03 X10^3/uL; Eosinophils% 0.4 % (0-5); Lymphocyte # 0.84 X10^3/ul (0.83-4.51); Lymphocyte % 10.3 % (19-41); Mean Corp Hgb Conc 32.1 g/dL (32-36); Mean Corpuscular Hgb 28.9 pg (27.0-32.0); Mean Platelet Vol. 9.7 fl (6.2-12.0); Monocyte# 0.51 X10^3/uL; Monocyte% 6.2 % (0-10); NRBC Flagged by Analyzer 0.4 % (0-5); Neutrophil # 6.71 X10^3/uL (2.7-7.7); Platelet Count 288 K/mm3 (150-450); RBC Distribution Width CV 15.5 % (11.6-14.6); RBC Distribution Width SD 50.1 fl (35.1-43.9); Red Blood Count 3.11 M/mm3 (4.2-5.4); White Blood Count 8.2 K/mm3 (4.4-11.0)
--- NOTE | 2025-04-08 06:10 | NURSING ---
Spoke with patient's son, Rg, this morning. Son had questions and concerns regarding the patient's Chest XRAY yesterday. This nurse answered all questions/concerns, reported Chest XRAY results. Son would like patient to continue having breathing treatments, left written communication for Dr. Pat.
[2025-04-08 06:45] LABS: Anion Gap 11 (5-15); BUN 38 mg/dL (4-19); BUN/Creat Ratio 61.6 RATIO (10-20); Calcium,Total 9.1 mg/dL (7.6-11.0); Carbon Dioxide 30.5 mmol/L (21.0-32.0); Chloride 102 mmol/L (98-108); Creatinine, Serum 0.62 mg/dL (0.70-1.20); EST Glomerular Filtration Rate 86 (>60); Estimated Creatinine Clearance 42.42 ml/min (50-250); Glucose 95 mg/dL (70-99); Potassium 3.2 mmol/L (3.3-5.1); Sodium Level 143 mmol/L (133-145)
[2025-04-08] MEDS: Acetaminophen 500 MG Tablet 1000 MG PO ×3 (06:52→20:57)
[2025-04-08] MEDS: Gabapentin 100 MG Capsule PO ×3 (06:52→17:41)
[2025-04-08] MEDS: NYSTATIN 500,000 UNIT/5 ML UDC 500000 UNIT PO ×4 (06:53→20:57)
[2025-04-08] MEDS: Aspirin 81 MG TAB.CHEW PO (07:58)
[2025-04-08] MEDS: predniSONE 20 MG Tablet PO (07:59)
[2025-04-08] MEDS: Potassium Chloride Oral Tablet 20 MEQ 40 MEQ PO ×2 (07:59→17:42)
[2025-04-08] MEDS: Fluticasone/Salmeterol 232-14 Inhaler 1 PUFF INHALATION ×2 (08:00→20:59)
[2025-04-08] MEDS: Multivitamin (Healthy Eyes) Capsule 1 CAP PO ×2 (08:00→20:58)
[2025-04-08] MEDS: Umeclidinium Bromide Inhaler 1 PUFF INHALATION (08:00)
[2025-04-08] MEDS: Lidocaine 5% Patch 1 PATCH TOPICAL (08:01)
[2025-04-08] MEDS: Omega-3 Acid Ethyl Esters 1 GM Capsule PO (08:01)
[2025-04-08] MEDS: Calcium Carb/Vitamin D 1 TABLET Tablet PO (08:02)
[2025-04-08] MEDS: Clopidogrel Bisulfate 75 MG Tablet PO (08:02)
[2025-04-08] MEDS: Menthol/Lanolin/Calamine/Znox 113 GM Tube 1 APPLIC TOPICAL ×2 (08:15→20:58)
[2025-04-08 08:25] LABS: Iron 51 ug/dL (50-170); Iron Binding Capacity,Total 262 ug/dL (250-450); Iron Binding Capacity,Unsat 211 ug/dL (228-428)
--- NOTE | 2025-04-08 08:40 | NURSING ---
Potassium 3.[address] Pat increased K dur to twice daily.
[2025-04-08] MEDS: oxyCODONE 5 MG Tablet PO (09:18)
[2025-04-08] MEDS: amLODIPine 10 MG Tablet PO (10:06)
[2025-04-08] MEDS: Losartan Potassium 100 MG Tablet PO (10:06)
[2025-04-08] MEDS: Metoprolol Tartrate 25 MG Tablet PO ×2 (10:06→20:57)
[2025-04-08] MEDS: hydrALAZINE 50 MG Tablet PO (10:06)
[2025-04-08] MEDS: Senna/Docusate Sodium 1 Tablet PO ×2 (10:07→20:57)
[2025-04-08] MEDS: Tuberculin,Purif.prot.deriv. 50 TU/ML Vial 0.1 ML ID (10:09)
--- NOTE | 2025-04-08 10:16 | CASEMGMT ---
Social Work SW met with patient to complete initial assessment. Introduced self and role. Verified/updated contacts. Patient confirmed code status is DNR-CCA, no intubation. SW educated to Medicare benefit and copay coverage. Though, pt was exhibiting some cognitive impairment, and unsure how much of the insurance coverage pt comprehended. SW to follow up with son, who pt states is her HCPOA. SW will continue to follow for DC planning and support. Maribel Herring CLIENT SERVICES ASSISTANT RENAL CASE MANAGER
--- NOTE | 2025-04-08 13:20 | CPS ---
Called to room d/t increased need of O2. pt's fingers were hard to obtain a pulse ox reading, used toes and got 92%. Auscultated lungs, wet sounding t/o with fine crackles in BLL & RML, scattered rhonchi. aerosol not given d/t no wheezing. RN will call Dr Pat about possible x1 lasix dose and then reevaluate patient.
--- NOTE | 2025-04-08 13:38 | NURSING ---
Addendum entered by Zhen Laughlin 04/08/25 14:04: IV Lasix given. SpO2 checked, patient 95% on 5L NC. Patient's color has improved. Patient more alert. Will continue to monitor. Original Note: Patient sitting in dining area. Patient appearing unwell, pale in color, cool to touch, drowsy/lethargic. SpO2 at 80% on 3L via NC. Nursing was able to get patient up to 96% on 6L NC. VS: 97/43,68,18. LS rhonchi. RT called to assess patient, possible breathing TX. RT recommending IV Lasix. Call placed to Dr Pat with update. CXR results had been reviewed by Dr Pat previously. New order for Lasix 40mg IV x1. Nursing to reassess. VORB.
[2025-04-08] MEDS: 0.9% Saline Lock 10 ML Syringe IV (13:55)
[2025-04-08] MEDS: Furosemide 40 MG/4 ML Vial IV (13:55)
[2025-04-08] MEDS: Latanoprost 0.005% 1 Bottle 1 DRP OPHTHALMIC (20:57)
[2025-04-08] MEDS: Atorvastatin Calcium 80 MG Tablet PO (20:58)
[2025-04-09] VITALS (9 sets, daily range): BP systolic 120–157; BP diastolic 54–59; PULSE 60–85; RESP 17–20; TEMP 36.2; O2SAT 92–97
[2025-04-09] MEDS: NYSTATIN 500,000 UNIT/5 ML UDC 500000 UNIT PO ×4 (06:04→22:02)
[2025-04-09] MEDS: Acetaminophen 500 MG Tablet 1000 MG PO ×3 (06:04→22:03)
[2025-04-09 06:33] LABS: Anion Gap 11 (5-15); BUN 38 mg/dL (4-19); BUN/Creat Ratio 57.8 RATIO (10-20); Calcium,Total 9.2 mg/dL (7.6-11.0); Carbon Dioxide 26.8 mmol/L (21.0-32.0); Chloride 104 mmol/L (98-108); Creatinine, Serum 0.65 mg/dL (0.70-1.20); EST Glomerular Filtration Rate 85 (>60); Estimated Creatinine Clearance 42.42 ml/min (50-250); Glucose 102 mg/dL (70-99); Potassium 4.4 mmol/L (3.3-5.1); Sodium Level 141 mmol/L (133-145)
[2025-04-09] MEDS: Potassium Chloride Oral Tablet 20 MEQ 40 MEQ PO ×2 (08:36→17:19)
[2025-04-09] MEDS: Gabapentin 100 MG Capsule PO ×3 (08:36→17:20)
[2025-04-09] MEDS: hydrALAZINE 50 MG Tablet PO ×2 (08:37→21:50)
[2025-04-09] MEDS: Aspirin 81 MG TAB.CHEW PO (08:37)
[2025-04-09] MEDS: predniSONE 20 MG Tablet PO (08:37)
[2025-04-09] MEDS: Losartan Potassium 100 MG Tablet PO (08:38)
[2025-04-09] MEDS: Menthol/Lanolin/Calamine/Znox 113 GM Tube 1 APPLIC TOPICAL ×2 (08:38→21:56)
[2025-04-09] MEDS: Omega-3 Acid Ethyl Esters 1 GM Capsule PO (08:39)
[2025-04-09] MEDS: Lidocaine 5% Patch 1 PATCH TOPICAL (08:39)
[2025-04-09] MEDS: Multivitamin (Healthy Eyes) Capsule 1 CAP PO ×2 (08:39→22:00)
[2025-04-09] MEDS: Calcium Carb/Vitamin D 1 TABLET Tablet PO (08:39)
[2025-04-09] MEDS: Metoprolol Tartrate 25 MG Tablet PO ×2 (08:39→22:00)
[2025-04-09] MEDS: Clopidogrel Bisulfate 75 MG Tablet PO (08:40)
[2025-04-09] MEDS: Senna/Docusate Sodium 1 Tablet PO ×2 (08:40→22:02)
[2025-04-09] MEDS: amLODIPine 10 MG Tablet PO (08:43)
[2025-04-09] MEDS: Umeclidinium Bromide Inhaler 1 PUFF INHALATION (08:58)
[2025-04-09] MEDS: Ipratropium/Albuterol Sulfate 3 ML AMPUL.NEB INHALATION (09:30)
[2025-04-09] MEDS: Fluticasone/Salmeterol 232-14 Inhaler 1 PUFF INHALATION ×2 (11:21→21:57)
[2025-04-09] MEDS: 0.9% Saline Lock 10 ML Syringe IV (11:22)
[2025-04-09] MEDS: Ensure Plus High Protein 120 ML LIQUID PO ×2 (12:29→17:20)
[2025-04-09] MEDS: oxyCODONE 5 MG Tablet PO ×2 (18:48→23:13)
--- NOTE | 2025-04-09 19:32 | NURSING ---
Pt having increased moist cough with moderate amount of yellow sputum. Dr. Pat notified and new order for Chest X-ray and Sputum culture. Order read back.
--- NOTE | 2025-04-09 19:37 | RAD_ITS ---
PROCEDURE: CHEST PA AND LATERAL 04/09/2025 REASON FOR EXAM: PRODUCTIVE COUGH TECHNIQUE: Frontal and lateral views of the chest. COMPARISON: 04/07/2025 FINDINGS: Prior rib fracture on the left. Linear atelectasis in the left. No consolidation. RAD/Chest PA and Lateral IMPRESSION: No acute disease [facility]
[2025-04-09] MEDS: Atorvastatin Calcium 80 MG Tablet PO (22:00)
[2025-04-09] MEDS: Latanoprost 0.005% 1 Bottle 1 DRP OPHTHALMIC (22:04)
[2025-04-10] VITALS (8 sets, daily range): BP systolic 119–147; BP diastolic 49–68; PULSE 91–96; RESP 16–22; TEMP 36.3; O2SAT 92–99
[2025-04-10] MEDS: NYSTATIN 500,000 UNIT/5 ML UDC 500000 UNIT PO ×4 (05:41→21:49)
[2025-04-10] MEDS: Acetaminophen 500 MG Tablet 1000 MG PO ×3 (05:41→21:47)
[2025-04-10 05:49] LABS: Hematocrit 29.2 % (37-47)
[2025-04-10 06:16] LABS: Anion Gap 11 (5-15); BUN 34 mg/dL (4-19); Calcium,Total 9.4 mg/dL (7.6-11.0); Chloride 107 mmol/L (98-108); Creatinine, Serum 0.64 mg/dL (0.70-1.20); EST Glomerular Filtration Rate 86 (>60); Estimated Creatinine Clearance 42.42 ml/min (50-250); Glucose 110 mg/dL (70-99); Sodium Level 143 mmol/L (133-145)
[2025-04-10] MEDS: Gabapentin 100 MG Capsule PO ×2 (09:20→14:17)
[2025-04-10] MEDS: Ensure Plus High Protein 120 ML LIQUID PO ×3 (09:20→18:54)
[2025-04-10] MEDS: Aspirin 81 MG TAB.CHEW PO (09:24)
[2025-04-10] MEDS: oxyCODONE 5 MG Tablet PO ×3 (09:27→21:45)
[2025-04-10] MEDS: Potassium Chloride Oral Tablet 20 MEQ 40 MEQ PO (09:27)
[2025-04-10] MEDS: hydrALAZINE 50 MG Tablet PO ×2 (09:29→21:46)
[2025-04-10] MEDS: predniSONE 20 MG Tablet PO (09:29)
[2025-04-10] MEDS: Menthol/Lanolin/Calamine/Znox 113 GM Tube 1 APPLIC TOPICAL ×2 (09:30→21:49)
[2025-04-10] MEDS: Losartan Potassium 100 MG Tablet PO (09:31)
[2025-04-10] MEDS: Multivitamin (Healthy Eyes) Capsule 1 CAP PO ×2 (09:31→21:48)
[2025-04-10] MEDS: Fluticasone/Salmeterol 232-14 Inhaler 1 PUFF INHALATION ×2 (09:31→21:46)
[2025-04-10] MEDS: Lidocaine 5% Patch 1 PATCH TOPICAL (09:32)
[2025-04-10] MEDS: Umeclidinium Bromide Inhaler 1 PUFF INHALATION (09:32)
[2025-04-10] MEDS: amLODIPine 10 MG Tablet PO (09:33)
[2025-04-10] MEDS: Omega-3 Acid Ethyl Esters 1 GM Capsule PO (09:33)
[2025-04-10] MEDS: Metoprolol Tartrate 25 MG Tablet PO ×2 (09:33→21:47)
[2025-04-10] MEDS: Calcium Carb/Vitamin D 1 TABLET Tablet PO (09:34)
[2025-04-10] MEDS: Clopidogrel Bisulfate 75 MG Tablet PO (09:34)
[2025-04-10] MEDS: Senna/Docusate Sodium 1 Tablet PO ×2 (10:02→21:48)
--- NOTE | 2025-04-10 10:40 | NURSING ---
Polar care started on pt's back. Will continue to monitor.
[2025-04-10 11:58] LABS: Bacteria 0 SEEN /hpf (None Seen); Mucous, Urine 0 SEEN /hpf (<or=2+); Red Blood Cells-Urine 0 SEEN /hpf (0-5)
[2025-04-10 12:01] LABS: Color, Urine Yellow (Yellow); Glucose, Dipstick Normal (Normal); Ketone-Dipstick Negative (Negative); Leukocyte Esterase-Dipstick 100 /ul (Negative); Nitrite-Dipstick Negative (Negative); Occult Blood-Urine Negative /ul (Negative); Protein-Dipstick 30 mg/dl (Negative); Urine Bilirubin Dipstick Negative (Negative); Urine Clarity Clear (Clear); Urine Urobilinogen 1 mg/dl (Normal)
[2025-04-10 12:04] LABS: Absolute Lymphocyte Count 0.63 X10^3/uL (0.83-4.51); Absolute Neutrophil Count 10.1 X10^3/uL (2.0-7.7); Basophil# 0.02 X10^3/uL; Basophil% 0.2 % (0-1); Eosinophil# 0.01 X10^3/uL; Eosinophils% 0.1 % (0-5); Hematocrit 25.6 % (37-47); Hemoglobin 7.8 g/dL (12.0-15.0); Lymphocyte # 0.63 X10^3/ul (0.83-4.51); Lymphocyte % 5.6 % (19-41); Mean Corp Hgb Conc 30.5 g/dL (32-36); Mean Corpuscular Hgb 27.9 pg (27.0-32.0); Mean Corpuscular Volume 91.4 fL (81-99); Mean Platelet Vol. 9.6 fl (6.2-12.0); Monocyte# 0.35 X10^3/uL; Monocyte% 3.1 % (0-10); NRBC Flagged by Analyzer 0.6 % (0-5); Neutrophil # 10.07 X10^3/uL (2.7-7.7); Neutrophil % 89.3 % (47-70); Platelet Count 276 K/mm3 (150-450); RBC Distribution Width CV 16.1 % (11.6-14.6); RBC Distribution Width SD 52.9 fl (35.1-43.9); White Blood Count 11.3 K/mm3 (4.4-11.0)
[2025-04-10 12:14] LABS: White Blood Cells 5-10 SEEN /hpf (0-5)
[2025-04-10 12:15] LABS: Squamous Epithelial Cells - UA 0-5 SEEN /hpf (5-10)
--- NOTE | 2025-04-10 12:35 | NURSING ---
dr callahan notified of UA results and WBC, new order to start IV levaquin 750mg x7 days, recheck stool for occult
[2025-04-10 12:36] LABS: Anion Gap 10 (5-15); BUN 35 mg/dL (4-19); BUN/Creat Ratio 47.1 RATIO (10-20); Calcium,Total 9.1 mg/dL (7.6-11.0); Carbon Dioxide 24.1 mmol/L (21.0-32.0); Chloride 105 mmol/L (98-108); Creatinine, Serum 0.75 mg/dL (0.70-1.20); EST Glomerular Filtration Rate 78 (>60); Estimated Creatinine Clearance 42.42 ml/min (50-250); Glucose 123 mg/dL (70-99); Potassium 5.3 mmol/L (3.3-5.1); Sodium Level 140 mmol/L (133-145)
--- NOTE | 2025-04-10 12:47 | NURSING ---
dr callahan updated on elevated potassium & pt refusing to eat meals & only takes fluids with meds, new order to reduce kdur to 40meq daily, recheck labs in AM. Start 0.9 NS @ 75cc/hr for dehydration, elevated BUN 35
[2025-04-10] MEDS: levoFLOXacin IV 750 MG/150 ML BAG 100 MG IV (14:13)
[2025-04-10] MEDS: 0.9% Normal Saline (1000mL) 1,000 ML 75 ML IV (14:14)
[2025-04-10] MEDS: 0.9% Saline Lock 10 ML Syringe IV (14:14)
--- NOTE | 2025-04-10 14:38 | NURSING ---
farzana johnson updated on all orders and pt
--- NOTE | 2025-04-10 15:28 | PHA.CONS_ITS ---
Documented by User: Dianne Neil 04/10/25 16:02 TCU RX Drug Regimen Review Subjective/Objective Subjective/Objective Subjective: 89 YOF admitted to TCU 04/07/25 s/p hospitalization at [facility] for a fall resulting in a T12 compression fracture. Hospitalization further complicated by pneumonia, ileus, and a stroke requiring TNK administration. Admitted to TCU for strengthening and rehabilitation prior to discharge home where she resides with her son. Objective: Allergies amlodipine Adverse Reaction (Intermediate, Verified 03/19/25 08:47) Severe swelling in ankles with higher doses, able to take in small dose Penicillins (PCN) Adverse Reaction (Verified 03/19/25 08:47) diarrhea Current Medications Generic Name Dose Route Start Last Admin Trade Name Freq PRN Reason Stop Dose Admin Acetaminophen 1,000 mg 04/07/25 22:00 04/10/25 14:15 Acetaminophen 500 Mg Tablet PO 1,000 mg Q8 ROSELIA Administration Albuterol/Ipratropium 3 ml 04/08/25 08:00 04/09/25 09:30 Ipratropium/Albuterol Sulfate 3 Ml Ampul.Neb INHALATION 3 ml Q6HWA.RT PRN Administration DYSPNEA/WHEEZING/SOB Amlodipine Besylate 10 mg 04/08/25 10:00 04/10/25 09:33 Amlodipine 10 Mg Tablet PO 10 mg DAILY ROSELIA Administration Protocol Aspirin 81 mg 04/08/25 08:00 04/10/25 09:24 Aspirin 81 Mg Tab.Chew PO 81 mg BREAKFAST ROSELIA Administration Atorvastatin Calcium 80 mg 04/07/25 22:00 04/09/25 22:00 Atorvastatin Calcium 80 Mg Tablet PO 80 mg QHS ROSELIA Administration Calamine/Phenol 1 applic 04/07/25 22:00 04/10/25 09:30 Menthol/Lanolin/Calamine/Znox 113 Gm Tube TOPICAL 1 applic BID ROSELIA Administration Protocol Calcium/Vitamin D 1 tablet 04/08/25 10:00 04/10/25 09:34 Calcium Carb/Vitamin D 1 Tablet Tablet PO 1 tablet DAILY ROSELIA Administration Clopidogrel Bisulfate 75 mg 04/08/25 10:00 04/10/25 09:34 Clopidogrel Bisulfate 75 Mg Tablet PO 04/19/25 23:59 75 mg DAILY ROSELIA Administration Gabapentin 100 mg 04/07/25 17:45 04/10/25 14:17 Gabapentin 100 Mg Capsule PO 100 mg TIDCM ROSELIA Administration Hydralazine HCl 50 mg 04/07/25 22:00 04/10/25 09:29 Hydralazine 50 Mg Tablet PO 50 mg BID ROESLIA Administration Protocol Levofloxacin 750 mg in 150 mls @ 100 mls/hr 04/10/25 13:00 04/10/25 14:13 Levaquin Iv IV 04/17/25 13:01 100 mls/hr Q48@1000 ROSELIA Administration Sodium Chloride 1,000 mls @ 75 mls/hr 04/10/25 12:50 04/10/25 14:14 IV 75 mls/hr .[id number] ROSELIA Administration Sodium Chloride 250 mls @ 15 mls/hr 04/10/25 12:53 IV .[id number] PRN Saline Flush Sodium Chloride 250 mls @ 15 mls/hr 04/10/25 12:53 IV .[id number] PRN Additional IVPB Infusion Latanoprost 1 drp 04/07/25 22:00 04/09/25 22:04 Latanoprost 0.005% 1 Bottle OPHTHALMIC 1 applic QHS ROSELIA Administration Lidocaine 1 patch 04/08/25 10:00 04/10/25 09:32 Lidocaine 5% Patch TOPICAL 1 patch DAILY ROSELIA Administration Protocol Loratadine 10 mg 04/07/25 15:44 Loratadine 10 Mg Tablet PO DAILY PRN Allergies Losartan Potassium 100 mg 04/08/25 10:00 04/10/25 09:31 Losartan Potassium 100 Mg Tablet PO 100 mg DAILY ROSELIA Administration Magnesium Citrate 300 ml 04/07/25 20:25 Magnesium Citrate 300 Ml PO DAILY PRN Constipation Metoprolol Tartrate 25 mg 04/07/25 22:00 04/10/25 09:33 Metoprolol Tartrate 25 Mg Tablet PO 25 mg BID ROSELIA Administration Protocol Multivitamins/Minerals 1 cap 04/07/25 22:00 04/10/25 09:31 Multivitamin (Healthy Eyes) Capsule PO 1 cap BID ROSELIA Administration Nutritional Formula (Lactose Free) 120 ml 04/09/25 12:45 04/10/25 14:19 Ensure Plus High Protein 120 Ml Liquid PO 120 ml TIDCM ROSELIA Administration Nystatin 500,000 unit 04/07/25 22:00 04/10/25 14:15 Nystatin 500,000 Unit/5 Ml Udc PO 04/17/25 22:01 500,000 unit 4X/DAY ROSELIA Administration Utvre-6-Ujai Ethyl Esters 1 gm 04/08/25 10:00 04/10/25 09:33 Dorr-3 Acid Ethyl Esters 1 Gm Capsule PO 1 gm DAILY ROSELIA Administration Oxycodone HCl 5 mg 04/07/25 15:44 04/10/25 09:27 Oxycodone 5 Mg Tablet PO 5 mg Q4H PRN PRN Administration Pain Score 4-10 Potassium Chloride 40 meq 04/11/25 10:00 Potassium Chloride Oral Tablet 20 Meq PO DAILY ROSELIA Prednisone 20 mg 04/08/25 08:00 04/10/25 09:29 Prednisone 20 Mg Tablet PO 20 mg DAILYCM ROSELIA Administration Fluticasone/Salmeterol 1 puff 04/07/25 22:00 04/10/25 09:31 Fluticasone/Salmeterol 232-14 Inhaler INHALATION 1 puff Q12 ROSELIA Administration Senna/Docusate Sodium 1 tablet 04/07/25 22:00 04/10/25 10:02 Senna/Docusate Sodium 1 Tablet PO 1 tablet BID ROSELIA Administration Sodium Chloride 10 - 40 ml 04/07/25 16:18 04/10/25 14:14 0.9% Saline Lock 10 Ml Syringe IV 10 ml UD PRN Administration SALINE FLUSH Sodium Chloride 10 - 40 ml 04/10/25 12:53 0.9% Saline Lock 10 Ml Syringe IV UD PRN SALINE FLUSH Tuberculin PPD 0.1 ml 04/15/25 10:00 Tuberculin,Purif.Prot.Deriv. 50 Tu/Ml Vial ID 04/15/25 10:01 X1 ONE Umeclidinium [place] 1 puff 04/08/25 10:00 04/10/25 09:32 Umeclidinium [place] Inhaler INHALATION 1 puff DAILY ROSELIA Administration Problem List Carotid artery stenosis (Acute) COPD (chronic obstructive pulmonary disease) (Chronic) Essential (primary) hypertension (Acute) Hyperlipidemia (Acute) Allergic rhinitis (Acute) Acute respiratory failure with hypoxia (Acute) T12 compression fracture (Acute) Debility (Acute) CVA (cerebral vascular accident) (Acute) Pneumonia (Acute) Ileus (Acute) Osteoporosis (Acute) Hyponatremia (Acute) Tobacco abuse (Chronic) Vital Signs Temp Pulse Resp BP Pulse Ox O2 Del Method O2 Flow Rate 97.4 F L 91 18 147/68 H 93 Nasal Cannula 3 04/10/25 09:15 04/10/25 09:33 04/10/25 09:15 04/10/25 09:15 04/10/25 09:15 04/10/25 09:15 04/10/25 14:14 Oxygen Flow Rate (L/min) 3 Oxygen Delivery Method Nasal Cannula Weight: 67.33 kg Body Mass Index (BMI) 29.0 Sodium 140 mmol/L (133-145) 04/10/25 11:53 Potassium 5.3 mmol/L (3.3-5.1) H 04/10/25 11:53 Chloride 105 mmol/L (98-108) 04/10/25 11:53 Carbon Dioxide 24.1 mmol/L (21.0-32.0) 04/10/25 11:53 Anion Gap 10 (5-15) 04/10/25 11:53 BUN 35 mg/dL (4-19) H 04/10/25 11:53 Creatinine 0.75 mg/dL (0.70-1.20) 04/10/25 11:53 Est GFR (MDRD) Non-Af 78 (>60) 04/10/25 11:53 BUN/Creatinine Ratio 47.1 RATIO (10-20) H 04/10/25 11:53 Glucose 123 mg/dL (70-99) H 04/10/25 11:53 Assessment/Plan: 1. Tylenol 1000mg PO Q8h, Lidocaine patch topically Daily, Oxycodone 5mg PO Q4h PRN pain 4-10. Please continue to monitor for increased/decreased s/s pain, PRN medication satya, local skin irritation at lidocaine patch site, constipation/oversedation/respiratory depression with narcotic usage. -The patient has gotten 4 doses of Oxycodone for pain rated 7-8/10. Post- admin pain rate 0-4/10. Patient's pain appears managed at this time. 2. Stroke/HLD: Aspirin 81mg PO Daily, Plavix 75mg PO Daily, Lipitor 80mg PO QHS, Fish Oil 1g PO Daily. Please continue to monitor for S/S bleeding/bruising, lipid panel annually or sooner if clinically indicated (lipid panel WNL 03/31/25), H/H (hgb 7.8, hct 25.6 on 04/10), platelets (276 on 04/10). 3. HTN: Norvasc 10mg PO Daily, Hydralazine 50mg PO BID, losartan 100mg PO Daily, Lopressor 25mg PO BID. Please continue to monitor BP (last 147/68), pulse (last 91 BPM), lower extremity swelling, headache, dizziness. 4. COPD: Airduo 1 puff Q12h, incruse 1 puff daily, prednisone 20mg PO Daily, Duoneb nebulization Q6h PRN. Please continue to monitor for agitation, insomnia, BP, HR, thrush with ICS. 5. Thrush: Nystatin liquid 500,000 unit 4x/day thru 04/17. Please continue to monitor for resolution of infection, stomach upset. 6. Neuropathic Pain: Gabapentin 100mg PO TID. Please continue to monitor renal function (CrCl 42ml/min on 04/10), syncope, ataxia. This is a Beer's Criteria medication which can increase the risk of falls and fractures in the elderly. Please consider decreasing frequency to 100mg PO BID based on renal function and significant history of falls, thank you. 7. Allergic Rhinitis: Claritin 10mg PO Daily PRN. Please continue to monitor for medication effectiveness, PRN medication usage. If needing on a regular basis, please consider scheduling medication. 8. Hypokalemia: K-Dur 40mEq PO BID. Please continue to monitor potassium levels (Last K = 5.3), stomach upset, nausea. Patient's potassium level is elevated, please consider discontinuation of scheduled potassium, thank you. 9. Glaucoma: Xalatan 1 gtt QHS. 10. General Wellness: Os-Jim+D 1 tab PO Daily, MVI (healthy eyes) 1 tab PO Daily. 11. Skin Integrity: Calmoseptine topically BID. Please continue to monitor for s kin irritation/redness, ulcer formation. 12. Bowel: Senna/Docusate 1 tab PO BID, Magnesium Citrate 300mL PO daily PRN. Please continue to monitor for increased/decreased constipation/diarrhea. If mana rrhea develops, please discontinue scheduled bowel regimen. - The patient's last documented BM is 04/08/25. Assessment/Plan for indications treated with psychotropic medications: -N/A Medical chart and medication regimen reviewed. The following medication irregularities or issues were identified: 1. Gabapentin 100mg PO TID. This is a Beer's Criteria medication which can increase the risk of falls and fractures in the elderly. Please consider decreasing frequency to 100mg PO BID if clinically indicated based on renal function (CrCl 42mL/min) and significant history of falls, thank you. 2. Hypokalemia: K-Dur 40mEq PO BID. Patient's potassium level is elevated (5.3 on 04/10), please consider discontinuation of scheduled potassium, thank you. Date Date of Note: 04/10/25 Documented by User: Dr. Joel Pat MD 04/10/25 17:25 TCU RX Drug Regimen Review Provider Comments Provider responsibility Provider Comments to Recommendations by Pharmacy Agree
[2025-04-10] MEDS: Atorvastatin Calcium 80 MG Tablet PO (21:48)
[2025-04-10] MEDS: Latanoprost 0.005% 1 Bottle 1 DRP OPHTHALMIC (21:50)
[2025-04-10] MEDS: Ipratropium/Albuterol Sulfate 3 ML AMPUL.NEB INHALATION (22:08)
--- NOTE | 2025-04-11 01:44 | NURSING ---
THIS NURSE APPROACHED PATIENT DURING MEDICATION PASS 2129. THIS NURSE NOTICED PATIENTS OXYGEN WAS NOT ON 3L LIKE ORDER STATES. THIS NURSE IMMEDIATELY NOTIFIED RN, AND CHECKED PATIENTS O2 READING 78% . THIS NURSE AND RN PRECEDED TO APPLY 4L OF O2 TO PATIENT WHILE CAREFULLY WATCHING HER O2 STATUS, PATIENT'S O2 READING THEN CAME UP TO 92% ON 4L. THIS NURSE AND RN TITRATED HER O2 BACK DOWN TO 3L PER PATIENTS ORDER WHERE PATIENT REMAINED AT 92% . WILL CONTINUE TO MONITOR.
--- NOTE | 2025-04-11 04:07 | NURSING ---
Doing rounds, patient due to have another bag of fluids running at 75ml/hr. Patient noted to have 2+ pitting edema in hips. Placed fluid on hold. Message left for Dr. Pat.
[2025-04-11 04:45] VITALS: PULSE 75; RESP 32; O2SAT 96
[2025-04-11] MEDS: Ipratropium/Albuterol Sulfate 3 ML AMPUL.NEB INHALATION (04:45)
[2025-04-11 05:25] VITALS: PULSE 96; RESP 21; O2SAT 86
[2025-04-11 05:46] LABS: Absolute Lymphocyte Count 0.61 X10^3/uL (0.83-4.51); Absolute Neutrophil Count 3.7 X10^3/uL (2.0-7.7); Basophil# 0.03 X10^3/uL; Basophil% 0.7 % (0-1); Hematocrit 33.2 % (37-47); Hemoglobin 10.3 g/dL (12.0-15.0); Lymphocyte # 0.61 X10^3/ul (0.83-4.51); Lymphocyte % 13.5 % (19-41); Mean Corpuscular Hgb 28.5 pg (27.0-32.0); Mean Platelet Vol. 9.9 fl (6.2-12.0); Monocyte# 0.18 X10^3/uL; NRBC Flagged by Analyzer 4.4 % (0-5); Neutrophil # 3.66 X10^3/uL (2.7-7.7); Neutrophil % 80.9 % (47-70); Platelet Count 358 K/mm3 (150-450); RBC Distribution Width CV 16.8 % (11.6-14.6); RBC Distribution Width SD 53.1 fl (35.1-43.9); Red Blood Count 3.61 M/mm3 (4.2-5.4); White Blood Count 4.5 K/mm3 (4.4-11.0)
[2025-04-11 06:36] LABS: Anion Gap 14 (5-15); BUN 37 mg/dL (4-19); BUN/Creat Ratio 33.6 RATIO (10-20); Calcium,Total 8.9 mg/dL (7.6-11.0); Carbon Dioxide 18.3 mmol/L (21.0-32.0); Chloride 105 mmol/L (98-108); Creatinine, Serum 1.11 mg/dL (0.70-1.20); EST Glomerular Filtration Rate 48 (>60); Estimated Creatinine Clearance 30.57 ml/min (50-250); Glucose 165 mg/dL (70-99); Potassium 6.1 mmol/L (3.3-5.1); Sodium Level 138 mmol/L (133-145)
--- NOTE | 2025-04-11 06:41 | NURSING ---
Addendum entered by Fahad Rogel 04/11/25 07:37: Dr. Pat on unit, notified of patient sent to ED for stroke alert Original Note: Patient in ED for stroke alert, second RN receives critical K+ result from lab, This nurse contacts ED via phone, notifies of patient critical K+ 6.1, response: will pass along.
--- NOTE | 2025-04-11 06:54 | NURSING ---
This nurse entered room to give patient her 6am medications. Facial droop noted to left side. Asked patient if she could tell me where she was. She was able to tell me, but speech somewhat garbled. Patient unable to lift left arm. 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 Vital signs obtained, BP 131/112, P stroke alert called per 2nd RN on floor. Patient transported down to Emergency. Dr. Phelps called family. Patient to be kept comfortable. Patient continues to decline at this time.
--- NOTE | 2025-04-11 07:49 | DS.PCM_ITS ---
Providers Date of Admission: 04/07/25 Primary Care Physician: Dr. Khushi Balderrama MD Reason For Visit: BACK PAIN Diagnosis Discharge Diagnosis (1) Debility: Status: Acute Code(s): R53.81 - Other malaise (2) T12 compression fracture: Status: Acute Code(s): S22.080A - Wedge compression fracture of T11-T12 vertebra, initial encounter for closed fracture (3) Acute respiratory failure with hypoxia: Status: Acute Code(s): J96.01 - Acute respiratory failure with hypoxia (4) Pneumonia: Status: Acute Code(s): J18.9 - Pneumonia, unspecified organism (5) Hyponatremia: Status: Acute Code(s): E87.1 - Hypo-osmolality and hyponatremia (6) Ileus: Status: Acute Code(s): K56.7 - Ileus, unspecified (7) CVA (cerebral vascular accident): Status: Acute Code(s): I63.9 - Cerebral infarction, unspecified (8) Allergic rhinitis: Status: Acute Code(s): J30.9 - Allergic rhinitis, unspecified (9) Hyperlipidemia: Status: Acute Code(s): E78.5 - Hyperlipidemia, unspecified (10) Essential (primary) hypertension: Status: Acute Code(s): I10 - Essential (primary) hypertension (11) COPD (chronic obstructive pulmonary disease): Status: Chronic Code(s): J44.9 - Chronic obstructive pulmonary disease, unspecified (12) Osteoporosis: Status: Acute Code(s): M81.0 - Age-related osteoporosis without current pathological fracture (13) Carotid artery stenosis: Status: Acute Code(s): I65.29 - Occlusion and stenosis of unspecified carotid artery (14) Tobacco abuse: Status: Chronic Code(s): Z72.0 - Tobacco use Plan 89 year old female with below past medical history hospitalized for T12 compression fracture, complicated by acute respiratory failure 2/2 pneumonia/copd exacerbation, hyponatremia, ileus, stroke s/p TNK, admitted to TCU with debility, here for rehabilitation, strengthening, prior to discharge home with son. * Debility - PT/OT. * Dysphagia - ST. * Pain - Tylenol 1000mg q8, Oxycodone 5mg q4 prn pain (4-10), Lidoderm 1 patch td daily. * Bowel - senna/colace 1 tablet bid, Magnesium citrate 300mL daily prn. * Adult immunization - Administer pneumonia vaccine, covid vaccine, flu vaccine as appropriate. * DVT prophylaxis - Lovenox 40mg sc daily. * Hypertension - Metoprolol 25mg bid, Hydralazine 50mg bid, Amlodipine 10mg daily. * Stroke s/p TNK - Aspirin 81mg daily, Plavix 75mg daily thru 04/19/2025, then Aspirin 81mg daily only. * Hyperlipidemia - Atorvastatin 80mg qhs, [place] 3 1 gm daily. * Calcium deficiency - Calcium D 1 tablet daily. * COPD - Fluticasone/Salmeterol 1 puff q12, Incruse 1 puff daily, Prednisone 20mg daily. * Neuropathic pain - Gabapentin 100mg tidcm. * Glaucoma - Latanoprost 1gtt ou qhs. * Allergic rhinitis - Loratadine 10mg daily prn. * Skin irritation - Calmoseptine topical bid. * Macular degeneration - Healthy Eyes 1 cap bid. * Thrush - Nystatin 500,000 4x/day thru 04/17/2025. * Hypokalemia - KCL 40meq daily. Medications at Discharge Home Medications loratadine 10 mg tablet 10 mg PO DAILY PRN Allergies 04/21/14 omega-3 fatty acids 1,000 mg capsule (Fish Oil Concentrate) 1,000 mg PO DAILY FOLLOW-UP NEEDED 08/23/19 irbesartan 300 mg tablet 300 mg PO .AM HTN 12/31/21 budesonide 160 mcg-glycopyr 9 mcg-formot 4.8 mcg/actuation HFA inhaler 2 inh inhalation BID BREATHING 03/14/22 calcium 600 mg (as carbonate)-vitamin D3 20 mcg (800 unit) tablet (Caltrate with Vitamin D3) 1 tab PO DAILY FOLLOW-UP NEEDED 08/08/22 metoprolol tartrate 25 mg tablet 25 mg PO BID HTN 09/13/22 zoledronic acid 5 mg/100 mL in mannitol 5 %-water intravenous piggybck 1 ea IV .Qyear FOLLOW-UP NEEDED 09/13/22 hydralazine 50 mg tablet 50 mg PO BID FOLLOW-UP NEEDED 07/31/23 vit C 250 mg-vit E 90 mg-zinc 40 mg-copper 1 ar-pxqcyk-ulctrf capsule (PreserVision AREDS-2) 1 tab PO BID FOLLOW-UP NEEDED 07/31/23 calcium carbonate (Tums) 200 mg PO ONCE PRN dyspepsia 09/25/24 latanoprost 0.005 % eye drops 1 drp ophthalmic (eye) QDAY FOLLOW-UP NEEDED 09/25/24 lidocaine 5 % topical patch (Lidoderm) 1 patch topical DAILY pain #15 ea 01/12/25 clopidogrel 75 mg tablet 75 mg PO DAILY FOLLOW-UP NEEDED #1 TAB 01/16/25 prednisone 20 mg tablet 20 mg PO DAILY recently placed on this march 10 03/19/25 acetaminophen 500 mg tablet 1,000 mg (2 x 500 mg) PO Q8 pain 1-10 #0 tabs 04/07/25 amlodipine 10 mg tablet 10 mg PO DAILY BP #0 tabs 04/07/25 aspirin 81 mg chewable tablet 81 mg PO BREAKFAST blood thinner #0 tabs 04/07/25 atorvastatin 80 mg tablet 80 mg PO QHS cholesterol #0 tabs 04/07/25 enoxaparin 40 mg/0.4 mL subcutaneous syringe 40 mg (0.4 mL) subcut DAILY blood thinner #0 mL 04/07/25 gabapentin 100 mg capsule 100 mg PO TIDCM pain #0 caps 04/07/25 oxycodone 5 mg tablet 5 mg PO Q4H PRN PRN Pain Score 4-10 3 days #12 tabs 04/07/25 potassium chloride 20 mEq tablet,extended release(part/cryst) 40 meq (2 x 20 mEq) PO DAILYCM supplement #0 tabs 04/07/25 Hospital Course Operations None Procedures None Summary of Care Provided Minutes Spent on Discharge: 35 Hospital Course: 89 year old female with below past medical history hospitalized for T12 compression fracture, complicated by acute respiratory failure 2/2 pneumonia/copd exacerbation, hyponatremia, ileus, stroke s/p TNK, admitted to TCU with debility, here for rehabilitation, strengthening, prior to discharge home with son. 04/11/2025 06:41 Stroke Alert. Discharge to [facility] ED 04/11/2025 for evaluation, further care. Unfortunately, resident in ED. 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 Recommendations/ Rec liberalize or discontinue fluid restriction as Changes medically able. Continue ONS with meals as ordered Order 4 oz ensure plus high protein tid w/ medpass d/t decreased po intake Consider appetite stimulant to help encourage increased po intake at meal Weight / BMI Weight Weight: 67.33 kg Body Mass Index (BMI) 29.0 ABG / Lab / Microbiology Data 04/11/25 05:32 04/11/25 05:32 Laboratory: Laboratory Results - last 24 hr 04/10/25 11:45: Urine Color Yellow, Urine Clarity Clear, Urine pH 8.0, Ur Specific Evans 1.010, Urine Protein 30 H, Urine Glucose (UA) Normal, Urine Ketones Negative, Urine Occult Blood Negative, Urine Nitrite Negative, Urine Bilirubin Negative, Urine Urobilinogen 1 H, Ur Leukocyte Esterase 100 H, Urine RBC 0 SEEN, Urine WBC 5-10 SEEN, Ur Squamous Epith Cells 0-5 SEEN, Urine Bacteria 0 SEEN, Urine Mucus 0 SEEN 04/10/25 11:53: WBC 11.3 H, RBC 2.80 L, Hgb 7.8 L, Hct 25.6 L, MCV 91.4, MCH 27.9, MCHC 30.5 L, RDW Std Deviation 52.9 H, RDW Coeff of Osiel 16.1 H, Plt Count 276, MPV 9.6, Immature Gran % (Auto) 1.700 H, Neut % (Auto) 89.3 H, Lymph % (Auto) 5.6 L, Frio % (Auto) 3.1, Eos % (Auto) 0.1, Baso % (Auto) 0.2, Absolute Neuts (auto) 10.1 H, Absolute Lymphs (auto) 0.63 L, Nucleated RBC % 0.6, Sodium 140, Potassium 5.3 H, Chloride 105, Carbon Dioxide 24.1, Anion Gap 10, BUN 35 H, Creatinine 0.75, Estim Creat Clear Calc 42.42 L, Est GFR (MDRD) Non-Af 78, B UN/Creatinine Ratio 47.1 H, Glucose 123 H, Calcium 9.1 04/11/25 05:32: WBC 4.5, RBC 3.61 L, Hgb 10.3 L, Hct 33.2 L, MCV 92.0, MCH 28.5, MCHC 31.0 L, RDW Std Deviation 53.1 H, RDW Coeff of Osiel 16.8 H, Plt Count 358, MPV 9.9, Immature Gran % (Auto) 0.900, Neut % (Auto) 80.9 H, Lymph % (Auto) 13.5 L, Frio % (Auto) 4.0, Eos % (Auto) 0.0, Baso % (Auto) 0.7, Absolute Neuts (auto) 3.7, Absolute Lymphs (auto) 0.61 L, Nucleated RBC % 4.4, Sodium 138, Potassium 6.1 H*, Chloride 105, Carbon Dioxide 18.3 L, Anion Gap 14, BUN 37 H, Creatinine 1.11, Estim Creat Clear Calc 30.57 L, Est GFR (MDRD) Non-Af 48 L, BUN/Creatinine Ratio 33.6 H, Glucose 165 H, Calcium 8.9 Microbiology: Microbiology 04/09/25 07:40 Stool Stool Occult Blood (ASHER) - Final D/C Instructions Discharge Diet: No restrictions Discharge Activity: Return to Normal Activity Weight Bearing Status: Weight bearing as tolerated DC O2, CPAP, BIPAP Needs Home O2 Discharge instructions: No Additional Instructions: Discharge to [facility] ED 04/11/2025 for evaluation, further care. Please Follow Up With: Dr. Balderrama When: N/A. Meaningful Use Info Meaningful Use Meaningful Use Diagnoses (Choose all that apply): Ischemic CVA CVA Therapy Assessed for PT,OT and/or ST?: Yes Ischemic Stroke Antithrombotic order at d/c?: Yes Dx of Atrial fib/flutter?: No Statin Dosing Therapy Reference: STATIN DOSE THERAPY REFERENCE: * Patients > 75 years receive moderate or high dose statin therapy. * Patients 75 years or YOUNGER should receive HIGH intensity statin dose unless contraindicated. You will be required to document reason for non-treatment if statin daily dose does not meet guidelines. HIGH DOSE STATIN THERAPY DAILY Atorvastatin > than or = to 40 mg Rosuvastatin > than or = to 20 mg Amlodipine + Atorvastatin > than or = to 2.5/40 mg Ezetimibe + Simvastatin 10/80 mg Simvastatin 80mg Statins at discharge?: Yes Primary Dx Acute Ischemic CVA?: Yes IV thrombolytic ordered during stay?: Yes Discharge Plan Admission Admit Date/Time: 04/07/25 15:11 Primary Reason for Your Visit: Debility. Attending Provider: Joel Pat Chi Primary Care Provider: Khushi Balderrama Instructions Additional Instructions / Restrictions: Discharge to [facility] ED 04/11/2025 for evaluation, further care. Discharge Orders/Prescriptions Prescriptions: No Action omega-3 fatty acids [Fish Oil Concentrate] 1,000 mg capsule 1,000 mg PO DAILY poejcxilmi-pbvnixoz-tfoljjqrsk 160-9-4.8 mcg/actuation HFA aerosol inhaler 2 inh inhalation BID metoprolol tartrate 25 mg tablet 25 mg PO BID Patient Comments: hold for SBP<100, heart rate <60 hydralazine 50 mg tablet 50 mg PO BID Patient Comments: hold for SBP<100 PreserVision AREDS-2 250-90-40-1 mg capsule 1 tab PO BID latanoprost 0.005 % drops 1 drp ophthalmic (eye) QDAY calcium carbonate [Tums] 200 mg calcium (500 mg) tablet,chewable 200 mg PO ONCE PRN (Reason: dyspepsia) clopidogrel 75 mg tablet 75 mg PO DAILY Qty: 1 0RF loratadine 10 MG tablet 10 mg PO DAILY PRN (Reason: Allergies) zoledronic qokj-zlswtgxc-girih 5 mg/100 mL piggyback 1 ea IV .Qyear Patient Comments: ONCE PER YEAR calcium carbonate-vitamin D3 [Caltrate with Vitamin D3] 600 mg-20 mcg (800 unit) Tablet 1 tab PO DAILY lidocaine [Lidoderm] 5 % adhesive patch,medicated 1 patch topical DAILY Qty: 15 0RF Rx Instructions: leave on most painful area for up to 12 hrs prednisone 20 mg tablet 20 mg PO DAILY Patient Comments: started on mar 10 2025 acetaminophen 500 mg Tablet 1,000 mg PO Q8 Qty: 0 0RF amlodipine 10 mg Tablet 10 mg PO DAILY Qty: 0 0RF Patient Comments: Ok to hold for SBP<100 aspirin 81 mg Tablet,Chewable 81 mg PO BREAKFAST Qty: 0 0RF gabapentin 100 mg Capsule 100 mg PO TIDCM Qty: 0 0RF oxycodone 5 mg Tablet 5 mg PO Q4H PRN PRN (Reason: Pain Score 4-10) 3 Days Qty: 12 0RF enoxaparin 40 mg/0.4 mL Syringe 40 mg subcut DAILY Qty: 0 0RF atorvastatin 80 mg Tablet 80 mg PO QHS Qty: 0 0RF potassium chloride 20 mEq Tablet,Er Particles/Crystals 40 meq PO DAILYCM Qty: 0 0RF irbesartan 300 mg tablet 300 mg PO .AM Patient Comments: Hold for SBP<100 Referrals / Follow Up: Khushi Balderrama MD [Primary Care Provider] - Disposition Disposition (needs filled in before D/C Order can be placed):
--- NOTE | 2025-04-11 07:57 | NURSING ---
Call from Emergency department stating that patient had passed.
[2025-04-13 16:48] LABS: Bedside Glucose 160 mg/dL (74-106)
[2025-04-13 16:48] LABS: Bedside Glucose 155 mg/dL (74-106)
--- NOTE | 2025-04-17 10:23 | MDS.RN ---
Information for the MDS was obtained from review of the clinical record, interview of resident, staff, and direct observation of resident?s care.
== END 2025-04-11 07:43 | disposition short-term general hospital (02) | DRG 559 ==
PROVIDERS: Admitting Provider Family Medicine Geriatric Medicine; PCP Internal Medicine; Visit Provider Family Medicine Geriatric Medicine
DX: M80.08XD Age-related osteoporosis with current pathological fracture, vertebra(e), subsequent encounter for fracture with routine healing (principal); J15.1 Pneumonia due to Pseudomonas; E44.1 Mild protein-calorie malnutrition; E22.2 Syndrome of inappropriate secretion of antidiuretic hormone; J44.0 Chronic obstructive pulmonary disease with (acute) lower respiratory infection; K56.7 Ileus, unspecified; B37.0 Candidal stomatitis; I10 Essential (primary) hypertension; H35.30 Unspecified macular degeneration; E78.00 Pure hypercholesterolemia, unspecified; E87.6 Hypokalemia; G62.9 Polyneuropathy, unspecified; J30.9 Allergic rhinitis, unspecified; F17.210 Nicotine dependence, cigarettes, uncomplicated; H40.9 Unspecified glaucoma; Z79.899 Other long term (current) drug therapy; Z79.51 Long term (current) use of inhaled steroids; Z79.82 Long term (current) use of aspirin; Z79.02 Long term (current) use of antithrombotics/antiplatelets; Z68.29 Body mass index [BMI] 29.0-29.9, adult
CPT/HCPCS: 36415; 71046; 80048; 81001; 82274; 82962; 83540; 83550; 85014; 85018; 85025; 87070; 87077; 87086; 87088; 87186; 87205; 92507; 92523; 92526; 92611; 94640; 97110; 97162; 97166; 97530; 97535; 97802; A4216; J1938

== ENCOUNTER 2025-04-11 06:25 | Emergency (ER) | payer MEDICARE, OTHER, SELFPAY ==
[2025-04-11 06:26] VITALS: BP 108/67; PULSE 65; RESP 20; TEMP 35.6; O2SAT 95
--- NOTE | 2025-04-11 06:31 | EDS_ITS ---
HPI History of Present Illness Chief Complaint: Stroke Alert Detail of Chief Complaint: Stroke Informant: other (TCU nurse) Limited: coma Onset/Context/Timing Onset: Hours (Less than an hour) Context: Sudden Onset Timing: Continuous Onset: Last known well 4:30 AM Current Severity: Severe Maximum Severity: Severe Worsened by: Not applicable Relieved by: Nothing Associated Symptoms Associated Symptoms: Positive for - (GCS 4) Narrative Narrative: Patient is an 89-year-old woman. She presents as a stroke team from the TCU unit. She is nonverbal. She has Hang-Reese breathing. She opens her eyes to noxious stimuli. There is no verbal response and there is no motor response. Bruising through the medical records indicates patient is DNR comfort care arrest uncertain whether she is intubation or no intubation. Contacted her son Rg. Informed him that his mother has had a significant stroke and that he she is unresponsive. Confirmed that she was DNR Comfort Care arrest. Asked specifically regarding intubation since she will require intubation and potentially retrieval. He informed me that she has a no intubation. In light o f this discussed comfort care versus medical management. Patient will be comfort care. He is coming into see his mother. Prior similar symptoms: No Recent Illness/Hospitalization: Yes [facility] Medical History Macular degeneration Contact dermatitis due to plant Bilateral carotid artery stenosis Pure hypercholesterolemia Sinus bradycardia Tobacco abuse COPD (chronic obstructive pulmonary disease) Renal artery stenosis Osteoarthritis Osteoporosis Adrenal hyperplasia Home Medications ?Medication ?Instructions ?Recorded ?Last Taken ?Type loratadine 10 mg tablet 10 mg PO DAILY PRN Allergies 04/21/14 Unknown History omega-3 fatty acids 1,000 mg 1,000 mg PO DAILY FOLLOW- UP NEEDED 08/23/19 Unknown History capsule (Fish Oil Concentrate) irbesartan 300 mg tablet 300 mg PO .AM HTN 12/31/21 U nknown History budesonide 160 mcg-glycopyr 9 2 inh inhalation BID TWAN ATHING 03/14/22 Unknown History mcg-formot 4.8 mcg/actuation HFA inhaler calcium 600 mg (as 1 tab PO DAILY FOLLOW-UP NEE DED 08/08/22 Unknown History carbonate)-vitamin D3 20 mcg (800 unit) tablet (Caltrate with Vitamin D3) metoprolol tartrate 25 mg tablet 25 mg PO BID HTN 08/30 03/20 Unknown History zoledronic acid 5 mg/100 mL in 1 ea IV .Qyear FOLLOW-U P NEEDED 09/13/22 Unknown History mannitol 5 %-water intravenous piggybck hydralazine 50 mg tablet 50 mg PO BID FOLLOW-UP NEEDE D 07/31/23 Unknown History vit C 250 mg-vit E 90 mg-zinc 40 1 tab PO BID FOLLOW-U P NEEDED 07/31/23 Unknown History mg-copper 1 hv-ctjloq-rpkhxf capsule (PreserVision AREDS-2) calcium carbonate (Tums) 200 mg PO ONCE PRN dyspepsia 09/25/24 Unknown History latanoprost 0.005 % eye drops 1 drp ophthalmic (eye) Q DAY 09/25/24 Unknown History FOLLOW-UP NEEDED lidocaine 5 % topical patch 1 patch topical DAILY pain #15 ea 01/12/25 Unknown Rx (Lidoderm) clopidogrel 75 mg tablet 75 mg PO DAILY FOLLOW-UP NEE DED #1 01/16/25 Unknown Rx TAB prednisone 20 mg tablet 20 mg PO DAILY recently plac ed on 03/19/25 03/18/25 History this march 10 acetaminophen 500 mg tablet 1,000 mg (2 x 500 mg) PO Q 8 pain 04/07/25 Unknown Rx 1-10 #0 tabs amlodipine 10 mg tablet 10 mg PO DAILY BP #0 tabs Unknown Rx aspirin 81 mg chewable tablet 81 mg PO BREAKFAST blood thinner 04/07/25 Unknown Rx #0 tabs atorvastatin 80 mg tablet 80 mg PO QHS cholesterol #0 tabs 04/07/25 Unknown Rx enoxaparin 40 mg/0.4 mL 40 mg (0.4 mL) subcut DAILY blood 04/07/25 Unknown Rx subcutaneous syringe thinner #0 mL gabapentin 100 mg capsule 100 mg PO TIDCM pain #0 caps 04/07/25 Unknown Rx oxycodone 5 mg tablet 5 mg PO Q4H PRN PRN Pain Sco re 04/07/25 Unknown Rx 4-10 3 days #12 tabs potassium chloride 20 mEq 40 meq (2 x 20 mEq) PO DAILY CM 04/07/25 Unknown Rx tablet,extended release(part/cryst) supplement #0 tabs Allergy/AdvReac Type Severity Reaction Status Date / Time amlodipine AdvReac Intermediate Severe Verified 03/19/25 08:47 swelling in ankles Penicillins (PCN) AdvReac diarrhea Verified 03/19/25 08:47 Family History Mother CAD (coronary artery disease) Hypertension Brother Hypertension Presence of permanent cardiac pacemaker Brother Hypertension Father Hypertension Surgical History H/O carotid endarterectomy (~03/2024) History of YAG laser capsulotomy of lens of right eye History of tonsillectomy and adenoidectomy History of total hysterectomy Hx of cataract surgery H/O detached retina repair Social History household members: children and other details: Lives son Kwame, summertime, works 4a-6a, 4p-6p, works 14 hrs daily otherwise Smoking Status: Current every day smoker tobacco type: cigarettes alcohol intake: current alcohol intake frequency: 0-2 drinks per day Alcohol type: beer substance use type: does not use caffeine: Yes (occasionally) ROS ROS ED Review of Systems ROS Unobtainable: other Details: GCS 4 EXAM Physical Exam Const Vital Signs: 04/11/25 06:26 04/11/25 06:44 Temperature 96.0 F L Temperature Source Axillary Pulse Rate 65 Respiratory Rate 20 H Blood Pressure 108/67 108/67 Blood Pressure Mean 80 80 Pulse Ox 95 Oxygen Delivery Method Room Air Positive well nourished and well developed Constitutional Narrative: Patient is unresponsive with a GCS of 4. She is slouched to the right. Eyes are deviated downward into the right. General Appearance ED: well developed and NAD HEENT Reports moist mucous membranes Eyes Negative for EOMs intact bilaterally Eyes Narrative: Forced deviation to the right Neck no lymphadenopathy, supple and no JVD Chest Wall inspection of chest normal and palpation of chest normal Resp Resp Narrative: Bibasilar rales. 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 Extremity General Extremety ED: Negative for deformity General Extremity: Negative for deformity Neuro No oriented x3, No CN's II-XII intact bilaterally and No no sensory deficits noted Neuro Narrative: Patient does have bilateral Babinski sign. Valentina Coma Scale: document GCS findings To Pain None None 4 Sensorium / Orientation: Negative for alert Psych Psych Narrative: Unable to determine Skin Skin Narrative: She appears pale. MDM MDM MDM Narrative Medical decision making narrative: Patient clinically has extravagant stroke. He either has a right hemispheric ischemic stroke or hemorrhagic left hemispheric stroke. Based on discussion with son, Rg, patient was made DNR comfort care only and he will be into see her. DNR document was completed by me. Patient is DNR comfort care only. History & Record Review Additional record(s) reviewed:: Prior inpatient record and Prior outpatient record (TCU notes authored by Dr. Salas.) Discharge Plan Triage Chief Complaint: Stroke Alert ED Provider: Bradford Phelps Dx/Rx/DC Orders Clinical Impression: Acute stroke due to ischemia, Pure hypercholesterolemia, Essential (primary) hypertension, Carotid artery stenosis, COPD (chronic obstructive pulmonary disease), [place] coma scale total score 4 or 5, DNR (do not resuscitate) discussion, DNR no code (do not resuscitate) Prescriptions: No Action omega-3 fatty acids [Fish Oil Concentrate] 1,000 mg capsule 1,000 mg PO DAILY nsafjwhuvr-xpjgiiyf-kqvjwphzck 160-9-4.8 mcg/actuation HFA aerosol inhaler 2 inh inhalation BID metoprolol tartrate 25 mg tablet 25 mg PO BID Patient Comments: hold for SBP<100, heart rate <60 hydralazine 50 mg tablet 50 mg PO BID Patient Comments: hold for SBP<100 PreserVision AREDS-2 250-90-40-1 mg capsule 1 tab PO BID latanoprost 0.005 % drops 1 drp ophthalmic (eye) QDAY calcium carbonate [Tums] 200 mg calcium (500 mg) tablet,chewable 200 mg PO ONCE PRN (Reason: dyspepsia) clopidogrel 75 mg tablet 75 mg PO DAILY Qty: 1 0RF loratadine 10 MG tablet 10 mg PO DAILY PRN (Reason: Allergies) zoledronic phrx-xhhjbeco-ixaan 5 mg/100 mL piggyback 1 ea IV .Qyear Patient Comments: ONCE PER YEAR calcium carbonate-vitamin D3 [Caltrate with Vitamin D3] 600 mg-20 mcg (800 unit) Tablet 1 tab PO DAILY lidocaine [Lidoderm] 5 % adhesive patch,medicated 1 patch topical DAILY Qty: 15 0RF Rx Instructions: leave on most painful area for up to 12 hrs prednisone 20 mg tablet 20 mg PO DAILY Patient Comments: started on mar 10 2025 acetaminophen 500 mg Tablet 1,000 mg PO Q8 Qty: 0 0RF amlodipine 10 mg Tablet 10 mg PO DAILY Qty: 0 0RF Patient Comments: Ok to hold for SBP<100 aspirin 81 mg Tablet,Chewable 81 mg PO BREAKFAST Qty: 0 0RF gabapentin 100 mg Capsule 100 mg PO TIDCM Qty: 0 0RF oxycodone 5 mg Tablet 5 mg PO Q4H PRN PRN (Reason: Pain Score 4-10) 3 Days Qty: 12 0RF enoxaparin 40 mg/0.4 mL Syringe 40 mg subcut DAILY Qty: 0 0RF atorvastatin 80 mg Tablet 80 mg PO QHS Qty: 0 0RF potassium chloride 20 mEq Tablet,Er Particles/Crystals 40 meq PO DAILYCM Qty: 0 0RF irbesartan 300 mg tablet 300 mg PO .AM Patient Comments: Hold for SBP<100 Primary Care Provider: Khushi Balderrama Referrals: Khushi Balderrama MD [Primary Care Provider] - Print Language: Belarusian Disposition Disposition: Hospice in Medical Facility NIHSS NIHSS 1a. Level of Consciousness: 3 - Unresponsive 1b. LOC Questions: 2 - Answers NEITHER question correctly 1c. LOC Commands: 2 - Performs NEITHER task correctly 2. Best Gaze: 2 - Forced deviation, 3. Visual: 0 - No visual loss 4. Facial Palsy: 2 - Partial paralysis (total or near-total paralysis of lower face) 5a. Left Arm: 4 - No movement 5b. Right Arm: 4- No movement 6a. Left Le - No movement 6b. Right Le - No movement 7. Limb Ataxia: UN - Amputation or joint fusion, explain (Patient unresponsive unable to perform) Unable to perform since she is unresponsive with a GCS of 4 8. Sensory: 2 - Severe to total sensory loss; 9. Best Language: 3 - Mute, global aphasia; 11. Extinction and Inattention: 2 - Profound tayler-inattention or extinction to more than one modality; Total: 34 Stroke Questions Stroke Team Activated: Yes Reviewed Inclusion/Exclusion criteria: Yes Was Patient considered for Endovascular Intervention?: No IV Thrombolytic Administered: No No contraindications from thrombolytic administration: No (DNR comfort care)
[2025-04-11 06:32] VITALS: BMI 30.4
[2025-04-11 06:40] VITALS: BMI 30.4
[2025-04-11 06:44] VITALS: BP 108/67
--- NOTE | 2025-04-11 06:55 | ED.RN ---
0552 DR DEMPSEY SPOKE TO NITA PARKER AND MADE PT A COMFORT CARE.
[2025-04-11] MEDS: Lorazepam 2 MG/ML WCH Syringe 0.5 MG IV (07:34)
[2025-04-11] MEDS: Morphine 2 MG/ML Syringe IV (07:34)
== END 2025-04-11 11:09 ==
LOC: ED 06:51
PROVIDERS: Emergency Provider Emergency Medicine; PCP Internal Medicine; Visit Provider Emergency Medicine
DX: I63.9 Cerebral infarction, unspecified (principal); R40.2430 Glasgow coma scale score 3-8, unspecified time; J44.9 Chronic obstructive pulmonary disease, unspecified; I10 Essential (primary) hypertension; Z82.49 Family history of ischemic heart disease and other diseases of the circulatory system; Z90.710 Acquired absence of both cervix and uterus; E78.00 Pure hypercholesterolemia, unspecified; F17.210 Nicotine dependence, cigarettes, uncomplicated; Z66 Do not resuscitate; I65.29 Occlusion and stenosis of unspecified carotid artery
CPT/HCPCS: 96374; 96375; 99282; A4216